=== PATIENT | female | born 1990 | race American Indian/Alaskan Native ===

== ENCOUNTER → 2018-04-15 15:14 | Outpatient (CLI) | payer MEDICAID, SELFPAY ==
[2018-04-15 20:19] LABS: Chlamydia Trachomatis by PCR Negative (Negative); Neisserai gonorrhoeae by PCR Negative (Negative); Probe Check PASS; Sample Adequacy Control PASS; Specimen Processing Control PASS
== END ==
PROVIDERS: Referring Provider Nurse Practitioner Women's Health; Visit Provider Nurse Practitioner Women's Health
DX: N76.0 Acute vaginitis (principal)
CPT/HCPCS: 87070; 87205; 87491; 87591

== ENCOUNTER 2018-04-27 05:23 | Emergency (ER) | payer MEDICAID, SELFPAY ==
[2018-04-27 05:24] VITALS: BP 120/77; BP 142/69; PULSE 89; PULSE 96; RESP 18; TEMP 36.8; O2SAT 100; O2SAT 99; BMI 23.8
--- NOTE | 2018-04-27 05:30 | ED.VISSUMM ---
- ER Visit Summary Date of Service: 04/27/18 Chief Complaint: Acute anxiety History of Present Illness: The patient is a 27 F presents to the emergency department with severe anxiety is not on any medication for it. She states that she has been taking care of her 7-month-old child and the child has been teething and not sleeping as well. She states that the child's father works all day and has a difficult time helping at home with the child. She is also been told that she needs to find appropriate work within the next 2 weeks and she is very concerned about his and watch the child. She states that she does feel like she is having a difficult time coping with it. She is not suicidal. Is not homicidal. She denies any drug or alcohol use. She denies any thoughts of harming herself or the baby. Physical Examination: Vital signs reviewed General: Well-nourished, well-developed Head: Normocephalic, atraumatic Eyes: Pupils equal and reactive, extraocular muscles intact Neck, supple, no lymphadenopathy Heart: Regular rate and rhythm Respiratory: No distress, clear bilaterally Abdomen: Soft, nontender, nondistended, no peritoneal signs Back: Nontender Extremities: Nontender, no edema, no cords Skin: Normal color no rash Neuro: Alert and oriented, no focal or lateralizing deficits Test Results: [] Emergency Department Course and Treatment: The patient symptoms are consistent with an acute anxiety reaction. Her vitals are unremarkable. EKG was obtained which showed sinus rhythm without acute ischemia. Patient was given IM Ativan. On reevaluation, she is resting comfortably. She had improvement of her heart rate. She had no tachypnea. My suspicion for dangerous cause is very low. The patient was also requesting a refill of her betamethasone cream she does get contact dermatitis on her abdomen. This is done. She will be given a very short course of Ativan for symptom control and was counseled to follow-up with her primary care she may need a more long-acting medication. Patient be discharged home. Treatment Plan: [] Disposition: Discharge Impression: 1. Acute anxiety reaction This note was generated with [employer] software. It may contain incorrect words, spelling, and punctuation that were not noted in review of the chart prior to signing ED Disposition - Plan for ED Patient: Chief Complaint: Chest Pain Instructions: ED Stress React Prescriptions: Betamethasone/Propylene Glyc [Betamethasone Dp Aug 0.05% Crm] 1 applicatio TP Q8 #50 cream..g. Lorazepam [Ativan] 0.5 mg PO TID #10 tab Referrals: [facility] Doctor,Out of [Primary Care Provider] -
--- NOTE | 2018-04-27 05:33 | ED.DCSUM_ITS ---
- ER Visit Summary Date of Service: 04/27/18 Chief Complaint: Acute anxiety History of Present Illness: The patient is a 27 F presents to the emergency department with severe anxiety is not on any medication for it. She states that she has been taking care of her 7-month-old child and the child has been te ething and not sleeping as well. She states that the child's father works all day and has a difficult time helping at home with the child. She is also been told that she needs to find appropriate work within the next 2 weeks and she is very concerned about his and watch the child. She states that she does feel like she is having a difficult time coping with it. She is not suicidal. Is not homicidal. She denies any drug or alcohol use. She denies any thoughts of harming herself or the baby. Physical Examination: Vital signs reviewed General: Well-nourished, well-developed Head: Normocephalic, atraumatic Eyes: Pupils equal and reactive, extraocular muscles intact Neck, supple, no lymphadenopathy Heart: Regular rate and rhythm Respiratory: No distress, clear bilaterally Abdomen: Soft, nontender, nondistended, no peritoneal signs Back: Nontender Extremities: Nontender, no edema, no cords Skin: Normal color no rash Neuro: Alert and oriented, no focal or lateralizing deficits Test Results: [] Emergency Department Course and Treatment: The patient symptoms are consistent with an acute anxiety reaction. Her vitals are unremarkable. EKG was obtained which showed sinus rhythm without acute ischemia. Patient was given IM Ativan. On reevaluation, she is resting comfortably. She had improvement of her heart rate. She had no tachypnea. My suspicion for dangerous cause is very low. The patient was also requesting a refill of her betamethasone cream she does get contact dermatitis on her abdomen. This is done. She will be given a very short course of Ativan for symptom control and was counseled to follow-up with her primary care she may need a more long-acting medication. Patient be discharged home. Treatment Plan: [] Disposition: Discharge Impression: 1. Acute anxiety reaction This note was generated with [employer] software. It may contain incorrect words, spelling, and punctuation that were not noted in review of the chart prior to signing ED Disposition - Plan for ED Patient: Chief Complaint: Chest Pain Instructions: ED Stress React Prescriptions: Betamethasone/Propylene Glyc [Betamethasone Dp Aug 0.05% Crm] 1 applicatio TP Q8 #50 cream..g. Lorazepam [Ativan] 0.5 mg PO TID #10 tab Referrals: [facility] Doctor,Out of [Primary Care Provider] -
[2018-04-27] MEDS: LORazepam 2 MG/ML Syringe 1 MG IM (05:40)
--- NOTE | 2018-04-27 06:14 | EKG12_ITS ---
Test Reason : CP Blood Pressure : / mmHG Vent. Rate : 085 BPM Atrial Rate : 085 BPM P-R Int : 162 ms QRS Dur : 084 ms QT Int : 362 ms P-R-T Axes : 066 055 020 degrees QTc Int : 430 ms Normal sinus rhythm Normal ECG Confirmed by ANYA FELDER ([id number]), editorial specialist DELVIS ARRIOLA ([id number]) on 04/30/2018 8:37:12 AM Referred By: NIYA Confirmed By:ANYA FELDER
[2018-04-27 06:30] VITALS: BP 118/77; PULSE 66; RESP 16; O2SAT 100
== END 2018-04-27 06:33 | disposition home or self-care (01) ==
LOC: ED 05:57
PROVIDERS: Emergency Provider Emergency Medicine
DX: F41.1 Generalized anxiety disorder (principal); F43.0 Acute stress reaction
CPT/HCPCS: 93005; 99282

== ENCOUNTER 2018-05-05 21:03 | Emergency (ER) | payer MEDICAID, SELFPAY ==
[2018-05-05 21:03] VITALS: BP 142/90; PULSE 71; RESP 20; TEMP 36.7; O2SAT 99; BMI 23.9
[2018-05-05 21:09] VITALS: RESP 20
--- NOTE | 2018-05-05 21:25 | ED.VISSUMM ---
- ER Visit Summary Date of Service: 05/05/18 Chief Complaint: Anxiety History of Present Illness: The patient is a 27 F presenting with anxiety this is been ongoing for some time and it got worse tonight she was seen about a week ago for similar symptoms. She is trying to get into [facility] or anywhere else where she can get help. She has not tried behavioral health services yet. She has no suicidal ideation. She has no systemic complaints. Physical Examination: And is tearful. She appears somewhat anxious Moist mucous membranes, no obvious facial deformity No C-spine tenderness supple neck. Regular rate and rhythm without any obvious murmurs Clear lungs bilaterally speaking in full sentences without any obvious respiratory distress Abdomen soft and nontender no guarding or rebound Moves all extremities without any difficulty or pain. Skin does not show any obvious rashes or lesions, no trauma. Alert oriented ?3 with no gross focal deficit Emergency Department Course and Treatment: Treat the patient with Ativan here. She will be discharged to follow-up with behavioral health services. I gave her a booklet on this. Discharge stable condition Impression: Anxiety This note was generated with [employer] dictation software. It may contain incorrect words, spelling, and punctuation that were not noted in review of the chart prior to signing ED Disposition - Plan for ED Patient: Disposition: Home or Assisted Living Chief Complaint: Anxiety Instructions: ED Panic Attack Additional Instructions: Follow-up with behavioral health services.
--- NOTE | 2018-05-05 21:29 | ED.DCSUM_ITS ---
- ER Visit Summary Date of Service: 05/05/18 Chief Complaint: Anxiety History of Present Illness: The patient is a 27 F presenting with anxiety this is been ongoing for some time and it got worse tonight she was seen about a week ago for similar symptoms. She is trying to get into [facility] or anywh ere else where she can get help. She has not tried behavioral health services yet. She has no suicidal ideation. She has no systemic complaints. Physical Examination: And is tearful. She appears somewhat anxious Moist mucous membranes, no obvious facial deformity No C-spine tenderness supple neck. Regular rate and rhythm without any obvious murmurs Clear lungs bilaterally speaking in full sentences without any obvious respiratory distress Abdomen soft and nontender no guarding or rebound Moves all extremities without any difficulty or pain. Skin does not show any obvious rashes or lesions, no trauma. Alert oriented ?3 with no gross focal deficit Emergency Department Course and Treatment: Treat the patient with Ativan here. She will be discharged to follow-up with behavioral health services. I gave her a booklet on this. Discharge stable condition Impression: Anxiety This note was generated with [employer] dictation software. It may contain incorrect words, spelling, and punctuation that were not noted in review of the chart prior to signing ED Disposition - Plan for ED Patient: Disposition: Home or Assisted Living Chief Complaint: Anxiety Instructions: ED Panic Attack Additional Instructions: Follow-up with behavioral health services.
[2018-05-05] MEDS: LORazepam 1 MG Tablet PO (21:40)
[2018-05-05 21:41] VITALS: BP 121/73; PULSE 60; RESP 16; O2SAT 100
== END 2018-05-05 21:47 | disposition home or self-care (01) ==
PROVIDERS: Emergency Provider Emergency Medicine
DX: F41.9 Anxiety disorder, unspecified (principal)
CPT/HCPCS: 99282

== ENCOUNTER 2018-06-19 20:54 | Emergency (ER) | payer MEDICAID, SELFPAY ==
[2018-06-19 20:56] VITALS: BP 138/70; PULSE 81; RESP 18; TEMP 36.6; O2SAT 98; BMI 23.1
--- NOTE | 2018-06-19 23:50 | ED.VISSUMM ---
- ER Visit Summary Date of Service: 06/19/18 Chief Complaint: Dental pain History of Present Illness: The patient is a 27 F presenting with left-sided toothache. She states this has been ongoing for the past 3 days. She is on amoxicillin and Naprosyn. She states the swelling has increased in her left jaw. She denies fever or other complaints. She goes to [facility] for her dentist. Physical Examination: Vitals are stable. Patient is afebrile. Alert no acute distress. HEENT exam left lower molar tenderness, diffuse gum swelling. No sublingual edema. Mild left mandibular swelling. Neck is supple. Lungs are clear and equal bilaterally. Heart is regular rate and rhythm. Extremities are unremarkable. Skin is warm and dry. Remainder of exam is unremarkable. Emergency Department Course and Treatment: Attempted I&D with no pus return. She is given prescription for clindamycin and short course of Percocet. She is advised to follow-up with her dentist. Advised return to ED for worsening complaints. Disposition: Discharge home Impression: Odontalgia, facial swelling This note was generated with [employer] dictation software. It may contain incorrect words, spelling, and punctuation that were not noted in review of the chart prior to signing ED Disposition - Plan for ED Patient: Chief Complaint: Dental Referrals: Jj Valera MD [Primary Care Provider] -
--- NOTE | 2018-06-19 23:57 | ED.DCSUM_ITS ---
- ER Visit Summary Date of Service: 06/19/18 Chief Complaint: Dental pain History of Present Illness: The patient is a 27 F presenting with left-sided toothache. She states this has been ongoing for the past 3 days. She is on amoxicillin and Naprosyn. She states the swelling has increased in her left jaw . She denies fever or other complaints. She goes to [facility] for her dentist. Physical Examination: Vitals are stable. Patient is afebrile. Alert no acute distress. HEENT exam left lower molar tenderness, diffuse gum swelling. No sublingual edema. Mild left mandibular swelling. Neck is supple. Lungs are clear and equal bilaterally. Heart is regular rate and rhythm. Extremities are unremarkable. Skin is warm and dry. Remainder of exam is unremarkable. Emergency Department Course and Treatment: Attempted I&D with no pus return. She is given prescription for clindamycin and short course of Percocet. She is advised to follow-up with her dentist. Advised return to ED for worsening complaints. Disposition: Discharge home Impression: Odontalgia, facial swelling This note was generated with [employer] dictation software. It may contain incorrect words, spelling, and punctuation that were not noted in review of the chart prior to signing ED Disposition - Plan for ED Patient: Chief Complaint: Dental Referrals: Jj Valera MD [Primary Care Provider] -
--- NOTE | 2018-06-19 23:57 | ED.DEP ---
ED Disposition - Plan for ED Patient: Chief Complaint: Dental Instructions: ED Abscess Dental Prescriptions: Oxycodone HCl/Acetaminophen [Percocet 5/325] 1 tablet PO Q6H PRN PRN 3 Days #12 tablet PRN Reason: Pain Clindamycin [Cleocin] 300 mg PO 4X/DAY #80 capsule Referrals: Jj Valera MD [Primary Care Provider] - Janet Barroso [NON-STAFF] -
[2018-06-20 00:11] VITALS: BP 139/74; PULSE 82; RESP 16; O2SAT 98
[2018-06-20] MEDS: oxyCODONE 5 MG Tablet PO (00:13)
[2018-06-20] MEDS: Clindamycin HCl 150 MG Capsule 300 MG PO (00:13)
== END 2018-06-20 00:13 | disposition home or self-care (01) ==
PROVIDERS: Emergency Provider Emergency Medicine; Family Provider Family Medicine; PCP Family Medicine
DX: K08.89 Other specified disorders of teeth and supporting structures (principal); R22.0 Localized swelling, mass and lump, head
CPT/HCPCS: 41800; 99283

== ENCOUNTER 2018-06-29 11:27 | Emergency (ER) | payer MEDICAID, SELFPAY ==
[2018-06-29 11:28] VITALS: BP 137/75; PULSE 104; RESP 18; TEMP 37; O2SAT 97; BMI 23.5
--- NOTE | 2018-06-29 11:38 | ED.VISSUMM ---
- ER Visit Summary Date of Service: 06/29/18 Chief Complaint: Sore throat, myalgias History of Present Illness: The patient is a 27 F who is otherwise healthy presents with sore throat and myalgias. Symptoms began over the past 2 days. The patient states that her baby was sick at home. She states she developed symptoms 2 days later. She has had increasing sore throat. She has difficulty swallowing. She does think that she is had fevers. She is never had strep throat that she knows of. She did take Tylenol and Naprosyn with little improvement. She denies cough. She states that she did vomit twice. Physical Examination: Vital signs reviewed General: Well-nourished, well-developed Head: Normocephalic, atraumatic Eyes: Pupils equal and reactive, extraocular muscles intact ENT: Posterior oropharynx is widely patent. She has exudates on bilateral tonsils. Uvula midline. No evidence of retropharyngeal or peritonsillar abscess. No trismus. No stridor. Neck, supple, anterior lymphadenopathy Heart: Regular rate and rhythm Respiratory: No distress, clear bilaterally Abdomen: Soft, nontender, nondistended, no peritoneal signs Back: Nontender Extremities: Nontender, no edema, no cords Skin: Normal color no rash Neuro: Alert and oriented, no focal or lateralizing deficits Test Results: [] Emergency Department Course and Treatment: The patient states that she has had increasing sore throat with fevers and chills. She has exudative tonsillitis. There is no evidence of abscess. She is also had one bout of emesis. The patient is treated with Decadron, Augmentin, and analgesics. She was able to tolerate oral here. At this time, I do feel that she is safe for discharge. She will be continued on oral antibiotics. She was counseled on concerning symptoms and reasons to return. Treatment Plan: [] Disposition: Discharge Impression: Strep pharyngitis This note was generated with [employer] dictation software. It may contain incorrect words, spelling, and punctuation that were not noted in review of the chart prior to signing ED Disposition - Plan for ED Patient: Disposition: Home or Assisted Living Chief Complaint: General Illness Instructions: ED Strep Pharyngitis Conf Prescriptions: Hydrocodone Bitart/Apap 5-325 [[place] 5MG-325MG] 1 tab PO Q6H PRN PRN 2 Days #6 tab PRN Reason: Pain Ondansetron [Zofran Odt] 4 mg PO Q8H PRN PRN #10 tab PRN Reason: Nausea Amox/Clavulanate Tablet [Augmentin Tablet] 875 mg PO Q12H #20 tab Referrals: Jj Valera MD [Primary Care Provider] -
[2018-06-29] MEDS: HYDROCODONE/APAP 7.5-325/15ML 15 ML UDC PO (11:46)
[2018-06-29] MEDS: Ondansetron ODT 4 MG Tablet 8 MG PO (11:46)
[2018-06-29] MEDS: Amox/Clavulanate 875 MG Tablet PO (11:47)
[2018-06-29 12:18] VITALS: PULSE 100; RESP 16; O2SAT 99
== END 2018-06-29 12:19 | disposition home or self-care (01) ==
LOC: ED 12:07
PROVIDERS: Emergency Provider Emergency Medicine; Family Provider Family Medicine; PCP Family Medicine
DX: J02.0 Streptococcal pharyngitis (principal); F41.9 Anxiety disorder, unspecified; Z72.0 Tobacco use
CPT/HCPCS: 99283

== ENCOUNTER 2018-08-06 11:02 | Emergency (ER) | payer MEDICAID, SELFPAY ==
[2018-08-06 11:03] VITALS: BP 137/92; PULSE 109; RESP 26; TEMP 36.6; O2SAT 99; BMI 23.3
[2018-08-06] MEDS: LORazepam 2 MG/ML Syringe 1 MG IM (11:48)
--- NOTE | 2018-08-06 12:26 | ED.VISSUMM ---
- ER Visit Summary Date of Service: 08/06/18 Chief Complaint: [Anxiety] History of Present Illness: The patient is a 27 F [presents the emergency department complaint of anxiety that started around 10 AM this morning. Patient states that she woke up feeling very anxious and began feeling like her heart was racing. Patient began to feel like something bad was going to happen and she began feeling very shaky and then she became nauseated. Patient states that she is had increased anxiety for the last few months. Patient has had problems like this in the past and they attempted to use Atarax to help treat this unsuccessfully and that she had been on Paxil but after a week she could not tolerate it so she discontinued it. Patient has a appointment with her primary care physician in 3 days.] Physical Examination: [HEENT-PERRLA, EOMI. Cranial nerves II through XII grossly intact. TMs clear. Mucous membranes moist. No adenopathy. Cardiovascular-regular rate and rhythm without murmur or ectopy Lungs-clear to auscultation, chest wall stable without crepitus or subcu emphysema Abdomen-normoactive bowel sounds, soft, nontender, no rebound or rigidity, no peritoneal signs. Extremities-intact ?4, normal range of motion, normal pulses, atraumatic] Test Results: [None indicated] Emergency Department Course and Treatment: [Patient was given a milligram of Ativan IM. Patient felt dramatically improved. She no longer feels like her heart racing.] Treatment Plan: [Patient will be given a prescription for as needed Ativan and she is advised to keep her appointment with her primary care physician.] Disposition: [Discharged home in stable condition.] Impression: [Anxiety reaction/panic attack] This note was generated with [employer] dictation software. It may contain incorrect words, spelling, and punctuation that were not noted in review of the chart prior to signing ED Disposition - Plan for ED Patient: Referrals: Jj Valera MD [Primary Care Provider] -
--- NOTE | 2018-08-06 12:31 | ED.DCSUM_ITS ---
- ER Visit Summary Date of Service: 08/06/18 Chief Complaint: [Anxiety] History of Present Illness: The patient is a 27 F [presents the emergency department complaint of anxiety that started around 10 AM this morning. Patient states that she woke up feeling very anxious and began feeling like her heart was racing. Patient began to feel like something bad was going to happen and she began feeling very shaky and then she became nauseated. Patient states that she is had increased anxiety for the last few months. Patient has had problems like this in the past and they attempted to use Atarax to help treat this unsuccessfully and that she had been on Paxil but after a week she could not tolerate it so she discontinued it. Patient has a appointment with her primary care physician in 3 days.] Physical Examination: [HEENT-PERRLA, EOMI. Cranial nerves II through XII grossly intact. TMs clear. Mucous membranes moist. No adenopathy. Cardiovascular-regular rate and rhythm without murmur or ectopy Lungs-clear to auscultation, chest wall stable without crepitus or subcu em physema Abdomen-normoactive bowel sounds, soft, nontender, no rebound or rigidity, no peritoneal signs. Extremities-intact ?4, normal range of motion, normal pulses, atraumatic] Test Results: [None indicated] Emergency Department Course and Treatment: [Patient was given a milligram of Ativan IM. Patient felt dramatically improved. She no longer feels like her heart racing.] Treatment Plan: [Patient will be given a prescription for as needed Ativan and she is advised to keep her appointment with her primary care physician.] Disposition: [Discharged home in stable condition.] Impression: [Anxiety reaction/panic attack] This note was generated with [employer] dictation software. It may contain incorrect words, spelling, and punctuation that were not noted in review of the chart prior to signing ED Disposition - Plan for ED Patient: Referrals: Jj Valera MD [Primary Care Provider] -
--- NOTE | 2018-08-06 12:31 | ED.DEP ---
ED Disposition - Plan for ED Patient: Instructions: ED Panic Attack, ED Stress React Prescriptions: Lorazepam [Ativan] 1 mg PO TID PRN #10 tab PRN Reason: Anxiety Referrals: Jj Valera MD [Primary Care Provider] - 3-5 Days
--- NOTE | 2018-08-06 13:00 | CM.ED ---
SOCIAL WORK NOTE REFERRAL DATE: 08/06/18 INFORMANT: SELF REFERRAL REASON FOR CONSULT: ANXIETY MET WITH PT AT BEDSIDE. INTRODUCED ROLE AND REASON FOR REFERRAL. PATIENT SITTING UP IN BED WAITING TO BE DISCHARGED. PATIENT STATES HX OF ANXIETY AND STATES HAS BEEN PRESCRIBED MEDICATIONS IN THE PAST. PATIENT REPORTS GOOD COPING SKILLS WHEN FEELING ANXIOUS SUCH WORKING OUT OR TAKING A BATH. PATIENT STATES TODAY THE ANXIETY WAS TOO MUCH AND NEEDED TO BE SEEN. PATIENT STATES HAS INTAKE APPOINTMENT SCHEDULED WITH [facility] FOR NEXT WEEK. PATIENT STATES HAS HAD ISSUES WITH TRANSPORTATION AND FINDING SITTER FOR HER CHILD SO HAS HAD TO RESCHEDULE APPOINTMENT SEVERAL TIMES. PATIENT STATES SHE AND BOYFRIEND DO NOT CURRENTLY HAVE A CAR. PATIENT STATES RELIES ON FRIENDS AND FAMILY FOR TRANSPORT NEEDS. PATIENT STATES GOOD SUPPORT FROM BOYFRIEND, KIRSTEN PRETTYWEASEL. PATIENT DENIES ANY FURTHER NEEDS. UPDATED PT'S NURSE ON THE ABOVE. INTERVENTIONS: VERIFIED MENTAL HEALTH SERVICES IN PLACE FOR PT. PLAN: D/C HOME BEFORE SANYA LYLES, REFUSE COLLECTOR, DIRECTOR SAFETY COUNCIL.
[2018-08-06 13:16] VITALS: BP 127/69; PULSE 76; RESP 17; O2SAT 99
--- NOTE | 2018-08-06 13:16 | ED.RN ---
DISCHARGE INSTRUCTIONS GIVEN TO AND REVIEWED WITH PATIENT, PATIENT DENIES QUESTIONS OR CONCERNS AND VOICES UNDERSTANDING OF DISCHARGE INSTRUCTIONS. PT AMBULATES OUT OF ROOM WITHOUT DIFFICULTY.
== END 2018-08-06 13:20 | disposition home or self-care (01) ==
LOC: ED 12:13
PROVIDERS: Emergency Provider Emergency Medicine; Family Provider Family Medicine; PCP Family Medicine
DX: F41.1 Generalized anxiety disorder (principal)
CPT/HCPCS: 96372; 99282

== ENCOUNTER 2019-02-20 14:55 | Emergency (ER) | payer SELFPAY ==
[2019-02-20 14:56] VITALS: BP 121/68; PULSE 66; RESP 14; TEMP 35.8; O2SAT 99; BMI 21.2
== END 2019-02-20 16:19 | disposition left against medical advice (07) ==
PROVIDERS: Emergency Provider Emergency Medicine; Family Provider Family Medicine; PCP Family Medicine
DX: R69 Illness, unspecified (principal); Z53.21 Procedure and treatment not carried out due to patient leaving prior to being seen by health care provider

== ENCOUNTER 2019-07-23 17:45 | Outpatient (CLI) | payer MEDICAID, SELFPAY ==
[2019-07-23 18:18] VITALS: BMI 23.4
[2019-07-23 19:04] LABS: Hematocrit 34.4 % (37-47); Hemoglobin 11.5 g/dL (12.0-15.0); Mean Corp Hgb Conc 33.4 g/dL (32-36); Mean Corpuscular Hgb 31.3 pg (27.0-32.0); Mean Corpuscular Volume 93.5 fL (81-99); Mean Platelet Vol. 9.7 fl (6.2-12.0); Platelet Count 202 K/mm3 (150-450); RBC Distribution Width CV 12.3 % (11.6-14.6); RBC Distribution Width SD 42.3 fl (35.1-43.9); Red Blood Count 3.68 M/mm3 (4.2-5.4); White Blood Count 10.5 K/mm3 (4.4-11.0)
[2019-07-23 19:17] LABS: Fibrinogen 418 mg/dl (203-444)
--- NOTE | 2019-07-23 20:59 | OB.TRI.NOTE ---
- Problem List (1) 32 weeks gestation of Status: Acute (2) Fall Status: Acute (3) Abdominal pain affecting Status: Acute History of Present Illness Date of Service: 07/23/19 Was patient seen by the physician?: Yes Reason For Visit: FALL Final JAY Source: LMP Gestational age: 32 w 4 d History of Present Illness: Is a 28-year-old at 32 weeks and 4 days who presents after fall. She said she fell onto her right side, and her hand hit the ground first followed by the right side of her abdomen. She did not hit her head. No bleeding or leaking of fluid. She is having right-sided abdominal pain. No contractions. Good movement. Allergies ibuprofen Adverse Reaction (Verified 07/23/19 18:21) Upset Stomach - Pertinent Past Medical History Medical History: Past Medical History (Last Updated 07/23/19 @ 21:01 by Caitlin Villalobos DO) Cerebral palsy Surgical History: Past Surgical History (Last Updated 07/23/19 @ 21:01 by Caitlin Villalobos DO) History of section Cholecystectomy planned Laboratory Studies: Laboratory Tests 07/23/19 07/23/19 07/23/19 Range/Units 18:52 18:52 18:52 WBC 10.5 (4.4-11.0) K/mm3 RBC 3.68 L (4.2-5.4) M/mm3 Hgb 11.5 L (12.0-15.0) g/dL Hct 34.4 L (37-47) % MCV 93.5 (81-99) fL MCH 31.3 (27.0-32.0) pg MCHC 33.4 (32-36) g/dL RDW Std Deviation 42.3 (35.1-43.9) fl RDW Coeff of Bj 12.3 (11.6-14.6) % Plt Count 202 (150-450) K/mm3 MPV 9.7 (6.2-12.0) fl Fibrinogen 418 (203-444) mg/dl Blood Type O POSITIVE Antibody Screen NEGATIVE Review of Systems Gynecological: Denies: Vaginal bleeding Physical Exam General: Alert, No apparent distress HEENT: Atraumatic Abdomen: Soft, Non Tender, Gravid Extremities:: No edema Neurological: Neuro grossly intact NST - FHR Rate Baby A Baseline: 130 Variability:: Moderate Accelerations:: 15 x 15 Decelerations:: None NST Reactive:: Yes Uterine Activity:: Occasional ctx's Impression/Plan - Abruption labs WNL - Positive blood type - Abd exam unremarkable - Monitor for 4 hours after fall, FHT reactive and reassuring - Pt has had no care - Will get her established in our office and discussed importance of routine care - Reviewed return precautions
== END 2019-07-23 21:55 | disposition home health service (06) ==
LOC: WPOUT 18:00 → WP 18:01
PROVIDERS: PCP Family Medicine; Visit Provider Obstetrics & Gynecology
DX: O26.893 Other specified pregnancy related conditions, third trimester (principal); R10.9 Unspecified abdominal pain; Z3A.32 32 weeks gestation of pregnancy
CPT/HCPCS: 59025; 59050; 85027; 85384; 86850; 86900; 86901; 99218; G0378

== ENCOUNTER 2019-08-03 12:20 | Emergency (ER) | payer MEDICAID, SELFPAY ==
[2019-08-03 12:22] VITALS: BP 108/70; PULSE 96; RESP 17; TEMP 36.4; O2SAT 97; BMI 24.4
--- NOTE | 2019-08-03 12:38 | ED.DCSUM_ITS ---
- ER Visit Summary Date of Service: 08/03/19 Chief Complaint: Left lower jaw dental pain History of Present Illness: The patient is a 28 F with a 34 weeks due had a the first week of August. Basically she had dental pain left lower jaw for 2 to 3 days. No fever. Has been using Tylenol for pain. Physical Examination: Young female no acute distress. Vital signs stable afebrile. H EENT exam unremarkable except left lower molar tender to palpation. No significant swelling or abscess. No facial swelling. No trismus. Neck nontender no lymphadenopathy. Lungs clear to auscultation. Heart regular rhythm no murmur. Abdomen soft nontender. Gravid uterus. Nontender. Moving all 4 extremities. No edema. Neurologically awake alert. Test Results: None Emergency Department Course and Treatment: Patient with left lower molar dental pain. Will place on Pen-Vee K. She and I discussed medications. She reportedly cannot take ibuprofen. He is also currently . I told her to continue using Tylenol. I did explain to her that I did not think narcotics were appropriate especially when she is . Treatment Plan: Pen-Vee K. Follow-up with a dentist. Disposition: Discharge Impression: Left lower molar dental pain R/o dental Abscess Third trimester . This note was generated with Greenbox dictation software. It may contain incorrect words, spelling, and punctuation that were not noted in review of the chart prior to signing ED Disposition - Plan for ED Patient: Referrals: Jj Valera MD [Primary Care Provider] -
--- NOTE | 2019-08-03 12:41 | ED.DEP ---
ED Disposition - Plan for ED Patient: Disposition: Home or Assisted Living Instructions: Dental Abscess Prescriptions: Penicillin Vk [Pen-Vee K , V-Cillin K] 250 mg PO 4X/DAY #30 tab Prescription Printed Referrals: Jj Valera MD [Primary Care Provider] - As Needed Additional Instructions: Tylenol for pain. Penicillin 4 times a day. Follow-up with a dentist.
--- NOTE | 2019-08-03 13:06 | ED.RN ---
REVIEWED D/C INSTRUCTIONS, FOLLOW UP CARE, PRESCRIPTION, AND S/S THAT WOULD WARRANT A RETURN TO THE ED WITH PT. PT VERBALIZED AN UNDERSTANDING AND DENIES FURTHER QUESTIONS FOR THIS RN. PT SKIN WARM AND DRY, RESP EVEN AND UNLABORED, PT A&O X 3, NO DISTRESS NOTED. PT AMBULATED OUT OF ED, GAIT STEADY.
== END 2019-08-03 13:07 | disposition home or self-care (01) ==
LOC: ED 12:57
PROVIDERS: Emergency Provider Emergency Medicine; PCP Family Medicine
DX: K08.89 Other specified disorders of teeth and supporting structures (principal); O99.613 Diseases of the digestive system complicating pregnancy, third trimester; Z3A.34 34 weeks gestation of pregnancy
CPT/HCPCS: 99282

== ENCOUNTER → 2019-08-13 16:17 | Outpatient (CLI) | payer MEDICAID, SELFPAY ==
[2019-08-03 12:22] VITALS: BMI 24.4
--- NOTE | 2019-08-13 16:36 | VDLE_ITS ---
Reason For Study: Swelling/Pain RIGHT LEFT CFV is compressible, spontaneous, phasic, GSV is normal. competent and demonstrates normal CFV is compressible, spontaneous, phasic, augmentation. competent, and demonstrates normal Procedure augmentation. Exam performed in department. FV is compressible, spontaneous, phasic, A preliminary report was called and/or faxed competent and demonstrates normal to Dr. Cardona. augmentation. POP V is compressible, spontaneous, phasic, competent and demonstrates normal augmentation. T/P Trunk is compressible. PTV is compressible. LT PerV is compressible. Interpretation Summary There is no evidence of left lower extremity deep vein thrombosis. Left great saphenous vein appears patent and compressible segmentally. Patent and compressible right common femoral vein Ordering Physician: Maira Cardona Referring Physician: Jj Valera Performed By: Deana Davis RDCS, RVT
== END ==
PROVIDERS: PCP Family Medicine; Referring Provider Obstetrics & Gynecology; Visit Provider Obstetrics & Gynecology
DX: O12.03 Gestational edema, third trimester (principal); M79.605 Pain in left leg; Z3A.00 Weeks of gestation of pregnancy not specified
CPT/HCPCS: 93971

== ENCOUNTER 2019-09-05 05:25 | Inpatient (IN) | payer MEDICAID, SELFPAY ==
--- NOTE | 2019-09-04 13:25 | PCM.HP.BLA ---
History and Physical Date of Admission: 09/05/19 Caesar Thompson is a 28 year old female who presents for pre op for scheduled repeat cs- pt denies CP, SOB, dizziness. Pt offers no other concerns today. - scheduled 39 weeks repeat cs ? PAST MEDICAL HISTORY PAST MEDICAL HISTORY Diagnosis Date ? Anxiety ? ? Infantile cerebral palsy, unspecified 10/16/2006 ? Other specified infantile cerebral palsy ? ? depression ? ? PAST SURGICAL HISTORY PAST SURGICAL HISTORY Procedure Laterality Date ? SECTION HX ? ? ? LAP CHOLECYSTECT/CHOLANGIOGRAPHY ? 09-09-12 ? FAMILY HISTORY FAMILY HISTORY Problem Relation Age of Onset ? Coronary Artery Disease Mother 50 ? Arthritis Mother ? ? Psychiatry Mother ? ? PTSD ? other (degenerative disc disease) Mother ? ? other (anxiety) Mother ? ? Psychiatry Father ? ? anxiety/OCD ? Diabetes Maternal Aunt ? ? No Known Problems Brother ? ? No Known Problems Son ? ? SOCIAL HISTORY Social History ? Tobacco Use ? Smoking status: Never Smoker ? Smokeless tobacco: Never Used Substance Use Topics ? Alcohol use: Not Currently ? ? Comment: occasionally ? Drug use: No ? CURRENT MEDICATIONS Current Outpatient Medications Medication Sig ? betamethasone dipropionate, augmented (DIPROLENE) 0.05 % cream Apply 1 application to affected area twice daily as needed. ? acetaminophen (TYLENOL EXTRA STRENGTH) 500 mg tablet Take 1 tablet by mouth every 6 hours as needed for Pain. ? PNV no.95/ferrous fum/folic ac ( ORAL) Take by mouth. ? No current facility-administered medications for this visit. ? Allergies As of Date: 09/02/2019 Allergen Noted Reaction IBUPROFEN 09/21/2006 Intolerance and GI Upset ? Fully Assessed 09/02/2019 ? ? REVIEW OF SYSTEMS Abdomen: No abdominal pain, nausea, vomiting, diarrhea, or constipation. Bladder: no dysuria.. Expanded ROS: GENERAL: Negative for fever Allergies and current medication updated:Yes ? EXAM: BP 108/64 Wt 175 lb (79.4kg) LMP 12/06/2018 ? GENERAL: pleasant, female in no apparent distress HEENT: Normocephalic and atraumatic NECK: full range of motion DERMATOLOGY: Normal, without lesions, non-icteric and non-hirsute ABDOMEN: soft, non-tender and gravid NEURO: alert and oriented x3,exam grossly non-focal EXTREMITIES: normal ? ASSESSMENT AND PLAN: Encounter Diagnosis ? ? ICD-10-CM ? 1. Visit for screening Z36.9 URINE OB DIP B/O 2. 38 weeks gestation of Z3A.38 URINE OB DIP B/O ? 3. Pt has been counseled on risks/benefits and alternatives of surgery including but not limited to anesthesia, bleeding, infection, injury to pelvic structures including bowel, bladder, ureters and vessels. Pt wishes to proceed with surgery at this time. 4. Consent signed 5. Pre op instructions reviewed ? ? Maira Cardona MD ?
[2019-09-05] VITALS (21 sets, daily range): BP systolic 102–126; BP diastolic 53–77; PULSE 49–71; RESP 12–18; TEMP 35.9–36.6; O2SAT 98–100; BMI 25.9
[2019-09-05] MEDS: Lactated Ringers 1,000 ML 999 ML IV (06:00)
[2019-09-05 06:08] LABS: Absolute Lymphocyte Count 1.94 X10^3/uL (0.83-4.51); Absolute Neutrophil Count 6.4 X10^3/uL (2.0-7.7); Basophil# 0.04 X10^3/uL; Basophil% 0.4 % (0-1); Eosinophil# 0.14 X10^3/uL; Eosinophils% 1.5 % (0-5); Hematocrit 34.4 % (37-47); Hemoglobin 11.5 g/dL (12.0-15.0); Lymphocyte # 1.94 X10^3/ul (4.0); Lymphocyte % 20.6 % (19-41); Mean Corp Hgb Conc 33.4 g/dL (32-36); Mean Corpuscular Volume 89.8 fL (81-99); Mean Platelet Vol. 10.2 fl (6.2-12.0); Monocyte# 0.79 X10^3/uL; Monocyte% 8.4 % (0-10); NRBC Flagged by Analyzer 0 % (0-5); Neutrophil # 6.42 X10^3/uL (2.7-7.7); Neutrophil % 68.4 % (47-70); Platelet Count 235 K/mm3 (150-450); RBC Distribution Width CV 12.7 % (11.6-14.6); RBC Distribution Width SD 41.3 fl (35.1-43.9); Red Blood Count 3.83 M/mm3 (4.2-5.4); White Blood Count 9.4 K/mm3 (4.4-11.0)
[2019-09-05] MEDS: Sodium Citrate/Citric Acid 30 ML UDC PO (06:58)
[2019-09-05] MEDS: Lactated Ringers 1,000 ML 150 ML IV (07:05)
[2019-09-05] MEDS: Cefazolin 2 GM in 0.9% Normal Saline 100 ML IV (07:15)
--- NOTE | 2019-09-05 08:04 | PCM.OPRPT ---
Delivery Classification: Scheduled Final JAY: 09/12/19 Final JAY Source: US <20 weeks Gestational age: 39 Weeks and 0 Days associate pastor: Pipo Castro Type of Anesthesia:: Spinal Implants Used: none Date of Procedure: 09/05/19 Pre-Operative Diagnosis: Term gestation, elective repeat c/s Post-Operative Diagnosis: same, live male Indications for : Repeat Elective Description of Procedure: After informed consent was obtained the patient was taken the operating room she was given spinal anesthesia. She was then placed in the supine position. She was prepped and draped in the normal sterile fashion. Anesthesia was found to be adequate. At this time a Pfannenstiel skin incision was made with a knife was carried down to the underlying layer of the fascia. The fascial incision was then extended laterally using curved Valero scissor. Attention was then turned to the superior aspect of the fascial edge was grasped with 2 straight Tmaie clamps tented up and the rectus muscle dissected off sharply using curved Valero scissor. Attention was then turned to the inferior aspect where again Tamie clamps were placed in the rectus muscles were tented up and the fascia was dissected off sharply using the curved Valero scissor. Rectus muscles were then in the midline bluntly and peritoneum was entered bluntly. Gentle opposing traction was placed. At this time the vesicouterine peritoneum was identified. Scalpel was used to make a uterine incision in a low transverse fashion. The uterus was then entered bluntly gentle opposing traction was placed to extend this incision. Membranes were ruptured clear. Infant's head was brought to the uterine incision was delivered atraumatically. delayed cord clapming performed. Cord was clamped and cut was handed to the waiting nursery team for immediate skin to skin. The Placenta was removed from the uterus. The uterus was then removed from the abdominal cavity. The uterus was cleared of all clots and debris using a lap. At this time the uterine incision was reapproximated using #1 Vicryl in a running locked fashion. followed by a second imbricating layer with #1vicryl. Hemostasis was appreciated. Posterior cul-de-sac was then cleared of all clots and debris. Uterus was placed back in the abdominal cavity. Gutters were cleared of all clots and debris. Uterine incision was reevaluated and noted to be of excellent hemostasis. Anastacia placed. At this time the peritoneum and muscle were reapproximated using #2 Vicryl suture in a running fashion. Anastacia placed over rectus. Fascia was then reapproximated using #1 Vicryl in a running fashion. Subcu layer was reapproximated with #2 0 plain gut suture in an interrupted fashion. Subcu layer was closed using 4-0 Monocryl in a subcu fashion. Dry sterile dressing was applied. Instrument lap needle count correct ?2. Anticipated normal postoperative course. Amniotic Membrane Rupture Type: Artificial Amniotic Fluid Description: Clear Placenta Disposition: [facility] Drain: Doran to straight drain Cord Entanglement: None Cord Vessel Description: 3 Vessels Esitmated Blood Loss (ml): 600 Infant Gender: Male (1 minute): 9 (5 minute): 9 Delayed cord clamping: Yes Antibiotic Given: Ancef 2 grams IV x1 Pt instructed on risks of surgery: Bleeding, Anesthesia Risks, Infection, Injury to surrounding structure(s) including bowel and bladder Complications: None - Admit VTE Documentation VTE Present on Admission: Yes VTE Mechan Device Prophylaxis: SCD's VTE Pharm Prophylaxis ordered?: No
[2019-09-05] MEDS: Oxytocin 30 units/NS 500 ml 30 UNITS/500 ML IV.SOLN 167 UNITS IV (08:15)
[2019-09-05] MEDS: Acetaminophen 500 MG Tablet 1000 MG PO (10:12)
[2019-09-05] MEDS: Lactated Ringers 1,000 ML 100 ML IV (11:20)
--- NOTE | 2019-09-05 12:10 | EKG12_ITS ---
Test Reason : STEPHEN Blood Pressure : / mmHG Vent. Rate : 057 BPM Atrial Rate : 057 BPM P-R Int : 172 ms QRS Dur : 082 ms QT Int : 408 ms P-R-T Axes : 056 057 031 degrees QTc Int : 397 ms Sinus bradycardia Incomplete right bundle branch block Confirmed by CHARITY MALAGON, FILEMON ([id number]), managing editor FREDA DUBOIS ([id number]) on 09/10/2019 10:07:21 AM Referred By: Maira Cardona Confirmed By:FILEMON NASH MD
[2019-09-05] MEDS: Ketorolac 30 MG/ML Syringe IV ×2 (13:48→20:05)
[2019-09-06] VITALS (7 sets, daily range): BP systolic 97–125; BP diastolic 51–81; PULSE 48–69; RESP 14–18; TEMP 36.3–36.6; O2SAT 99–100
[2019-09-06] MEDS: Ketorolac 30 MG/ML Syringe IV ×4 (02:08→19:52)
[2019-09-06] MEDS: 0.9% Saline Lock 10 ML Syringe IV ×4 (02:09→19:53)
[2019-09-06 05:53] LABS: Hemoglobin 9.7 g/dL (12.0-15.0); Mean Corp Hgb Conc 33.4 g/dL (32-36); Mean Corpuscular Hgb 30.4 pg (27.0-32.0); Mean Corpuscular Volume 90.9 fL (81-99); Mean Platelet Vol. 9.9 fl (6.2-12.0); Platelet Count 176 K/mm3 (150-450); RBC Distribution Width CV 12.8 % (11.6-14.6); RBC Distribution Width SD 41.5 fl (35.1-43.9); Red Blood Count 3.19 M/mm3 (4.2-5.4); White Blood Count 8.9 K/mm3 (4.4-11.0)
[2019-09-06] MEDS: Senna/Docusate Sodium 1 Tablet PO (06:43)
--- NOTE | 2019-09-06 10:00 | PCM.PN.OB ---
Subjective: Doing well per patient and nursing staff. Ambulating and taking PO without difficulty. Doran out, voiding and passing flatus. Pain controlled. Bottle feeding. Planning D/C home tomorrow. Denies any chest pain, shortness of breath, leg pain, increased vaginal bleeding, or other concerns. - Physical Exam Vitals/I&O's: Vital Signs Temp Pulse Resp BP Pulse Ox 97.3 F L 62 18 97/51 L 100 09/06/19 04:09 09/06/19 05:47 09/06/19 05:47 09/06/19 04:09 09/06/19 05:47 Oxygen Delivery Method Room Air Weight: 170 lb 6.4 oz Body Mass Index (BMI) 25.9 Intake and Output for Last 24 Hours 09/04/19 09/05/19 09/06/19 23:59 23:59 23:59 Intake Total 2503.33 / 2503.33 Output Total 1200 / 1200 700 / 700 Balance 1303.33 / 1303.33 -700 / -700 General: Alert, Oriented x3, Cooperative HEENT: Atraumatic, Normocephalic Neck: Trachea Midline Lungs: Clear to auscultation, Normal air movement, No rhonchi, No wheeze Cardiovascular: Regular rate, Regular Rhythm, No murmurs, No Ectopic Activity Abdomen: Bowel Sounds Present, Soft - appropriately tender. Fundus firm 3 below U. Dressing dry and intact. No drainage Extremities: No edema - Lubna's negative bilaterally Psych/Mental Status: Normal Affect, Appropriate Laboratory Results 09/06/19 05:44: WBC 8.9, RBC 3.19 L, Hgb 9.7 L, Hct 29.0 L, MCV 90.9, MCH 30.4, MCHC 33.4, RDW Std Deviation 41.5, RDW Coeff of Bj 12.8, Plt Count 176, MPV 9.9 Current Medications Acetaminophen (Tylenol) 1,000 mg PO Q8H PRN PRN Reason: Pain Score 1-3/10 Last Admin: 09/05/19 10:12 Dose: 1,000 mg Documented by: Bisacodyl (Dulcolax) 10 mg RECTAL UD PRN PRN Reason: If no BM Hydrocortisone (Hytone) 1 applic TOPICAL TID PRN PRN; Protocol PRN Reason: Discomfort Naloxone HCl 4 mg/ Dextrose 504 mls @ 0 mls/hr IV .Q0M PRN; Protocol PRN Reason: Respiratory depression Ketorolac Tromethamine (Toradol (Bkc)) 30 mg IV Q6H ANUP Stop: 09/07/19 07:31 Last Admin: 09/06/19 08:11 Dose: 30 mg Documented by: Methylergonovine Maleate (Methergine) 0.2 mg IM X1 PRN PRN Reason: Uterine Atony Naloxone HCl (Narcan) 0.02 mg IV Q1M PRN PRN Reason: RR <10 and pt unresponsive Naproxen (Naprosyn) 250 - 500 mg PO Q8H PRN PRN PRN Reason: Pain Score 1-3/10 Ondansetron HCl (Zofran) 4 mg IV Q4H PRN PRN PRN Reason: Nausea Oxycodone HCl (Oxyir) 5 - 10 mg PO Q4H PRN PRN PRN Reason: Pain Score 4-10/10 Prochlorperazine Edisylate (Compazine Iv) 10 mg IV Q6H PRN PRN PRN Reason: NAUSEA Senna/Docusate Sodium (Senokot-S, Gilda-Colace) 0 tablet PO DAILY PRN PRN Reason: Constipation Last Admin: 09/06/19 06:43 Dose: 2 tablet Documented by: Simethicone (Mylicon) 80 mg PO PCHS PRN PRN Reason: Indigestion/stomach pain Sodium Chloride () 5 - 15 ml IV UD PRN PRN Reason: SALINE FLUSH Last Admin: 09/06/19 08:11 Dose: 10 ml Documented by: Medical Necessity - Tobacco Use Smoking Status: Never smoker Assessment/Plan All Active Problems (Last Updated 07/23/19 @ 21:[address] Caitlin Villalobos, DO) 32 weeks gestation of (Acute) Fall (Acute) Abdominal pain affecting (Acute) A:POD #1 Repeat Low Transverse Section Bradycardia Acute Blood loss anemia P: 1) Routine care. Bottle feeding 2) Hgb 9.7, decreased from 11.5. Will start Ferrous Sulfate 325mg PO BID, to take stool softener 3) Bradycardia, EKG shows NSR with bradycardia. Patient is asymptomatic, no cardiac history. Consulted , no further recommendations at this time. 4) Planning D/C home tomorrow.
[2019-09-06] MEDS: oxyCODONE 5 MG Tablet PO ×2 (10:32→17:24)
--- NOTE | 2019-09-06 15:40 | CASEMGMT ---
Social Work Assessment Labor and Delivery Unit Date of Referral: 09/06/2019 Time of Referral: 03:04 Date of Intervention: 09/06/2019 Time of Intervention: 15:40 Reason for Referral: HISTORY DEPRESSION AND ANXIETY History obtained from: MOTHER OF BABY (MOB) AND MEDICAL CHART Household composition: KIRSTEN PRETTYWEASEL, FATHER OF BABY (FOB) AND THEIR SON, ELISSA (AGE 2) Financial Status: FOB WORKS AT [employer]. MOB REPORTS LIMITED INCOME. Supplies: MOB REPORTS HAS ALL NEEDS MET FOR BABY BOY, TRAVIS INCLUDING DIAPERS, WIPES, CLOTHS, BOTTLES, FORMULA, BASSINET, CAR SEAT Childcare/Caregiver(s): MOB REPORTS WILL BE MAIN CAREGIVER. FAMILY AND FRIENDS WILL ASSIST NEEDED. Transportation: MOB REPORTS JUST PURCHASED NEW VEHICLE. Programs/Agencies Involved: [facility], [facility], [facility] H[facility] Children Services/Legal Issues: MOB DENIES ANY CHILDREN SERVICES ISSUES OR LEGAL ISSUES. Behavioral Health Issues: Mental Health History: MOB REPORTS HISTORY OF ?BABY BLUES.? MOB REPORTS WAS PRESCIRBED MEDICATION AFTER 1ST CHILD AND DID NOT LIKE THE WAY THE MEDICATION MADE HER FEEL. MOB STATES BEGAN TO FEEL WORSE SO WAS INFORMED TO STOP TAKING THE MEDICATION. MOB REPORTS ANXIETY INCREASED AND WAS PRECRIBED MEDICAITON THAT WAS TAKEN NEEDED. MOB STATES HISTORY OF COUNSELING WHEN SHE WAS YOUNGER. MOB DENIES ANY FEELINGS OF DEPRESSION OR ANXIETY AT THIS TIME. Substance Use History: MOB DENIES ANY HISTORY OF SUBSTANCE ABUSE. Support Systems: MOB REPORTS GOOD SUPPORT FROM FOB, FAMILY AND FRIENDS. Depression/Shaken Baby/Safe Sleeping RESOURCES PROVIDED AND REVIEWED. ASSESSMENT: MET WITH MOB IN ROOM. INTRODUCED ROLE AND REASON FOR REFERRAL. DISCUSSED MENTAL HEALTH HISTORY MENTIONED ABOVE. MOB DENIES ANY NEED FOR REFERRAL. EDUCATION REVIEWED ON SIGNS AND SYMPTOMS OF PPD AND PROVIDED WITH RESOURCES. MOB REPORTS HAS ALL NEEDS MET FOR BABY NEAL AND WILL BE CALLING [facility] ON SUNDAY TO UPDATE ON HIS . NURSING UPDATED ON THIS WORKER?S ASSESSMENT. NURSING VOICES NO CONCERNS. PLAN: HOME WITH RESOURCES PROVIDED. No other services requested or indicated. -Abeba Guzman, INCISING MACHINE OPERATOR, SPINNING SUPERVISOR
[2019-09-07] MEDS: oxyCODONE 5 MG Tablet PO ×2 (00:45→08:24)
[2019-09-07] MEDS: 0.9% Saline Lock 10 ML Syringe IV ×2 (01:48→08:16)
[2019-09-07] MEDS: Ketorolac 30 MG/ML Syringe IV ×2 (01:48→08:15)
[2019-09-07 01:51] VITALS: BP 129/69; PULSE 60; RESP 16; TEMP 36.2; O2SAT 100
[2019-09-07] MEDS: Senna/Docusate Sodium 1 Tablet PO (08:16)
[2019-09-07 08:25] VITALS: BP 119/73; PULSE 62; RESP 16; TEMP 36.3
--- NOTE | 2019-09-07 10:59 | PCM.PN.OB ---
Subjective: Doing well per patient and nursing staff. Ambulating and taking PO without difficulty. Voiding without difficulty, no BM yet. Pain controlled. Denies chest pain shortness of breath, increased vaginal bleeding, or leg pain. Bottle feeding. Planning D/C home today. - Physical Exam Vitals/I&O's: Vital Signs Temp Pulse Resp BP Pulse Ox 97.4 F L 62 16 119/73 100 09/07/19 08:25 09/07/19 08:25 09/07/19 08:25 09/07/19 08:25 09/07/19 01:51 Oxygen Delivery Method Room Air Weight: 170 lb 6.4 oz Body Mass Index (BMI) 25.9 Intake and Output for Last 24 Hours 09/05/19 09/06/19 09/08/19 23:59 23:59 00:59 Intake Total 2503.33 / 2503.33 Output Total 1200 / 1200 1300 / 1300 Balance 1303.33 / 1303.33 -1300 / -1300 General: Alert, Oriented x3, Cooperative HEENT: Atraumatic, Normocephalic Neck: Trachea Midline Lungs: Clear to auscultation, Normal air movement, No rhonchi, No wheeze Cardiovascular: Regular rate, Regular Rhythm, No murmurs Abdomen: Bowel Sounds Present, Soft - Fundus firm 2 below U. Dressing dry and intact Extremities: No edema - Lubna's negative bilaterally Psych/Mental Status: Normal Affect, Appropriate Current Medications Acetaminophen (Tylenol) 1,000 mg PO Q8H PRN PRN Reason: Pain Score 1-3/10 Last Admin: 09/05/19 10:12 Dose: 1,000 mg Documented by: Bisacodyl (Dulcolax) 10 mg RECTAL UD PRN PRN Reason: If no BM Hydrocortisone (Hytone) 1 applic TOPICAL TID PRN PRN; Protocol PRN Reason: Discomfort Naloxone HCl 4 mg/ Dextrose 504 mls @ 0 mls/hr IV .Q0M PRN; Protocol PRN Reason: Respiratory depression Methylergonovine Maleate (Methergine) 0.2 mg IM X1 PRN PRN Reason: Uterine Atony Naloxone HCl (Narcan) 0.02 mg IV Q1M PRN PRN Reason: RR <10 and pt unresponsive Naproxen (Naprosyn) 250 - 500 mg PO Q8H PRN PRN PRN Reason: Pain Score 1-3/10 Ondansetron HCl (Zofran) 4 mg IV Q4H PRN PRN PRN Reason: Nausea Oxycodone HCl (Oxyir) 5 - 10 mg PO Q4H PRN PRN PRN Reason: Pain Score 4-10/10 Last Admin: 09/07/19 08:24 Dose: 10 mg Documented by: Prochlorperazine Edisylate (Compazine Iv) 10 mg IV Q6H PRN PRN PRN Reason: NAUSEA Senna/Docusate Sodium (Senokot-S, Gilda-Colace) 0 tablet PO DAILY PRN PRN Reason: Constipation Last Admin: 09/07/19 08:16 Dose: 1 tablet Documented by: Simethicone (Mylicon) 80 mg PO PCHS PRN PRN Reason: Indigestion/stomach pain Sodium Chloride () 5 - 15 ml IV UD PRN PRN Reason: SALINE FLUSH Last Admin: 09/07/19 08:16 Dose: 10 ml Documented by: Medical Necessity - Tobacco Use Smoking Status: Never smoker Assessment/Plan All Active Problems (Last Updated 07/23/19 @ 21:[address] Caitlin Villalobos, DO) 32 weeks gestation of (Acute) Fall (Acute) Abdominal pain affecting (Acute) A:POD #2 Repeat Section Acute blood loss anemia P: 1) Routine and post op care 2) D/C home today, follow up in one week, appointment made 3) Pain medication to pharmacy 4) Ferrous sulfate 325mg PO BID for discharge.
--- NOTE | 2019-09-07 11:24 | DCINST_ITS ---
Discharge Diet: No Restrictions Discharge Activity: Return to Normal Activity, May not drive while taking narcotic pain medications., May Shower, May Take a Tub Bath May resume sexual activity in: 4-6 weeks Weight Bearing Status: Full weight bearing Additional Activity Instructions:: Nothing in the vagina for 4-6 weeks. You may return to work/school in 6 weeks. Call your doctor if your incision/area has: Continuous Slow Oozing, Sudden Increased Bleeding, Increased Pain/ Swelling, Increased Redness, Foul Smelling Discharge Call your doctor if you observe: Fever of 101 or Higher, Change in Color, Inability to urinate, Inability to have a bowel movement, Using more than one pad per hour, Shortness of breath, Chest pain, Increased palpitations (irregular heartbeat), Calf discomfort, Uncontrolled pain Additional Instructions: If you experience any of the following, contact your healthcare provider. * Bleeding that soaks a pad every hour for 2 hours * Fever 100.4 or higher * Unrelieved incision or abdominal pain * Swelling, redness, discharge or bleeding from your incision or episiotomy site * Your incision begins to separate * Problems urinating (including inability to urinate or burning while urinating). * Visual changes * Severe headache * Flu-like symptoms * Pain or redness in one of both of your breasts * Pain, warmth, tenderness or swelling in your legs, especially the calf area * Frequent nausea and vomiting * Symptoms of depression or anxiety If you experience any of the following, call 911 or go to the nearest Emergency Room. * Chest pain * Problems breathing * Seizure activity * Partial or complete paralysis of a body part, slurred speech, weakness or drooping of the face, or a sudden inability to walk or hold your balance Allergies/Adverse Reactions: Allergies ibuprofen Adverse Reaction (Verified 09/05/19 08:10) Upset Stomach Medications to take at Discharge Pnv No.95/Ferrous Fum/Folic AC [ Vitamin Tablet] 1 tab PO DAILY 07/23/19 Ferrous Sulfate 325 mg PO BID #60 tab 09/07/19 Oxycodone HCl/Acetaminophen [Percocet 5/325] 1 - 2 tablet PO Q4H PRN PRN 7 Days #20 tablet 09/07/19 The following prescriptions were given: Ferrous Sulfate 325 mg PO BID #60 tab Transmission Status: Pending to [id number] Oxycodone HCl/Acetaminophen [Percocet 5/325] 1 - 2 tablet PO Q4H PRN PRN 7 Days #20 tablet PRN Reason: Pain Transmission Status: Received by [facility] Please Follow Up With: Maira Cardona MD When: Call to make an appointment with your doctor in 1 week for incision and 6 weeks. Primary Care Physician: Jj Valera MD [Primary Care Provider] - Test Results: Test results from this visit will be discussed in further detail at your follow-up appointment, if applicable.
--- NOTE | 2019-09-07 11:50 | DCINST_ITS ---
Discharge Diet: No Restrictions Discharge Activity: Return to Normal Activity, May not drive while taking narcotic pain medications., May Shower, May Take a Tub Bath May resume sexual activity in: 4-6 weeks Weight Bearing Status: Full weight bearing Additional Activity Instructions:: Nothing in the vagina for 4-6 weeks. You may return to work/school in 6 weeks. Call your doctor if your incision/area has: Continuous Slow Oozing, Sudden Increased Bleeding, Increased Pain/ Swelling, Increased Redness, Foul Smelling Discharge Call your doctor if you observe: Fever of 101 or Higher, Change in Color, Inability to urinate, Inability to have a bowel movement, Using more than one pad per hour, Shortness of breath, Chest pain, Increased palpitations (irregular heartbeat), Calf discomfort, Uncontrolled pain Suture Line Care: Avoid Pulling/Pushing, Avoid Pinching/Bending Cleanse incision/area with: Keep Dressing Clean & Dry Additional Instructions: If you experience any of the following, contact your healthcare provider. * Bleeding that soaks a pad every hour for 2 hours * Fever 100.4 or higher * Unrelieved incision or abdominal pain * Swelling, redness, discharge or bleeding from your incision or episiotomy site * Your incision begins to separate * Problems urinating (including inability to urinate or burning while urinating). * Visual changes * Severe headache * Flu-like symptoms * Pain or redness in one of both of your breasts * Pain, warmth, tenderness or swelling in your legs, especially the calf area * Frequent nausea and vomiting * Symptoms of depression or anxiety If you experience any of the following, call 911 or go to the nearest Emergency Room. * Chest pain * Problems breathing * Seizure activity * Partial or complete paralysis of a body part, slurred speech, weakness or drooping of the face, or a sudden inability to walk or hold your balance Allergies/Adverse Reactions: Allergies ibuprofen Adverse Reaction (Verified 09/05/19 08:10) Upset Stomach Medications to take at Discharge Pnv No.95/Ferrous Fum/Folic AC [ Vitamin Tablet] 1 tab PO DAILY 07/23/19 Ferrous Sulfate 325 mg PO BID #60 tab 09/07/19 Oxycodone HCl/Acetaminophen [Percocet 5/325] 1 - 2 tab PO Q4H PRN PRN 7 Days #20 tab 09/07/19 The following prescriptions were given: Ferrous Sulfate 325 mg PO BID #60 tab Transmission Status: Received by CATARINA MAGANA RD Oxycodone HCl/Acetaminophen [Percocet 5/325] 1 - 2 tab PO Q4H PRN PRN 7 Days #20 tab PRN Reason: Pain Transmission Status: Received by CATARINA MAGANA RD Follow-Up: Call to make an appointment with your doctor for an incision check in 1-2 weeks. You will also need a 6 week post- follow up appointment. Test results from this visit will be discussed in further detail at your follow- up appointment, if applicable. Please Follow Up With: Maira Cardona MD Primary Care Physician: Jj Valera MD [Primary Care Provider] -
--- NOTE | 2019-09-07 11:52 | PCM.DC.SUM ---
Discharge Date and Diagnosis Date of Admission: 09/05/19 Date of Discharge: 09/07/19 Hospital Course and Treatment Summary of Care Provided: The patient is a 28 year old F [[id number]. Admitted on 09/05/19 for Repeat Section by . Uncomplicated course. Acute blood loss anemia and asymptomatic. Discharge home Day 2 postoperative. ] - Physical Exam Vitals/I&O's: Vital Signs Temp Pulse Resp BP Pulse Ox 97.4 F L 62 16 119/73 100 09/07/19 08:25 09/07/19 08:25 09/07/19 08:25 09/07/19 08:25 09/07/19 01:51 Oxygen Delivery Method Room Air Weight: 170 lb 6.4 oz Body Mass Index (BMI) 25.9 Intake and Output for Last 24 Hours 09/05/19 09/06/19 09/08/19 23:59 23:59 00:59 Intake Total 2503.33 / 2503.33 Output Total 1200 / 1200 1300 / 1300 Balance 1303.33 / 1303.33 -1300 / -1300 Current Medications Acetaminophen (Tylenol) 1,000 mg PO Q8H PRN PRN Reason: Pain Score 1-3/10 Last Admin: 09/05/19 10:12 Dose: 1,000 mg Documented by: Bisacodyl (Dulcolax) 10 mg RECTAL UD PRN PRN Reason: If no BM Hydrocortisone (Hytone) 1 applic TOPICAL TID PRN PRN; Protocol PRN Reason: Discomfort Naloxone HCl 4 mg/ Dextrose 504 mls @ 0 mls/hr IV .Q0M PRN; Protocol PRN Reason: Respiratory depression Methylergonovine Maleate (Methergine) 0.2 mg IM X1 PRN PRN Reason: Uterine Atony Naloxone HCl (Narcan) 0.02 mg IV Q1M PRN PRN Reason: RR <10 and pt unresponsive Naproxen (Naprosyn) 250 - 500 mg PO Q8H PRN PRN PRN Reason: Pain Score 1-3/10 Ondansetron HCl (Zofran) 4 mg IV Q4H PRN PRN PRN Reason: Nausea Oxycodone HCl (Oxyir) 5 - 10 mg PO Q4H PRN PRN PRN Reason: Pain Score 4-10/10 Last Admin: 09/07/19 08:24 Dose: 10 mg Documented by: Prochlorperazine Edisylate (Compazine Iv) 10 mg IV Q6H PRN PRN PRN Reason: NAUSEA Senna/Docusate Sodium (Senokot-S, Gilda-Colace) 0 tablet PO DAILY PRN PRN Reason: Constipation Last Admin: 09/07/19 08:16 Dose: 1 tablet Documented by: Simethicone (Mylicon) 80 mg PO PCHS PRN PRN Reason: Indigestion/stomach pain Sodium Chloride () 5 - 15 ml IV UD PRN PRN Reason: SALINE FLUSH Last Admin: 09/07/19 08:16 Dose: 10 ml Documented by: Discharge Diet: No Restrictions Discharge Activity: Return to Normal Activity, May not drive while taking narcotic pain medications., May Shower, May Take a Tub Bath May resume sexual activity in: 4-6 weeks Weight Bearing Status: Full weight bearing Additional Activity Instructions:: Nothing in the vagina for 4-6 weeks. You may return to work/school in 6 weeks. Call your doctor if your incision/area has: Continuous Slow Oozing, Sudden Increased Bleeding, Increased Pain/ Swelling, Increased Redness, Foul Smelling Discharge Call your doctor if you observe: Fever of 101 or Higher, Change in Color, Inability to urinate, Inability to have a bowel movement, Using more than one pad per hour, Shortness of breath, Chest pain, Increased palpitations (irregular heartbeat), Calf discomfort, Uncontrolled pain Suture Line Care: Avoid Pulling/Pushing, Avoid Pinching/Bending Cleanse incision/area with: Keep Dressing Clean & Dry Home Medications: Medications to take at Discharge Pnv No.95/Ferrous Fum/Folic AC [ Vitamin Tablet] 1 tab PO DAILY 07/23/19 Ferrous Sulfate 325 mg PO BID #60 tab 09/07/19 Oxycodone HCl/Acetaminophen [Percocet 5/325] 1 - 2 tab PO Q4H PRN PRN 7 Days #20 tab 09/07/19 Following Prescrptions Were Given to Patient: Ferrous Sulfate 325 mg PO BID #60 tab Transmission Status: Received by CATARINA [facility] Oxycodone HCl/Acetaminophen [Percocet 5/325] 1 - 2 tab PO Q4H PRN PRN 7 Days #20 tab PRN Reason: Pain Transmission Status: Received by CATARINA [facility] [facility] Primary Care Physician: Jj Valera MD [Primary Care Provider] - Please Follow Up With: Maira Cardona MD Medical Necessity - Tobacco Use Smoking Status: Never smoker Meaningful Use Info Meaningful Use Diagnoses (Choose all that apply): None applicable
[2019-09-07 13:30] VITALS: BP 118/77; PULSE 73; RESP 16; TEMP 36.4
== END 2019-09-07 14:05 | disposition home or self-care (01) | DRG 540 ==
PROVIDERS: Admitting Provider Obstetrics & Gynecology; PCP Family Medicine; Referring Provider Obstetrics & Gynecology; Visit Provider Obstetrics & Gynecology
PROC: 10D00Z1 Extraction of Products of Conception, Low, Open Approach (ICD-10-PCS; CPT 59514; principal; 2019-09-05 07:15)
DX: O34.211 Maternal care for low transverse scar from previous cesarean delivery (principal); Z37.0 Single live birth; G80.9 Cerebral palsy, unspecified; O99.354 Diseases of the nervous system complicating childbirth; Z3A.39 39 weeks gestation of pregnancy
CPT/HCPCS: 85025; 85027; 86850; 86900; 86901; 93005; 99218; 99251; J7120; A4216; G0378; G0463; J2405

== ENCOUNTER 2019-10-10 11:35 | Emergency (ER) | payer MEDICAID, SELFPAY ==
[2019-09-05 06:53] VITALS: BMI 25.9
[2019-10-10 11:36] VITALS: BP 138/87; PULSE 111; RESP 18; TEMP 36.1; O2SAT 99; BMI 24.0
--- NOTE | 2019-10-10 11:55 | ED.VIS.INJ ---
History of Present Illness Chief Complaint: Laceration Informant: Patient Onset: Today Mechanism/Context: Slip Quality of Pain: Sharp Narrative: Patient is a 29-year-old female presenting for evaluation for right hand wound. Patient slipped in her hand went through the glass of a door. It broke the glass. Patient very small shards of glass that went into her hand. She was worried some glass went deep so she came to the emergency room. She not having any significant bleeding. She had a Tdap within the last 6 months. Patient denies any associated numbness, weakness or tingling. She denies any other complaints at this time. She did not hit her head or sustain any other injuries. Right hand dominant Tetanus Immunization: <5 years Past Medical History - Allergies and Home Meds Allergies/Adverse Reactions: Allergies ibuprofen Adverse Reaction (Verified 10/10/19 11:36) Upset Stomach Primary Care Physician: Jj Valera MD [Primary Care Provider] - Past Medical History: - - Anxiety Surgical History: noncontributory Lives: With Family Smoking Status: Current every day smoker Review of Systems General: Denies: Chills, Fever, Sweats Eyes: Denies: Visual changes - bilaterally, Diplopia ENT: Denies: Rhinorrhea, Sore throat Cardiovascular: Denies: Chest pain, Palpitations Respiratory: Denies: Dyspnea, Cough, Dyspnea on exertion Gastrointestinal: Denies: Abdominal pain, Nausea, Vomiting Musculoskeletal: Reports: Extremity Pain - Right hand. Denies: Back pain Skin: Reports: Abrasions - Right hand. Denies: Rash, Wounds Neurological: Denies: Headache, Weakness, Parasthesia, Numbness Physical Exam Vital Signs/Narrative: Vital Signs Temp Pulse Resp BP Pulse Ox 10/10/19 11:36 97 F L 111 H 18 138/87 H 99 Inital Vital Signs reviewed: Yes General: Well nourished, Well developed Head: Normocephalic, Atraumatic Eyes: Perrl, EOMI ENT: No trauma. Negative for: Nasal trauma, Nasal septal hematoma Neck: Nontender, Full ROM Cardiovascular: Regular rate, Regular rhythm, No murmurs Respiratory: No distress, CTA bilaterally, Chest nontender Abdomen: Soft, Nontender Back: Nontender Extremeties: No bony deformities. No bony tenderness. Full range of motion and strength of extremities Skin: Normal color, No rash, - - 4 scattered 1 mm superficial abrasions over the right ventral wrist and right palm. Minuscule pieces of glass noted on the skin that are wiped away. No associated laceration. Neurological: Alert, Oriented x3, Cranial nerves II-XII grossly intact, Normal Strength, Normal Sensation Psychological: Normal affect, - - anxious Diagnostic/Tx/Re-eval - Medical Decision Making Patient is superficial abrasions to her right hand from excellently hitting a glass pain and breaking it. She is very small pieces of glass that are removed from her hand. They are not actually even causing lacerations. She has no active bleeding. She does have some small abrasions that do not require any repair. Patient is counseled generalized wound care. She is counseled that if she does have a piece of glass embedded in her skin her body will work its way out and should not cause any infection. She does not require prophylactic antibiotics. Her tetanus is up-to-date. Patient is counseled on signs and symptoms requiring return to the emergency room. Patient verbalizes agreement and understand this plan. Patient discharged home in stable and improved condition. ED Disposition - Plan for ED Patient: Disposition: Home or Assisted Living Diagnosis: Abrasion of right hand Instructions: ED Abrasion Referrals: Jj Valera MD [Primary Care Provider] -
--- NOTE | 2019-10-10 12:16 | ED.RN ---
staff did not see pt leave, pt left prior to d/c instructions.
== END 2019-10-10 12:18 | disposition home or self-care (01) ==
PROVIDERS: Emergency Provider Emergency Medicine; PCP Family Medicine
DX: S60.511A Abrasion of right hand, initial encounter (principal); F41.9 Anxiety disorder, unspecified; F17.200 Nicotine dependence, unspecified, uncomplicated; Y28.0XXA Contact with sharp glass, undetermined intent, initial encounter
CPT/HCPCS: 99281

== ENCOUNTER 2019-12-04 08:23 | Emergency (ER) | payer MEDICAID, SELFPAY ==
[2019-12-04 08:24] VITALS: BP 141/86; PULSE 74; RESP 18; TEMP 36.6; O2SAT 98; BMI 24.3
[2019-12-04 08:39] VITALS: BP 141/86; PULSE 74; RESP 18; TEMP 36.6; O2SAT 98
--- NOTE | 2019-12-04 08:52 | ED.VIS.DENTA ---
History of Present Illness Chief Complaint: Dental Informant: Patient Onset: Days Context: Gradual Onset Timing: Continuous Relieved by: NSAIDs Associated Symptoms: Facial Swellling Narrative: Patient is a 29-year-old female presenting with left-sided jaw pain. She describes as throbbing in nature. She is worried she has a dental abscess. She has a history of this but it was never addressed because she was . Patient is now 3 months . She is not currently breast-feeding. She started having symptoms 2 days ago. Patient had a leftover amoxicillin prescription so she started taking that, 1000 mg twice a day. She continues to have throbbing pain and states she cannot sleep at night. She has not followed up with a dentist and states she currently does not have a dentist. She denies any difficulty swallowing. She denies any other complaints at this time. Patient has been taking Naprosyn at home with some relief. She states normally Naprosyn is sufficient for pain control but its not as helpful as it normally is. Past Medical History - Allergies and Home Meds Allergies/Adverse Reactions: Allergies ibuprofen Adverse Reaction (Verified 12/04/19 08:27) Upset Stomach Primary Care Physician: Jj Valera MD [Primary Care Provider] - Past Medical History: None Surgical History: noncontributory Lives: Spouse/ Significant Other, With Family Smoking Status: Current every day smoker Review of Systems General: Denies: Chills, Fever, Sweats Eyes: Denies: Visual changes - bilaterally, Diplopia ENT: Reports: - - Left-sided jaw swelling and dental pain. Denies: Rhinorrhea, Sore throat Cardiovascular: Denies: Chest pain, Palpitations Respiratory: Denies: Dyspnea, Cough, Dyspnea on exertion Gastrointestinal: Denies: Abdominal pain, Nausea, Vomiting, Diarrhea, Hematochezia Musculoskeletal: Denies: Back pain, Extremity Pain Skin: Denies: Rash, Wounds Neurological: Reports: Headache. Denies: Weakness, Numbness Physical Exam Vital Signs/Narrative: Vital Signs Temp Pulse Resp BP Pulse Ox 12/04/19 08:39 98 F 74 18 141/86 H 98 12/04/19 08:24 98 F 74 18 141/86 H 98 Inital Vital Signs reviewed: Yes General: Well nourished, Well developed Head: Normocephalic, Atraumatic ENT: Moist mucous membranes, No rhinorrhea, TM's clear. Negative for: Sinus tenderness Mouth/Throat: Normal inspection lips/gums, Normal oral mucosa, No focal abscess, Gingivitis, Widespread dental decay, - - Mild diffuse dental tenderness of the left lower molars with no pinpoint area of pain. Mild left-sided facial swelling. Negative for: Dental trauma, Trismus Neck: Supple, No lymphadenopathy, Nontender, No JVD Cardiovascular: Regular rate, Regular rhythm, No murmurs Respiratory: No distress, CTA bilaterally, Chest nontender Abdomen: Soft, Nontender, Nondistended, Normal bowel sounds Back: Nontender, Normal Inspection Extremities: Nontender, No edema Skin: Normal color, No rash Neurological: Alert, Oriented x3, Cranial nerves II-XII grossly intact, Normal Strength, Normal Sensation Psychological: Normal affect Diagnostic/Tx/Re-eval - Medical Decision Making Patient has mild facial swelling and dental pain of her left lower jaw. There is no discrete abscess that is amenable to I&D. The pain is more throbbing in nature and cannot be localized anyone to do so I do not think a dental block would be helpful at this time. Patient will be switched from amoxicillin to Augmentin for better coverage. She will continue take Naprosyn. She is given a short course of tramadol for pain control. She is given a dental clinic sheet. She does not have any trismus, voice changes or other severe symptoms. She is a good candidate for outpatient follow-up. She is counseled that she needs to make sure she has someone helping watch her children when she takes tramadol as it can be sedating. Patient is counseled on signs and symptoms requiring return to the emergency room. Patient verbalizes agreement and understand this plan. Patient discharged home in stable and improved condition. ED Disposition - Plan for ED Patient: Disposition: Home or Assisted Living Diagnosis: Dentalgia, Left facial swelling Instructions: Dental Abscess Prescriptions: Amox/Clavulanate Tablet [Augmentin Tablet] 875 mg PO Q12H #20 tab Transmission Status: Pending to [facility] #30 traMADol [Ultram] 50 mg PO Q6H PRN PRN 3 Days #12 tablet PRN Reason: Pain Transmission Status: Sent to [facility] #30 Referrals: Jj Valera MD [Primary Care Provider] -
[2019-12-04] MEDS: Amox/Clavulanate 875 MG Tablet PO (09:02)
== END 2019-12-04 09:09 | disposition home or self-care (01) ==
PROVIDERS: Emergency Provider Emergency Medicine; PCP Family Medicine
DX: K08.89 Other specified disorders of teeth and supporting structures (principal); R22.0 Localized swelling, mass and lump, head; F17.200 Nicotine dependence, unspecified, uncomplicated
CPT/HCPCS: 99283

== ENCOUNTER 2019-12-18 19:50 | Emergency (ER) | payer MEDICAID, SELFPAY ==
[2019-12-18 19:51] VITALS: BP 137/81; PULSE 88; RESP 16; TEMP 36.5; O2SAT 96; BMI 23.8
--- NOTE | 2019-12-18 20:01 | EKG12_ITS ---
Test Reason : MK/ES Blood Pressure : / mmHG Vent. Rate : 069 BPM Atrial Rate : 069 BPM P-R Int : 140 ms QRS Dur : 090 ms QT Int : 414 ms P-R-T Axes : 036 065 021 degrees QTc Int : 443 ms Normal sinus rhythm Normal ECG Confirmed by LANDY MALAGON, CORNELIO ([id number]), purchasing expeditor FREDA DUBOIS ([id number]) on 12/23/2019 10:55:46 AM Referred By: CHEST OTHER Confirmed By:CORNELIO BILL MD
--- NOTE | 2019-12-18 20:04 | ED.VIS.GEN ---
History of Present Illness Chief Complaint: Chest Other Informant: Patient Onset: Days Context: Gradual Onset Timing: Continuous Current Severity: Moderate Maximum Severity: Moderate Narrative: The patient is a 29-year-old female with medical history significant only for anxiety that presents to the emergency department with left-sided chest pain. The patient states for the past week, she has been having increasing pain across her left chest. She states it hurts when she takes deep breath. She denies any fevers. She denies any chills or sweats. She has no history of pulmonary embolus. She is also concerned because she does have abscessed tooth. She was prescribed Augmentin, began to have a rash and was stopped taking it. She is otherwise been in her normal state of health. She states she has started a new job and feels like it is making her anxiety worse. Prior similar symptoms: No Recent Illness/Hospitalization: No Past Medical History - Allergies and Home Meds Allergies/Adverse Reactions: Allergies amoxicillin [From Augmentin] Allergy (Verified 12/18/19 19:54) Hives clavulanic acid [From Augmentin] Allergy (Verified 12/18/19 19:54) Hives ibuprofen Adverse Reaction (Verified 12/18/19 19:54) Upset Stomach Primary Care Physician: Jj Valera MD [Primary Care Provider] - Prior records reviewed: Yes Past Medical History: None Surgical History: noncontributory Smoking Status: Never smoker Review of Systems General: Denies: Chills, Fever, Sweats Eyes: Denies: Visual changes - bilaterally, Diplopia ENT: Denies: Rhinorrhea, Sore throat Cardiovascular: Reports: Chest pain. Denies: Palpitations Respiratory: Reports: Dyspnea. Denies: Cough, Dyspnea on exertion Gastrointestinal: Denies: Abdominal pain, Nausea, Vomiting, Diarrhea, Melena, Hematochezia Genitourinary: Denies: Dysuria, Hematuria, Frequency Musculoskeletal: Denies: Back pain, Extremity Pain Skin: Denies: Rash, Wounds Neurological: Denies: Headache, Weakness, Numbness Physical Exam Vital Signs/Narrative: Vital Signs Temp Pulse Resp BP Pulse Ox 12/18/19 19:51 97.7 F L 88 16 137/81 H 96 Inital Vital Signs reviewed: Yes General: Well nourished, Well developed, No Acute Distress Head: Normocephalic, Atraumatic Eyes: Perrl, EOMI ENT: Moist mucous membranes, No rhinorrhea Neck: Supple, Nontender Cardiovascular: Regular rate, Regular rhythm, No murmurs Respiratory: No distress, CTA bilaterally, Chest nontender Abdomen: Soft, Nontender, Nondistended, Normal bowel sounds Back: Nontender, Normal Inspection Extremities: Nontender, No edema Skin: Normal color, No rash Neurological: Alert, Oriented x3, Cranial nerves II-XII grossly intact, Normal Strength, Normal Sensation Psychological: Normal affect, Normal Mood Diagnostic/Tx/Re-eval Abnormal Lab Results 12/18/19 12/18/19 12/18/19 20:13 20:13 20:13 WBC 7.6 RBC 4.30 Hgb 12.7 Hct 38.5 MCV 89.5 MCH 29.5 MCHC 33.0 RDW Std Deviation 43.7 RDW Coeff of Bj 13.4 Plt Count 303 MPV 9.2 Immature Gran % (Auto) 0.300 Neut % (Auto) 57.8 Lymph % (Auto) 29.8 [place] % (Auto) 8.1 Eos % (Auto) 3.3 Baso % (Auto) 0.7 Absolute Neuts (auto) 4.4 Absolute Lymphs (auto) 2.27 Nucleated RBC % 0 D-Dimer Quant (PE/DVT) 1.81 H* Sodium 141 Potassium 3.5 Chloride 109 H Carbon Dioxide 27.0 Anion Gap 5 BUN 14 Creatinine 0.59 Estim Creat Clear Calc 143.20 Est GFR (MDRD) Af Amer 155 Est GFR (MDRD) Non-Af 128 BUN/Creatinine Ratio 23.6 H Glucose 111 H Calcium 9.3 Total Bilirubin 0.80 AST 14 L ALT 21 Alkaline Phosphatase 78 Total Protein 8.0 Albumin 4.5 Globulin 3.5 Albumin/Globulin Ratio 1.3 Clinical Impression(s) from Imaging Studies Chest X-Ray 12/18/19 20:45 IMPRESSION: Normal x-ray examination of the chest. Electronically Signed: Tushar Wagner, at 21:26 EDT Tel , Service support , Chest CTA 12/18/19 20:47 IMPRESSION: Normal CTA chest examination, without a demonstrated pulmonary embolism or arterial dissection. Mild distention of the stomach Electronically Signed: Tushar Wagner at 21:33 EDT Tel , Service support , - Rhythm Strip Rhythm Strip: Sinus Rhythm Rate: 90 Ectopy: None - Medical Decision Making The patient presents with pleuritic left-sided chest pain. She was not tachycardic or tachypneic, but I cannot re-create her pain. Metabolic screening exam was performed. EKG does not show acute ischemia. The patient's d-dimer was elevated. She will undergo CTA which will be evaluated by oncoming physician. The patient does have a dental abscess. With some slight pressure, the abscess did rupture. I am going to change her antibiotics to clindamycin. I will prescribe this if the patient is able to be discharged after CTA. CTA was obtained. There is no evidence of acute pulmonary embolus, pneumothorax, or dissection. Again, at this time I do feel that her pain is likely secondary to pleurisy. The patient will be started on clindamycin and prednisone. She will be discharged home. Impression 1. Left pleuritic chest pain 2. Dental abscess ED Disposition - Plan for ED Patient: Instructions: ED Chest Pain Pleurisy Prescriptions: Clindamycin [Cleocin] 300 mg PO 4X/DAY #80 cap Prescription Printed Prednisone 10 mg PO UD #33 tab Prescription Printed Referrals: Jj Valera MD [Primary Care Provider] -
[2019-12-18] MEDS: Ketorolac 15 MG/ML Vial IV (20:27)
[2019-12-18] MEDS: 0.9% Normal Saline 1,000 ML 1000 ML IV (20:28)
[2019-12-18] MEDS: LORazepam 2 MG/ML Syringe 1 MG IV (20:28)
[2019-12-18 20:29] LABS: Absolute Lymphocyte Count 2.27 X10^3/uL (0.83-4.51); Absolute Neutrophil Count 4.4 X10^3/uL (2.0-7.7); Basophil# 0.05 X10^3/uL; Basophil% 0.7 % (0-1); Eosinophil# 0.25 X10^3/uL; Eosinophils% 3.3 % (0-5); Hematocrit 38.5 % (37-47); Hemoglobin 12.7 g/dL (12.0-15.0); Lymphocyte # 2.27 X10^3/ul (4.0); Lymphocyte % 29.8 % (19-41); Mean Corpuscular Hgb 29.5 pg (27.0-32.0); Mean Corpuscular Volume 89.5 fL (81-99); Mean Platelet Vol. 9.2 fl (6.2-12.0); Monocyte# 0.62 X10^3/uL; Monocyte% 8.1 % (0-10); NRBC Flagged by Analyzer 0 % (0-5); Neutrophil % 57.8 % (47-70); Platelet Count 303 K/mm3 (150-450); RBC Distribution Width CV 13.4 % (11.6-14.6); RBC Distribution Width SD 43.7 fl (35.1-43.9); White Blood Count 7.6 K/mm3 (4.4-11.0)
--- NOTE | 2019-12-18 20:45 | RAD_ITS ---
STUDY: X-RAY CHEST REASON FOR EXAM: Female, 29 years old. LEFT SIDED CHEST PAIN TECHNIQUE: PA and lateral COMPARISON: None. FINDINGS: The lungs are clear and expanded. There is no demonstrated pleural abnormality. Normal size heart. Normal mediastinum and mable. Normal visualized pulmonary arteries. Normal visualized aortic arch and descending thoracic aorta. Normal visualized thoracic spine. Normal visualized ribs, clavicles, and shoulders. There is no demonstrated abnormality of the visualized soft tissue structures of the upper abdomen. RAD/Chest PA and Lateral IMPRESSION: Normal x-ray examination of the chest. Electronically Signed: Tushar Wagner, at 21:26 EDT Tel , Service support ,
[2019-12-18 20:46] LABS: D-Dimer Quantitative (DVT/PE) 1.81 FEU/ug/m (0.27-0.49)
--- NOTE | 2019-12-18 20:47 | CT_ITS ---
STUDY: CTA CHEST REASON FOR EXAM: Female, 29 years old. LT LOWER RIB PAIN-WORSE WITH BREATHING X ONE WEEK, ELEVATED DDIMER. RADIATION DOSAGE (If Supplied By Facility): CTDIvol = ( 8.53 ) mGy, DLP = ( 346.82 ) mGycm TECHNIQUE: The examination was performed with the intravenous administration of Isovue 370 75ml. Post-processing of the angiographic images was performed, with multiplanar reformation and 3D reconstruction. Individualized dose optimization techniques were used for this CT. COMPARISON: None. FINDINGS: Normal enhancement of the main pulmonary artery and right and left pulmonary arteries. Normal enhancement of the bilateral peripheral pulmonary arteries. There is no demonstrated pulmonary embolism. Normal thoracic aorta and visualized great vessels. There is no demonstrated aortic dissection. Normal heart and pericardium. Normal mediastinum. Normal hilar regions. Normal visualized trachea and bronchi. The lungs are well expanded. Normal pulmonary parenchyma. Normal pleura. Normal chest wall structures. Normal osseous structures. There is mild distention of the stomach. CT/CTA Chest W/WO Contrast IMPRESSION: Normal CTA chest examination, without a demonstrated pulmonary embolism or arterial dissection. Mild distention of the stomach Electronically Signed: Tushar Wagner, at 21:33 EDT Tel , Service support ,
[2019-12-18 20:49] LABS: ALB/GLOB Ratio 1.3 RATIO (0.9-2.4); AST(SGOT) 14 U/L (15-37); Alanine Aminotransfer ALT/SGPT 21 U/L (13-56); Albumin, Serum 4.5 g/dL (3.2-5.0); Alkaline Phosphatase 78 U/L (45-117); Anion Gap 5 (5-15); BUN 14 mg/dL (7-18); BUN/Creat Ratio 23.6 RATIO (10-20); Calcium,Total 9.3 mg/dL (8.5-10.1); Chloride 109 mmol/L (98-107); Creatinine, Serum 0.59 mg/dL (0.55-1.02); EST Glomerular Filtration Rate 128 mL/min (>60); Est Glom Filt Rate - Afr Amer 155 mL/min (>60); Globulin 3.5 g/dL (2.2-4.2); Glucose 111 mg/dL (74-106); Potassium 3.5 mmol/L (3.5-5.1); Sodium Level 141 mmol/L (136-145)
[2019-12-18 21:11] LABS: Internal QC Validated? YES +Cl - CLEAR BKGD; Pregnancy, Serum, hCG Quali. NEGATIVE Negative
[2019-12-18 21:30] VITALS: BP 116/79; PULSE 62; RESP 13; TEMP 36.8; O2SAT 98
== END 2019-12-18 21:47 | disposition home or self-care (01) ==
LOC: ED 20:13
PROVIDERS: Emergency Provider Emergency Medicine; PCP Family Medicine
DX: R07.89 Other chest pain (principal); K04.7 Periapical abscess without sinus; F41.9 Anxiety disorder, unspecified
CPT/HCPCS: 71046; 71275; 80053; 84703; 85025; 85379; 93005; 96361; 96374; 96375; 99284; Q9967; A4216

== ENCOUNTER 2020-04-10 15:28 | Emergency (ER) | payer MEDICAID, SELFPAY ==
[2020-04-10 15:28] VITALS: BP 118/69; PULSE 75; RESP 14; O2SAT 99
[2020-04-10 15:30] VITALS: BP 118/69; PULSE 58; RESP 14; TEMP 36.7; O2SAT 100; BMI 23.3
--- NOTE | 2020-04-10 15:40 | US_ITS ---
We are attempting to reach an attending provider to discuss findings. An addendum with communication details will be sent when the communication is complete. STUDY: FIRST TRIMESTER OBSTETRICAL ULTRASOUND REASON FOR EXAM: Female, 29 years old Patient states she should be almost 10 weeks, has not had a confirmation ultrasound yet. Patient started having cramping and light bleeding today. Hx of 2 prior c-sections. LMP: 02/01/2020. TECHNIQUE: Transabdominal. TECHNICAL QUALITY: Adequate. PRIOR ULTRASOUND: None. FINDINGS: Uterus measures 12 x 6 x 6.9 cm. Endometrium is thickened and heterogeneous, measuring 1.6 cm. There is a complex, predominantly cystic lesion in the lower uterine segment containing multiple septations. Embryo and yolk sac are not identified. Hypervascularity is seen on color flow imaging around the periphery of the lesion, which measures approximately 4.8 x 4.5 cm. Right ovary is normal in size and echogenicity measuring 2.7 x 1.1 x 2.8 cm. No mass or dominant cyst. Color flow is documented. Left ovary is normal in size and echogenicity measuring 1.9 x 1.3 x 2.2 cm. No mass or dominant cyst. Color flow is documented. No free fluid in the cul-de-sac. US/Init OB < 14Wks US IMPRESSION: 1. Complex, loculated cystic lesion in the lower uterine segment at site of prior . Differential considerations include ectopic versus gestational trophoblastic disease. Correlation with quantitative hCG and INTERN RETAIL consultation are recommended. NSC created by Dr. Glass at 6:00 PM on 04/10/2020. Electronically Signed: Anna Glass MD at 18:06 EDT Tel , Service support ,
--- NOTE | 2020-04-10 15:43 | ED.VIS.GEN ---
History of Present Illness Chief Complaint: Vag Bld, Preg Informant: Patient Narrative: 29-year-old A1 currently estimated about 9 weeks gestation by her STATISTICAL CONSULTANT. She states her last menstrual period was in December and ended January 31. Patient states that she has not had a confirmed intrauterine but she was unable to make an appointment and get into the office again. She states that she started feeling a little unwell last night and this morning started having vaginal spotting which she stated was mild. After that she had more blood and she describes a brownish discharge. Patient has pelvic cramping as well. No fever, chills, vomiting but she has some mild nausea. Past Medical History - Allergies and Home Meds Allergies/Adverse Reactions: Allergies amoxicillin [From Augmentin] Allergy (Verified 04/10/20 15:29) Hives clavulanic acid [From Augmentin] Allergy (Verified 04/10/20 15:29) Hives ibuprofen Adverse Reaction (Verified 04/10/20 15:29) Upset Stomach Primary Care Physician: Jj Valera MD [Primary Care Provider] - Past Medical History: - - No significant medical history Surgical History: noncontributory Lives: With Family Smoking Status: Current some day smoker Alcohol: None Drugs: None Review of Systems General: Denies: Chills, Fever, Sweats Eyes: Denies: Visual changes - bilaterally, Diplopia ENT: Denies: Rhinorrhea, Sore throat Cardiovascular: Denies: Chest pain, Palpitations Respiratory: Denies: Dyspnea, Cough, Dyspnea on exertion Gastrointestinal: Reports: Nausea Genitourinary: Reports: - - Pelvic cramping and vaginal bleeding. Denies: Dysuria, Hematuria, Frequency Musculoskeletal: Denies: Back pain, Extremity Pain Skin: Denies: Rash, Wounds Neurological: Denies: Headache, Weakness, Numbness Physical Exam Vital Signs/Narrative: Vital Signs Temp Pulse Resp BP Pulse Ox 04/10/20 15:30 98.1 F 58 L 14 118/69 100 04/10/20 15:28 75 14 118/69 99 General: Well nourished, No Acute Distress Head: Normocephalic, Atraumatic Eyes: Perrl, EOMI. Negative for: Pale conjunctiva ENT: Moist mucous membranes, No rhinorrhea Cardiovascular: Regular rate, Regular rhythm Respiratory: No distress, CTA bilaterally Abdomen: - - Tenderness to palpation in the pelvic region diffusely. : - - Blood in the posterior fornix. Cervical os is closed. Back: Nontender. Negative for: CVA tenderness Extremities: Nontender, No edema Skin: Normal color, No rash Neurological: Alert, Oriented x3 Psychological: Normal affect, Tearful Diagnostic/Tx/Re-eval Clinical Impression(s) from Imaging Studies Obstetrics Ultrasound 04/10/20 15:40 IMPRESSION: 1. Complex, loculated cystic lesion in the lower uterine segment at site of prior . Differential considerations include ectopic versus gestational trophoblastic disease. Correlation with quantitative hCG and CARVER AND CHECKERER SPECIALS consultation are recommended. NSC created by Dr. Glass at 6:00 PM on 04/10/2020. Electronically Signed: Anna Glass MD at 18:06 EDT Tel , Service support , ADDENDUM: 04/10/20 182 IMPRESSION: 1. Complex, loculated cystic lesion in the lower uterine segment at site of prior . Differential considerations include ectopic versus gestational trophoblastic disease. Correlation with quantitative hCG and CARVER AND CHECKERER SPECIALS consultation are recommended. NSC created by Dr. Glass at 6:00 PM on 04/10/2020. N.B. : The above information has been verbally conveyed by Anna Glass MD to Dr. Adrien Sol DO, , on 04/10/2020 18:22:02 (ET). Electronically Signed: Anna Glass MD at 18:06 EDT Tel , Service support , ADDENDUM: 04/10/20 182 Laboratory Data 04/10/20 04/10/20 04/10/20 15:48 15:48 15:48 WBC 7.9 RBC 4.10 L Hgb 12.1 Hct 37.2 MCV 90.7 MCH 29.5 MCHC 32.5 RDW Std Deviation 41.5 RDW Coeff of Bj 12.7 Plt Count 209 MPV 9.4 Immature Gran % (Auto) 0.300 Neut % (Auto) 66.3 Lymph % (Auto) 20.8 [place] % (Auto) 8.7 Eos % (Auto) 3.5 Baso % (Auto) 0.4 Absolute Neuts (auto) 5.3 Absolute Lymphs (auto) 1.65 Nucleated RBC % 0 Sodium 137 Potassium 3.9 Chloride 108 H Carbon Dioxide 23.0 Anion Gap 6 BUN 7 Creatinine 0.51 L Estim Creat Clear Calc 165.67 Est GFR (MDRD) Af Amer 184 Est GFR (MDRD) Non-Af 152 BUN/Creatinine Ratio 13.7 Glucose 88 Calcium 8.9 HCG, Quant 97571 H Urine Color Urine Clarity Urine pH Ur Specific [place] Urine Protein Urine Glucose (UA) Urine Ketones Urine Occult Blood Urine Nitrite Urine Bilirubin Urine Urobilinogen Ur Leukocyte Esterase Urine RBC Urine WBC Ur Squamous Epith Cells Urine Bacteria Urine Mucus Blood Type 04/10/20 04/10/20 04/10/20 15:48 15:48 17:09 WBC RBC Hgb Hct MCV MCH MCHC RDW Std Deviation RDW Coeff of Bj Plt Count MPV Immature Gran % (Auto) Neut % (Auto) Lymph % (Auto) [place] % (Auto) Eos % (Auto) Baso % (Auto) Absolute Neuts (auto) Absolute Lymphs (auto) Nucleated RBC % Sodium Potassium Chloride Carbon Dioxide Anion Gap BUN Creatinine Estim Creat Clear Calc Est GFR (MDRD) Af Amer Est GFR (MDRD) Non-Af BUN/Creatinine Ratio Glucose Calcium HCG, Quant Urine Color Straw Urine Clarity Clear Urine pH 7.0 Ur Specific [place] 1.005 Urine Protein Negative Urine Glucose (UA) Normal Urine Ketones Negative Urine Occult Blood 150 H Urine Nitrite Negative Urine Bilirubin Negative Urine Urobilinogen Normal Ur Leukocyte Esterase Negative Urine RBC 0-5 SEEN Urine WBC 0 SEEN Ur Squamous Epith Cells 0 SEEN Urine Bacteria 0 SEEN Urine Mucus 0 SEEN Blood Type TNP O POSITIVE - Medical Decision Making 29-year-old female presenting with pelvic pain and vaginal bleeding in . Blood work is not abnormal. hCG is over 25,000. Ultrasound identifies no intrauterine but does show concern for either ectopic or adnexal mass where previous was performed. This was discussed with the patient's STATISTICAL CONSULTANT. She did recommend transfer to a tertiary facility given the complexity of the case and felt that it had to be treated as ectopic until proven otherwise. Patient was consented for transfer. She was given pain medication in the ED. She is stable at this time. Impression: 1. Ectopic ED Disposition - Plan for ED Patient: Referrals: Jj Valera MD [Primary Care Provider] -
[2020-04-10 15:57] LABS: Absolute Lymphocyte Count 1.65 X10^3/uL (0.83-4.51); Absolute Neutrophil Count 5.3 X10^3/uL (2.0-7.7); Basophil# 0.03 X10^3/uL; Basophil% 0.4 % (0-1); Eosinophil# 0.28 X10^3/uL; Eosinophils% 3.5 % (0-5); Hematocrit 37.2 % (37-47); Hemoglobin 12.1 g/dL (12.0-15.0); Lymphocyte # 1.65 X10^3/ul (4.0); Lymphocyte % 20.8 % (19-41); Mean Corp Hgb Conc 32.5 g/dL (32-36); Mean Corpuscular Hgb 29.5 pg (27.0-32.0); Mean Corpuscular Volume 90.7 fL (81-99); Mean Platelet Vol. 9.4 fl (6.2-12.0); Monocyte# 0.69 X10^3/uL; Monocyte% 8.7 % (0-10); NRBC Flagged by Analyzer 0 % (0-5); Neutrophil # 5.25 X10^3/uL (2.7-7.7); Neutrophil % 66.3 % (47-70); Platelet Count 209 K/mm3 (150-450); RBC Distribution Width CV 12.7 % (11.6-14.6); RBC Distribution Width SD 41.5 fl (35.1-43.9); White Blood Count 7.9 K/mm3 (4.4-11.0)
[2020-04-10 16:10] LABS: Anion Gap 6 (5-15); BUN 7 mg/dL (7-18); BUN/Creat Ratio 13.7 RATIO (10-20); Calcium,Total 8.9 mg/dL (8.5-10.1); Chloride 108 mmol/L (98-107); Creatinine, Serum 0.51 mg/dL (0.55-1.02); EST Glomerular Filtration Rate 152 mL/min (>60); Est Glom Filt Rate - Afr Amer 184 mL/min (>60); Estimated Creatinine Clearance 165.67 ml/min; Glucose 88 mg/dL (74-106); Potassium 3.9 mmol/L (3.5-5.1); Sodium Level 137 mmol/L (136-145)
[2020-04-10 17:16] LABS: Bacteria 0 SEEN /hpf (None Seen); Mucous, Urine 0 SEEN /hpf (<or=2+); Squamous Epithelial Cells - UA 0 SEEN /hpf (5-10); White Blood Cells 0 SEEN /hpf (0-5)
[2020-04-10 17:23] LABS: Color, Urine Straw (Yellow); Glucose, Dipstick Normal (Normal); Ketone-Dipstick Negative (Negative); Leukocyte Esterase-Dipstick Negative /ul (Negative); Nitrite-Dipstick Negative (Negative); Occult Blood-Urine 150 /ul (Negative); Protein-Dipstick Negative (Negative); Specific Gravity, Urine 1.005 (1.002-1.030); Urine Bilirubin Dipstick Negative (Negative); Urine Clarity Clear (Clear); Urine Urobilinogen Normal (Normal)
[2020-04-10 17:34] LABS: Red Blood Cells-Urine 0-5 SEEN /hpf (0-5)
[2020-04-10 18:45] VITALS: BP 115/50; PULSE 65; RESP 16; O2SAT 100
[2020-04-10] MEDS: Morphine 4 MG/ML Syringe IV (19:07)
[2020-04-10] MEDS: Ondansetron 4 MG/2 ML Vial IV (19:07)
[2020-04-10 19:57] VITALS: PULSE 71; RESP 18; O2SAT 98
== END 2020-04-10 20:31 | disposition short-term general hospital (02) ==
PROVIDERS: Emergency Provider Student in an Organized Health Care Education/Training Program; PCP Family Medicine
DX: O00.90 Unspecified ectopic pregnancy without intrauterine pregnancy (principal); O26.891 Other specified pregnancy related conditions, first trimester; F17.200 Nicotine dependence, unspecified, uncomplicated; Z3A.09 9 weeks gestation of pregnancy
CPT/HCPCS: 76801; 80048; 81001; 84702; 85025; 86900; 86901; 96374; 96375; 99281; 99283; A4216; J2405

== ENCOUNTER 2020-04-12 23:46 | Emergency (ER) | payer MEDICAID, SELFPAY ==
[2020-04-12 23:46] VITALS: BP 126/78; PULSE 80; RESP 18; TEMP 36.6; O2SAT 98; BMI 24.3
[2020-04-13 00:29] LABS: Absolute Lymphocyte Count 1.77 X10^3/uL (0.83-4.51); Absolute Neutrophil Count 4.5 X10^3/uL (2.0-7.7); Basophil# 0.03 X10^3/uL; Basophil% 0.4 % (0-1); Eosinophil# 0.37 X10^3/uL; Eosinophils% 4.9 % (0-5); Hematocrit 38.1 % (37-47); Hemoglobin 12.5 g/dL (12.0-15.0); Lymphocyte # 1.77 X10^3/ul (4.0); Lymphocyte % 23.6 % (19-41); Mean Corp Hgb Conc 32.8 g/dL (32-36); Mean Corpuscular Hgb 29.8 pg (27.0-32.0); Mean Corpuscular Volume 90.9 fL (81-99); Mean Platelet Vol. 9.5 fl (6.2-12.0); Monocyte# 0.79 X10^3/uL; Monocyte% 10.5 % (0-10); NRBC Flagged by Analyzer 0 % (0-5); Neutrophil % 60.1 % (47-70); Platelet Count 198 K/mm3 (150-450); RBC Distribution Width CV 12.5 % (11.6-14.6); RBC Distribution Width SD 41.4 fl (35.1-43.9); Red Blood Count 4.19 M/mm3 (4.2-5.4); White Blood Count 7.5 K/mm3 (4.4-11.0)
[2020-04-13] MEDS: Acetaminophen 325 MG Tablet 650 MG PO (01:01)
--- NOTE | 2020-04-13 01:02 | ED.VIS.FEGU ---
History of Present Illness Chief Complaint: Vag Bld, Preg Informant: Patient Narrative: Patient presenting for evaluation secondary to pelvic pain and vaginal bleeding. Patient has a recent history of coming to the emergency department secondary to the same. She is noted to be approximately 10 weeks , had a pelvic ultrasound that was concerning for the possibility of a ectopic near her scar versus trophoblastic disease with a quantitative hCG of 25,000. She was transferred to [facility]. She was evaluated there with a limited OB ultrasound, as well as repeat quantitative hCG, as well as CLINICAL STAFF ANESTHESIOLOGIST evaluation. She was recommended at that time to come back for repeat quantitative hCG at [facility] on Sunday. Patient states that she has been having persistent pelvic pain that has been worsening over the last couple of days. Patient reports that she has been continuing to have vaginal bleeding, no large losses of fluid and has not been passing large clots but does state that she changes her pad around every 2 hours. She denies any fevers. Past Medical History - Allergies and Home Meds Allergies/Adverse Reactions: Allergies amoxicillin [From Augmentin] Allergy (Verified 04/10/20 15:29) Hives clavulanic acid [From Augmentin] Allergy (Verified 04/10/20 15:29) Hives ibuprofen Adverse Reaction (Verified 04/10/20 15:29) Upset Stomach Primary Care Physician: Jj Valera MD [Primary Care Provider] - Prior records reviewed: Yes Past Medical History: - - Possible ectopic Surgical History: noncontributory Smoking Status: Former smoker Alcohol: None Drugs: None Review of Systems All systems negative except as indicated General: Denies: Chills, Fever, Sweats Eyes: Denies: Visual changes - bilaterally, Diplopia ENT: Denies: Rhinorrhea, Sore throat Cardiovascular: Denies: Chest pain, Palpitations Respiratory: Denies: Dyspnea, Cough, Dyspnea on exertion Gastrointestinal: Denies: Abdominal pain, Nausea, Vomiting, Diarrhea, Melena, Hematochezia Genitourinary: Reports: - - Pelvic pain and vaginal bleeding Musculoskeletal: Denies: Back pain, Extremity Pain Skin: Denies: Rash, Wounds Neurological: Denies: Headache, Weakness, Numbness Physical Exam Vital Signs/Narrative: Vital Signs Temp Pulse Resp BP Pulse Ox 04/12/20 23:46 97.8 F 80 18 126/78 H 98 Inital Vital Signs reviewed: Yes General: Well nourished, Well developed Head: Normocephalic, Atraumatic Eyes: Perrl, EOMI ENT: Moist mucous membranes, No rhinorrhea Neck: Supple, Nontender Cardiovascular: Regular rate, Regular rhythm, No murmurs Respiratory: No distress, CTA bilaterally, Chest nontender Abdomen: Soft, Nondistended, Normal bowel sounds, - - Tender in the suprapubic region no guarding or rebound tenderness is noted : Speculum exam: Normal external genitalia, No vaginal lesions, No vaginal discharge, No blood in vault, No active bleeding Bimanual exam: No cervical motion tenderness, Os closed, Normal size uterus, Nontender uterus Back: Nontender, Normal Inspection Extremities: Nontender, No edema Skin: Normal color, No rash Neurological: Alert, Oriented x3, Cranial nerves II-XII grossly intact, Normal Strength, Normal Sensation Psychological: Normal affect Diagnostic/Tx/Re-eval Laboratory Data 04/13/20 04/13/20 00:15 00:15 WBC 7.5 RBC 4.19 L Hgb 12.5 Hct 38.1 MCV 90.9 MCH 29.8 MCHC 32.8 RDW Std Deviation 41.4 RDW Coeff of Bj 12.5 Plt Count 198 MPV 9.5 Immature Gran % (Auto) 0.500 Neut % (Auto) 60.1 Lymph % (Auto) 23.6 [place] % (Auto) 10.5 H Eos % (Auto) 4.9 Baso % (Auto) 0.4 Absolute Neuts (auto) 4.5 Absolute Lymphs (auto) 1.77 Nucleated RBC % 0 HCG, Quant 23758 H - Medical Decision/Diagnostic Studies Patient presented secondary to pelvic pain vaginal bleeding and concern for an ectopic . I reviewed the patient's records from [facility] as well as her prior visit. There seems to be concern for the patient to have an ectopic that is implanted in her section surgical scar rather than your typical tubal . IV was established laboratory studies were obtained. Patient's white count is normal, hemoglobin is stable from prior. Patient's quantitative hCG is downward trending it was 25,000 on the , and today it is 20,000. I discussed patient's case on the telephone with the covering steam fitter helper for the patient's CLINICAL STAFF ANESTHESIOLOGIST group. She discussed the case with the covering CLINICAL STAFF ANESTHESIOLOGIST, Dr. Burks, who recommended that the patient have repeat imaging. Repeat pelvic ultrasound was performed and the patient. The lab support technician informs me that she feels that the patient's is located within the myometrium, and is indeed ectopic. Radiology did not concur with this and felt this to be more of a nonviable associated with a miscarriage. I again discussed this with Dr. Burks, and we are more so in agreement with the lab support technician and feel that this is more likely to be a ectopic implanted in the patient's section scar within the myometrium. Regardless the patient has downward trending hCGs and this is a nonviable and the patient likely would benefit from methotrexate treatment. I discussed all of these findings with the patient, and we are in agreement that she would benefit from methotrexate. She will be given that in the emergency department. As the patient is either miscarrying or suffering from an ectopic she will be started on pain medication regimen with oxycodone and Percocet as an outpatient. Patient was informed by CLINICAL STAFF ANESTHESIOLOGIST that she needs a repeat quantitative hCG tomorrow, Sunday and then to follow-up in the office on . Patient was informed of this. Patient maintained stability in the emergency department throughout her emergency department stay was not hypotensive. At this point I feel the patient is stable and appropriate for discharge. ED Disposition - Plan for ED Patient: Disposition: Home or Assisted Living Diagnosis: Ectopic of intramural myometrium Instructions: ED Methotrexate for Ectopic Prescriptions: Oxycodone HCl/Acetaminophen [Percocet 5/325] 1 tab PO Q6H PRN PRN 5 Days #20 tab PRN Reason: Pain/Inflammation Prescription Printed Referrals: Lyn Burks MD [STAFF PHYSICIAN] - 04/15/20 Additional Instructions: Follow-up tomorrow for a repeat quantitative hCG test to be drawn. Follow-up in the CLINICAL STAFF ANESTHESIOLOGIST office on .
--- NOTE | 2020-04-13 01:42 | US_ITS ---
STUDY: FIRST TRIMESTER OBSTETRICAL ULTRASOUND REASON FOR EXAM: Female, 29 years old POSSIBLE ECTOPIC- HCG APPROX 20,500. DECLINING FROM 25,000 ON 04/10/20 LMP: TECHNIQUE: TECHNICAL QUALITY: Adequate. PRIOR ULTRASOUND: None. FINDINGS: There is an irregular gestational sac containing yolk sac in the lower uterine segment. NO pole is identified. Nonviable undergoing spontaneous is suggested. Follow-up is recommended. The ovaries were not identified. There is NO free pelvic fluid. US/Transvaginal w/Preg US IMPRESSION: Suspected nonviable and in progress. NO ectopic is identified. The ovaries were not seen. Follow-up is recommended. Electronically Signed: Orville Marie MD at 3:56 EDT , Service support ,
--- NOTE | 2020-04-13 04:40 | ED.RN ---
see down time charting from 0200 until discharge
[2020-04-13] MEDS: oxyCODONE 5 MG Tablet PO (04:51)
[2020-04-13] MEDS: METHOTREXATE IM (04:51)
[2020-04-13 04:58] VITALS: BP 111/56; PULSE 59; RESP 16; O2SAT 100
--- NOTE | 2020-04-13 04:58 | ED.RN ---
SEE DOWNTIME FOR ANY CHARTING.
== END 2020-04-13 04:58 | disposition home or self-care (01) ==
PROVIDERS: Emergency Provider Emergency Medicine; PCP Family Medicine
DX: O00.90 Unspecified ectopic pregnancy without intrauterine pregnancy (principal); O26.891 Other specified pregnancy related conditions, first trimester; Z3A.10 10 weeks gestation of pregnancy
CPT/HCPCS: 76817; 84702; 85025; 96372; 99281; 99285; A4216; J9250

== ENCOUNTER 2020-05-06 19:45 | Observation (INO) | payer MEDICAID, SELFPAY ==
[2020-05-06 19:46] VITALS: BMI 23.8
[2020-05-06 19:59] VITALS: BP 98/49; PULSE 61; RESP 18; TEMP 36.8; O2SAT 100
--- NOTE | 2020-05-06 20:16 | NURSING ---
Pt is being taken down to CT scan by INSURANCE MARKETING SPECIALIST.
[2020-05-06 20:22] LABS: Absolute Neutrophil Count 3.9 X10^3/uL (2.0-7.7); Basophil# 0.03 X10^3/uL; Basophil% 0.4 % (0-1); Eosinophil# 0.35 X10^3/uL; Eosinophils% 5.1 % (0-5); Hemoglobin 9.1 g/dL (12.0-15.0); Lymphocyte % 27.9 % (19-41); Mean Corp Hgb Conc 31.4 g/dL (32-36); Mean Corpuscular Hgb 28.2 pg (27.0-32.0); Mean Corpuscular Volume 89.8 fL (81-99); Mean Platelet Vol. 9.2 fl (6.2-12.0); Monocyte# 0.58 X10^3/uL; Monocyte% 8.5 % (0-10); NRBC Flagged by Analyzer 0 % (0-5); Neutrophil # 3.93 X10^3/uL (2.7-7.7); Neutrophil % 57.8 % (47-70); Platelet Count 268 K/mm3 (150-450); RBC Distribution Width CV 12.4 % (11.6-14.6); RBC Distribution Width SD 40.4 fl (35.1-43.9); Red Blood Count 3.23 M/mm3 (4.2-5.4); White Blood Count 6.8 K/mm3 (4.4-11.0)
--- NOTE | 2020-05-06 20:25 | CT_ITS ---
We are attempting to reach an attending provider to discuss findings. An addendum with communication details will be sent when the communication is complete. STUDY: CT ABDOMEN AND PELVIS WITH AND WITHOUT CONTRAST REASON FOR EXAM: Female, 29 years old. PT HAD ECTOPIC ON 04.15 FOLLOWED BY A [facility]. PATIENT IS STILL VERY PAINFUL. RADIATION DOSAGE (If Supplied By Facility): CTDIvol = ( 9.95 ) mGy, DLP = ( 1028.01 ) mGycm TECHNIQUE: Transaxial images were obtained from the dome of the diaphragm to the symphysis pubis without oral contrast. IV 100mL Isovue-370 was administered. Sagittal and coronal images were reconstructed. Individualized dose optimization techniques were used for this CT. COMPARISON: Ultrasound 04/13/2020, 04/10/2020. FINDINGS: Lung bases are clear. Heart size is normal. The liver is unremarkable. The gallbladder is unremarkable. The spleen and pancreas are unremarkable. The adrenal glands are normal. The kidneys are unremarkable. No stones or hydronephrosis. The aorta is normal in caliber. There is no free fluid or free air. No bowel obstruction or inflammatory change. 0.8 cm appendicolith in the base of the appendix. No acute appendicitis. Urinary bladder is unremarkable. There is a 6.8 x 5.7 x 5.2 cm heterogeneous hypodense lesion in the lower uterine segment. This appears contiguous with the endometrial cavity. This may represent retained products of conception or hematoma. Prominent pelvic vein is identified in the periphery of the lesion. Normal abdominal wall. Normal osseous structures. CT/CT Abd/Pelvis W/WO Contrast IMPRESSION: 1. Prominent lesion in the lower uterine segment, possibly communicating with the endometrial cavity with prominent peripheral vascularity. This may represent hemorrhage and/or hematoma, less likely retained products of conception. ADULT BASIC EDUCATION MANAGER consultation is advised. 2. Appendicolith, no demonstrated appendicitis. Electronically Signed: Anna Glass MD at 21:59 EST Tel , Service support ,
[2020-05-06] MEDS: 0.9% Normal Saline 1,000 ML 125 ML IV (20:36)
[2020-05-06 20:39] LABS: ALB/GLOB Ratio 1.3 RATIO (0.9-2.4); AST(SGOT) 5 U/L (15-37); Alanine Aminotransfer ALT/SGPT 13 U/L (13-56); Albumin, Serum 3.8 g/dL (3.2-5.0); Alkaline Phosphatase 64 U/L (45-117); Anion Gap 4 (5-15); BUN 10 mg/dL (7-18); BUN/Creat Ratio 15.1 RATIO (10-20); Calcium,Total 8.7 mg/dL (8.5-10.1); Chloride 113 mmol/L (98-107); Creatinine, Serum 0.66 mg/dL (0.55-1.02); EST Glomerular Filtration Rate 112 mL/min (>60); Est Glom Filt Rate - Afr Amer 136 mL/min (>60); Estimated Creatinine Clearance 128.02 ml/min; Glucose 93 mg/dL (74-106); Potassium 3.7 mmol/L (3.5-5.1); Protein, Total 6.8 g/dL (6.4-8.2); Sodium Level 143 mmol/L (136-145)
[2020-05-06] MEDS: oxyCODONE 5 MG Tablet PO (21:50)
[2020-05-06 22:18] LABS: International Normalized Ratio 1.1; Prothrombin Time (Protime)PT. 13.6 SECONDS (11.7-14.9)
[2020-05-06 22:30] VITALS: BP 109/74; PULSE 78; RESP 16; TEMP 36.6; O2SAT 98
[2020-05-07 04:08] VITALS: BP 99/48; PULSE 61; RESP 16; TEMP 36.4; O2SAT 98
[2020-05-07] MEDS: 0.9% Normal Saline 1,000 ML 125 ML IV (04:36)
[2020-05-07 06:11] LABS: Absolute Lymphocyte Count 1.74 X10^3/uL (0.83-4.51); Absolute Neutrophil Count 2.3 X10^3/uL (2.0-7.7); Basophil# 0.02 X10^3/uL; Basophil% 0.4 % (0-1); Eosinophils% 8.2 % (0-5); Hemoglobin 7.8 g/dL (12.0-15.0); Lymphocyte # 1.74 X10^3/ul (4.0); Lymphocyte % 35.5 % (19-41); Mean Corp Hgb Conc 31.2 g/dL (32-36); Mean Corpuscular Hgb 28.3 pg (27.0-32.0); Mean Corpuscular Volume 90.6 fL (81-99); Mean Platelet Vol. 9.5 fl (6.2-12.0); Monocyte# 0.42 X10^3/uL; Monocyte% 8.6 % (0-10); NRBC Flagged by Analyzer 0 % (0-5); Neutrophil # 2.31 X10^3/uL (2.7-7.7); Neutrophil % 47.1 % (47-70); Platelet Count 221 K/mm3 (150-450); RBC Distribution Width CV 12.6 % (11.6-14.6); RBC Distribution Width SD 41.4 fl (35.1-43.9); Red Blood Count 2.76 M/mm3 (4.2-5.4); White Blood Count 4.9 K/mm3 (4.4-11.0)
[2020-05-07 07:02] VITALS: O2SAT 100
[2020-05-07 08:02] LABS: hCG Titer Quant., Serum 108 mIU/mL (1-3)
[2020-05-07 08:43] VITALS: BP 106/71; PULSE 88; RESP 18; TEMP 37.1; O2SAT 98
--- NOTE | 2020-05-07 09:20 | HP.PCM_ITS ---
History of Present Illness Date of Admission: 05/06/20 Chief Complaint: Pelvic pain The patient is a 29 year old F presented to the office with increasing pelvic pain & vaginal bleeding. Her symptoms started just over a week ago & were getting worse. She had a D&C on 04/16 for a non viable . Past Medical History Medical History: Medical History (Last Updated 07/23/19 @ 21:[address] Caitlin Villalobos, ) Cerebral palsy G80.9 Allergies amoxicillin [From Augmentin] Allergy (Verified 04/10/20 15:29) Hives clavulanic acid [From Augmentin] Allergy (Verified 04/10/20 15:29) Hives ibuprofen Adverse Reaction (Verified 04/10/20 15:29) Upset Stomach Home Medications: Ambulatory Orders Medication Instructions Recorded Lorazepam 1 mg PO BID PRN PRN 05/06/20 Sumatriptan Succinate [Imitrex] mg PO 05/06/20 Surgical History: Surgical History (Last Updated 07/23/19 @ 21:[address] Caitlin Villalobos, ) Cholecystectomy planned History of section Z98.891 Surgical History: noncontributory Smoking Status: Former smoker Review of Systems Constitutional: Denies: Chills, Fever, Weight Change Cardiovascular: Denies: Chest Pain, Palpitations Respiratory: Denies: Cough, Shortness of breath at rest, Sputum production Gastrointestinal: Denies: Abdominal Pain, Nausea, Vomiting VTE Information - Inpt Only VTE Present on Admission: No - Physical Exam Vitals/I&O's: Vital Signs Temp Pulse Resp BP Pulse Ox 98.7 F 88 18 106/71 98 05/07/20 08:43 05/07/20 08:43 05/07/20 08:43 05/07/20 08:43 05/07/20 08:43 Oxygen Delivery Method Room Air Weight: 156 lb 4.924 oz Body Mass Index (BMI) 23.8 Intake and Output for Last 24 Hours 05/05/20 05/06/20 05/07/20 23:59 23:59 23:59 Intake Total 1500 / 1500 Balance 1500 / 1500 General: Alert, Oriented x3 Abdomen: Soft, Non-Distended - positive diffuse lower abdominal tenderness, no rebound or guarding Neurological: Cranial nerves II-XII grossly intact Psych/Mental Status: Normal Affect Laboratory Results 05/06/20 20:06: WBC 6.8, RBC 3.23 L, Hgb 9.1 L, Hct 29.0 L, MCV 89.8, MCH 28.2, MCHC 31.4 L, RDW Std Deviation 40.4, RDW Coeff of Bj 12.4, Plt Count 268, MPV 9.2, Immature Gran % (Auto) 0.300, Neut % (Auto) 57.8, Lymph % (Auto) 27.9, [place] % (Auto) 8.5, Eos % (Auto) 5.1 H, Baso % (Auto) 0.4, Absolute Neuts (auto) 3.9, Absolute Lymphs (auto) 1.90, Nucleated RBC % 0 05/06/20 20:06: Sodium 143, Potassium 3.7, Chloride 113 H, Carbon Dioxide 26.0, Anion Gap 4 L, BUN 10, Creatinine 0.66, Estim Creat Clear Calc 128.02, Est GFR (MDRD) Af Amer 136, Est GFR (MDRD) Non-Af 112, BUN/Creatinine Ratio 15.1, Glucose 93, Calcium 8.7, Total Bilirubin 0.60, AST 5 L, ALT 13, Alkaline Phosphatase 64, Total Protein 6.8, Albumin 3.8, Globulin 3.0, Albumin/Globulin Ratio 1.3 05/06/20 21:40: PT 13.6, INR 1.1 05/07/20 05:50: WBC 4.9, RBC 2.76 L, Hgb 7.8 L, Hct 25.0 L, MCV 90.6, MCH 28.3, MCHC 31.2 L, RDW Std Deviation 41.4, RDW Coeff of Bj 12.6, Plt Count 221, MPV 9.5, Immature Gran % (Auto) 0.200, Neut % (Auto) 47.1, Lymph % (Auto) 35.5, [place] % (Auto) 8.6, Eos % (Auto) 8.2 H, Baso % (Auto) 0.4, Absolute Neuts (auto) 2.3, Absolute Lymphs (auto) 1.74, Nucleated RBC % 0 05/07/20 05:50: HCG, Quant 108 H Current Medications Acetaminophen (Acetaminophen 325 Mg Tablet) 650 mg PO Q6H PRN PRN PRN Reason: Pain Score 1-10/Temp > 100.7 F Sodium Chloride () 1,000 mls @ 125 mls/hr IV .Q8H ANUP Last Admin: 05/07/20 04:36 Dose: 125 mls/hr Documented by: Piperacillin Sod/Tazobactam (Sod 3.375 gm/ Sodium Chloride) 50 mls @ 12.5 mls/hr IV Q8 ANUP Last Admin: 05/07/20 05:57 Dose: 12.5 mls/hr Documented by: Ibuprofen (Ibuprofen 400 Mg Tablet) 400 mg PO Q4H PRN PRN PRN Reason: Pain Score 1-10/Temp > 100.7 F Morphine Sulfate (Morphine 4 Mg/Ml Syringe) 4 mg IV Q4H PRN PRN PRN Reason: Pain Score 6-10 Ondansetron HCl (Ondansetron 4 Mg/2 Ml Vial) 4 mg IV Q8H PRN PRN PRN Reason: NAUSEA/VOMITING Oxycodone HCl (Oxycodone 5 Mg Tablet) 5 mg PO Q4H PRN PRN PRN Reason: Pain Score 4-10 Last Admin: 05/06/20 21:50 Dose: 5 mg Documented by: Sodium Chloride (0.9% Saline Lock 10 Ml Syringe) 10 - 40 ml IV UD PRN PRN Reason: SALINE FLUSH Zolpidem Tartrate (Zolpidem Tartrate 5 Mg Tablet) 5 mg PO QHS PRN PRN PRN Reason: INSOMNIA Assessment/Plan All Active Problems (Last Updated 07/23/19 @ 21:[address] Caitlin Villalobos, DO) 32 weeks gestation of (Acute) Fall (Acute) Abdominal pain affecting (Acute) 29yo female with pelvic pain & vaginal bleeding, suspected scar ectopic Patient had pelvic US late yesterday at the office that showed a mass which was thought to be a possible abscess in lower uterine segment. Formal US read today as well as CT here shows vascular mass that is concerning for retained POC's. At this time there is concern that patient has an incompletely treated abnormal that could be a scar ectopic . Discussed findings with of [facility] and she agrees. Plan for transfer to [facility] with / accepting to appeals court associate justice service. Discussed this plan of care with the patient. She is aware that she will need additional surgical treatment at this time. ID - patient receiving IV zosyn Heme - HDS, patient has acute blood loss anemia
[2020-05-07] MEDS: Acetaminophen 325 MG Tablet 650 MG PO (09:22)
[2020-05-07] MEDS: Dextrose 5%/0.9% NaCl 1,000 ML 125 ML IV ×2 (09:53→17:48)
--- NOTE | 2020-05-07 12:00 | NURSING ---
aware per Evan chest pain coordinator for [facility] no bed available at this time at [facility] for patient.
[2020-05-07 14:00] VITALS: BP 107/61; PULSE 89; RESP 18; TEMP 37.2; O2SAT 96
[2020-05-07] MEDS: Ondansetron 4 MG/2 ML Vial IV (14:55)
[2020-05-07] MEDS: Morphine 4 MG/ML Syringe IV ×2 (14:56→19:31)
--- NOTE | 2020-05-07 14:59 | NURSING ---
primary RN informed have [facility], phone number for report given. aware per credit professional soonest transport is 5pm
[2020-05-07] MEDS: Ibuprofen 400 MG Tablet PO (19:34)
[2020-05-07 19:38] VITALS: BP 116/75; PULSE 60; RESP 18; TEMP 36.6; O2SAT 100
== END 2020-05-07 19:53 | disposition short-term general hospital (02) ==
PROVIDERS: Advanced Practice Midwife; Obstetrics & Gynecology; Admitting Provider Obstetrics & Gynecology; PCP Family Medicine; Visit Provider Obstetrics & Gynecology
DX: R10.2 Pelvic and perineal pain (principal); G80.9 Cerebral palsy, unspecified; Z87.891 Personal history of nicotine dependence; D62 Acute posthemorrhagic anemia
CPT/HCPCS: 36415; 74178; 80053; 84702; 85025; 85610; 96361; 96365; 96366; 96375; 96376; 99218; J7030; Q9967; A4216; G0378; G0379; J2405

== ENCOUNTER 2020-07-17 21:30 | Emergency (ER) | payer MEDICAID, SELFPAY ==
[2020-05-06 19:46] VITALS: BMI 23.8
[2020-07-17 21:30] VITALS: BP 136/61; PULSE 88; RESP 16; TEMP 36.6; O2SAT 100; BMI 23.1
--- NOTE | 2020-07-17 21:51 | ED.DCSUM_ITS ---
History of Present Illness Chief Complaint: Dental Informant: Patient Onset: - - Acute on chronic Current Severity: Moderate Maximum Severity: Moderate Narrative: Patient presents with increased left lower dental pain. She reports having problems with this area for the past couple of years. It is recently become worse. Patient denies fever or chills. No difficulty swallowing. Patient is very tearful and talks of feeling traumatized by coming back to the hospital. The last time she was here she had to be transferred and a hysterectomy had to be performed. She is still traumatized by the fact that she is no longer able to have children. Past Medical History - Allergies and Home Meds Allergies/Adverse Reactions: Allergies amoxicillin [From Augmentin] Allergy (Verified 07/17/20 21:32) Hives clavulanic acid [From Augmentin] Allergy (Verified 07/17/20 21:32) Hives ibuprofen Adverse Reaction (Verified 07/17/20 21:32) Upset Stomach Primary Care Physician: Jj Valera MD [Primary Care Provider] - Prior records reviewed: Yes Surgical History: noncontributory, hysterectomy Smoking Status: Former smoker Review of Systems General: Denies: Chills, Fever Eyes: Denies: Visual changes - bilaterally ENT: Reports: - - Left lower dental pain. Denies: Bilateral ear pain Cardiovascular: Denies: Chest pain Respiratory: Denies: Dyspnea, Cough Musculoskeletal: Denies: Swelling, Extremity Pain Psych: Reports: Anxiety Hematologic: Denies: Easy bruising, Easy bleeding Allergy: Denies: Uticaria Physical Exam Vital Signs/Narrative: Vital Signs Temp Pulse Resp BP Pulse Ox 07/17/20 21:30 97.8 F 88 16 136/61 H 100 Inital Vital Signs reviewed: Yes General: Well nourished, Well developed Head: Normocephalic ENT: Moist mucous membranes, - - Left mandibular first and second molars are mildly tender with mild surrounding gum edema. No trismus. Posterior pharynx exam is normal. Neck: Supple, - - Mild left cervical lymphadenopathy. No evidence of Freddy's angina. Cardiovascular: Regular rate, Regular rhythm Respiratory: No distress, CTA bilaterally Extremities: Nontender Skin: Normal color Neurological: Alert, Oriented x3 Psychological: Depressed, Tearful Diagnostic/Tx/Re-eval - Medical Decision Making Patient has an allergy to ibuprofen. She has been taking naproxen and Tylenol for pain. She will be given a short course of tramadol along with a course of clindamycin. Patient reports not getting effective therapy from the counseling center. She will be given information for behavioral health services and contact them about possible treatment. ED Disposition - Plan for ED Patient: Disposition: Home or Assisted Living Diagnosis: Odontalgia Instructions: ED Dental Pain Prescriptions: Clindamycin [Cleocin] 300 mg PO 4X/DAY #80 cap Transmission Status: Pending to [facility] traMADol [Ultram] 50 mg PO Q6H PRN PRN 3 Days #14 tablet PRN Reason: Pain Transmission Status: Sent to [facility] Referrals: Behavioral,[facility] [GROUP OF PHYSICIANS] -
[2020-07-17] MEDS: traMADol 50 MG Tablet PO (22:00)
[2020-07-17] MEDS: Clindamycin HCl 150 MG Capsule 300 MG PO (22:00)
[2020-07-17 22:06] VITALS: BP 136/61; PULSE 88; RESP 16; O2SAT 100
== END 2020-07-17 22:07 | disposition home or self-care (01) ==
LOC: ED 22:02
PROVIDERS: Emergency Provider Emergency Medicine; PCP Family Medicine
DX: K08.89 Other specified disorders of teeth and supporting structures (principal); Z87.891 Personal history of nicotine dependence
CPT/HCPCS: 99283

== ENCOUNTER 2020-08-21 21:39 | Emergency (ER) | payer MEDICAID, SELFPAY ==
[2020-08-21 21:40] VITALS: BP 159/89; PULSE 88; RESP 15; TEMP 36.2; O2SAT 97; BMI 23.6
--- NOTE | 2020-08-21 22:14 | ED.VIS.GEN ---
History of Present Illness Chief Complaint: Headache Informant: Patient Onset: Days Context: Gradual Onset Timing: Waxes and wanes Current Severity: Moderate Maximum Severity: Moderate Narrative: Patient present secondary to migraine headache. Patient is a history of migraines it typically affects the posterior portion of her head. This migraine started 4 days ago and is been waxing and waning. It is located on the left latter-day. She does have light sensitivity along with nausea and vomiting. She has tried her Imitrex along with Tylenol, naproxen, and [id number] tension headache medicine. She does report a mild head injury 1 week ago, but did not have any pain for a couple days following this. She has had some mild congestion but states she does not have facial pain consistent with prior sinus infections. - Past Medical History (1) Anxiety Status: Chronic (2) Migraines Status: Chronic Past Medical History - Allergies and Home Meds Allergies/Adverse Reactions: Allergies amoxicillin [From Augmentin] Allergy (Verified 08/21/20 21:41) Hives clavulanic acid [From Augmentin] Allergy (Verified 08/21/20 21:41) Hives ibuprofen Adverse Reaction (Verified 08/21/20 21:41) Upset Stomach Primary Care Physician: Jj Valera MD [Primary Care Provider] - Surgical History: noncontributory, hysterectomy Lives: With Family Smoking Status: Never smoker Review of Systems General: Denies: Chills, Fever Eyes: Denies: Visual changes - bilaterally ENT: Denies: Bilateral ear pain Cardiovascular: Denies: Chest pain Respiratory: Denies: Dyspnea, Cough Gastrointestinal: Reports: Nausea, Vomiting. Denies: Abdominal pain Musculoskeletal: Denies: Swelling, Extremity Pain Skin: Denies: Rash, Wounds Neurological: Reports: Headache Hematologic: Denies: Easy bruising, Easy bleeding Allergy: Denies: Uticaria Physical Exam Vital Signs/Narrative: Vital Signs Temp Pulse Resp BP Pulse Ox 08/21/20 21:40 97.2 F L 88 15 159/89 H 97 Inital Vital Signs reviewed: Yes General: Well nourished, Well developed Head: Normocephalic ENT: Moist mucous membranes Neck: Supple, - - No meningismus Cardiovascular: Regular rate, Regular rhythm Respiratory: No distress, CTA bilaterally Abdomen: Soft, Nontender Extremities: Nontender Skin: Normal color, No rash Neurological: Alert, Oriented x3, Normal Strength, Normal Sensation Psychological: Normal affect Diagnostic/Tx/Re-eval - Medical Decision Making Patient was given Toradol, Reglan, Benadryl, and IV fluids. On repeat evaluation she is sleeping comfortably. She easily awakens. She states her headache has reduced by about half. At this time she will be discharged home to sleep in a quiet dark room. There were no concerning neuro exam findings that would require imaging at this time. ED Disposition - Plan for ED Patient: Disposition: Home or Assisted Living Diagnosis: Migraine Instructions: ED, Migraine (Classical) Referrals: Jj Valera MD [Primary Care Provider] - 3-5 Days if not improving
[2020-08-21] MEDS: Ketorolac 30 MG/ML Syringe IV (22:35)
[2020-08-21] MEDS: DiphenhydrAMINE 50 MG/ML Syringe 25 MG IV (22:35)
[2020-08-21] MEDS: 0.9% Normal Saline 1,000 ML 999 ML IV (22:35)
[2020-08-21] MEDS: Metoclopramide 10 MG/2 ML Vial IV (22:36)
[2020-08-21 23:20] VITALS: BP 97/52; PULSE 69; RESP 16; O2SAT 98
[2020-08-21 23:34] VITALS: BP 107/56; PULSE 68; RESP 17; TEMP 36.7; O2SAT 99
== END 2020-08-21 23:50 | disposition home or self-care (01) ==
PROVIDERS: Emergency Provider Emergency Medicine; PCP Family Medicine
DX: G43.909 Migraine, unspecified, not intractable, without status migrainosus (principal); F41.9 Anxiety disorder, unspecified; Z90.710 Acquired absence of both cervix and uterus
CPT/HCPCS: 96374; 96375; 99282; J7030; A4216

== ENCOUNTER 2020-12-03 04:25 | Emergency (ER) | payer MEDICAID, SELFPAY ==
[2020-12-03 04:25] VITALS: BP 136/85; PULSE 90; RESP 14; TEMP 35.8; O2SAT 100; BMI 23.8
--- NOTE | 2020-12-03 04:28 | EX.ED.UPPERE ---
HPI History of Present Illness Chief Complaint: Upper Extremity Injury Narrative Narrative: 30-year-old female presents with bilateral elbow pain. States it began this evening. 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 States the pain is aching. Worse with movement. Equal in the bilateral elbows. Denies any fever, chills, trauma. PFSH PFSH Medical History Cerebral palsy Home Medications lorazepam 1 mg PO BID PRN PRN 05/06/20 [History Last Taken 05/06/20 16:30] sumatriptan succinate 50 mg PO PRN PRN 05/06/20 [History Last Taken Unknown] acetaminophen [Tylenol Extra Strength] 1,000 mg PO Q6H PRN #20 tab 12/03/20 [Rx Last Taken Unknown] Allergy/AdvReac Type Severity Reaction Status Date / Time amoxicillin [From Augmentin] Allergy Hives Verified 12/03/20 04:27 clavulanic acid Allergy Hives Verified 12/03/20 04:27 [From Augmentin] ibuprofen AdvReac Upset Verified 12/03/20 04:27 Stomach Surgical History Cholecystectomy planned History of section Social History current occupational status: unemployed 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 Smoking Status: Never smoker alcohol intake: never substance use type: does not use seatbelt use: always do you feel safe at home: Yes ROS ROS ED Constitutional Constitutional ED: Denies chills, fever(s) or sweats Eyes Eyes: Denies blurry vision, change in vision or diplopia ENT ENT ED: Denies rhinorrhea or sore throat Cardiovascular Cardiovascular: Denies chest pain, orthopnea, palpitations or racing heartbeat Respiratory/Chest Respiratory/Chest: Denies cough, dyspnea, dyspnea on exertion, orthopnea or sputum Gastrointestinal Gastrointestinal: Denies abdominal pain, constipation, diarrhea, melena, nausea or vomiting Genitourinary Genitourinary ED: Denies dysuria, hematuria or urinary frequency Musculoskeletal Musculoskeletal: Denies arthralgias, myalgias or neck pain Integumentary Denies rash Neurologic Neurologic: Denies headache(s), paresthesias or weakness Psychiatric Psychiatric: Denies anxiety or depression Hematologic/Lymphatic Hematologic/Lymphatic: Denies easy bleeding or easy bruising Allergic/Immunologic Allergic/Immunologic ED: Denies mouth swelling or tongue swelling EXAM Physical Exam Const Vital Signs: 12/03/20 04:25 Temperature 96.4 F L Temperature Source Temporal Pulse Rate 90 Respiratory Rate 14 Blood Pressure 136/85 H Blood Pressure Mean 102 Pulse Ox 100 Oxygen Delivery Method Room Air Positive well nourished and well developed General Appearance ED: well developed HEENT Reports TM's clear normocephalic and atraumatic Tympanic Membrane ED: Yes TM's clear Neck no lymphadenopathy, supple and no JVD Chest Wall inspection of chest normal Resp normal respiratory effort and clear to auscultation bilaterally Cardio regular rate, S1 normal heart sound, S2 normal heart sound and no murmurs Peripheral Pulses: pulses 2+ throughout GI soft to palpation, non-tender and non-distended Back/Spine no thoracic nor lumbar tenderness Extremity normal to inspection Extremity Narrative: Tenderness to palpation in the bilateral elbows. Full range of motion. No overlying skin changes. No increase in warmth. Strong palpable pulses. Sensation intact. General Extremety ED: Negative for edema or tenderness General Extremity: Negative for edema Neuro Sensorium / Orientation: alert Psych mental status grossly normal Skin no rashes or lesions noted MDM MDM MDM Narrative Medical decision making narrative: Patient appears well nontoxic. Vital signs within normal limits. Pain likely from starting a new job. Will be placed in bilateral Freddy wraps. Given intramuscular Kenalog injection. Will be placed on Tylenol for the next 5 days. Asked to return for new or worsening symptoms. Patient agreeable and discharged home in stable condition Discharge Plan Triage Chief Complaint: Upper Extremity Injury ED Provider: Cristofer Romero Dx/Rx/DC Orders Clinical Impression: Bilateral elbow joint pain Instructions: ED Arthralgia Prescriptions: New acetaminophen [Tylenol Extra Strength] 500 mg tablet 1,000 mg PO Q6H PRN (Reason: pain) Qty: 20 RF: 0 No Action lorazepam 1 MG tablet 1 mg PO BID PRN PRN (Reason: Anxiety) RF: 0 sumatriptan succinate 25 MG tablet 50 mg PO PRN PRN (Reason: Migraine Headache) RF: 0 Primary Care Provider: Jj Valera Referrals: Jj Valera MD [Primary Care Provider] - 2 Days Disposition Disposition: Home, self care
[2020-12-03] MEDS: Triamcinolone Acetonide 40 MG/ML Vial IM (04:39)
[2020-12-03 05:00] VITALS: RESP 14
== END 2020-12-03 05:01 | disposition home or self-care (01) ==
LOC: ED 04:37
PROVIDERS: Emergency Provider Emergency Medicine; PCP Family Medicine
DX: M25.521 Pain in right elbow (principal); M25.522 Pain in left elbow; Z79.899 Other long term (current) drug therapy
CPT/HCPCS: 96372; 99282

== ENCOUNTER 2021-04-29 13:07 | Emergency (ER) | payer MEDICAID, SELFPAY ==
[2021-04-29 13:07] VITALS: BP 117/72; PULSE 85; RESP 16; TEMP 35.7; O2SAT 99; BMI 23.2
--- NOTE | 2021-04-29 13:47 | CT_ITS ---
STUDY: CT BRAIN WITHOUT CONTRAST REASON FOR EXAM: Female, 30 years old. Migraine headaches. Photophobia. RADIATION DOSAGE (If Supplied By Facility): CTDIvol = ( 47.06 ) mGy, DLP = ( 855.03 ) mGycm TECHNIQUE: Transaxial CT imaging of the brain was performed without administration of intravenous contrast material. Individualized dose optimization techniques were used for this CT. COMPARISON: No relevant priors. FINDINGS: Normal soft tissue structures. Normal calvarium. Normal size ventricles and extra-axial spaces for the patient''s age. Normal white matter tracts of the cerebral hemispheres. Normal basal ganglia and thalami. Normal brainstem. Normal cerebellum. There is no intracranial hemorrhage. There are no findings of an acute ischemic infarction. Normal visualized paranasal sinuses. CT/Brain/Head without Contrast IMPRESSION: Normal unenhanced CT scan of the brain. Electronically Signed: Christos Stewart MD at 14:31 EDT , Service support ,
--- NOTE | 2021-04-29 13:47 | EX.ED.VIS.HA ---
HPI History of Present Illness Chief Complaint: Headache Informant: patient Onset/Context/Timing Onset: Yesterday Context: Gradual Timing: Continuous Quality -Headache: Positive for Throbbing and Tightness Location: Left periorbital area Worsened by: Nothing Relieved by: Nothing Associated Symptoms/Injury Associated Symptoms: Positive for Nausea, Tingling and Visual Changes (Scotoma); Negative for Fever, Vomiting, Sore Throat, Sinus Pressure, Numbness, Preceding Aura, Blurred Vision, Photophobia and Visual Loss Injury - NATION: Negative for Direct Trauma Narrative Narrative: Patient presents with headache that began yesterday. Patient states his over her left eye area. Patient states this is different than her typical migraine headaches. Patient describes her pain as pressure and throbbing. Patient states nothing makes it worse nothing makes it better. Patient does admit to some nausea but denies any vomiting. Patient also admits to some scotoma that comes and goes. Patient denies any photophobia. Patient denies any blurry vision or double vision. Patient does admit to some tingling in her right hand. Patient denies any weakness. [facility] Medical History Cerebral palsy Migraines Home Medications lorazepam 1 mg PO BID PRN PRN 05/06/20 [History Last Taken 05/06/20 16:30] sumatriptan succinate 50 mg PO PRN PRN 05/06/20 [History Last Taken Unknown] acetaminophen [Tylenol Extra Strength] 1,000 mg PO Q6H PRN #20 tab 12/03/20 [Rx Last Taken Unknown] Allergy/AdvReac Type Severity Reaction Status Date / Time amoxicillin [From Augmentin] Allergy Hives Verified 04/29/21 13:10 clavulanic acid Allergy Hives Verified 04/29/21 13:10 [From Augmentin] ibuprofen AdvReac Upset Verified 04/29/21 13:10 Stomach Surgical History Cholecystectomy planned History of section History of cholecystectomy History of hysterectomy Social History current occupational status: unemployed 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 Smoking Status: Never smoker alcohol intake: never substance use type: does not use seatbelt use: always do you feel safe at home: Yes ROS ROS ED Constitutional Constitutional ED: Denies chills or fever(s) Eyes Eyes: Denies blurry vision or change in vision ENT ENT ED: Denies rhinorrhea or sore throat Cardiovascular Cardiovascular: Reports chest pain; Denies palpitations Respiratory/Chest Respiratory/Chest: Denies cough or dyspnea Gastrointestinal Gastrointestinal: Reports nausea; Denies vomiting Genitourinary Genitourinary ED: Denies dysuria or hematuria Musculoskeletal Musculoskeletal: Reports back pain and neck pain Integumentary Denies abscess or rash Neurologic Neurologic: Reports headache(s); Denies weakness Allergic/Immunologic Allergic/Immunologic ED: Denies mouth swelling or urticaria EXAM Physical Exam Const Vital Signs: 04/29/21 13:07 04/29/21 15:12 Temperature 96.2 F L Temperature Source Temporal Pulse Rate 85 Respiratory Rate 16 16 Blood Pressure 117/72 Blood Pressure Mean 87 Pulse Ox 99 Oxygen Delivery Method Room Air Positive well nourished and well developed General Appearance ED: well developed HEENT Reports moist mucous membranes temporal artery tenderness left Neck supple and no JVD Resp normal respiratory effort and clear to auscultation bilaterally Cardio regular rate, regular rhythm and no murmurs GI normal to inspection, nondistended, normoactive bowel sounds and non-tender Palpation: soft Extremity normal to inspection General Extremety ED: Negative for edema or tenderness General Extremity: Negative for edema Neuro oriented x3, CN's II-XII intact bilaterally and no sensory deficits noted Sensorium / Orientation: alert Motor Exam: strength 5/5 throughout Psych mental status grossly normal Skin no rashes or lesions noted MDM MDM MDM Narrative Medical decision making narrative: Patient was given IV fluids, Reglan, and Benadryl. CT scan of the brain was obtained. There is no acute intracranial abnormality. Sed rate was obtained. It is normal at 3. Patient was feeling better on reevaluation. Patient was instructed to rest in a dark quiet room. Patient was instructed to follow-up with her primary care physician in 5 to 7 days. Patient understood and was agreeable with the plan. All questions were answered. Lab Data Labs: Laboratory Results - last 24 hr 04/29/21 13:55 ESR 3 Radiography Diagnostic Testing: Clinical Impression(s) from Imaging Studies Brain CT 04/29/21 13:47 IMPRESSION: Normal unenhanced CT scan of the brain. Electronically Signed: Christos Stewart MD at 14:31 EDT , Service support , Discharge Plan Triage Chief Complaint: Headache ED Provider: Buster Bustamante Dx/Rx/DC Orders Clinical Impression: Headache Instructions: ED Headache Unspecified Prescriptions: No Action lorazepam 1 MG tablet 1 mg PO BID PRN PRN (Reason: Anxiety) RF: 0 sumatriptan succinate 25 MG tablet 50 mg PO PRN PRN (Reason: Migraine Headache) RF: 0 acetaminophen [Tylenol Extra Strength] 500 mg tablet 1,000 mg PO Q6H PRN (Reason: pain) Qty: 20 RF: 0 Primary Care Provider: Jj Valera Referrals: Jj Valera MD [Primary Care Provider] - 3-5 Days Disposition Disposition: Home, Self Care
[2021-04-29] MEDS: Metoclopramide 10 MG/2 ML Vial IV (14:08)
[2021-04-29] MEDS: 0.9% Normal Saline 1,000 ML 999 ML IV (14:08)
[2021-04-29] MEDS: DiphenhydrAMINE 50 MG/ML Syringe 25 MG IV (14:08)
[2021-04-29 14:16] LABS: Erythrocyte Sedimentation Rate 3 mm/hr (0-30)
[2021-04-29 15:12] VITALS: RESP 16
[2021-04-29 15:57] VITALS: PULSE 75; RESP 16; O2SAT 98
== END 2021-04-29 15:57 | disposition home or self-care (01) ==
PROVIDERS: Emergency Provider Emergency Medicine; PCP Family Medicine
DX: R51.9 Headache, unspecified (principal); G80.9 Cerebral palsy, unspecified
CPT/HCPCS: 70450; 85652; 96374; 96375; 99283; A4216

== ENCOUNTER 2021-06-01 09:29 | Outpatient (RCR) | payer MEDICAID, SELFPAY ==
--- NOTE | 2021-06-01 09:00 | BH.SGPN.GN ---
Behaviors/Verbalizations/Mental Status: [] Eye contact is good. Motor activity is appropriate. Appearance is casual. Speech is Appropriate. Mood is anxious. Affect is congruent. Thoughts are linear and logical. No evidence of psychosis. Reviewed daily check in sheet and no reports of suicidal ideations or intent. Client Response/Progress/Benefit: [] Pt participated at times during the group discussion. Attentive. Provided appropriate feedback. Shared with the group that today is her first day in IOP. Entered [facility] to work on her anxiety and depression. Shared stressors in her life as well as some general interests and background. I'm always worried about others and not myself. No progress noted as this is her first IOP. Beneifted from support and feedback from peers regarding his first day and week in the IOP program. Will continue in IOP to maintain safety, increase healthy coping, and stabilize mood. Narrative Note: []
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
[2021-06-01 12:19] VITALS: BP 135/65; PULSE 64
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
--- NOTE | 2021-06-01 13:23 | BH.DR.ITP ---
Initial Treatment Plan Patient Information Visit Information: ADMISSION DATE: EXPECTED LOS: 4-6 weeks Problems/Symptoms Problem #1:: Anxiety Symptom:: Intrusive thoughts, rituals, ruminations, worry, panic attacks, avoidance, flashbacks, nightmares, reexperiencing. Problem #2:: Erratic moods Symptom:: Feeling overwhelmed, down, disruption of sleep
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
--- NOTE | 2021-06-01 15:16 | BH.MTP ---
Master Treatment Plan - Patient Information Program Physician:: Dr. Burrell Primary Therapist:: Marium Altman, [facility] - Psychiatric Diagnoses Psychiatric Diagnoses:: 1. Obsessive-compulsive disorder F42. 2. Generalized anxiety disorder F42.1. 3. Bipolar, NOS F31.9. 4. PTSD. 5. Alcohol use disorder, sober for 1 month. 6. Cerebral palsy and left leg with chronic pain. 7. Grieving loss of fertility after emergency hysterectomy in 2020. 8. Primary support and financial issues Diagnosis Code(s):: F42; F31.9 - Estimated LOS Estimated LOS (in weeks):: 6 Problem/Goal #1 - Problem/Goal #1 Stated Goal:: Client will reduce overall frequency, intensity, and duration of anxiety so that daily functioning is not impaired. Description of Barriers: Pt's distorted thought patterns, difficulty engaging in self-care, putting others before own needs, mental health stigma, and anxious thought patterns could be potential barriers to treatment. Functional Impact: The patient is a 30-year-old single female with a history of anxiety, depression, OCD and PTSD who was referred to the [facility] behavioral health program by her primary care physician. Patient was working at her most recent job for about 4 months and had some issues at work where she was repeatedly late to work and ended up losing her job 2 weeks ago. This has caused her financial stress especially around the holidays. The patient says that she has history of OCD with intrusive thoughts and obsessions around cleaning, organizing and numbers. Pt?s OCD symptoms have contributed to her quitting jobs in the past and make her late to important events. . She is having panic attacks weekly and the most recent one was 2 days ago. At times she is unable to shut her mind off at night and feels she has too much to do to sleep. - Objectives Objective #1 Stated Objective: Client will learn and implement 2-3 calming skills to reduce overall anxiety and manage anxiety. Interventions: Therapist will teach the client calming/relaxation skills and help clients connect ways to apply skills to daily life. Discharge Criteria: Client will have achieved this goal when can verbalize at least 2 calming skills and implement those skills. Objective #2 Stated Objective: Pt will decrease anxious symptoms AEB pt?s score on the DSM 5 cross-cutting measure improve pt?s daily functioning. Interventions: Through groups and individual therapy, pt will be provided education about anxiety?s impact on body and common physiological reaction to anxiety. Therapist will teach pt appropriate breathing techniques and build healthy coping skills to manage daily anxieties. Discharge Criteria: Pt will have met this goal when pt?s score on the DSM 5 cross cutting measure for anxiety has been decreased and per pt?s report daily functioning has improved. Problem/Goal #2 - Problem/Goal #2 Stated Goal:: Normalize energy level and return to usual activities, good judgement, stable mood, more realistic expectations, and goal-directed behavior. Description of Barriers: Pt's distorted thought patterns, difficulty engaging in self-care, putting others before own needs, mental health stigma, and anxious thought patterns could be potential barriers to treatment. Functional Impact: The patient is a 30-year-old single female with a history of anxiety, depression, OCD and PTSD who was referred to the [facility] behavioral health program by her primary care physician. Patient was working at her most recent job for about 4 months and had some issues at work where she was repeatedly late to work and ended up losing her job 2 weeks ago. This has caused her financial stress especially around the holidays. The patient says that she has history of OCD with intrusive thoughts and obsessions around cleaning, organizing and numbers. Pt?s OCD symptoms have contributed to her quitting jobs in the past and make her late to important events. . She is having panic attacks weekly and the most recent one was 2 days ago. At times she is unable to shut her mind off at night and feels she has too much to do to sleep. - Objectives Objective #1 Stated Objective: Pt will learn 3-5 healthy coping skills to help manage different mood states. Interventions: Teach the group illness management skills (e.g., early warning signs, common triggers, coping strategies), problem solving focused on life goals, and a personal care plan that emphasizes a regular sleep routine, comply with medications, and ways to minimize relapse through stress regulations. Discharge Criteria: Pt will have met this objective when can identify at least 3 healthy coping skills to help manage different mood states. Objective #2 Stated Objective: Pt will improve mood stability by decreasing depressive and manic symptoms AEB pt?s score on the DSM 5 cross-cutting measure and improve pt?s daily functioning. Interventions: Through groups and individual therapy, pt will be provided with education on cognitive distortions, mistaken beliefs, and identifying and combating negative self-talk. Therapist will assist pt with getting back into the activities she once enjoyed as well as increasing healthy coping strategies. Discharge Criteria: Pt will have met this goal when pt?s score on the DSM 5 cross cutting measure for depression and shanae has been decreased and per pt?s report daily functioning has improved.
--- NOTE | 2021-06-01 17:59 | BH.PSA ---
Suicide Assessment Treatment Plan Recommendations
--- NOTE | 2021-06-03 09:00 | BH.SGPN.GN ---
Behaviors/Verbalizations/Mental Status: [] Eye contact is good. Motor activity is appropriate. Appearance is neat. Speech is Appropriate. Mood is anxious. Affect is congruent. Thoughts are linear and logical. No evidence of psychosis. Reviewed daily check in sheet and no reports of suicidal ideations or intent. Client Response/Progress/Benefit: [] Pt was an active participant in group discussion. Attentive. Provided appropriate feedback. Mental health wins include getting here today. Shared that she struggles often struggles with follow through however I really want to accomplish this (IOP) however getting up and out in the AM is very difficult. She also discussed several stressors in her life which impact her emotionally and often lead to significant issues with conrolling her emotions which can lead to relationship issues and difficulty maintaining consistent employment. Progress noted per pt report. Benefited from group support, encouragement, and feedback. Will continue in IOP to prevent decompensation, increase healthy coping, and stabilize mood. Narrative Note: []
--- NOTE | 2021-06-03 10:08 | BH.SGPN.GN ---
Behaviors/Verbalizations/Mental Status: [] Eye contact is good. Motor activity is appropriate. Appearance is casual. Speech is Appropriate. Mood is anxious. Affect is congruent. Thoughts are linear and logical. No evidence of psychosis. Client Response/Progress/Benefit: [] Pt was an active participant in group discussion and activity. Attentive during psychoeducation on coping skills, taking notes, and providing input. Pt shared that coping is ?how you deal with something?. She along with peers worked together to identify unhealthy coping skills such as; avoidance, overbooking yourself, substances, isolation, distracting with other activities. Group was able to identify why people use unhealthy coping skills such as; easy, comfortable, work in the short-term, habit, or it?s what they were taught/learned from others. Pt expressed connecting with learned behaviors and habit as major reasons she has turned to unhealthy skills in the past. Pt was able to make connection between the activity (tower building) and the importance of having a strong base/foundation of both internal and external coping skills. Benefited from increased understanding of unhealthy coping skills and developing healthy internal and external coping skills to manage mental health sx. Pt will continue in IOP to prevent decompensation, increase health coping skill repertoire, as well as continue to promote healthy anxiety management skills. Narrative Note: []
--- NOTE | 2021-06-03 11:05 | BH.SGPN.GN ---
Behaviors/Verbalizations/Mental Status: []Client alert and oriented, neatly dressed and groomed. Eye contact good. Motor activity appropriate. Speech within normal limits. Affect constricted, mood anxious and depressed. Thoughts linear, logical, no signs of hallucinations or delusions. Client Response/Progress/Benefit: []Client responded well to session, taking note and contributing at times. Group discussed the different categories of coping skills which included distraction, emotional release, grounding, self-love, and thought challenging. Client's coping skill menu included: making lists, exercising or journaling, 5-senses, scheduling time for self-care, and looking at the evidence against her negative thought. Client reports she struggles most with the self-love and self-care categories. Appeared to benefit from increasing repertoire of healthy coping skills. Will continue tx to prevent decompensation, gain healthy coping skills, and improve functioning. Narrative Note: []
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
--- NOTE | 2021-06-08 09:03 | BH.SGPN.GN ---
Behaviors/Verbalizations/Mental Status: []Client alert and oriented, casually dressed and groomed. Eye contact good. Motor activity appropriate. Speech within normal limits. Affect congruent, mood anxious and euthymic. Thoughts linear, logical, no signs of hallucinations or delusions. Reviewed client?s symptom tracker, no risk for suicidal ideation, plan, or intent as of 06/08/21 Client Response/Progress/Benefit: C[]Client responded well to session, attentive and contributing. Client reports feeling stressed and excited this morning as client has a lot of stressors, but feels energized. Client shared her mental health wins are that she got here today despite a stressful morning, setting boundaries with herself, and leaning on a friend for support. Client stated her mother is sick which is client's biggest stressor right now. Client also shared she has the urge to get two jobs because she is feeling more capable, but client has gained awareness that this is not healthy for her mental health. Appeared to benefit from reflecting on internal boundary setting. Will continue IOP tx to increase mood stability, gain more insight to bipolar symptoms and warning signs, and improve daily functioning. Narrative Note: []
--- NOTE | 2021-06-08 09:15 | BH.COMM ---
Communication Note - Communication with Client Communication Note: Talked with client this AM about how she has been feeling since starting Abilify last week. Client states she does not feel bad like she did when she has taken SSRI's in the past, and states she does think the Abilify has helped improve her mood some and states she has been taking it daily. Client denies complaints or questions at this time.
--- NOTE | 2021-06-08 10:10 | BH.SGPN.GN ---
Behaviors/Verbalizations/Mental Status: []Client alert and oriented, casually dressed and groomed. Eye contact good. Motor activity appropriate. Speech within normal limits. Affect congruent, mood anxious. Thoughts linear, logical, no signs of hallucinations or delusions. Client Response/Progress/Benefit: []Pt engaged participant in group and actively participated in discussion on the benefits of effective communication on mental health which included; helps us set healthy boundaries, get needs met, improve overall mental health and quality of life, reduce stress, and make time for self-care. Pt along with peers able to identify ways that communication can be misinterpreted and the potential costs this can have mental health and relationships. Pt shared communication is something she often struggles with in her relationships. Remained engaged and appeared to benefit from discussion on the various communication styles, as well as reviewing the importance of communicating effectively to improve mental wellness. Shared connecting most with assertive communication, but often struggles with effectively practicing this type of communication, noting she often becomes passive-aggressive or passive. Progress remains variable as pt continues to struggle with consistent attendance. Will continue IOP tx to continue to improve mood stability and healthy communication with supports, promote improved use of self-care skills, as well as prevent decompensation. Narrative Note: []
--- NOTE | 2021-06-10 09:07 | BH.SGPN.GN ---
Behaviors/Verbalizations/Mental Status: []Eye contact is good. Motor activity is appropriate. Appearance is casual. Speech is Appropriate. Mood is dysthymic. Affect is constricted. Thoughts are linear and logical. No evidence of psychosis. Reviewed daily check in sheet and no reports of suicidal ideations or intent. Client Response/Progress/Benefit: []Pt responded well to session AEB sharing thoughts and feelings and appearing to listen attentively to peer. Pt reported mental health positive as trying to eat healthy meals the last three days. Pt stated she had been reverting back to old behaviors of binge eating and recognizes she needs to stop this behavior. Pt stated additional mental health positive as having several productive days. Pt identified stressor is only getting 2 hours of sleep last night. Pt reported feeling detached from her family today. Pt to continue IOP to increase healthy coping, challenge distorted thoughts and prevent decompensation.
--- NOTE | 2021-06-10 14:40 | BH.MDN_ITS ---
Multi-Disciplinary Note - Note 45-min Individual Time Started:: 10:10 Date: 06/10/21 Purpose of session/treatment goals addressed:: Purpose of session was to address goals 1 and 2 from MTP. Eye Contact:: Good Motor Activity:: Appropriate Appearance:: Casual Speech:: Rambling Mood:: Anxious Affect:: Constricted Thoughts:: Racing, No evidence of hallucinations/delusions noted Staff Interventions:: psychoeducation on: - bipolar disorder symtpoms, CBT te chniques, rapport building, strengths perspective, taught coping skills - self- care and strategies to prevent impulsive spending., other - Provided homework from client to review handouts about bipolar disorder and identify her symptoms for shanae and depression. Client Response:: Client reported she has been taking her medication consistently. Client stated she is trying to put forth more effort to take care of herself better. Client opened up about living on the [facility] until she was 8 years old when her parents got . Client stated she moved with her dad to [place] because he got custody of her. Client reported when she was young her parents were alcoholics and she felt ignored and couldn't focus on her needs. Client reported these experiences continue to impact her today because she doesn't go after her own dreams in life. Client stated when she was younger, she had to constantly focus on what everyone else needed. Client reported she can already see progress since starting IOP. Client stated she is having increased emotional awareness and working on using skills to manage emotional expression. Responded well to psychoeducation about bipolar disorder. Agreed to complete provided homework. Receptive to strategies discussed to help decrease impulsive spending when having urges. Risks/Concerns:: Pt denies active suicidal ideation, plan or intention to date. future focused. Progress Toward Goals/Plan:: Progress noted with pt reporting increased self- awareness of emotions and starting to use healthy skills to manage emotions. Pt reporting awareness of her desire to spend impulsively and eliciting support to help her manage her spending. Pt continues to struggle with anxious symptoms and hypomanic symptoms. Pt to continue IOP to stabilize moods, increase use of healthy coping and prevent decompensation. Time Stopped:: 11:00
--- NOTE | 2021-06-14 09:05 | BH.SGPN.GN ---
Behaviors/Verbalizations/Mental Status: []Client alert and oriented, casually dressed and groomed. Eye contact good. Motor activity appropriate. Speech within normal limits. Affect congruent to topics discussed-tearful, mood anxious. Thoughts linear, logical, no signs of hallucinations or delusions. Reviewed client?s symptom tracker, no risk for suicidal ideation, plan, or intent as of 06/14/22 Client Response/Progress/Benefit: []Client responded well to session, providing support to peers. Client reports feeling neutral this morning, but client shared she also feels like she just came down from a manic episode. Client stated she is gaining insight to her bipolar diagnosis which has helped client educate herself and her family. Client also recently got a new job with benefits which client is both excited and anxious about. Client reported she worries that her OCD symptoms will impact her ability to get to work on time. Client encouraged to talk with her individual therapist about strategies to help manage OCD compulsions and obsessions. Appeared to benefit from connecting with peers and reflecting on positives. Will continue IOP tx to promote mood stability, reduce impulsivity, and improve daily functioning. Narrative Note: []
--- NOTE | 2021-06-14 10:25 | BH.SGPN.GN ---
Behaviors/Verbalizations/Mental Status: [] Client Response/Progress/Benefit: [] Pt was an active participant in interactive group discussion and experiential activity. Attentive and provided insight and feedback during psychoeducation on the role and types of supports. Group members were able to identify types of healthy support which included; family, friends, medications, pets, professionals, and healthy hobbies. Also able to identify the difference between healthy and unhealthy support. Listed that healthy support is; non-judgemental, understanding, challenges us, can keep us in check, motivates us, and gives us space when needed. Obstacles that were identified to keep one from seeking or utilizing support included; cognitive distortions, pride, lack of awareness, fear of other's reactions. During experiential activity pt was able to relate and make connections between psychoeducation and the activity. Benefited from increased insight into the benefits of having a balanced support system. Will continue in IOP to prevent decompensation, increase healthy coping skills, and improve functioning. Narrative Note: []
--- NOTE | 2021-06-14 11:16 | BH.SGPN.GN ---
Behaviors/Verbalizations/Mental Status: []Client alert and oriented, casually dressed and groomed. Eye contact good. Motor activity appropriate. Speech within normal limits. Affect congruent, mood anxious. Thoughts linear, logical, no signs of hallucinations or delusions. Client Response/Progress/Benefit: []Client was an active participant throughout AEB contributing to discussion and taking notes. Participated in the group activity highlighting the various barriers to effectively utilizing supports and strategies for improving support. Client provided input during discussion on the types of support our supports can provide (emotional, tangible, affirmational, network/belonging, and instructional) and the group listed examples for all types. Client reports wanting to work on increasing emotional and appraisal supports, noting this will help improve her perspective, feel more grounded emotionally, and improve her ability to identify and give herself credit for small accomplishments. Client plans to improve these support areas by identifying which supports can help with her emotional needs, as well as make time to track small daily wins. Client seemed to benefit from identifying the type of support and how this support will aid in promoting overall mental wellness. Will continue IOP tx to further improve mood stability, continue to promote healthy coping and change behaviors, as well as prevent decompensation. Narrative Note: []
--- NOTE | 2021-06-15 15:32 | BH.COMM ---
Communication Note - Communication with Client Communication Note: cancelled IOP today. Was scheduled to meet with psychiatry.
--- NOTE | 2021-06-16 09:06 | BH.SGPN.GN ---
Behaviors/Verbalizations/Mental Status: []Eye contact is good. Motor activity is appropriate. Appearance is casual. Speech is Appropriate. Mood is anxious and dysthymic. Affect is congruent. Thoughts are linear and logical. No evidence of psychosis. Denies any SI, plan, or intent as of this date. Client Response/Progress/Benefit: []Pt responded well to session AEB pt listening attentively to peers and providing input throughout. Pt reports feeling ?exhausted? this morning. Attributes this to coming out of a recent manic cycle and still struggling with sleep as a result. Additionally discussed ongoing difficulties in managing urges to impulsively spend, but shared she has set up several safety precautions to best manage these urges and prevent spending significantly outside her means. Expressed continuing to struggle with this as she recently overspent on food while visiting a friend at work. Went on to describe feeling stressed about how much she has left to get done before the holidays. Noted trying to take things ?one at a time? and challenge her mindset. Appeared to benefit from group discussion on setting small goals and setting aside time for self-care during times of increased stress. Pt shared she has plans to complete a self-care ?spa routine? at home tonight to relax. Recommended continued IOP tx to promote consistent thought challenging skills and small goal setting, continue to reduce anxiety, and further improve boundaries. Narrative Note: []
--- NOTE | 2021-06-16 10:15 | BH.SGPN.GN ---
Behaviors/Verbalizations/Mental Status: []Client alert and oriented, neatly dressed and groomed. Eye contact good. Motor activity appropriate. Speech within normal limits. Affect congruent, mood euthymic. Thoughts linear, logical, no signs of hallucinations or delusions. Client Response/Progress/Benefit: []Pt provided input in group discussion and was actively taking notes and listening throughout. Attentive during psychoeducation and provided insight on definition and benefits of self-care. Group identified self-care benefits to include; improves relationships, increases motivation, helps one be more engaged with others, improves physical health, and can improve productivity. Pt connected with the barriers to practicing self-care and reports not having time and difficulty taking time away from her kids keeps pt from practicing self-care. Pt participated in activity aimed at identifying and challenging common self-care myths. Worked within small group to identify evidence challenging myths. Benefited from group by increasing awareness of benefits to self-care and consequences of neglecting self-care. Will continue in IOP to promote mood stability, increase application of healthy coping skills, and improve work-related functioning. Narrative Note: []
--- NOTE | 2021-06-16 15:40 | BH.MDN ---
Multi-Disciplinary Note - Note 45-min Individual Time Started:: 11:15 Date: 06/16/21 Purpose of session/treatment goals addressed:: Purpose of session was to address goals 1 and 2 from MTP. Eye Contact:: Good Motor Activity:: Appropriate Appearance:: Casual Speech:: Appropriate Mood:: Anxious Affect:: Congruent Thoughts:: Linear, Logical, No evidence of hallucinations/delusions noted Staff Interventions:: CBT techniques, rapport building, strengths perspective, goal setting, other - reviewed healthy coping skills Client Response:: Pt stated she did some impulse spending yesterday while out to eat. Pt reported besides overspending for food she mostly bought things that she needed. Pt reported she is feeling concerned about overspending during the holidays for her kids. Pt stated to be more proactive she has set a budget for Mehdi spending and is trying to buy most things online because has a harder time stopping self from buying more when in a store. Pt reported she has noticed herself struggling with sleep last couple of days but not having the high energy. Pt stated has been feeling more unmotivated and having a desire to lay in bed. Pt reported using opposite action to keep herself from laying around all day. Pt stated she reviewed some of the bipolar workbook with her kids dad. Pt reported he took time to listen to her explain her symptoms so he can better understand her. pt stated it was helpful that he was being more supportive. Pt reviewed with therapist strategies to help manage mood if notices more depressive symptoms. Pt stated goal is to do nightly skin care routine. Risks/Concerns:: denies suicidal/homicidal ideation, plan or intention to date. Progress Toward Goals/Plan:: Progress noted with pt showing increased awareness and understanding of bipolar disorder. Pt being more aware of her mood changes. Pt using opposite action to help her stay active and productive throughout day. Pt has created game plan to help keep her from impulsively spending for Mehdi. Pt struggling with recent decrease in motivation and increased exhaustion. Plan is for pt to continue IOP to stabilize moods, increase healthy coping and prevent decompenation. Time Stopped:: 12:00
--- NOTE | 2021-06-21 09:00 | BH.SGPN.GN ---
Behaviors/Verbalizations/Mental Status: [] Eye contact is good. Motor activity is appropriate. Appearance is casual. Speech is Appropriate. Mood is anxious. Affect is congruent. Thoughts are linear and logical. No evidence of psychosis. Reviewed daily check-in tracker and no reports of suicidal ideations or intent. Client Response/Progress/Benefit: [] Pt was an active participant in group discussion. Attentive. Provided appropriate feedback to peers. Daily symptom tracker notes 09/03 for depression and anxiety. Mental health wins included getting here today and setting some boundaries with support. Pt shared that overall she has had several stressors this past week which has impacted her mental health Stressors include starting a new job, car issues, finances, a bad dream (which triggered flashbacks), and conflict with her mother. Also reports poor sleep. She verablizes that she is attempting to utilize skills and self-care with minimal effect. Group provided support and encouragement. Peers also provided feedback on internal coping skills, affirmations, and focusing on the present (mindfulness) to make it through stressors. Regression noted. Will continue in IOP to prevnet decompensation, increase healthy coping, and stabilize mood. Narrative Note: []
--- NOTE | 2021-06-23 09:05 | BH.SGPN.GN ---
Behaviors/Verbalizations/Mental Status: []Eye contact is good. Motor activity is appropriate. Appearance is neat and casual. Speech is Appropriate. Mood is dysthymic, anxious. Affect is congruent. Thoughts are linear and logical. No evidence of psychosis. Reviewed daily check in sheet and no reports of suicidal ideations or intent. Client Response/Progress/Benefit: []Pt responded well to session AEB pt listening attentively to peers and providing input and supportive feedback throughout. Pt reported she is worried she is ?begging to get depressed? and discussed reduced energy and feeling more down and negative the past few days. Discussed trying to take steps to manage these symptoms and prevent further decompensation by scheduling time for self-care, setting small goals, and getting back into a healthy living routine. Went on to express some frustrations related to her new job being ?slow? due to the holiday season and client struggling with eating unhealthy foods while at work which is a potential trigger for her. Noted increased negative thinking as a result but has been making efforts to be more self-compassionate. Seemed to benefit from support and feedback from peers. Pt to continue IOP to continue promote healthy coping behaviors, improve mood stability, and continue to improve anxiety management skills. Narrative Note: []
--- NOTE | 2021-06-23 10:10 | BH.SGPN.GN ---
Behaviors/Verbalizations/Mental Status: [] Eye contact is good. Motor activity is appropriate. Appearance is neat. Speech is Appropriate. Mood is anxious. Affect is congruent. Thoughts are linear and logical. No evidence of psychosis. Client Response/Progress/Benefit: [] Pt was an active participant in group discussion and experiential activity. Attentive during psychoeducation. Group had an interactive discussion on the benefits of emotional regulation in which pt provided insight. Group identified several benefits to emotional regulation which included; less consequences, more stable relationships, improved communication, increased stability, decreased depression/anxiety, less impulsivity, decreased stress, and improved physical health. Group also was able to identify how emotions can impact our communication leading to; difficulty articulating our thoughts, saying things that one doesn't really mean, shutting down, confusion, and rambling. Pt participated in experiential activity in which she was not permitted to verbally communicate and she shared how this impacted her emotionally. Benefited from increased awareness into how emotions can impact one's ability to effectively communicate. Will continue in IOP to prevent decompensation, increase healthy coping, and stabilize mood. Narrative Note: []
--- NOTE | 2021-06-27 09:05 | BH.SGPN.GN ---
Behaviors/Verbalizations/Mental Status: []Client alert and oriented, neatly dressed and groomed. Eye contact good. Motor activity appropriate. Speech within normal limits. Affect congruent-tearful, mood anxious and overwhelmed. Thoughts linear, logical, no signs of hallucinations or delusions. Reviewed client?s symptom tracker, no risk for suicidal ideation, plan, or intent as of 06/27/21 Client Response/Progress/Benefit: []Client responded well to session, providing supportive statements and receptive to feedback. Client reports feeling overwhelmed this morning and shared feeling kind of all over the place due to multiple triggers. Client stated the holidays triggered her OCD as client wanted the house to be very clean and she was not getting the support needed from the father of her children. Client also shared abandonment was triggered this weekend because the man she was talking to stopped talking to her on Mayra. Client became tearful and shared she is experiencing some PTSD triggers today as well. Therapist and group offered client emotional support and helped client explore what coping skills she can use today to cope. Client's mental health win today is that she came to group despite waking up late and struggling with motivation. Will continue IOP tx to prevent decompensation, increase use of healthy coping skills, and improve daily functioning. Narrative Note: []
--- NOTE | 2021-06-27 11:20 | BH.SGPN.GN ---
Behaviors/Verbalizations/Mental Status: [] Eye contact is good. Motor activity is appropriate. Appearance is casual. Speech is Appropriate. Mood is anxious. Affect is congruent. Thoughts are linear and logical. No evidence of psychosis. Client Response/Progress/Benefit: [] Pt was an engaged participant AEB pt providing input throughout group discussion and activity. Attentive during psychoeducation on cognitive distortions not discussed in previous group. Pt was an actively engaged participant in Cognitive Distortions Jeopardy, providing input and suggestions to small group. Utilized notes from psychoeducation on cognitive distortions to assist peers in correctly answering questions. Experiential activity was beneficial as it provided a way for patient to review notes and handouts during psychoeducation to answer questions for the game. Will continue in IOP prevent decompensation, increase healthy coping, and manage stressors. Narrative Note: []
--- NOTE | 2021-06-28 10:26 | BH.MDN_ITS ---
Multi-Disciplinary Note - Note 60-min Individual Time Started:: 10:20 Date: 06/28/21 Purpose of session/treatment goals addressed:: Purpose of session was to address goals 1 and 2 from master treatment plan. Eye Contact:: Good Motor Activity:: Restless Appearance:: Casual Speech:: Appropriate, Rambling - at times Mood:: Anxious Affect:: Congruent Thoughts:: Logical, No evidence of hallucinations/delusions noted Staff Interventions:: thought challenging, psychoeducation on: - mood states, CBT techniques, strengths perspective, goal setting Client Response:: Pt stated feeling overwhelmed because having hard time understanding her moods. Pt reported she has been feeling sad but isn't crying as frequently as she has in the best. Pt stated she is unsure if this is because she's able to manage her moods better or if she isn't able to feel as much. Pt reported she has a desire to be more productive but has been wanting to sleep or lay around. pt stated she has stopped herself from taking naps or sleeping too much. Pt stated stressed that she hasn't been having good eating habits lately. Pt reported she's been eating lot of carb meals at work and only eating once a day. Pt connected with therapist encouragement of planning meals ahead of time and using protein shakes/smoothies as a meal for those times not really hungry. Pt stated she has noticed not eating appropriately throughout the day she hasn't had as much energy. pt reported she has had urge to impulsively spend money but has used self-talk to challenge impulsive urges. pt worked with therapist to identify things that make her depression worse which includes: dwelling on things, not moving on from stressors, overthinking, thinking about her past trauma, and pushing people away. Pt connected with therapist education about the different mood states associated with bipolar disorder. Pt agreed she is having a difficult time identifying when she is feeling stable. Pt reported after discussion about different mood states she does think she is moving to more stability since she is sleeping 8 hours, stopping self from being impulsive and able to use skills better. Pt reported her goal for the week is to plan her meals out with a focus on eating at least 3 times a day. Pt stated this will benefit mental health by giving her more energy throughout the day. Risks/Concerns:: denies suicidal ideation, plan or intention to date. future focused. Progress Toward Goals/Plan:: Progress noted with pt reporting improved sleep, decreased impulsive actions, improved boundaries, and use of healthy coping sk ills. Pt continuing to learn more about bipolar disorder and is trying to understand what her baseline mood looks like. Pt agreed she could benefit from completing daily mood log to help improve self awareness. Pt to continue IOP to stablize moods, increase self-awareness and prevent decompensation. Time Stopped:: 11:15
--- NOTE | 2021-06-29 13:51 | BH.TPR ---
Treatment Plan Review Date of Admission:: 06/01/21 Date of Treatment Plan Review:: 06/28/21 Admitting Diagnoses:: 1. Obsessive-compulsive disorder F42. 2. Generalized anxiety disorder F42.1. 3. Bipolar, NOS F31.9. 4. PTSD. 5. Alcohol use disorder, sober for 1 month. 6. Cerebral palsy and left leg with chronic pain. 7. Grieving loss of fertility after emergency hysterectomy in 2020. 8. Primary support and financial issues Current Diagnoses:: 1. Obsessive-compulsive disorder. 2. Generalized anxiety disorder. 3. Bipolar, NOS. 4. PTSD. 5. Alcohol use disorder, sober for 1 month. 6. Cerebral palsy and left leg with chronic pain. 7. Grieving loss of fertility after emergency hysterectomy in 2020. 8. Primary support and financial issues Patient's Response to Treatment:: When pt attends IOP days she is engaged by providing input and connecting with material. Pt struggles with consistent attendance due to having to care for her mother's health issues and recently having car issues. Status of Current Problems and Symptoms: ongoing problems. Pt still working on being able to identify her mood states and increasing understanding of bipolar disorder. Pt's generalized anxiety has decreased in intensity and duration. Able to use skills to manage more effectively. Pt continuing to struggle with OCD symptoms but stated OCD symptoms are not impacting ability to get to work, which she initially thought would be significant issue. Pt has an overall 7% decrease in symptoms since starting IOP. Pt appeared to be hypomanic when first started IOP which could have attributed to pt scoring lower on the depression scale. Problem #1 Problem Name:: anxiety Status of Goals:: obj 1 - Partially met. Pt is able to identify healthy anxiety reduction skills like grounding, belly breathing, and engaging her senses. Pt is able to manage anxious symptoms more effectively. However, pt's OCD symptoms are still difficult for pt to manage. obj 2 - partially met with ongoing progress encouraged. Per pt's DSM 5 scores at review her generalized anxiety scores decreased 50% and her OCD symptoms have increased by 25%. Team Recommendations:: Team recommends pt continue current goal and objectives. Will continue to reinforce healthy anxiety coping skills. Problem #2 Problem Name:: mood instability Status of Goals:: obj 1 - partially met. Pt has increased awareness of symptoms of shanae, hypomania, dysthymia and depression. Pt able to identify healthy skills to manage impulsive spending urges like only taking jones when goes places or taking a family member that knows the spending plan. Pt able to identify healthy coping skills like opposite action and goal setting to help manage depressive symptoms. obj 2 - partially met. Per pt's DSM 5 scores her depression has increased 50% and her shanae symptoms have decreased by 33%. As mentioned above pt appeared to be in a hypomanic state at admission and now has come down from that mood state which could be attributed to her depression increasing at mid-point. Team Recommendations:: Team recommends pt continue current goal and objectives. Team encourages providing pt with mood chart to help increase awareness of her different mood states and establish her baseline mood.
== END 2021-07-01 23:59 ==
LOC: BHIOP 09:29
PROVIDERS: PCP Family Medicine; Referring Provider Psychiatry & Neurology Psychiatry; Visit Provider Psychiatry & Neurology Psychiatry
DX: F42.9 Obsessive-compulsive disorder, unspecified (principal); F41.1 Generalized anxiety disorder; F31.9 Bipolar disorder, unspecified; F43.10 Post-traumatic stress disorder, unspecified; Z72.89 Other problems related to lifestyle; G80.9 Cerebral palsy, unspecified; G89.29 Other chronic pain; M79.606 Pain in leg, unspecified; F43.29 Adjustment disorder with other symptoms
CPT/HCPCS: 90792; 99214; H2012; H2020; S9480; T1002; 90832; 90834; 90837

== ENCOUNTER 2021-07-04 09:00 | Outpatient (RCR) | payer BC, MEDICAID, SELFPAY ==
[2021-07-02 00:36] VITALS: BP 135/65; PULSE 64
--- NOTE | 2021-07-05 09:05 | BH.SGPN.GN ---
Behaviors/Verbalizations/Mental Status: [] Eye contact is good. Motor activity is appropriate. Appearance is disheveled. Speech is Appropriate. Mood is depressed . Affect is flat. Thoughts are linear and logical. No evidence of psychosis. Reviewed daily check in sheet and no reports of suicidal ideations or intent. Client Response/Progress/Benefit: [] Pt was an active participant in group discussion. Attentive. This was pt's first virtual group and we discussed reasons for switching to virtual this week with plan to resume in person next week. Pt was tearful for a majority of her check-in. She reports being overwhelmed and sad. Talked at length regarding her stressors which include her job I hate my job, finances, and her support. States several times I'm going through a depressive episode. Reports unhealthy coping skills such as sleep, increased eating, and increased caffeine. She states that she just wants to sleep and avoid all her responsibilities. Other stressor is that her grandma who raised her is ill. She vented for several minutes and group was empathetic. Group did provide feedback and helped her reframe and challenge automatic negative thoughts. Pointed out progress and resilience. She reports increased awareness and skills to utilize however with low energy and depression it has been challenging to make the best choices such as isolating. Limited progress since last sessions with some decompensation. Multiple stressors and ruminations. Benefited from group support and encouragement. Will contine in IOP to prevent decompensation, increase healthy coping, and stabilize mood. Narrative Note: [] This psychotherapy group was provided via telehealth using two-way, real-time interactive telecommunication technology between the patients and the provider. The interactive telecommunication technology included audio and video. The patient was offered telemedicine as an option for care delivery during the COVID-19 pandemic and consented to this option. Patient location: [place] Provider located at [facility]
--- NOTE | 2021-07-06 12:10 | PCM.BH.PN ---
Progress Note Progress Note: History of Present Illness/Interim History: [] The patient is a 30-year-old single female who is seen in follow-up at the [facility] behavioral health IOP program. I last saw the patient about 1 month ago due to the fact that the patient has had inconsistent attendance to her medication management appointments. The patient is seen virtually due to the Covid pandemic. The patient states that she feels that starting the Abilify 2 mg a month ago has helped her improve somewhat. She feels that her crying spells and her mood was worse before she started the Abilify. She had a little better energy when she first started it but lately her energy has resumed being quite low during the day. She remains depressed and tired. She still has occasional crying spells but not as bad as before. She has started a new job and she hates her new job and finds it stressful. She has financial stress also lately. Things are going okay with her children and her ex-boyfriend who is a [id number] dad now. The patient denies any passive thoughts of , passive or active suicidal ideation, plan for suicide, homicidal ideation, hallucinations, delusions or symptoms of shanae. She feels she is benefiting from the IOP program when she attends and is more hopeful for the future. She has been compliant with her Abilify and is tolerating the medication well. Her obsessions and rituals she does remain essentially unchanged and she is coping with them. Current Psychiatric Medications: [] Ativan 1 mg as needed for severe panic attacks. Abilify 2 mg p.o. every morning (x4 weeks now). Mental Status Examination: [] The patient is a 30-year-old female who is seen by virtual appointment and is appears casually dressed and groomed with good hygiene. She has no psychomotor agitation or retardation. She is cooperative during the interview. Eye contact is fair to good. Speech is normal rate and rhythm and fluent with no pressure. Mood is depressed but less depressed than before. Affect is constricted. Thought process is goal-directed and organized. Thought content: There is no evidence of passive thoughts of , suicidal ideation, plan for suicide, homicidal ideation, hallucinations or delusions. Reality testing is intact. Judgment is intact. Insight is fair. Impulsivity is moderate. Diagnoses: [] 1. Obsessive-compulsive disorder 2. Bipolar, NOS 3. Generalized anxiety disorder 4. PTSD 5. Alcohol use disorder, sober for 2 months 6. Cerebral palsy and left leg with chronic pain 7. Bereavement over loss of fertility in 2019 8. Primary support, work and financial issues Plan: [] The patient will continue the IOP program at [facility] as the structure, support, education and group therapy will hopefully prevent worsening of the patient's symptoms. She felt safe during the interview and if it anytime she does not feel safe she will let us know or go to the emergency room. The risks, options, possible complications and side effects of the medications were again discussed with the patient and she understands and accepts these. The patient agrees to increase her Abilify to 5 mg p.o. day daily. She understands this will help stabilize her moods and over time and possibly at a higher dose help improve her OCD. Prescription was sent in for this. The patient will continue to follow-up with her outpatient and medical and psychiatric providers. She will continue to avoid alcohol and drugs. I will see the patient in follow-up in 2 weeks or as needed sooner.
--- NOTE | 2021-07-07 09:00 | BH.SGPN.GN ---
Behaviors/Verbalizations/Mental Status: [] Eye contact is good. Motor activity is appropriate. Appearance is casual. Speech is Appropriate. Mood is depressed. Affect is flat. Thoughts are linear and logical. No evidence of psychosis. Reviewed daily check in sheet and no reports of suicidal ideations or intent. Client Response/Progress/Benefit: [] Pt was an active participant. Attentive. Group discussion on gaslighting in mental health., Mental health win was taking time for myself yesterday. Utilized skills to ground herself and is working on internal skills for negative automatic thoughts. She talked at length regarding her struggles with managing negative thoughts which can get overwhelming. She attempts to combat those thought with positive thoughts. Group provided some guidance on reframing rather than trying to make everything just positive and negative which she responded well with. She believes that IOP has been helpful in so far as increasing her insight and awareness however admits she is struggling with taking action after awareness. IOP has been a helpful Stepping stone however I have much work to do. She shared that her past trauma impacts her thoughts (triggers) and mood significantly and can often lead to isolation and difficulty functioning. Group provided feedback and suggestions for resources in the area which can help with trauma. Progress reported by pt. Will continue in IOP to maintain safety, increase healthy coping, and to stabilize mood. Narrative Note: This psychotherapy group was provided via telehealth using two-way, real-time interactive telecommunication technology between the patients and the provider. The interactive telecommunication technology included audio and video. The patient was offered telemedicine as an option for care delivery during the COVID-19 pandemic and consented to this option. Patient location: [place] Provider located at [facility]
--- NOTE | 2021-07-12 09:23 | BH.COMM ---
Communication Note - Communication with Client Communication Note: This grant writer spoke with pt via telephone. Pt reports she is unable to attend any IOP sessions this week due to work requiring her to work 9am to 5pm this week. Pt states she returns to her normal work schedule next week. Pt reports she will attend IOP next week Sunday, Sunday and Sunday. Pt states she believes the medication change from last week has been helping stabilize her moods. Pt reports she has been trying to phil her skills to manage her anxiety on her own. Pt states looking forward to getting back into groups next week.
--- NOTE | 2021-07-20 14:12 | BH.COMM ---
Communication Note - Communication with Client Communication Note: showed up for group today however left early reporting need to get to work. She was scheduled to see psychiatrist today, however left prior to her scheduled time for appointment.
--- NOTE | 2021-07-22 14:38 | BH.DS ---
Discharge Summary - Demographics Date of Admission:: 06/01/21 Discharge Date: 07/22/21 Presenting Problems at Admission:: The patient is a 30-year-old single female with a history of anxiety, depression, OCD and PTSD who was referred to the [facility] behavioral health program by her primary care physician. Patient was working at her most recent job for about 4 months and had some issues at work where she was repeatedly late to work and ended up losing her job 2 weeks ago. This has caused her financial stress especially around the holidays. The patient says that she has history of OCD with intrusive thoughts and obsessions around cleaning, organizing and numbers. Pt?s OCD symptoms have contributed to her quitting jobs in the past and make her late to important events. She is having panic attacks weekly and the most recent one was 2 days ago. At times she is unable to shut her mind off at night and feels she has too much to do to sleep. Discharge Diagnoses:: 1. Obsessive-compulsive disorder F42. 2. Bipolar, NOS F31.9. 3. Generalized anxiety disorder. 4. PTSD. 5. Alcohol use disorder, sober for 2 months Reason for Discharge:: Pt has only attended [facility] two times in the month of July. Pt's inconsistent attendance has led to her being discharged from [facility]. - Treatment Progress During Treatment & Response: Limited progress noted due to pt's inconsistent attendance. When pt did attend [facility] sessions she responded well AEB contributing thoughts to group discussion and listening attentively to others. Pt struggled with consistency of using skills outside of session. When pt started her new job is when her attendance was impacted the most. She struggled with balancing a new job and following through with treatment. Issues Still to be Addressed:: Could benefit from continued work on increasing understanding of bipolar disorder and using a mood chart to help increase awareness. Reinforcement of healthy coping skills, setting boundaries, self-care, and strategies to prevent impulsive spending are all areas she could benefit from continued work. Pt also could benefit from trauma treatment and OCD treatment. Discharge Recommendations/Instructions:: Pt did not return phone call to establish with outpatient counseling and psychiatry. Discharge Handout: Complete Discharge Handout with client on aftercare options and continuity of care.
== END 2021-07-22 13:32 | disposition home or self-care (01) ==
LOC: BHIOP 09:00
PROVIDERS: PCP Family Medicine; Referring Provider Psychiatry & Neurology Psychiatry; Visit Provider Psychiatry & Neurology Psychiatry
DX: F42.9 Obsessive-compulsive disorder, unspecified (principal); G80.9 Cerebral palsy, unspecified; F31.9 Bipolar disorder, unspecified; F41.8 Other specified anxiety disorders; F43.10 Post-traumatic stress disorder, unspecified; Z72.89 Other problems related to lifestyle; G89.4 Chronic pain syndrome; Z63.4 Disappearance and death of family member; Z79.899 Other long term (current) drug therapy
CPT/HCPCS: 99214; H2012

== ENCOUNTER 2021-07-16 20:04 | Emergency (ER) | payer BC, MEDICAID, SELFPAY ==
[2021-07-16 20:05] VITALS: BP 125/83; PULSE 94; RESP 16; TEMP 36.5; O2SAT 96; BMI 23.5
--- NOTE | 2021-07-16 20:23 | EX.ED.DYSGE1 ---
HPI History of Present Illness Chief Complaint: General Illness Informant: patient Narrative Narrative: 30-year-old female presents to the emergency department with fever and generalized body aches and fatigue. Patient states she fell ill most of her symptoms really began yesterday. Today in addition to the body aches and fatigue she was having sweats. She notes a slight sore throat but no significant cough. She notes some mild diarrhea but no vomiting. No rashes. She did not get a COVID-vaccine this year. She has been taking naproxen and Tylenol today. [facility] Medical History Bipolar disorder, unspecified Cerebral palsy Generalized anxiety disorder Migraines Obsessive compulsive disorder PTSD (post-traumatic stress disorder) Home Medications sumatriptan succinate 50 mg PO PRN PRN 05/06/20 [History Last Taken Unknown] acetaminophen [Tylenol Extra Strength] 1,000 mg PO Q6H PRN #20 tab 12/03/20 [Rx Last Taken Unknown] lorazepam [Ativan] 1 mg PO DAILY PRN #14 tab 06/01/21 [Rx Last Taken Unknown] aripiprazole [Abilify] 5 mg PO DAILY 30 Days #30 tab 07/06/21 [Rx Last Taken Unknown] Allergy/AdvReac Type Severity Reaction Status Date / Time amoxicillin [From Augmentin] Allergy Hives Verified 07/16/21 20:07 clavulanic acid Allergy Hives Verified 07/16/21 20:07 [From Augmentin] ibuprofen AdvReac Upset Verified 07/16/21 20:07 Stomach Surgical History Cholecystectomy planned History of section History of cholecystectomy History of hysterectomy Social History current occupational status: unemployed 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 Smoking Status: Never smoker alcohol intake: never substance use type: does not use seatbelt use: always do you feel safe at home: Yes ROS ROS ED ROS Narrative Generalized fatigue Constitutional Constitutional ED: Reports chills, fever(s) and sweats; Denies weight loss Eyes Eyes: Denies change in vision or diplopia ENT ENT ED: Reports sore throat; Denies ear pain or rhinorrhea Cardiovascular Cardiovascular: Denies chest pain, orthopnea, palpitations or racing heartbeat Respiratory/Chest Respiratory/Chest: Denies cough, dyspnea or orthopnea Gastrointestinal Gastrointestinal: Denies abdominal pain, diarrhea, nausea or vomiting Genitourinary Genitourinary ED: Denies dysuria, hematuria or urinary frequency Musculoskeletal Musculoskeletal: Reports myalgias; Denies arthralgias Integumentary Denies abscess or rash Neurologic Neurologic: Reports headache(s); Denies weakness Psychiatric Psychiatric: Denies anxiety, depression, suicidal ideation or suicidal thoughts Endocrine Endocrinology: Denies polydipsia, polyphagia or polyuria Allergic/Immunologic Allergic/Immunologic ED: Denies mouth swelling, tongue swelling or urticaria EXAM Physical Exam Const Vital Signs: 07/16/21 20:05 Temperature 97.7 F L Temperature Source Temporal Pulse Rate 94 Respiratory Rate 16 Blood Pressure 125/83 H Blood Pressure Mean 97 Pulse Ox 96 Oxygen Delivery Method Room Air Positive well nourished and well developed General Appearance ED: well developed HEENT Reports normocephalic, head/scalp atraumatic, TM's clear and moist mucous membranes Negative for trauma Tympanic Membrane ED: Yes TM's clear Eyes PERRL and EOMs intact bilaterally Neck no lymphadenopathy, supple and no JVD Resp normal respiratory effort and clear to auscultation bilaterally Cardio regular rate, regular rhythm and no murmurs GI normal to inspection, nondistended, normoactive bowel sounds and non-tender Palpation: soft Back/Spine no CVA tenderness and normal ROM Extremity normal to inspection General Extremety ED: Negative for edema General Extremity: Negative for edema Neuro oriented x3 and CN's II-XII intact bilaterally Sensorium / Orientation: alert Motor Exam: strength 5/5 throughout Psych mental status grossly normal Mood & Affect: Negative for depressed or tearful Skin no rashes or lesions noted and no wounds MDM MDM MDM Narrative Medical decision making narrative: Patient received Tylenol. Influenza and COVID swabs were obtained. These were both negative. Patient was warned about false negatives especially in light of the new omicron variant. Supportive care indicated at this time return if worsening or concerns Discharge Plan Triage Chief Complaint: General Illness ED Provider: Javi Sanchez Dx/Rx/DC Orders Clinical Impression: Acute viral syndrome Instructions: ED Viral Syndrome (Adult) Prescriptions: No Action sumatriptan succinate 25 MG tablet 50 mg PO PRN PRN (Reason: Migraine Headache) RF: 0 acetaminophen [Tylenol Extra Strength] 500 mg tablet 1,000 mg PO Q6H PRN (Reason: pain) Qty: 20 RF: 0 lorazepam [Ativan] 1 mg tablet 1 mg PO DAILY PRN (Reason: anxiety) Qty: 14 RF: 1 aripiprazole [Abilify] 5 mg tablet 5 mg PO DAILY 30 Days Qty: 30 RF: 1 Primary Care Provider: Jj Valera Referrals: Jj Valera MD [Primary Care Provider] - As Needed Disposition Disposition: Home, Self Care
[2021-07-16] MEDS: Acetaminophen 500 MG Tablet 1000 MG PO (20:27)
== END 2021-07-16 21:42 | disposition home or self-care (01) ==
PROVIDERS: Emergency Provider Emergency Medicine; PCP Family Medicine; Visit Provider Emergency Medicine
DX: B34.9 Viral infection, unspecified (principal); F31.9 Bipolar disorder, unspecified; F41.1 Generalized anxiety disorder; F42.9 Obsessive-compulsive disorder, unspecified; Z79.899 Other long term (current) drug therapy
CPT/HCPCS: 87426; 87804; 99283

== ENCOUNTER 2021-07-27 10:19 | Emergency (ER) | payer BC, MEDICAID, SELFPAY ==
[2021-07-27 10:21] VITALS: BP 131/71; PULSE 82; RESP 17; TEMP 35.9; O2SAT 100; BMI 27.1
--- NOTE | 2021-07-27 10:42 | EDS_ITS ---
HPI History of Present Illness Chief Complaint: Lower Extremity Injury Informant: patient Narrative Narrative: Patient had a mechanical slip and fall on a step yesterday. This was because it was slippery carpet. She inverted her toe foot area. She has abrasions on the top of her left foot but is primarily her great toe that hurts. She then landed on her buttock. That area is not hurting. She never hit her head or loss consciousness. She is on no blood thinner. The only thing that really hurts is the foot. Is worse with motion or weightbearing. It is better with Tylenol or Aleve. [facility] Medical History Bipolar disorder, unspecified Cerebral palsy Generalized anxiety disorder Migraines Obsessive compulsive disorder PTSD (post-traumatic stress disorder) Home Medications sumatriptan succinate 50 mg PO PRN PRN 05/06/20 [History Last Taken Unknown] acetaminophen [Tylenol Extra Strength] 1,000 mg PO Q6H PRN #20 tab 12/03/20 [Rx Last Taken Unknown] lorazepam [Ativan] 1 mg PO DAILY PRN #14 tab 06/01/21 [Rx Last Taken Unknown] aripiprazole [Abilify] 5 mg PO DAILY 30 Days #30 tab 07/06/21 [Rx Last Taken Unknown] naproxen 500 mg PO BID #14 tab 07/27/21 [Rx Last Taken Unknown] Allergy/AdvReac Type Severity Reaction Status Date / Time amoxicillin [From Augmentin] Allergy Hives Verified 07/27/21 10:20 clavulanic acid Allergy Hives Verified 07/27/21 10:20 [From Augmentin] ibuprofen AdvReac Upset Verified 07/27/21 10:20 Stomach Surgical History Cholecystectomy planned History of section History of cholecystectomy History of hysterectomy Social History current occupational status: unemployed 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 Gastrointestinal Gastrointestinal: Denies nausea or vomiting Musculoskeletal Musculoskeletal: Reports other Details: Left foot pain as in history of present illness. ; Denies back pain or neck pain Integumentary Reports Abrasions Neurologic Neurologic: Denies paresthesias or weakness Hematologic/Lymphatic Hematologic/Lymphatic: Denies easy bleeding or easy bruising EXAM Physical Exam Const Vital Signs: 07/27/21 10:21 Temperature 96.7 F L Temperature Source Temporal Pulse Rate 82 Respiratory Rate 17 Blood Pressure 131/71 H Blood Pressure Mean 91 Pulse Ox 100 Oxygen Delivery Method Room Air Positive well nourished and well developed General Appearance ED: well developed and NAD HEENT normocephalic and atraumatic Resp normal respiratory effort Back/Spine Back/Spine Narrative: No pain with motion of spine or back or neck. Extremity Extremity Narrative: There is a couple small abrasions on the top of the left foot. There is no tenderness at the knee david ankle or calcaneus. Mild midfoot tenderness but no swelling. Achilles is intact. Ankle is stable. There is also ecchymosis and a slight amount of swelling diffusely around the left great toe. This is the area of most of her pain. There is no visible deformity. Neuro oriented x3 Sensorium / Orientation: alert MDM MDM MDM Narrative Medical decision making narrative: X-rays looked at by me and read by radiology showed no sign of acute fracture. I see no indication of a Lisfranc type injury. She will be put in a postop shoe. We will get her Naprosyn for pain she should use ice and elevation. We will write her off work a couple days. Radiography Diagnostic Testing: Clinical Impression(s) from Imaging Studies Foot X-Ray 07/27/21 10:45 IMPRESSION: Normal x-ray examination of the foot. Electronically Signed: Christos Stewart MD at 10:59 EST , Discharge Plan Triage Chief Complaint: Lower Extremity Injury ED Provider: [place] Dx/Rx/DC Orders Clinical Impression: Strain of foot, left, Fall on steps Instructions: ED Foot Sprain Prescriptions: New naproxen 500 MG tablet 500 mg PO BID Qty: 14 RF: 0 No Action sumatriptan succinate 25 MG tablet 50 mg PO PRN PRN (Reason: Migraine Headache) RF: 0 acetaminophen [Tylenol Extra Strength] 500 mg tablet 1,000 mg PO Q6H PRN (Reason: pain) Qty: 20 RF: 0 lorazepam [Ativan] 1 mg tablet 1 mg PO DAILY PRN (Reason: anxiety) Qty: 14 RF: 1 aripiprazole [Abilify] 5 mg tablet 5 mg PO DAILY 30 Days Qty: 30 RF: 1 Stand Alone Forms: Work Status Form Primary Care Provider: Jj Valera Referrals: Jj Valera MD [Primary Care Provider] - 1 Week if not improving Disposition Disposition: Home, Self Care
--- NOTE | 2021-07-27 10:45 | RAD_ITS ---
STUDY: X-RAY - LEFT FOOT CLINICAL: Female, 30 years old. History of trauma to the great toe. TECHNIQUE: 3 view(s) of the foot. COMPARISON: None. FINDINGS: Normal talus, calcaneus, and tarsal bones. Normal visualized subtalar, talonavicular, calcaneocuboid, tarsal and tarsometatarsal articulations. Normal metatarsi. Normal metatarsophalangeal joint of the great toe. Normal tibial and fibular sesamoid bones. Normal interphalangeal joint of the great toe. Normal phalanges of the great toe. Normal second through fifth metatarsophalangeal joints. Normal interphalangeal joints and phalanges of the lesser toes. The soft tissue structures are unremarkable. RAD/Foot min 3 Views IMPRESSION: Normal x-ray examination of the foot. Electronically Signed: Christos Stewart MD at 10:59 EST ,
[2021-07-27] MEDS: Naproxen 250 MG Tablet 500 MG PO (11:43)
== END 2021-07-27 11:48 | disposition home or self-care (01) ==
PROVIDERS: Emergency Provider Emergency Medicine; PCP Family Medicine; Visit Provider Emergency Medicine
DX: S93.502A Unspecified sprain of left great toe, initial encounter (principal); F31.9 Bipolar disorder, unspecified; S90.112A Contusion of left great toe without damage to nail, initial encounter; W10.9XXA Fall (on) (from) unspecified stairs and steps, initial encounter; F41.9 Anxiety disorder, unspecified; Z79.899 Other long term (current) drug therapy; Z87.891 Personal history of nicotine dependence
CPT/HCPCS: 73630; 99283

== ENCOUNTER 2021-10-24 09:55 | Outpatient (RCR) | payer MEDICAID, SELFPAY ==
--- NOTE | 2021-10-24 10:00 | BH.SGPN.GN ---
Behaviors/Verbalizations/Mental Status: []Client alert and oriented, casually dressed and groomed. Eye contact good. Motor activity appropriate. Speech within normal limits. Affect congruent, mood anxious. Thoughts linear, logical, no signs of hallucinations or delusions. Client Response/Progress/Benefit: []Client responded well to session AEB sharing and listening attentively to others. Client participated in group discussion regarding the benefits of social support and how it feels to not have social support. Client discussed how relying on only one social support can lead to support burnout and strained relationships. Clinician provided psychoeducation on types of support including internal and external support. Client participated in experiential activity illustrating the importance of having multiple social supports. Client was an active participant in group processing, discussing how taking the time to build a social support system keeps us more balanced, as shown in the activity. Client appeared to benefit from increased knowledge of the benefits of social support and greater self-awareness. Will continue IOP treatment to increase application of healthy coping skills and prevent decompensation. Narrative Note: []
--- NOTE | 2021-10-24 11:05 | BH.SGPN.GN ---
Behaviors/Verbalizations/Mental Status: []Client alert and oriented, casually dressed and groomed. Eye contact good. Motor activity appropriate. Speech within normal limits. Affect constricted, mood dysthymic. Thoughts linear, logical, no signs of hallucinations or delusions. Client Response/Progress/Benefit: []pt was an semi-engaged participant AEB showing less participation compared to other group sessions, however did provide input when elicited by therapist and took notes. Pt processed emotions pt felt in the activity and how pt coped in the moment. Pt provided input during discussion on the types of support our supports can provide. Pt able to identify current support system and barriers that get in the way of using supports. Pt stated she does not get enough of tangible and emotional support. Pt reported she doesn't want to be a burden to others which is why she doesn't ask for help. Pt reported she also has difficulty trusting others which keeps her from asking others for help. Pt reported she doesn't get emotional support because doesn't let others in to be able to provide that support.Pt seemed to benefit from identifying the type of support she needs to work on improving. Pt to continue IOP to improve daily functioning, improve mood stability and prevent decompensation.
--- NOTE | 2021-10-25 09:05 | BH.SGPN.GN ---
Behaviors/Verbalizations/Mental Status: [] Eye contact is good. Motor activity is appropriate. Appearance is casual. Speech is Appropriate. Mood is depressed. Affect is flat. Thoughts are linear and logical. No evidence of psychosis. Reviewed daily check in sheet and no reports of suicidal ideations or intent. Client Response/Progress/Benefit: [] Pt participated at times during the group discussion. Attentive. Group watched short video on CBT and discussed.Mental health win was making it here today. Shared struggles with motivation and energy in the AM. States I'm feeling detached and spaced out lately. Shared that she has had depression for months and is struggling to engage with others. Social situations are overstimulating often leading to avoidance and irritability. Panic attacks. I'm stressed out and overwhelmed a lot. She did report that coming to IOP is helpful as it allows her to vent and discussion her struggles with others who are familiar with mental health. She talked about the impact that Bipolar has had on her life. Also discussed how being off the medications for the past several months has made her realize their importance. Looking forward to meeting with psychiatrist tomorrow. No progress noted per pt report. Benefited from group support, encouragement, and feedback. Will continue in IOP to maintain safety, increase coping skills, and improve functioning. Narrative Note: []
--- NOTE | 2021-10-25 10:15 | BH.SGPN.GN ---
Behaviors/Verbalizations/Mental Status: []Pt alert and oriented, casually dressed and groomed. Eye contact good. Motor activity appropriate. Speech within normal limits. Affect constricted, mood dysthymic. Thoughts linear, logical, no signs of hallucinations or delusions. Client Response/Progress/Benefit: []Pt responded well to session AEB pt attentive throughout group discussion. Group discussed the origin of coping skills, examples of unhealthy coping, and why we use unhealthy coping skills. Pt reports when she is in a negative mindset, pt?s distortions ?convince me the healthy coping skills aren?t worth it.? Pt participated in experiential activity, and was attentive throughout group processing, taking notes and nodding throughout discussion of the importance of external supports and internal coping skills. Appeared to benefit from increased knowledge of internal coping skills and external supports, as well as using coping skills to manage anxiety in the moment. Pt will continue IOP tx to prevent decompensation, gain medication management, and improve daily functioning. Narrative Note: []
--- NOTE | 2021-10-25 11:17 | BH.SGPN.GN ---
Behaviors/Verbalizations/Mental Status: []Client alert and oriented, casually dressed and groomed. Eye contact good. Motor activity appropriate. Speech within normal limits. Affect congruent, mood anxious and depressed. Thoughts linear, logical, no signs of hallucinations or delusions. Client Response/Progress/Benefit: []Client responded well to session AEB taking notes and providing input and examples throughout. Group discussed the different categories of coping skills which included distraction, emotional release, grounding, self-love, and thought challenging. Client reported struggling to remember her healthy skills in moments she feels overwhelmed or more stressed out. Created a coping skill menu identifying various skills to try in each category. Client?s coping skill menu included: calling supports, belly breathing, body scan, writing a letter to vent and ripping it up, maintaining a consistent routine, as well as consistently taking her medications. Appeared to benefit from increasing repertoire of healthy coping skills. Will continue tx to further promote mood stability, improve consistent skill application, and prevent decompensation. Narrative Note: []
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
[2021-10-26 10:29] VITALS: BP 148/82; PULSE 54
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
--- NOTE | 2021-10-26 12:37 | BH.DR.ITP ---
Initial Treatment Plan Patient Information Visit Information: ADMISSION DATE: EXPECTED LOS: 4-6 weeks Problems/Symptoms Problem #1:: Depression Symptom:: Sadness, apathy, hopelessness, guilt, low energy, decreased concentration, biological disruption of sleep, anhedonia Problem #2:: Anxiety Symptom:: Worry, rumination, panic attacks, obsessions and rituals, nightmares, flashbacks, avoidance
== END 2021-10-29 23:59 ==
LOC: BHIOP 09:55
PROVIDERS: PCP Family Medicine; Referring Provider Psychiatry & Neurology Psychiatry; Visit Provider Psychiatry & Neurology Psychiatry
DX: F42.9 Obsessive-compulsive disorder, unspecified (principal); F31.9 Bipolar disorder, unspecified; F41.1 Generalized anxiety disorder; F43.10 Post-traumatic stress disorder, unspecified; Z72.89 Other problems related to lifestyle; G80.9 Cerebral palsy, unspecified; G89.29 Other chronic pain; M79.605 Pain in left leg; Z63.4 Disappearance and death of family member; Z79.899 Other long term (current) drug therapy
CPT/HCPCS: 90792; H2012; H2020; S9480; T1002; 90832

== ENCOUNTER 2023-05-22 15:28 | Observation (INO) | payer MEDICAID, SELFPAY ==
[2023-05-22] VITALS (11 sets, daily range): BP systolic 106–137; BP diastolic 66–90; PULSE 64–90; RESP 12–18; TEMP 36.4–37; O2SAT 96–100; BMI 30.9
--- NOTE | 2023-05-22 16:14 | EDS_ITS ---
HPI HPI - GI History of Present Illness Chief Complaint: Abd Pain Informant: patient Abdominal Pain/Flank Pain Onset: Days (4) Context: Gradual Onset Timing: Continuous Quality: - (Pressure) Location: RLQ and LLQ Worsened by: - (Coughing, ambulation) Relieved by: Nothing Nausea/Vomiting/Emesis GI Symptom: Positive for Nausea; Negative for Vomiting Diarrhea/Melena/Hematochezia GI Symptom: Negative for Diarrhea, Melena or Hematochezia Associated Symptoms Associated Symptoms: Negative for Dysuria, Frequency or Hematuria LMP: 3 years ago Narrative Narrative: Patient presents with abdominal pain that has been getting progressively worse over the last 4 days. Patient states her abdominal pain started out as generalized abdominal pain but has now progressed to the lower abdomen. Patient describes it as a pressure. Patient states it is worse with coughing and with ambulation. Patient states nothing makes it better. Patient admits to a decreased appetite. Patient admits to nausea but denies any vomiting. Patient denies any diarrhea, melena, or hematochezia. Patient denies any dysuria, frequency, or hematuria. Patient has had a hysterectomy. PFSH PFS Medical History Bipolar disorder, unspecified Cerebral palsy Generalized anxiety disorder History of alcohol use disorder Migraines Obsessive compulsive disorder PTSD (post-traumatic stress disorder) Home Medications NK 05/22/23 [History Last Taken Unknown] Allergy/AdvReac Type Severity Reaction Status Date / Time clavulanic acid Allergy Hives Verified 05/22/23 19:00 [From Augmentin] ibuprofen AdvReac Upset Verified 05/22/23 19:00 Stomach Surgical History Cholecystectomy planned History of section History of cholecystectomy History of hysterectomy Social History current occupational status: unemployed 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 Smoking Status: Former smoker alcohol intake: never substance use type: does not use seatbelt use: always do you feel safe at home: Yes ROS ROS ED Constitutional Constitutional ED: Denies chills or fever(s) Eyes Eyes: Denies blurry vision or change in vision ENT ENT ED: Denies rhinorrhea or sore throat Cardiovascular Cardiovascular: Reports chest pain; Denies palpitations Respiratory/Chest Respiratory/Chest: Reports cough; Denies dyspnea Gastrointestinal Gastrointestinal: Reports abdominal pain and nausea; Denies vomiting Genitourinary Genitourinary ED: Denies dysuria or hematuria Musculoskeletal Musculoskeletal: Denies back pain or neck pain Integumentary Denies abscess or rash Neurologic Neurologic: Denies headache(s) or weakness Allergic/Immunologic Allergic/Immunologic ED: Denies mouth swelling or urticaria EXAM Physical Exam Const Vital Signs: 05/22/23 15:31 05/22/23 16:38 05/22/23 18:00 Temperature 98.4 F Temperature Source Temporal Pulse Rate 90 73 69 Respiratory Rate 18 16 16 Blood Pressure 131/89 H 133/90 H 128/85 H Blood Pressure Mean 103 104 99 Pulse Ox 99 99 99 Oxygen Delivery Method Room Air Room Air Positive well nourished, well developed and obese General Appearance ED: well developed and NAD Nutritional Appearance: obese HEENT Reports moist mucous membranes Neck supple and no JVD Resp normal respiratory effort and clear to auscultation bilaterally Cardio regular rate and regular rhythm GI non-distended Palpation: soft and tender LLQ, RLQ and suprapubic; Negative for guarding or rebound tenderness present Extremity full ROM General Extremety ED: Negative for edema or tenderness General Extremity: Negative for edema Neuro CN's II-XII intact bilaterally, moves all extremities and no sensory deficits noted Sensorium / Orientation: alert Motor Exam: strength 5/5 throughout Psych mental status grossly normal MDM MDM MDM Narrative Medical decision making narrative: Differential diagnosis includes appendicitis, bowel obstruction, perforation, ovarian cyst, ureteral calculus, urinary tract infection, pyelonephritis, gastroenteritis, and dehydration. CBC will be obtained to assess for leukocytosis and anemia. Comprehensive metabolic profile will be obtained to assess for hepatic function, renal function, and electrolyte abnormality. Lipase will be obtained to assess for pancreatitis. Urinalysis will be obtained to assess for urinary tract infection. CT scan of the abdomen pelvis will be obtained to assess for appendicitis, bowel obstruction, perforation, and ureteral calculus. Lab Data Attestation: I reviewed the patient's lab results. Lab results narrative: CBC was reviewed and was within normal limits. Comprehensive metabolic profile was reviewed and was within normal limits. Urinalysis was reviewed. There is no evidence of urinary tract infection or hematuria. Serum hCG was reviewed and was negative. Labs: Laboratory Results - last 24 hr 05/22/23 05/22/23 16:05 17:32 WBC 10.9 RBC 4.59 Hgb 13.6 Hct 40.7 MCV 88.7 MCH 29.6 MCHC 33.4 RDW Std Deviation 42.2 RDW Coeff of Bj 12.9 Plt Count 252 MPV 9.3 Immature Gran % (Auto) 0.900 Neut % (Auto) 70.1 H Lymph % (Auto) 16.7 L Angelina % (Auto) 8.9 Eos % (Auto) 2.9 Baso % (Auto) 0.5 Absolute Neuts (auto) 7.7 Absolute Lymphs (auto) 1.82 Nucleated RBC % 0 Sodium 136 Potassium 3.6 Chloride 105 Carbon Dioxide 27.0 Anion Gap 4 L BUN 9 Creatinine 0.68 Estim Creat Clear Calc 116.57 Est GFR (MDRD) Af Amer 128 Est GFR (MDRD) Non-Af 106 BUN/Creatinine Ratio 13.1 Glucose 104 Calcium 9.4 Total Bilirubin 1.00 AST 20 ALT 40 Alkaline Phosphatase 114 Total Protein 8.0 Albumin 4.0 Globulin 4.0 Albumin/Globulin Ratio 1.0 Serum , Qual NEGATIVE Urine Color Yellow Urine Clarity Clear Urine pH 6.5 Ur Specific Dickinson 1.010 Urine Protein Negative Urine Glucose (UA) Normal Urine Ketones 15 H Urine Occult Blood 250 H Urine Nitrite Negative Urine Bilirubin Negative Urine Urobilinogen Normal Ur Leukocyte Esterase Negative Urine RBC 0-5 SEEN Urine WBC 0 SEEN Ur Squamous Epith Cells 0 SEEN Urine Bacteria 0 SEEN Urine Mucus 0 SEEN Radiography Diagnostic Testing: Clinical Impression(s) from Imaging Studies Abdomen/Pelvis CT 05/22/23 16:27 IMPRESSION: 1. Proximal appendicolith with diffuse appendiceal thickening and sequelae of appendicitis without bowel obstruction abscess or free air. 2. Remaining bowel segments have normal appearance. 3. No evidence renal calcifications or obstructive uropathy. 4. Gallbladder is not visualized at, no evidence of ductal dilatation. Electronically Signed: Keith Mendoza MD at 18:56 EST , CT scan of the abdomen and pelvis was obtained. There is a proximal appendicolith with diffuse appendiceal thickening and evidence of appendicitis. There is no abscess, obstruction, or free air. There is no other acute abnormality noted. This was interpreted by the radiologist was also independently reviewed by myself. Treatment and Re-Evaluation :: Patient was given IV fluids, morphine, and Zofran. Patient was given a repeat dose of morphine. Patient was started on Zosyn. Case was discussed with Dr. Lane, general surgeon on-call. He will be in to take the patient to the operating room. Patient understood and was agreeable with the plan. All questions were answered. Discharge Plan Dx/Rx/DC Orders Clinical Impression: Acute appendicitis Disposition Disposition: Acute Care Hospital [facility]
[2023-05-22 16:17] LABS: Absolute Lymphocyte Count 1.82 X10^3/uL (0.83-4.51); Absolute Neutrophil Count 7.7 X10^3/uL (2.0-7.7); Basophil# 0.05 X10^3/uL; Basophil% 0.5 % (0-1); Eosinophil# 0.32 X10^3/uL; Eosinophils% 2.9 % (0-5); Hematocrit 40.7 % (37-47); Hemoglobin 13.6 g/dL (12.0-15.0); Lymphocyte # 1.82 X10^3/ul (0.83-4.51); Lymphocyte % 16.7 % (19-41); Mean Corp Hgb Conc 33.4 g/dL (32-36); Mean Corpuscular Hgb 29.6 pg (27.0-32.0); Mean Corpuscular Volume 88.7 fL (81-99); Mean Platelet Vol. 9.3 fl (6.2-12.0); Monocyte# 0.97 X10^3/uL; Monocyte% 8.9 % (0-10); NRBC Flagged by Analyzer 0 % (0-5); Neutrophil # 7.67 X10^3/uL (2.7-7.7); Neutrophil % 70.1 % (47-70); Platelet Count 252 K/mm3 (150-450); RBC Distribution Width CV 12.9 % (11.6-14.6); RBC Distribution Width SD 42.2 fl (35.1-43.9); Red Blood Count 4.59 M/mm3 (4.2-5.4); White Blood Count 10.9 K/mm3 (4.4-11.0)
--- NOTE | 2023-05-22 16:27 | CT_ITS ---
We are attempting to reach an attending provider to discuss findings. An addendum with communication details will be sent when the communication is complete. INDICATION: Abdominal pain EXAMINATION: CT ABDOMEN AND PELVIS with CONTRAST - CT Abdomen And Pelvis W/ Contrast Injection TECHNIQUE: Multiple axial images were obtained of the abdomen and pelvis following administration of IV contrast. Planar reconstructions obtained. A radiation dose optimization technique was used for this scan. RADIATION DOSAGE (If Supplied By Facility): CTDIvol = ( 16.48 ) mGy, DLP = ( 1057.18 ) mGycm IV Contrast dosage and agent: 100 mL Isovue 300 Oral contrast: Oral contrast is present. COMPARISON: No pertinent previous studies for comparison.. FINDINGS: LOWER THORAX: Lungs are clear. Cardiac contour is normal, no pericardial effusion. No coronary vascular calcifications noted. HEPATOBILIARY: Liver: The liver is homogeneous and shows no evidence of focal lesion. Gallbladder: Gallbladder is not visualized and potentially surgically absent. No ductal dilatation. Pancreas: Pancreas is normal size configuration and density. No mass is noted. Spleen: The spleen is homogeneous and normal in size. . BOWEL: Stomach: The stomach is normal in size configuration, no evidence of focal masses, abnormal calcifications. No hiatal hernia noted. Bowel: Small and large have normal configuration, no masses or bowel obstruction noted. Appendix: There is an abnormal appearance of the appendix with a proximal appendicolith measuring 8 mm, and diffuse appendiceal thickening maximal thickness estimated at 14 mm. Mild adjacent soft tissue stranding, no fluid or abscess however findings consistent with obstructing appendicolith and appendicitis. No bowel obstruction.: GENITOURINARY: Adrenals: Both adrenal glands are normal in size. Kidneys: Kidneys appear symmetric in size. No calcifications are seen in the collecting system. There is no hydronephrosis or surrounding fluid. Bladder: Normal Pelvic organs: The visualized pelvic organs are normal in size and configuration. No masses or adenopathy noted. RETROPERITONEUM: There is normal appearance of the abdominal aorta and inferior vena cava. LYMPH NODES: No evidence of retroperitoneal or para-aortic masses fluid collections or adenopathy. PERITONEAL CAVITY: No ascites noted ANTERIOR ABDOMINAL WALL: Normal, no hernia identified. BONES AND SOFT TISSUES: The skeleton shows no evidence for fractures or destructive lesions. OTHER: None CT/Abdomen/Pelvis WITH Contrast IMPRESSION: 1. Proximal appendicolith with diffuse appendiceal thickening and sequelae of appendicitis without bowel obstruction abscess or free air. 2. Remaining bowel segments have normal appearance. 3. No evidence renal calcifications or obstructive uropathy. 4. Gallbladder is not visualized at, no evidence of ductal dilatation. Electronically Signed: Keith Mendoza MD at 18:56 EST ,
[2023-05-22] MEDS: Morphine 4 MG/ML Syringe IV ×2 (16:32→18:27)
[2023-05-22] MEDS: Ondansetron 4 MG/2 ML Vial IV (16:32)
[2023-05-22] MEDS: 0.9% Normal Saline (1000mL) 1,000 ML 1000 ML IV (16:32)
[2023-05-22 16:54] LABS: Internal QC Validated? YES +Cl - CLEAR BKGD; Pregnancy, Serum, hCG Quali. NEGATIVE Negative
[2023-05-22 17:16] LABS: AST(SGOT) 20 U/L (15-37); Alanine Aminotransfer ALT/SGPT 40 U/L (13-56); Alkaline Phosphatase 114 U/L (45-117); Anion Gap 4 (5-15); BUN 9 mg/dL (7-18); BUN/Creat Ratio 13.1 RATIO (10-20); Calcium,Total 9.4 mg/dL (8.5-10.1); Chloride 105 mmol/L (98-107); Creatinine, Serum 0.68 mg/dL (0.55-1.02); EST Glomerular Filtration Rate 106 mL/min (>60); Est Glom Filt Rate - Afr Amer 128 mL/min (>60); Estimated Creatinine Clearance 116.57 ml/min; Glucose 104 mg/dL (74-106); Potassium 3.6 mmol/L (3.5-5.1); Sodium Level 136 mmol/L (136-145)
[2023-05-22 17:46] LABS: Bacteria 0 SEEN /hpf (None Seen); Mucous, Urine 0 SEEN /hpf (<or=2+); Squamous Epithelial Cells - UA 0 SEEN /hpf (5-10); White Blood Cells 0 SEEN /hpf (0-5)
[2023-05-22 18:05] LABS: Color, Urine Yellow (Yellow); Glucose, Dipstick Normal (Normal); Ketone-Dipstick 15 mg/dl (Negative); Leukocyte Esterase-Dipstick Negative /ul (Negative); Nitrite-Dipstick Negative (Negative); Occult Blood-Urine 250 /ul (Negative); Protein-Dipstick Negative (Negative); Urine Bilirubin Dipstick Negative (Negative); Urine Clarity Clear (Clear); Urine Urobilinogen Normal (Normal); Urine pH 6.5 (5.0 - 8.0)
[2023-05-22 18:20] LABS: Red Blood Cells-Urine 0-5 SEEN /hpf (0-5)
[2023-05-22] MEDS: Piperacil/Tazobactam 4.5 GM in 0.9% Normal Saline (100mL MB+) 100 ML IV (19:32)
--- NOTE | 2023-05-22 19:59 | ED.RN ---
REPORT CALLED TO OR
--- NOTE | 2023-05-22 20:00 | HP.PCM.SX_ITS ---
HPI - General HPI Narrative RUDI CHIN, is a 32 F who presents with lower abdominal pain. The patient reports this started 3 days ago. She said the pain started generalized and then moved to the right lower quadrant. She denies nausea or vomiting. She denied fevers or chills. PFSH Medical History Bipolar disorder, unspecified Cerebral palsy Generalized anxiety disorder History of alcohol use disorder Migraines Obsessive compulsive disorder PTSD (post-traumatic stress disorder) Home Medications NK 05/22/23 [History Last Taken Unknown] Allergy/AdvReac Type Severity Reaction Status Date / Time clavulanic acid Allergy Hives Verified 05/22/23 19:00 [From Augmentin] ibuprofen AdvReac Upset Verified 05/22/23 19:00 Stomach Surgical History Cholecystectomy planned History of section History of cholecystectomy History of hysterectomy Social History current occupational status: unemployed 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 Smoking Status: Former smoker alcohol intake: never substance use type: does not use seatbelt use: always do you feel safe at home: Yes ROS Constitutional Constitutional: Denies anorexia, chills or fatigue Eyes Eyes: Denies blurry vision ENT HEENT: Denies abnormal hearing Cardiovascular Cardiovascular: Denies chest pain Respiratory/Chest Respiratory/Chest: Denies cough or dyspnea Gastrointestinal Gastrointestinal: Reports abdominal pain; Denies coffee ground emesis, constipation, nausea or vomiting Genitourinary Genitourinary: Denies change in urinary stream Musculoskeletal Musculoskeletal: Denies abnormal gait Integumentary Integumentary: Denies new lesions Neurologic Neurologic: Denies abnormal gait Psychiatric Psychiatric: Denies depression Vital Signs Vital Signs Vital Signs: 05/22/23 15:31 05/22/23 16:38 05/22/23 18:00 Temperature 98.4 F Temperature Source Temporal Pulse Rate 90 73 69 Respiratory Rate 18 16 16 Blood Pressure 131/89 H 133/90 H 128/85 H Blood Pressure Mean 103 104 99 Blood Pressure Source Blood Pressure Position Blood Pressure Location Pulse Ox 99 99 99 Oxygen Delivery Method Room Air Room Air 05/22/23 19:01 05/22/23 19:36 05/22/23 19:39 Temperature 98.6 F Temperature Source Oral Pulse Rate 75 74 64 Respiratory Rate 14 12 12 Blood Pressure 137/84 H 122/66 H 121/85 H Blood Pressure Mean 101 84 97 Blood Pressure Source Monitor Blood Pressure Position Semi-Fowlers Blood Pressure Location Right Arm Pulse Ox 98 99 96 Oxygen Delivery Method Room Air Room Air Weight Weight: 197 lb 14.4 oz Body Mass Index (BMI) 30.9 Physical Exam Const oriented x3 and no apparent distress Resp normal respiratory effort GI soft to palpation Palpation: tender RLQ Extremity normal to inspection Results Lab / Micro Data 05/22/23 16:05 05/22/23 16:05 Labs: Laboratory Results - last 24 hr 05/22/23 16:05: WBC 10.9, RBC 4.59, Hgb 13.6, Hct 40.7, MCV 88.7, MCH 29.6, MCHC 33.4, RDW Std Deviation 42.2, RDW Coeff of Bj 12.9, Plt Count 252, MPV 9.3, Immature Gran % (Auto) 0.900, Neut % (Auto) 70.1 H, Lymph % (Auto) 16.7 L, [place] % (Auto) 8.9, Eos % (Auto) 2.9, Baso % (Auto) 0.5, Absolute Neuts (auto) 7.7, Absolute Lymphs (auto) 1.82, Nucleated RBC % 0, Sodium 136, Potassium 3.6, Chloride 105, Carbon Dioxide 27.0, Anion Gap 4 L, BUN 9, Creatinine 0.68, Estim Creat Clear Calc 116.57, Est GFR (MDRD) Af Amer 128, Est GFR (MDRD) Non-Af 106, BUN/Creatinine Ratio 13.1, Glucose 104, Calcium 9.4, Total Bilirubin 1.00, AST 20, ALT 40, Alkaline Phosphatase 114, Total Protein 8.0, Albumin 4.0, Globulin 4.0, Albumin/Globulin Ratio 1.0, Serum , Qual NEGATIVE 05/22/23 17:32: Urine Color Yellow, Urine Clarity Clear, Urine pH 6.5, Ur Specific [place] 1.010, Urine Protein Negative, Urine Glucose (UA) Normal, Urine Ketones 15 H, Urine Occult Blood 250 H, Urine Nitrite Negative, Urine Bilirubin Negative, Urine Urobilinogen Normal, Ur Leukocyte Esterase Negative, Urine RBC 0-5 SEEN, Urine WBC 0 SEEN, Ur Squamous Epith Cells 0 SEEN, Urine Bacteria 0 SEEN, Urine Mucus 0 SEEN Imagaing Radiology Impression Abdomen/Pelvis CT 05/22/23 16:27 IMPRESSION: 1. Proximal appendicolith with diffuse appendiceal thickening and sequelae of appendicitis without bowel obstruction abscess or free air. 2. Remaining bowel segments have normal appearance. 3. No evidence renal calcifications or obstructive uropathy. 4. Gallbladder is not visualized at, no evidence of ductal dilatation. Electronically Signed: Keith Mendoza MD at 18:56 EST , ADDENDUM: 05/22/23 1910 IMPRESSION: 1. Proximal appendicolith with diffuse appendiceal thickening and sequelae of appendicitis without bowel obstruction abscess or free air. 2. Remaining bowel segments have normal appearance. 3. No evidence renal calcifications or obstructive uropathy. 4. Gallbladder is not visualized at, no evidence of ductal dilatation. N.B. : The above Results were Read Back by Keith Mendoza MD to Buster Bustamante DO, DO, and understanding confirmed on 05/22/2023 19:03:18 (ET). Electronically Signed: Keith Mendoza MD at 18:56 EST , Assessment & Plan Assessment/Plan (1) Acute appendicitis: QUALIFIERS: Acute appendicitis type: unspecified acute appendicitis type Qualified Code(s): K35.80 - Unspecified acute appendicitis PLAN: Patient presented with lower abdominal pain and CT scan revealed acute appendicitis with a proximal fecalith. I discussed laparoscopic appendectomy with the patient in detail. I discussed the risks including but not limited to bleeding, infection, injury to other organs such as the bowel, bladder or ureter. Patient understands the risks and is when to proceed. I also explained the possibility of ileocecectomy if the inflammation was too great. Patient will be admitted following surgery and she was given antibiotics in the emergency room. Zack Lane MD Pager: [facility] [address] [place] [address], [address] [place] [address] Office:
--- NOTE | 2023-05-22 20:20 | APP_PTH ---
PATIENT: RUDI CHIN LOC: [facility] U#:[id number] AGE/SX: 32/F ROOM: [facility] RE05/22/[address]: Dr. Zack Lane MD : 1990 BED: 1 DIS: 05/23/2023 SPEC #: [id number] RECD: 05/23/23 12:03 STATUS: [facility] #: [id number] BHAVANI: 05/22/23 20:[address]: Zack Lane DEPT: SURGICAL PATHOLOGY RECD BY: Kay Smith ENTERED: 05/23/23 12:04 SP TYPE: APPENDIX OTHR DR: No Primary Care Phys Tissues: Appendix, NOS Procedures: Surgery Specimen Level III HEADER OPERATION: Laparoscopic appendectomy PRE-OP DIAGNOSIS: Acute appendicitis TISSUE SUBMITTED: Appendix MICROSCOPIC DIAGNOSIS Appendix, appendectomy: Acute appendicitis. Acute serositis. AM:pancho 05/25/2023 MICROSCOPIC DESCRIPTION Slides are reviewed. GROSS DESCRIPTION Received in fixative is one container labeled with the patient's name and designated appendix. The specimen consists of an appendix measuring 6.0 cm in length and 1.0 cm in average diameter. No gross perforations are evident. Serial sections reveal a patent lumen with fecalith. No mass lesion is identified. Career Orientation Teacher sections are submitted in one cassette. / AM:pancho 05/23/2023 TC:2 CPT: 92711
[2023-05-22] MEDS: Bupivacaine 0.25% 30 ML Vial (20:59)
--- NOTE | 2023-05-22 21:10 | OP.PCM_ITS ---
Report of Operation Date of Procedure: 05/22/23 Pre-Operative Diagnosis: Acute appendicitis Post-Operative Diagnosis: Acute appendicitis Surgery/Procedure Performed:: Laparoscopic appendectomy Description of Surgical Findings:: Inflamed appendix Type of Anesthesia: General/Regional Specimen's removed: Appendix Estimated Blood Loss (mL): 5 Description of Procedure: The patient was brought into the operating room and general anesthesia was induced. The left arm was tucked and the abdomen was prepped and draped in usu al sterile fashion. A small midline incision was made superior to the umbilicus and deepened to the level of the fascia. The fascia was elevated and incised. The peritoneum was also elevated and incised. A finger sweep was performed and a balloon trocar was placed into the abdomen and inflated. The abdomen was insufflated to 15 mmHg and the camera was inserted and the abdomen was inspected for any injuries upon entering the abdomen. There were none. The patient was placed in Trendelenburg position and a 5 mm ports placed in the left lower quadrant and suprapubic areas under direct visualization. Next using atraumatic bowel graspers the appendix was identified. The appendix was grasped and elevated and Enseal was used to take down the mesoappendix. A stapler was used to come across the base of the appendix. The appendix was then placed in Endo Catch bag and removed through the umbilical incision. The staple line was inspected and found to be hemostatic and intact. The 2 5 mm ports are removed under direct visualization. The balloon trocar was deflated and removed and all the air was removed from the abdomen. The umbilical incision fascia was closed with an 0 Vicryl [id number] suture. The incisions were then irrigated with saline and dried. Local anesthetic was injected into the incision sites. The skin incisions were then closed with interrupted 4-0 Monocryl suture and Steri- Strips. Bandages were applied and the patient was awoken and taken to PACU in stable condition. Patient tolerated the procedure well. Admit VTE Documentation VTE Mechan Device Prophylaxis: SCD's
[2023-05-22] MEDS: Lactated Ringers 1,000 ML 15 ML IV (21:30)
[2023-05-22] MEDS: 0.9% Normal Saline (1000mL) 1,000 ML 60 ML IV (22:14)
[2023-05-22] MEDS: Morphine 2 MG/ML Syringe IV (22:14)
[2023-05-23] MEDS: Ketorolac 15 MG/ML Vial IV (03:18)
[2023-05-23 04:00] VITALS: BP 134/65; PULSE 76; RESP 16; TEMP 36.6; O2SAT 98
[2023-05-23] MEDS: Morphine 2 MG/ML Syringe IV (07:38)
[2023-05-23] MEDS: 0.9% Saline Lock 10 ML Syringe IV (07:39)
[2023-05-23 08:00] VITALS: BP 122/63; PULSE 67; RESP 12; TEMP 36.9; O2SAT 98
--- NOTE | 2023-05-23 08:12 | PCM.PN.SRG ---
Subjective Subjective Patient still having some right lower quadrant pain. She says it feels different but it is still painful in the right lower quadrant. Objective Data Objective Data Vital Signs: Vital Signs Temp Pulse Resp BP Pulse Ox O2 Del Method O2 Flow Rate 98 F 76 16 134/65 H 98 Room Air 2 05/23/23 04:00 05/23/23 04:00 05/23/23 04:00 05/23/23 04:00 05/23/23 04:00 05/23/23 04:00 05/22/23 21:30 Oxygen Flow Rate (L/min) 2 Oxygen Delivery Method Room Air Weight: 197 lb 12.074 oz Body Mass Index (BMI) 30.9 Intake & Output: Intake and Output for Last 24 Hours 05/21/23 05/22/23 05/23/23 23:59 23:59 23:59 Intake Total 1111 / 1111 1229 / 1229 Balance 1111 / 1111 1229 / 1229 Lab / Micro Data 05/22/23 16:05 05/22/23 16:05 Labs: Laboratory Results - last 24 hr 05/22/23 16:05: WBC 10.9, RBC 4.59, Hgb 13.6, Hct 40.7, MCV 88.7, MCH 29.6, MCHC 33.4, RDW Std Deviation 42.2, RDW Coeff of Bj 12.9, Plt Count 252, MPV 9.3, Immature Gran % (Auto) 0.900, Neut % (Auto) 70.1 H, Lymph % (Auto) 16.7 L, [place] % (Auto) 8.9, Eos % (Auto) 2.9, Baso % (Auto) 0.5, Absolute Neuts (auto) 7.7, Absolute Lymphs (auto) 1.82, Nucleated RBC % 0, Sodium 136, Potassium 3.6, Chloride 105, Carbon Dioxide 27.0, Anion Gap 4 L, BUN 9, Creatinine 0.68, Estim Creat Clear Calc 116.57, Est GFR (MDRD) Af Amer 128, Est GFR (MDRD) Non-Af 106, BUN/Creatinine Ratio 13.1, Glucose 104, Calcium 9.4, Total Bilirubin 1.00, AST 20, ALT 40, Alkaline Phosphatase 114, Total Protein 8.0, Albumin 4.0, Globulin 4.0, Albumin/Globulin Ratio 1.0, Serum , Qual NEGATIVE 05/22/23 17:32: Urine Color Yellow, Urine Clarity Clear, Urine pH 6.5, Ur Specific [place] 1.010, Urine Protein Negative, Urine Glucose (UA) Normal, Urine Ketones 15 H, Urine Occult Blood 250 H, Urine Nitrite Negative, Urine Bilirubin Negative, Urine Urobilinogen Normal, Ur Leukocyte Esterase Negative, Urine RBC 0-5 SEEN, Urine WBC 0 SEEN, Ur Squamous Epith Cells 0 SEEN, Urine Bacteria 0 SEEN, Urine Mucus 0 SEEN Radiography Diagnostic Testing: Radiology Impression Abdomen/Pelvis CT 05/22/23 16:27 IMPRESSION: 1. Proximal appendicolith with diffuse appendiceal thickening and sequelae of appendicitis without bowel obstruction abscess or free air. 2. Remaining bowel segments have normal appearance. 3. No evidence renal calcifications or obstructive uropathy. 4. Gallbladder is not visualized at, no evidence of ductal dilatation. Electronically Signed: Keith Mendoza MD at 18:56 EST , ADDENDUM: 05/22/23 1910 IMPRESSION: 1. Proximal appendicolith with diffuse appendiceal thickening and sequelae of appendicitis without bowel obstruction abscess or free air. 2. Remaining bowel segments have normal appearance. 3. No evidence renal calcifications or obstructive uropathy. 4. Gallbladder is not visualized at, no evidence of ductal dilatation. N.B. : The above Results were Read Back by Keith Mendoza MD to Buster Bustamante DO, DO, and understanding confirmed on 05/22/2023 19:03:18 (ET). Electronically Signed: Keith Mendoza MD at 18:56 EST , Physical Exam Const oriented x3 and no apparent distress Resp normal respiratory effort GI soft to palpation Palpation: tender RLQ Assessment & Plan Assessment/Plan (1) Acute appendicitis: QUALIFIERS: Acute appendicitis type: unspecified acute appendicitis type Qualified Code(s): K35.80 - Unspecified acute appendicitis PLAN: Patient had laparoscopic appendectomy yesterday for acute appendicitis. She seems to be doing well as long as her pain is controlled. I will advance her diet and see if she tolerates this. Hopeful for discharge this afternoon if she is doing well. Zack Lane MD Pager: [facility] [address] [place] [address] [address] [place] [address] Office:
[2023-05-23 09:03] VITALS: BP 122/63; PULSE 68; RESP 12; TEMP 36.9; O2SAT 98
--- NOTE | 2023-05-23 12:04 | DCINST_ITS ---
Discharge Instructions Diet Discharge Diet: Light diet - advance as tolerated Activity Discharge Activity: May Not Drive (for 2-3 days or while taking narcotic pain medications) May shower in (days): 1 Lifting Restrictions: 15 pounds for 2 weeks Dressing / Incision Call your doctor if your incision/area has: Continuous Slow Oozing, Sudden Increased Bleeding, Increased Pain/ Swelling, Increased Redness and Foul Smelling Discharge Call your doctor if you observe: Fever of 101 or Higher Suture Line Care: Avoid Pulling/Pushing and Avoid Pinching/Bending Remove Dressing in: 2 days Cleanse incision/area with: Soap & Water Follow Up Care Please Follow Up With: Zack Lane MD When: Please call to schedule 2 week follow up appointment at [phone] Test Results: Test results from this visit will be discussed in further detail at your follow- up appointment, if applicable. Discharge Plan Admission Admit Date/Time: 05/22/23 21:10 Attending Provider: Zack Lane Primary Care Provider: Care Physician,No Primary Discharge Orders/Prescriptions Prescriptions: New acetaminophen 325 mg Tablet 650 mg PO Q4H PRN PRN (Reason: Pain 1-10 Or Fever) Qty: 0 0RF oxycodone 5 mg Tablet 5 - 10 mg PO Q4H PRN PRN (Reason: Pain Score 4-10) 5 Days Qty: 20 0RF Referrals / Follow Up: Jj Valera MD [Non-Staff] - Disposition Disposition (needs filled in before D/C Order can be placed): Home, Self Care
[2023-05-23 12:05] VITALS: BP 122/67; PULSE 67; RESP 14; TEMP 36.9; O2SAT 99
[2023-05-23] MEDS: oxyCODONE 5 MG Tablet PO (12:16)
--- NOTE | 2023-05-23 13:00 | CASEMGMT ---
Patient has order for discharge. RN CM in to discuss needs at discharge. Patient denies needs at discharge. Patient had no further questions or concerns.
== END 2023-05-23 12:05 | disposition home or self-care (01) ==
LOC: ED 18:59 → SDC 19:10 → AC 19:10 → SDC 21:58 → PCU 21:58
PROVIDERS: Admitting Provider Surgery; Emergency Provider Emergency Medicine; Referring Provider Surgery; Visit Provider Surgery
PROC: 0DTJ4ZZ Resection of Appendix, Percutaneous Endoscopic Approach (ICD-10-PCS; CPT 44970; principal; 2023-05-22 20:00)
DX: K35.80 Unspecified acute appendicitis (principal); Z87.891 Personal history of nicotine dependence
CPT/HCPCS: 44970; 00840; C1760; 74177; 80053; 81001; 84703; 85025; 88304; 96374; 96375; 96376; 99221; 99284; J7030; J7120; Q9967; A4216; G0378; J2405

== ENCOUNTER 2023-06-13 19:16 | Emergency (ER) | payer MEDICAID, SELFPAY ==
[2023-06-13 19:18] VITALS: BP 132/71; PULSE 69; RESP 18; TEMP 36.8; O2SAT 100; BMI 31.0
[2023-06-13 19:46] LABS: Bacteria 0 SEEN /hpf (None Seen); Squamous Epithelial Cells - UA 0 SEEN /hpf (5-10)
[2023-06-13 19:49] LABS: Absolute Lymphocyte Count 2.14 X10^3/uL (0.83-4.51); Absolute Neutrophil Count 4.6 X10^3/uL (2.0-7.7); Basophil# 0.02 X10^3/uL; Basophil% 0.2 % (0-1); Hematocrit 39.4 % (37-47); Hemoglobin 13.1 g/dL (12.0-15.0); Lymphocyte # 2.14 X10^3/ul (0.83-4.51); Lymphocyte % 26.5 % (19-41); Mean Corp Hgb Conc 33.2 g/dL (32-36); Mean Corpuscular Hgb 29.5 pg (27.0-32.0); Mean Corpuscular Volume 88.7 fL (81-99); Mean Platelet Vol. 9.3 fl (6.2-12.0); Monocyte# 0.86 X10^3/uL; Monocyte% 10.7 % (0-10); NRBC Flagged by Analyzer 0 % (0-5); Neutrophil # 4.61 X10^3/uL (2.7-7.7); Neutrophil % 57.1 % (47-70); Platelet Count 305 K/mm3 (150-450); RBC Distribution Width CV 12.9 % (11.6-14.6); RBC Distribution Width SD 41.9 fl (35.1-43.9); Red Blood Count 4.44 M/mm3 (4.2-5.4); White Blood Count 8.1 K/mm3 (4.4-11.0)
[2023-06-13 19:50] LABS: Color, Urine Yellow (Yellow); Glucose, Dipstick Normal (Normal); Ketone-Dipstick Negative (Negative); Leukocyte Esterase-Dipstick 25 /ul (Negative); Nitrite-Dipstick Negative (Negative); Occult Blood-Urine 250 /ul (Negative); Protein-Dipstick 15 mg/dl (Negative); Specific Gravity, Urine 1.025 (1.002-1.030); Urine Bilirubin Dipstick Negative (Negative); Urine Clarity Clear (Clear); Urine Urobilinogen 1 mg/dl (Normal)
[2023-06-13 19:56] LABS: Internal QC Validated? YES +Cl - CLEAR BKGD; Pregnancy, Serum, hCG Quali. NEGATIVE Negative
[2023-06-13 20:10] LABS: AST(SGOT) 22 U/L (15-37); Alanine Aminotransfer ALT/SGPT 33 U/L (13-56); Albumin, Serum 3.9 g/dL (3.2-5.0); Alkaline Phosphatase 113 U/L (45-117); Anion Gap 4 (5-15); BUN 13 mg/dL (7-18); BUN/Creat Ratio 17.6 RATIO (10-20); Calcium,Total 9.2 mg/dL (8.5-10.1); Chloride 108 mmol/L (98-107); Creatinine, Serum 0.74 mg/dL (0.55-1.02); EST Glomerular Filtration Rate 97 mL/min (>60); Est Glom Filt Rate - Afr Amer 117 mL/min (>60); Estimated Creatinine Clearance 111.12 ml/min; Globulin 3.9 g/dL (2.2-4.2); Glucose 102 mg/dL (74-106); Potassium 3.6 mmol/L (3.5-5.1); Protein, Total 7.8 g/dL (6.4-8.2); Sodium Level 136 mmol/L (136-145)
[2023-06-13 20:14] LABS: Mucous, Urine 1+ /hpf (<or=2+); White Blood Cells 0-5 SEEN /hpf (0-5)
[2023-06-13 20:15] LABS: Red Blood Cells-Urine 5-10 SEEN /hpf (0-5)
--- NOTE | 2023-06-13 20:54 | CT_ITS ---
INDICATION: Right lower Pain, diarrhea. Appendectomy May 2022. COMPARISON: 05/22/2023 and 05/06/[address] IV Contrast dosage and agent: 97 cc Isovue-300 IV. RADIATION DOSAGE (If Supplied By Facility): CTDIvol = ( 16.49 ) mGy, DLP = ( 1051.52 ) mGycm A radiation dose optimization technique was used for this scan. FINDINGS: Contrast enhanced serial CT axial images through the abdomen and pelvis with coronal and sagittal reformatted series. PANCREAS: No peripancreatic fat stranding. APPENDIX: Absent appendix with periappendiceal surgical clips. UTERUS/ADNEXA: Rim-enhancing 2 cm right ovarian crenated-appearing lesion consistent with involuting follicle. Mild prominence of adjacent periovarian vasculature on the right, unchanged from 2019. BOWEL/MESENTERY: No dilated bowel loops. No significant free fluid. No free air. GALLBLADDER: Gallbladder appears to be absent. Extrahepatic biliary ductal dilatation likely reflecting postcholecystectomy state. LIVER/STOMACH: No obvious abnormality. URINARY COLLECTING SYSTEM/ KIDNEYS: No obstructing ureteral calculus. No significant renal parenchymal abnormality. LUNG BASES: Unremarkable. BONES: Unremarkable for age. CT/Abdomen/Pelvis W IV Cont ONLY IMPRESSION: 2 cm right ovarian involuting follicle. Otherwise no acute abdominal abnormality is identified, to include unremarkable CT appearance of the bowel. Electronically Signed: Zack Moreno MD at 21:55 EST ,
--- NOTE | 2023-06-13 20:55 | EDS_ITS ---
HPI HPI - GI History of Present Illness Chief Complaint: Abd Pain Narrative Narrative: 32-year-old female past medical history of partial hysterectomy, had appendectomy performed by Dr. Lane approximately 3 weeks ago presents with lower abdominal pain, and diarrhea that she has had since Sunday, 2 days ago. She states she [facility], because she was having multiple episodes of diarrhea and mild abdominal pain. She thought it was just postoperative pain, but is worsened over time. She might be occasionally nauseated but has not vomited. No fevers or chills. Her pain is worse with standing and movement. It is relieved by nothing. In the last 24 hours she has had 5 episodes of nonbloody diarrhea. [facility] Medical History Bipolar disorder, unspecified Cerebral palsy Gastroenteritis due to food toxin Generalized anxiety disorder History of alcohol use disorder Migraines Obsessive compulsive disorder PTSD (post-traumatic stress disorder) Home Medications NK 06/12/23 [History Last Taken Unknown] Allergy/AdvReac Type Severity Reaction Status Date / Time clavulanic acid Allergy Hives Verified 06/13/23 19:21 [From Augmentin] ibuprofen AdvReac Upset Verified 06/13/23 19:21 Stomach Surgical History Cholecystectomy planned History of appendectomy History of section History of cholecystectomy History of hysterectomy Social History current occupational status: unemployed 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 HEENT: No sore throat. No neck pain. No loss of vision. No rhinorrhea. Cardiovascular: No chest pain. No palpitations. No pedal edema. Respiratory: No cough, no shortness of breath. Abdominal: Positive lower, right greater than left abdominal pain. Intermittent nausea. No vomiting. 5 episodes of nonbloody diarrhea in the last 24 hours. Genitourinary: No dysuria. No hematuria. Musculoskeletal: No myalgias. No arthralgias. Neurologic: No headaches. No dizziness. No lightheadedness. Skin: No rash. No change in color. Psychiatric: No depression. No anxiety. EXAM Physical Exam Narrative Exam Narrative: Afebrile. Vital signs noted. Regular rate and rhythm. Lungs are clear to auscultation bilaterally. Abdomen is soft with mild tenderness to palpation in right lower quadrant and left lower quadrant. Nontoxic-appearing. Neurological examination is nonfocal and nonlateralizing. Const Vital Signs: 06/13/23 19:18 Temperature 98.3 F Temperature Source Temporal Pulse Rate 69 Respiratory Rate 18 Blood Pressure 132/71 H Blood Pressure Mean 91 Pulse Ox 100 Oxygen Delivery Method Room Air MDM MDM MDM Narrative Medical decision making narrative: I reviewed the patient's prior records. She did have an appendectomy as she had an appendicolith noted on her previous CT scan. As she is approximately 3 weeks postoperative, I do feel that in the differential would be abscess of the operative site versus colitis versus diverticulitis versus gastroenteritis. I have low concern for obstruction because she is not vomiting. She may be dehydrated from her diarrhea. Nursing protocol labs were ordered. I reviewed her laboratory work from today and she has a normal white count of 8.1, hemoglobin normal at 13.1, hematocrit 39.4, platelet count normal at 305. Chloride is slightly elevated at 108 which I think is nonspecific, normal BUN of 13 and normal creatinine 0.74. Glucose is appropriately elevated above 100 with a normal anion gap/low at 4. Urinalysis was obtained and reviewed and is negative for infection with 0-5 WBCs. I do not feel antibiotics are indicated. I ordered the patient morphine and ondansetron and a CT of the abdomen and pelvis with IV contrast to help rule out obstruction versus abscess versus colitis. I reviewed the CT report and there is no evidence of obstruction or acute process. She does have an involuting right ovarian cyst but no evidence of free fluid in the pelvis. There is no remarkable CT appearance of the bowel, no acute pathology in review of the radiology report. At this point in time, she states she had more of a burning sensation in the epigastrium. She has already received morphine and Zofran. She will be given a GI cocktail. I feel she can be discharged safely home as she has a negative workup here in the emergency department. She will follow-up with Dr. Lane, her surgeon on Sunday. She was also referred to gastroenterology to see as needed. I feel she can be discharged safely home with follow-up. Return instructions were reviewed. Disposition is discharged home in stable condition. History & Record Review Discussion w/independent historian: Patient Additional record(s) reviewed:: Prior ED visit and Prior labs Lab Data Attestation: I reviewed the patient's lab results. Labs: Laboratory Results - last 24 hr 06/13/23 19:30 WBC 8.1 RBC 4.44 Hgb 13.1 Hct 39.4 MCV 88.7 MCH 29.5 MCHC 33.2 RDW Std Deviation 41.9 RDW Coeff of Bj 12.9 Plt Count 305 MPV 9.3 Immature Gran % (Auto) 0.500 Neut % (Auto) 57.1 Lymph % (Auto) 26.5 [place] % (Auto) 10.7 H Eos % (Auto) 5.0 Baso % (Auto) 0.2 Absolute Neuts (auto) 4.6 Absolute Lymphs (auto) 2.14 Nucleated RBC % 0 Sodium 136 Potassium 3.6 Chloride 108 H Carbon Dioxide 24.0 Anion Gap 4 L BUN 13 Creatinine 0.74 Estim Creat Clear Calc 111.12 Est GFR (MDRD) Af Amer 117 Est GFR (MDRD) Non-Af 97 BUN/Creatinine Ratio 17.6 Glucose 102 Calcium 9.2 Total Bilirubin 0.80 AST 22 ALT 33 Alkaline Phosphatase 113 Total Protein 7.8 Albumin 3.9 Globulin 3.9 Albumin/Globulin Ratio 1.0 Serum , Qual NEGATIVE Urine Color Yellow Urine Clarity Clear Urine pH 5.0 Ur Specific [place] 1.025 Urine Protein 15 H Urine Glucose (UA) Normal Urine Ketones Negative Urine Occult Blood 250 H Urine Nitrite Negative Urine Bilirubin Negative Urine Urobilinogen 1 H Ur Leukocyte Esterase 25 H Urine RBC 5-10 SEEN Urine WBC 0-5 SEEN Ur Squamous Epith Cells 0 SEEN Urine Bacteria 0 SEEN Urine Mucus 1+ Radiography Diagnostic Testing: Clinical Impression(s) from Imaging Studies Abdomen/Pelvis CT 06/13/23 20:54 IMPRESSION: 2 cm right ovarian involuting follicle. Otherwise no acute abdominal abnormality is identified, to include unremarkable CT appearance of the bowel. Electronically Signed: Zack Moreno MD at 21:55 EST , Discharge Plan Triage Chief Complaint: Abd Pain ED Provider: Slick Ruiz Dx/Rx/DC Orders Clinical Impression: Diarrhea, Abdominal pain Instructions: ED Abdominal Pain Unkn Cause Fem, ED Diarrhea, Unknown Cause Prescriptions: No Action NK Primary Care Provider: Care Physician,No Primary Referrals: Zack Lane MD [Med Staff - Active Staff] - Keep Elidia appointment Friend,DO Rajat [Med Staff - Active Staff] - As Needed Care Physician,No Primary [Primary Care Provider] - Activity Restrictions/Additional Instructions: Follow-up with your primary care provider in the next 1 to 5 days. Return with increasing pain, new or worsening symptoms. You had negative laboratory work and a negative CT scan for anything acute in the abdomen today. Disposition Disposition: Home, Self Care
[2023-06-13] MEDS: Ondansetron 4 MG/2 ML Vial IV (21:00)
[2023-06-13] MEDS: Morphine 4 MG/ML Syringe IV (21:00)
[2023-06-13] MEDS: 0.9% Normal Saline (1000mL) 1,000 ML 1000 ML IV (21:05)
[2023-06-13] MEDS: Mag Hydrox/Al Hydrox/Simeth 30 ML UDC PO (22:28)
[2023-06-13 22:32] VITALS: BP 148/76; PULSE 77; RESP 16; O2SAT 98
== END 2023-06-13 22:32 | disposition home or self-care (01) ==
PROVIDERS: Emergency Provider Emergency Medicine; Visit Provider Emergency Medicine
DX: R19.7 Diarrhea, unspecified (principal); R10.30 Lower abdominal pain, unspecified; Z87.891 Personal history of nicotine dependence
CPT/HCPCS: 74177; 80053; 81001; 84703; 85025; 96361; 96374; 96375; 99283; J7030; Q9967; A4216; J2405

== ENCOUNTER 2024-04-22 16:46 | Emergency (ER) | payer MEDICAID, SELFPAY ==
[2024-04-22 16:46] VITALS: BP 141/82; PULSE 81; RESP 18; TEMP 37.1; O2SAT 99; BMI 33.4
--- NOTE | 2024-04-22 17:13 | EKG12_ITS ---
Test Reason : CP Blood Pressure : / mmHG Vent. Rate : 062 BPM Atrial Rate : 062 BPM P-R Int : 170 ms QRS Dur : 090 ms QT Int : 396 ms P-R-T Axes : 043 054 017 degrees QTc Int : 401 ms Normal sinus rhythm with sinus arrhythmia Normal ECG Confirmed by LANDY MALAGON, CORNELIO ([id number]), sound editor FREDA DUBOIS ([id number]) on 04/24/2024 9:05:35 AM Referred By: Confirmed By:CORNELIO BILL MD
--- NOTE | 2024-04-22 17:14 | EDS_ITS ---
HPI History of Present Illness Chief Complaint: Chest Pain Narrative Narrative: 33-year-old female past medical history of general anxiety disorder, PTSD, presents with right shoulder pain/scapular pain that she has had over the last 3 weeks. Over the last few days she has developed right sided anterior chest pain as well. She complains of her pain going into her shoulder, sometimes she has right arm burning. She denies any fevers or chills, no current cough but she states she had bronchitis back in October of this year. Her pain in her right rhomboid area is worse with movement of her right arm. She called her primary care provider's office to get an appointment or go to the urgent care, but she states she was told to come to the emergency department for evaluation of her right chest pain that began over the last few days. She might feel short of breath with this but she denies any leg swelling. She has had partial hysterectomy so she does not take control pills. She denies any nausea or vomiting associated with this, no diaphoresis. PFSH PFS Medical History Gastroenteritis due to food toxin History of alcohol use disorder PTSD (post-traumatic stress disorder) Bipolar disorder, unspecified Generalized anxiety disorder Obsessive compulsive disorder Migraines Cerebral palsy Home Medications ?Medication ?Instructions ?Recorded ?Last Taken ?Type bupropion HCl 150 mg 24 hr tablet, 150 mg PO QAM #30 tabs 03/10/24 Unknown Rx extended release albuterol sulfate 90 mcg/actuation 2 puff inhalation Q4H PRN PRN 04/22/24 Unknown History aerosol inhaler wheezing Allergy/AdvReac Type Severity Reaction Status Date / Time clavulanic acid (From Allergy Hives Verified 04/22/24 16:47 Augmentin) ibuprofen AdvReac Upset Verified 04/22/24 16:47 Stomach Surgical History History of appendectomy History of cholecystectomy History of hysterectomy History of section Cholecystectomy planned Social History current occupational status: unemployed 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 HEENT: No sore throat. No neck pain. No loss of vision. No rhinorrhea. Cardiovascular: Right-sided chest pain. No palpitations. No pedal edema. Respiratory: No cough, positive shortness of breath. Abdominal: No abdominal pain. No nausea. No vomiting. Genitourinary: No dysuria. No hematuria. Musculoskeletal: Right rhomboid pain near thoracic spine and right scapula. Positive right arm pain with occasional burning. No arthralgias. Neurologic: No headaches. No dizziness. No lightheadedness. Skin: No rash. No change in color. Psychiatric: No depression. No anxiety. EXAM Physical Exam Narrative Exam Narrative: Afebrile. Vital signs noted. Nontoxic-appearing. Cardiovascular examination reveals a regular rate and rhythm. Lungs are clear to auscultation bilaterally. Abdomen is soft and nontender with normal active bowel sounds. Neurological examination is nonfocal and nonlateralizing. Musculoskeletal examination rev eals right sided tenderness palpation in the rhomboid area. Full range of motion right arm. Neurovascular intact distally with palpable radial pulse, right. No clinical dislocation of right shoulder. No crepitance right anterior chest wall. Mild tenderness to palpation. Const Vital Signs: 04/22/24 16:46 04/22/24 17:26 04/22/24 17:27 Temperature 98.7 F Temperature Source Oral Pulse Rate 81 Respiratory Rate 18 Respiratory Pattern Normal Blood Pressure 141/82 H Blood Pressure Mean 101 Pulse Ox 99 Oxygen Delivery Method Room Air Room Air 04/22/24 17:45 04/22/24 18:00 04/22/24 19:00 Temperature Temperature Source Pulse Rate 70 66 64 Respiratory Rate 19 H 18 17 Respiratory Pattern Blood Pressure 115/64 121/64 H Blood Pressure Mean 78 83 Pulse Ox 97 Oxygen Delivery Method Room Air 04/22/24 20:00 04/22/24 20:23 Temperature 97.8 F Temperature Source Pulse Rate 69 73 Respiratory Rate 16 16 Respiratory Pattern Blood Pressure 117/77 117/77 Blood Pressure Mean 90 90 Pulse Ox 97 97 Oxygen Delivery Method Room Air MDM MDM MDM Narrative Medical decision making narrative: Differential diagnosis includes but not limited to ACS versus pulmonary embolism versus pneumonia versus pneumothorax versus musculoskeletal pain of the chest wall. Regarding her right rhomboid pain, I have low suspicion for dissection as she does not have a tearing pain, and has been ongoing for 3 weeks. She has appropriate blood pressure in the emergency department as well. I do feel this is more musculoskeletal and can be treated with [id number] medications as needed. In order to rule out ACS versus pneumonia versus pneumothorax, chest x- ray will be obtained as well as cardiac enzymes and basic laboratory work along with EKG. EKG was obtained and interpreted by myself independently as normal sinus rhythm at 62 bpm with sinus arrhythmia or acute ST changes. No STEMI. I reviewed her laboratory work and she has normal white count of 8.9, hemoglobin 12.3, hematocrit slightly low at 36.8, platelet count normal at 268. D-dimer is elevated at 1.23 but in review of her previous laboratories it was higher at 1.83. Initial high-sensitivity troponin is less than 3. Chest x-ray interpreted by myself independently shows no pneumothorax, no pneumonia. I reviewed the radiology report which confirms my independent interpretation. Magnesium is normal at 2.1. Electrolyte panel is grossly unremarkable. Given her elevated D-dimer, CTA was obtained and there is no evidence of a pulmonary embolism or dissection. However, there was noted pulmonary nodule that is new from her previous CT. She was told of this and that she should follow-up with her primary care provider regarding this for probable CT imaging in 6 months. At this point in time, I feel that her rhomboid strain is probably more of her muscular pain. She states she lifts heavy boxes at work. She was given a note to be off work today. I feel she can be discharged safely home with follow-up and that [id number] analgesics should be satisfactory in treating her pain. Return instructions to the emergency department were reviewed. Disposition is discharged home in stable condition. History & Record Review Discussion w/independent historian: Patient Additional record(s) reviewed:: Prior ED visit and Prior labs Lab Data Attestation: I reviewed the patient's lab results. Labs: Laboratory Results - last 24 hr 04/22/24 04/22/24 17:25 19:34 WBC 8.9 RBC 4.03 L Hgb 12.3 Hct 36.8 L MCV 91.3 MCH 30.5 MCHC 33.4 RDW Std Deviation 41.7 RDW Coeff of Bj 12.6 Plt Count 268 MPV 9.0 Immature Gran % (Auto) 0.600 Neut % (Auto) 57.1 Lymph % (Auto) 26.0 [place] % (Auto) 10.2 H Eos % (Auto) 5.5 H Baso % (Auto) 0.6 Absolute Neuts (auto) 5.1 Absolute Lymphs (auto) 2.32 Nucleated RBC % 0 D-Dimer Quant (PE/DVT) 1.23 H* Sodium 137 Potassium 3.6 Chloride 106 Carbon Dioxide 25.0 Anion Gap 5 BUN 11 Creatinine 0.79 Estim Creat Clear Calc 126.27 Est GFR (MDRD) Af Amer 108 Est GFR (MDRD) Non-Af 89 BUN/Creatinine Ratio 13.9 Glucose 104 Calcium 8.9 Magnesium 2.1 Troponin I High Sens < 3 L < 3 L Radiography Diagnostic Testing: Clinical Impression(s) from Imaging Studies Chest X-Ray 04/22/24 17:45 IMPRESSION: No radiographic evidence of acute cardiopulmonary disease. Electronically Signed: Carmen Arguello MD at 18:37 EDT , Chest CTA 04/22/24 18:15 IMPRESSION: 1. No evidence of PE or aortic aneurysm or dissection. 2. No significant infiltrates or effusions. 3. 8 mm partially solid nodule in the right middle lobe, new from 2019 CTA. RECOMMENDATIONS: Fleischner Society Guidelines (MacMahon, et al. Radiology 2017; 284(1):228-43) recommend follow-up chest CT at 3-6 months to confirm persistence. If stable, chest CT every year until 5 years. Electronically Signed: Carmen Arguello MD at 19:09 EDT , Discharge Plan Triage Chief Complaint: Chest Pain ED Provider: Slick Ruiz Dx/Rx/DC Orders Clinical Impression: Strain of right rhomboid muscle, Chest pain, Pain in right arm, Pulmonary nodule Instructions: ED Chest Pain, Noncardiac, ED Back Sprain/Strain, ED Pulmonary Nodule, Solitary, ED Chest Wall Strain Prescriptions: No Action bupropion HCl 150 mg tablet extended release 24 hr 150 mg PO QAM Qty: 30 2RF albuterol sulfate 90 mcg/actuation HFA aerosol inhaler 2 puff inhalation Q4H PRN PRN (Reason: wheezing) Stand Alone Forms: Work / School Excuse Primary Care Provider: Jj Valera Referrals: Care Physician,No Primary [Non-Staff] - Activity Restrictions/Additional Instructions: Follow-up with your primary care provider regarding her pulmonary nodule on the right side. Take [id number] medications as needed for pain. Return with new or worsening symptoms. Print Language: Portuguese Disposition Disposition: Home, Self Care Discharge Date/Time: 04/22/24 20:29
[2024-04-22 17:33] LABS: Absolute Lymphocyte Count 2.32 X10^3/uL (0.83-4.51); Absolute Neutrophil Count 5.1 X10^3/uL (2.0-7.7); Basophil# 0.05 X10^3/uL; Basophil% 0.6 % (0-1); Eosinophil# 0.49 X10^3/uL; Eosinophils% 5.5 % (0-5); Hematocrit 36.8 % (37-47); Hemoglobin 12.3 g/dL (12.0-15.0); Lymphocyte # 2.32 X10^3/ul (0.83-4.51); Mean Corp Hgb Conc 33.4 g/dL (32-36); Mean Corpuscular Hgb 30.5 pg (27.0-32.0); Mean Corpuscular Volume 91.3 fL (81-99); Monocyte# 0.91 X10^3/uL; Monocyte% 10.2 % (0-10); NRBC Flagged by Analyzer 0 % (0-5); Neutrophil # 5.12 X10^3/uL (2.7-7.7); Neutrophil % 57.1 % (47-70); Platelet Count 268 K/mm3 (150-450); RBC Distribution Width CV 12.6 % (11.6-14.6); RBC Distribution Width SD 41.7 fl (35.1-43.9); Red Blood Count 4.03 M/mm3 (4.2-5.4); White Blood Count 8.9 K/mm3 (4.4-11.0)
[2024-04-22 17:45] VITALS: PULSE 70; RESP 19
--- NOTE | 2024-04-22 17:45 | RAD_ITS ---
EXAM: XR CHEST, 1 VIEW CLINICAL INDICATION: chest pain TECHNIQUE: Frontal view of the chest. COMPARISON: December 18, 2019 FINDINGS: LUNGS AND PLEURAL SPACES: Unremarkable. No consolidation or edema. No pneumothorax. No effusion. HEART: Unremarkable. Cardiac silhouette not enlarged. MEDIASTINUM: Central airways and mediastinal contour are unremarkable. BONES/JOINTS: Unremarkable. No acute fracture. SOFT TISSUES: Unremarkable. RAD/Chest 1 View (Portable) IMPRESSION: No radiographic evidence of acute cardiopulmonary disease. Electronically Signed: Carmen Arguello MD at 18:37 EDT ,
[2024-04-22 17:59] LABS: Anion Gap 5 (5-15); BUN 11 mg/dL (7-18); BUN/Creat Ratio 13.9 RATIO (10-20); Calcium,Total 8.9 mg/dL (8.5-10.1); Chloride 106 mmol/L (98-107); Creatinine, Serum 0.79 mg/dL (0.55-1.02); EST Glomerular Filtration Rate 89 mL/min (>60); Est Glom Filt Rate - Afr Amer 108 mL/min (>60); Estimated Creatinine Clearance 126.27 ml/min; Glucose 104 mg/dL (74-106); Magnesium 2.1 mg/dL (1.6-2.6); Potassium 3.6 mmol/L (3.5-5.1); Sodium Level 137 mmol/L (136-145); Troponin-I HS (w/2H Reflex) < 3 pg/mL (3.0-54.0)
[2024-04-22 18:00] VITALS: BP 115/64; PULSE 66; RESP 18
[2024-04-22 18:09] LABS: D-Dimer Quantitative (DVT/PE) 1.23 FEU/ug/m (0.27-0.49)
--- NOTE | 2024-04-22 18:15 | CT_ITS ---
EXAM: CT ANGIOGRAPHY CHEST WITHOUT AND WITH INTRAVENOUS CONTRAST CLINICAL INDICATION: Elevated D dimer TECHNIQUE: Helically acquired angiography images were obtained of the chest without and with intravenous contrast. This CT exam was performed using one or more of the following dose reduction techniques: automated exposure control, adjustment of the mA and/or kV according to patient size, and/or use of iterative reconstruction technique. MIP reconstructed images were created and reviewed. CONTRAST: IV 100mL Isovue-370 RADIATION DOSE: CTDIvol = 12.54 mGy, DLP = 548.87 mGy-cm. COMPARISON: December 18, 2019. FINDINGS: PULMONARY ARTERIES: Unremarkable. Normal in caliber. No evidence of pulmonary embolism. AORTA: Unremarkable. Normal in caliber. No evidence of dissection. GREAT VESSELS OF AORTIC ARCH: Unremarkable. Normal in caliber. No evidence of dissection. LUNGS AND PLEURAL SPACES: There is irregularly marginated small nodular pulmonary focus of roughly 7 mm x 8.5 mm x 8 mm in the right middle lobe, in the posterior region, not present on prior exam. It appears to have some peripheral groundglass and central small density. No typical infiltrates or effusions. No mass. No pneumothorax. HEART: Unremarkable. Heart size is normal. No pericardial effusion. No significant coronary artery calcifications. MEDIASTINUM: Unremarkable. No mediastinal or hilar adenopathy. Esophagus is unremarkable. No hiatal hernia. THYROID: Unremarkable. No thyroid lesions. BONES/JOINTS: Unremarkable. No suspicious lytic or blastic abnormality. LIVER: Mild low-attenuation fatty-appearing liver, not fully included. Partially included pancreas, adrenals, upper poles of kidneys, spleen leading are without obvious acute abnormality. CT/CTA Chest W/WO Contrast IMPRESSION: 1. No evidence of PE or aortic aneurysm or dissection. 2. No significant infiltrates or effusions. 3. 8 mm partially solid nodule in the right middle lobe, new from 2019 CTA. RECOMMENDATIONS: Fleischner Society Guidelines (MacMahon, et al. Radiology 2017; 284(1):228-43) recommend follow-up chest CT at 3-6 months to confirm persistence. If stable, chest CT every year until 5 years. Electronically Signed: Carmen Arguello MD at 19:09 EDT Reading Location ID and State: [facility] / [place] Tel , Service support ,
[2024-04-22 19:00] VITALS: BP 121/64; PULSE 64; RESP 17; O2SAT 97
[2024-04-22 19:28] LABS: Reflex Troponin-HS? (from REC) Y
[2024-04-22 19:56] LABS: Troponin-I HS < 3 pg/mL (3.0-54.0)
[2024-04-22 20:00] VITALS: BP 117/77; PULSE 69; RESP 16; O2SAT 97
[2024-04-22 20:23] VITALS: BP 117/77; PULSE 73; RESP 16; TEMP 36.6; O2SAT 97
== END 2024-04-22 20:29 | disposition home or self-care (01) ==
PROVIDERS: Emergency Provider Emergency Medicine; PCP Family Medicine; Visit Provider Emergency Medicine
DX: S46.811A Strain of other muscles, fascia and tendons at shoulder and upper arm level, right arm, initial encounter (principal); R07.9 Chest pain, unspecified; M79.601 Pain in right arm; R91.1 Solitary pulmonary nodule; F17.290 Nicotine dependence, other tobacco product, uncomplicated; F17.210 Nicotine dependence, cigarettes, uncomplicated; X58.XXXA Exposure to other specified factors, initial encounter; Z79.51 Long term (current) use of inhaled steroids
CPT/HCPCS: 71045; 71275; 80048; 83735; 84484; 85025; 85379; 93005; 99283; Q9967; A4216

== ENCOUNTER 2024-05-18 14:31 | Emergency (ER) | payer SELFPAY ==
[2024-05-18 14:32] VITALS: BP 113/53; PULSE 86; RESP 16; TEMP 36.3; O2SAT 98; BMI 31.7
--- NOTE | 2024-05-18 14:48 | EDS_ITS ---
HPI History of Present Illness Chief Complaint: Lower Extremity Injury Narrative Narrative: 33-year-old female states she has past medical history of cerebral palsy in her left lower extremity so she has chronic pain, presents with injury to her left knee that she sustained yesterday evening. Slipped on a wet spot in her kitchen. She may have twisted or fallen directly onto her left knee. She denies hitting her head or loss of consciousness. She states she has been having pain all through the night. She did take a muscle relaxer that she received for her shoulder injury. She also took Tylenol. She no longer has any analgesics at home in the form of Tylenol and presents because of the injury to her left knee. She states she is unable to bear weight on it, and also has pain with movement. Her pain is diffuse throughout her left knee and radiates both up and down her leg. PFSH PFSH Medical History Gastroenteritis due to food toxin History of alcohol use disorder PTSD (post-traumatic stress disorder) Bipolar disorder, unspecified Generalized anxiety disorder Obsessive compulsive disorder Migraines Cerebral palsy Home Medications ?Medication ?Instructions ?Recorded ?Last Taken ?Type bupropion HCl 150 mg 24 hr tablet, 150 mg PO QAM #30 tabs 03/10/24 Unknown Rx extended release albuterol sulfate 90 mcg/actuation 2 puff inhalation Q4H PRN PRN 04/22/24 Unknown History aerosol inhaler wheezing hydrocodone-acetaminophen 5-325mg 1 tab PO Q6H PRN PRN Pain 3 days 05/18/24 Unknown Rx 5mg-325mg #12 TABLETS tizanidine 4 mg tablet 4 mg PO Q8H PRN PRN muscle spasm 05/18/24 Unknown History Allergy/AdvReac Type Severity Reaction Status Date / Time clavulanic acid (From Allergy Hives Verified 05/18/24 14:32 Augmentin) ibuprofen AdvReac Upset Verified 05/18/24 14:32 Stomach Surgical History History of appendectomy History of cholecystectomy History of hysterectomy History of section Cholecystectomy planned Social History household members: children current occupational status: employed 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 No neck pain. Cardiovascular: No chest pain. No palpitations. No pedal edema. Abdominal: No abdominal pain. No nausea. No vomiting. Genitourinary: No dysuria. No hematuria. Musculoskeletal: No myalgias. Left knee pain, diffuse, worse with weightbearing and movement. Mild swelling. Neurologic: No headaches. No prodromal symptoms prior to fall. EXAM Physical Exam Narrative Exam Narrative: GCS 15. ABCs intact. Cardiovascular examination regular rate and rhythm. Lungs clear to auscultation bilaterally. Abdomen soft nontender with normoactive bowel sounds. Mild tenderness to palpation diffusely left knee with slight ecchymosis in the prepatellar area. Mild tenderness along medial and lateral meniscal lines. Neurovascular intact distally with palpable dorsalis pedis pulse, left. EHL intact, left. Able to raise leg off bed, but has mild difficulty sustaining it secondary to pain. Const Vital Signs: 05/18/24 14:32 Temperature 97.3 F L Temperature Source Temporal Pulse Rate 86 Respiratory Rate 16 Blood Pressure 113/53 L Blood Pressure Mean 73 Pulse Ox 98 Oxygen Delivery Method Room Air MDM MDM MDM Narrative Medical decision making narrative: Differential diagnosis includes but not limited to knee contusion versus tibial plateau fracture versus patellar fracture versus quadricep tendon rupture. There is no palpable tendon deficit on the patellar tendon and she is able to left upper leg so I doubt this. X-rays were obtained of the left knee and 4 views to rule out fracture. She was given an ice pack for comfort and 1 Carmichael tablet here. On my independent interpretation of the x-rays of the left knee and 4 views, I see no evidence of acute fracture. I reviewed the radiology report which confirms my independent interpretation. She will be placed in a knee immobilizer and given crutches. I wrote her prescription for 12 Carmichael tablets to take as she has an allergy to ibuprofen. She will follow-up with orthopedics or her primary care provider in 1 week for possible orthopedic referral. I feel she can be discharged and that she does not require observation or admission. Return instructions reviewed. Disposition is discharged home in stable condition. History & Record Review Discussion w/independent historian: Patient Additional record(s) reviewed:: Prior ED visit (Noncontributory to current chief complaint) Radiography Diagnostic Testing: Clinical Impression(s) from Imaging Studies Knee X-Ray 05/18/24 15:00 IMPRESSION: Unremarkable study. Electronically Signed: J Carlos Marshall MD at 15:39 EST Reading Location ID and State: [facility] / [place] Tel , Service support , Discharge Plan Triage Chief Complaint: Lower Extremity Injury ED Provider: Slick Ruiz Dx/Rx/DC Orders Clinical Impression: Injury of knee, left, Left knee sprain Instructions: ED Knee Pain of Uncertain Cause, ED Knee Sprain Prescriptions: New hydrocodone-acetaminophen 5-325 mg tablet 1 tab PO Q6H PRN PRN (Reason: Pain) 3 Days Qty: 12 0RF No Action bupropion HCl 150 mg tablet extended release 24 hr 150 mg PO QAM Qty: 30 2RF tizanidine 4 mg tablet 4 mg PO Q8H PRN PRN (Reason: muscle spasm) albuterol sulfate 90 mcg/actuation HFA aerosol inhaler 2 puff inhalation Q4H PRN PRN (Reason: wheezing) Primary Care Provider: Jj Valera Referrals: Jj Valera MD [Primary Care Provider] - 1 Week if not improving Shree Alexander MD [Med Staff - Active Staff] - 1 Week if not improving Activity Restrictions/Additional Instructions: Follow-up with your primary care provider for orthopedics referral, or with orthopedics in 1 week if not improving. Continue ice and elevation of your left lower extremity/knee. Use your crutches to help you ambulate. Print Language: Tajik Disposition Disposition: Home, Self Care
[2024-05-18] MEDS: HYDROcodone Bitartrate/Apap 5/325 Tablet PO (14:51)
--- NOTE | 2024-05-18 15:00 | RAD_ITS ---
INDICATION: Trauma, twisting injury with anterior bruising and pain EXAMINATION/TECHNIQUE: X-RAY - LEFT XR Knee Complete 4 Views or More 4 VIEWS COMPARISON: None. FINDINGS: SOFT TISSUES: No soft tissue swelling or gas. No radiopaque foreign body. BONES/JOINTS: No acute fracture. Joint spaces anatomically aligned. No sclerotic or destructive changes observed. RAD/Knee 4 or More Views IMPRESSION: Unremarkable study. Electronically Signed: J Carlos Marshall MD at 15:39 EST ,
[2024-05-18 16:04] VITALS: BP 116/78; PULSE 80; RESP 16; TEMP 36.3; O2SAT 98
== END 2024-05-18 16:05 | disposition home or self-care (01) ==
PROVIDERS: Emergency Provider Emergency Medicine; PCP Family Medicine; Visit Provider Emergency Medicine
DX: S83.92XA Sprain of unspecified site of left knee, initial encounter (principal); F31.9 Bipolar disorder, unspecified; G80.9 Cerebral palsy, unspecified; Z79.51 Long term (current) use of inhaled steroids; Z79.899 Other long term (current) drug therapy; X58.XXXA Exposure to other specified factors, initial encounter
CPT/HCPCS: 73564; 99284

== ENCOUNTER 2025-05-12 09:59 | Emergency (ER) | payer MEDICAID, SELFPAY ==
[2025-05-12 10:01] VITALS: BP 138/89; PULSE 77; RESP 18; TEMP 36.4; O2SAT 100; BMI 29.0
--- NOTE | 2025-05-12 10:51 | EDS_ITS ---
HPI History of Present Illness Chief Complaint: Headache Narrative Narrative: Patient is a 54-year-old female with past medical history of alcohol use disorder, PTSD, bipolar disorder, anxiety, OCD, migraine headaches, cerebral palsy who presented to the emergency department with a chief complaint of headache. Patient states that she developed a headache 3 days ago that gradually came on and has been constant although she feels like it has worsened overnight prompting her to come here for further evaluation management. States that she tried to take naproxen and Tylenol without any relief. Patient denies any head trauma or injuries to her head. [facility] Medical History Gastroenteritis due to food toxin History of alcohol use disorder PTSD (post-traumatic stress disorder) Bipolar disorder, unspecified Generalized anxiety disorder Obsessive compulsive disorder Migraines Cerebral palsy Home Medications Medication Instructions Recorded Last Taken Type bupropion HCl 150 mg 24 hr tablet, 150 mg PO QAM #30 t abs 03/10/24 Unknown Rx extended release albuterol sulfate 90 mcg/actuation 2 puff inhalation Q 4H PRN PRN 04/22/24 Unknown History aerosol inhaler wheezing hydrocodone-acetaminophen 5-325mg 1 tab PO Q6H PRN PRN Pain 3 days 05/18/24 Unknown Rx 5mg-325mg #12 TABLETS tizanidine 4 mg tablet 4 mg PO Q8H PRN PRN muscle s pasm 05/18/24 Unknown History Allergy/AdvReac Type Severity Reaction Status Date / Time clavulanic acid (From Allergy Hives Verified 05/12/25 10:00 Augmentin) ibuprofen AdvReac Upset Verified 05/12/25 10:00 Stomach Surgical History History of appendectomy History of cholecystectomy History of hysterectomy History of section Cholecystectomy planned Social History household members: children current occupational status: employed 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 Smoking Status: Former smoker alcohol intake: never substance use type: does not use seatbelt use: always do you feel safe at home: Yes ROS ROS ED ROS Narrative Constitutional: Denies any fevers, chills, lightheadedness Eyes: Denies double vision Cardiovascular: Denies chest pain Respiratory: Denies shortness of breath Abdomen: Denies nausea vomit diarrhea : Denies urinary symptoms Neurological: Denies any numbness, weeks, tingling Musculoskeletal: Denies back pain Skin: Denies any rashes or lesions EXAM Physical Exam Narrative Exam Narrative: General: Patient is lying in bed rest comfortably did not appear to be in acute distress Head: Atraumatic, normocephalic Eyes: PERRL bilaterally, EOMI bilaterally, no conjunctival injection noted Neck: Soft, supple, trachea midline Cardiovascular: Regular rate and rhythm Respiratory: Clear to auscultation bilaterally Abdomen: Soft, nondistended, no tenderness to palpation Extremities: +5/5 strength noted in the bilateral upper and lower extremities Neurological: Patient following commands knew that she was at [facility] year is 2024 NIH of 0 GCS 15 patient completed finger-nose testing bilaterally finding difficulty Skin: Warm, dry, intact no rashes or lesions noted Const Vital Signs: 05/12/25 10:01 05/12/25 11:05 05/12/25 12:27 Temperature 97.5 F L Temperature Source Oral Pulse Rate 77 86 85 Respiratory Rate 18 18 15 Blood Pressure 138/89 H 120/79 109/65 Blood Pressure Mean 105 92 79 Pulse Ox 100 100 98 Oxygen Delivery Method Room Air Room Air 05/12/25 13:29 05/12/25 13:36 Temperature 97.5 F L Temperature Source Pulse Rate 64 64 Respiratory Rate 15 15 Blood Pressure 109/64 109/64 Blood Pressure Mean 79 79 Pulse Ox 100 100 Oxygen Delivery Method Room Air MDM MDM MDM Narrative Medical decision making narrative: Patient is a 54-year-old female who presents to the emergency department with a chief complaint of headache. On the differential diagnose includes but not limited to migraine headache, tension headache, cluster headache, although low suspicion for this as she has a hysterectomy. Once workup is obtained and reviewed she will be reevaluated. Patient was given IV fluids, Reglan, Benadryl, Toradol Patient CBC reviewed and showed a white blood count of 8.6, hemoglobin 12.3, plate count normal at 250. Patient sodium 130, potassium 3.9, creatinine 0.56. Patient AST and ALT are 17 and 19 respectively test was negative. After medications were administered per nursing patient became extremely anxious was having a panic attack therefore she was given Ativan. On reevaluation of the patient at 1235 I walk in and she is resting very comfortably however she states that she is still having a headache therefore she will be ordered sumatriptan. On reevaluation the patient again at 1:35 PM she states that she is feeling significantly improved and would like to go home at this point time. She is advised to follow-up with her doctor in the outpatient setting and return with worsening symptoms or any concerns. She is advised to hydrate orally and use Tylenol and Motrin [id number] for headache control. All question concerns answered she was discharged home in stable condition Lab Data Labs: Laboratory Results - last 24 hr 05/12/25 10:58 WBC 8.6 RBC 4.08 L Hgb 12.3 Hct 35.4 L MCV 86.8 MCH 30.1 MCHC 34.7 RDW Std Deviation 39.8 RDW Coeff of Bj 12.6 Plt Count 250 MPV 9.2 Immature Gran % (Auto) 0.500 Neut % (Auto) 68.1 Lymph % (Auto) 20.6 [place] % (Auto) 7.6 Eos % (Auto) 2.9 Baso % (Auto) 0.3 Absolute Neuts (auto) 5.9 Absolute Lymphs (auto) 1.78 Nucleated RBC % 0 Sodium 138 Potassium 3.9 Chloride 107 Carbon Dioxide 19.4 L Anion Gap 11 BUN 11 Creatinine 0.56 L Estim Creat Clear Calc 164.60 Est GFR (MDRD) Non-Af 124 BUN/Creatinine Ratio 19.6 Glucose 88 Calcium 9.0 Total Bilirubin 0.91 AST 17 ALT 19 Alkaline Phosphatase 71 Total Protein 6.5 Albumin 4.1 Globulin 2.3 Albumin/Globulin Ratio 1.8 Serum , Qual NEGATIVE Discharge Plan Triage Chief Complaint: Headache ED Provider: Junior Hanson Dx/Rx/DC Orders Clinical Impression: Migraines, Anxiety Prescriptions: No Action bupropion HCl 150 mg tablet extended release 24 hr 150 mg PO QAM Qty: 30 2RF tizanidine 4 mg tablet 4 mg PO Q8H PRN PRN (Reason: muscle spasm) hydrocodone-acetaminophen 5-325 mg tablet 1 tab PO Q6H PRN PRN (Reason: Pain) 3 Days Qty: 12 0RF albuterol sulfate 90 mcg/actuation HFA aerosol inhaler 2 puff inhalation Q4H PRN PRN (Reason: wheezing) Primary Care Provider: Jj Valera Referrals: Jj Valera MD [Primary Care Provider, Family Practice] Activity Restrictions/Additional Instructions: Follow-up with your doctor in the outpatient setting. Return with worsening sy mptoms or other concerns. Your blood work did not show any acute findings. Print Language: Iranian Disposition Disposition: Home, Self Care
[2025-05-12] MEDS: Ketorolac 30 MG/ML Syringe IV (10:56)
[2025-05-12] MEDS: 0.9% Normal Saline (1000mL) 1,000 ML 999 ML IV (10:56)
[2025-05-12] MEDS: DiphenhydrAMINE 50 MG/ML Syringe 25 MG IV (10:56)
[2025-05-12 11:05] VITALS: BP 120/79; PULSE 86; RESP 18; O2SAT 100
[2025-05-12 11:13] LABS: Hematocrit 35.4 % (37-47); Hemoglobin 12.3 g/dL (12.0-15.0); Immature Granulocytes Count 0.040 X10^3/uL (0.0-0.0); Internal QC Validated? YES +Cl - CLEAR BKGD; Mean Corp Hgb Conc 34.7 g/dL (32-36); Mean Corpuscular Volume 86.8 fL (81-99); Mean Platelet Vol. 9.2 fl (6.2-12.0); NRBC Flagged by Analyzer 0 % (0-5); Platelet Count 250 K/mm3 (150-450); Pregnancy, Serum, hCG Quali. NEGATIVE Negative; RBC Distribution Width CV 12.6 % (11.6-14.6); RBC Distribution Width SD 39.8 fl (35.1-43.9); Record Kit Lot#, Serum Preg. 980607; Red Blood Count 4.08 M/mm3 (4.2-5.4); White Blood Count 8.6 K/mm3 (4.4-11.0)
[2025-05-12 11:55] LABS: AST(SGOT) 17 U/L (<=31); Alanine Aminotransfer ALT/SGPT 19 U/L (<=34); Albumin, Serum 4.1 g/dL (3.5-5.0); Alkaline Phosphatase 71 U/L (35-104); Anion Gap 11 (5-15); BUN 11 mg/dL (4-19); BUN/Creat Ratio 19.6 RATIO (10-20); Calcium,Total 9.0 mg/dL (7.6-11.0); Carbon Dioxide 19.4 mmol/L (21.0-32.0); Chloride 107 mmol/L (98-108); Estimated Creatinine Clearance 164.60 ml/min (50-250); Globulin 2.3 g/dL (2.2-4.2); Glucose 88 mg/dL (70-99); Potassium 3.9 mmol/L (3.3-5.1)
[2025-05-12 12:27] VITALS: BP 109/65; PULSE 85; RESP 15; O2SAT 98
--- OUTSIDE RECORDS SUMMARY | 2025-05-12 12:49 | XMS RPT_ITS | CCD ---
Author Organization [facility] ion Partnership [facility] Care Team Providers Care Rules Examiner Name Role Phone TOBI ANNE-RAHUL MOREL Primary Care Physi romario JENNA JIMENEZ MD Attending Unavailable TOBI ANNE-RAHUL MOREL Primary Care Un available Rylie Valera MD Primary Care Provider Hai ALVAREZ MD, Roopa Unavailable [phone] NAVARRO GARCIA Attending Unavailable PROVIDER, UNKNOWN Admitting Unavailable ROOPA VALLES Referring Unavailable PROVIDER, UNKNOWN Admitting Unavailable ROOPA VALLES Attending Unavailable Unavailable Primary Care Provider Unavailsatish Bains RUG HOOKER HAND.Cheyenne MOREL Unavailable Garret RUG HOOKER HAND.Yeyo MOREL Unavailable Care Physician, No Primary Primary Care Unava ilable Kaveh Hammer Attending Unavailable Rylie Valera Primary Care Unavailable Rerashawn, Slick Attending Unavailable Rylie Valera Primary Care Unavailable Reodica, Slick Attending Unavailable Bhargavhocolumba RUG HOOKER HAND.Cheyenne MOREL Unavailable RYLIE VALERA Primary Care Unavailable RYLIE VALERA Primary Care Unavailable BETTY SINGH Attending Unavailable CHEYENNE BAINS Referring UnavailRYLIE Elias Primary Care Unavailable YEYO MELTON Attending Unavailable RYLIE VALERA Primary Care Unavailable CHEYENNE BAINS Referring UnavailRYLIE Elias Primary Care Unavailable CHEYENNE BAINS Attending UnavailRYLIE Elias Referring Unavailable RYLIE VALERA Primary Care Unavailable Allergies Allergy Classification Reported Allergen(s) Allergy Type Date of Onset Reaction(s) Facility (1 source) Amoxicillin; Translations: [amoxicillin] Drug Allergy itching [facility] (18 sources) Ibuprofen; Translations: [ibuprofen] Drug Allergy 7 Gastritis (disorder), Intolerance, GI Upset [facility] (11 sources) Amoxicillin / Clavulanate; Translations: [AMOXICILLIN-POT CLAVULANATE] Drug Allergy 0 Other: See Comments [facility] (1 source) Clavulanate Drug Allergy 4 [facility] (1 source) Ibuprofen Drug Allergy 4 [facility] Medications Current Medications Medication Drug Class(es) Dates Sig (Normalized) Sig (Original) acetaminophen 500 mg oral tablet (20 sources) Start: 09-05-2023 take 1 tablet by mouth every six hours as needed for pain acetaminophen (TYLENOL) 500 MG tablet Take 1 Tablet by mouth every 6 hours as needed for Pain or Fever. 30 Tablet 09/05/2023 Active Start: 05-11-2020 take 2 tablets by mo uth every six hours acetaminophen (TYLENOL) 325 mg tablet Indications: Other ectopic without intrauterine (HCC) Take 2 tablets by mouth every 6 hours. 60 tablet 2 05/11/2020 Active acetaminophen 325 mg / HYDROcodone bitartrate 5 mg oral tablet (10 sources) Opioid Agonist Start: 05-18-2024 take 1 tablet by mouth every six hours as needed HYDROcodone-acetaminophen (NORCO) 5-325 mg per tablet Take 1 tablet by mouth every 6 hours as needed. 05/18/2024 Active [id number] 200 actuat albuterol 0.09 mg/actuat metered dose inhaler (15 sources) beta2-Adrenergic Agonist Start: 11-08-2023 take 2 puff(s) by inhalation every four hours as needed for wheezing albuterol HFA (PROVENTIL HFA, VENTOLIN HFA) 90 mcg/actuation inhaler Indications: Bronchitis Inhale 2 Puffs as instructed every 4 hours as needed for wheezing/shortness of breath. 1 Each 11/08/2023 Active amoxicillin 500 mg oral capsule (1 source) Penicillin-class Antibacterial Start: 11-29-2023 End: 12-06-2023 take 1 capsule by mouth three times daily amoxicillin (AMOXIL) 500 MG capsule Take 1 Capsule by mouth 3 times daily for 7 days. 21 Capsule 11/29/2023 12/06/2023 Active ARIPiprazole (1 source) Atypical Antipsychotic Start: 06-15-2021 Abilify Oral, qDay, 0 Refill(s) Start Date: 06/15/21 Status: Ordered augmented betamethasone 0.5 mg/ml topical cream (16 sources) Corticosteroid Start: 01-06-2021 betamethasone dipropionate, augmented (DIPROLENE) 0.05 % cream Indications: Contact dermatitis, unspecified contact dermatitis type, unspecified trigger Apply 1 application to affected area twice daily as needed. 50 g 2 01/06/2021 Active cyclobenzaprine hydrochloride 10 mg oral tablet (5 sources) Muscle Relaxant Start: 01-06-2021 End: 04-25-2024 take 1 tablet by mouth once daily at bedtime cyclobenzaprine (FLEXERIL) 10 mg tablet Take 1 tablet by mouth daily at bedtime. 30 tablet 5 01/06/2021 04/25/2024 Discontinued (Course of therapy completed) diazePAM 10 mg oral tablet (1 source) Benzodiazepine Start: 11-29-2023 End: 11-29-2023 take 1 tablet by mouth once, then take 1 tablet by mouth every hour diazePAM (Valium) 10 MG tablet Indications: Anxiety Take 1 Tablet by mouth 1 time for 1 dose. Take one tablet one hour prior to scheduled oral surgery procedure. 1 Tablet 11/29/2023 11/29/2023 Active erythromycin 0.005 mg/mg ophthalmic ointment (3 sources) Macrolide, Macrolide Antimicrobial Start: 08-19-2024 End: 08-26-2024 erythromycin (ROMYCIN) 5 mg/gram (0.5 %) ophthalmic ointment Use 1 application in the right eye four times daily for 7 days. 1 g 08/19/2024 08/26/2024 Active famotidine 20 mg oral tablet (1 source) Histamine-2 Receptor Antagonist Start: 06-15-2021 Pepcid 20 mg oral tablet Dose : 20 mg = 1 tab(s), Oral, qDay, # 30 tab(s), 1 Refill(s), Pharmacy: [id number], [facility] exam Abdominal pain, 169, cm, 06/15/21 14:32:00 EST, Height, kg, 06/15/21 14:32:00 EST, Dosing Weight Start Date: 06/15/21 Status: Ordered Inhalational Spacing Device (1 source) Start: 11-08-2023 End: 11-08-2023 Inhalational Spacing Device Indications: Bronchitis 1 Device one time only for 1 dose. 1 Each 0 11/08/2023 11/08/2023 Active loratadine 10 mg oral tablet (5 sources) Start: 10-01-2020 End: 04-25-2024 take 1 tablet by mouth once daily loratadine (CLARITIN) 10 mg tablet Take 1 tablet by mouth once daily. 30 tablet 11 10/01/2020 04/25/2024 Discontinued (Course of therapy completed) methylPREDNISolone (1 source) Corticosteroid Start: 04-25-2024 End: 05-01-2024 methylPREDNISolone (MEDROL, MOI,) 4 mg Dose-Pack Indications: Rhomboid muscle strain, sequela Follow dosing instructions, take with food. 21 tablet 04/25/2024 05/01/2024 Active Multivitamin preparation (1 source) Start: 06-15-2021 take 1 tablet by mouth once daily Multivitamin Dose = 1 tab(s), Oral, Daily, 0 Refill(s) Start Date: 06/15/21 Status: Ordered polyethylene glycol 3350 43182 mg powder for oral solution (5 sources) Osmotic Laxative Start: 05-11-2020 End: 04-25-2024 polyethylene glycol 3350 (MIRALAX) 17 gram/dose powder Take 17 g by mouth as directed. 235 g 05/11/2020 04/25/2024 Discontinued (Course of therapy completed) predniSONE 10 mg oral tablet (1 source) Start: 11-08-2023 End: 11-17-2023 predniSONE (DELTASONE) 10 mg tablet Indications: Bronchitis Take 4 tabs daily for 3 days, then 2 tabs daily for 3 days, then 1 tab daily for 3 days with food. 21 tablet 0 11/08/2023 11/17/2023 Active SUMAtriptan 50 mg oral tablet (5 sources) Serotonin-1b and Serotonin-1d Receptor Agonist Start: 10-01-2020 End: 04-25-2024 SUMAtriptan (IMITREX) 50 mg tablet Indications: Headache, unspecified headache type Take 1 tablet by mouth as needed for Migraine Headache (see administration instructions). 9 tablet 2 10/01/2020 04/25/2024 Discontinued (Course of therapy completed) tiZANidine 4 mg oral tablet (12 sources) Central alpha-2 Adrenergic Agonist Start: 04-25-2024 take 1 tablet by mouth every eight hours as needed for muscle spasms tiZANidine (ZANAFLEX) 4 mg tablet Indications: Rhomboid muscle strain, sequela Take 1 tablet by mouth every 8 hours as needed (muscle spasms). 30 tablet 04/25/2024 Active Completed/Discontinued Medications Medication Drug Class(es) Dates Sig (Normalized) Sig (Original) amoxicillin 875 mg / clavulanate 125 mg oral tablet (2 sources) Penicillin-class Antibacterial Start: 09-05-2023 End: 09-15-2023 take 1 tablet by mouth twice daily amoxicillin-clavul anate (AUGMENTIN) 875-125 MG per tablet Take 1 Tablet by mouth 2 times daily for 10 days. 20 Tablet 0 09/05/2023 09/15/2023 diclofenac sodium 75 mg delayed release oral tablet (2 sources) Nonsteroidal Anti-inflammatory Drug Start: 07-14-2024 End: 08-13-2024 take 1 tablet by mouth twice daily for pain diclofenac, EC, (VOLTAREN) 75 mg EC tablet Indications: Sprain of medial collateral ligament of left knee, initial encounter , Bone marrow edema Take 1 tablet by mouth two times a day. FOR PAIN 60 tablet 07/14/2024 08/13/2024 LORazepam 1 mg oral tablet (6 sources) Benzodiazepine Start: 09-05-2023 End: 09-03-2024 LORazepam (Ativan) 1 MG tablet Indications: Periapical abscess Take 1 Tablet by mouth every 6 hours as needed for Anxiety for up to 3 doses. Take 1 tablet the night before, and 1-2 tablets 60 minute prior to procedure. Patient must have escort to and from clinic. 3 Tablet 09/05/2023 11/29/2023 Discontinued Start: 06-15-2021 LORazepam PRN Panic attacks, 0 Refill(s), 83 Start Date: 06/15/21 Status: Ordered naproxen 250 mg oral tablet (1 source) Nonsteroidal Anti-inflammatory Drug End: 07-14-2024 take 1 tablet by mouth twice daily at mealtime naproxen (NAPROSYN) 250 mg tablet Take 250 mg by mouth two times a day with meals. 07/14/2024 Discontinued (Course of therapy completed) Problems Active Problems Problem Classification Problem Date Documented Date Episodic/Chronic Administrative/social admission (1 source) Patient encounter status; Translations: [Encounter for other administrative examinations] 12-03-2023 Episodic Anxiety disorders (19 sources) Moderate anxiety; Translations: [Anxiety disorder, unspecified] Onset: 05-08-2018 05-07-2020 Chronic Chronic obstructive pulmonary disease and bronchiectasis (1 source) Bronchitis; Translations: [Bronchitis, not specified as acute or chronic] 11-08-2023 Episodic Disorders of teeth and jaw (6 sources) Carious exposure of pulp ; Translations: [Dental caries, unspecified] Onset: 09-05-2023 12-17-2023 Episodic Inflammation; infection of eye (except that caused by tuberculosis or sexually transmitteddisease) (1 source) Hordeolum internum of upper eyelid of right eye; Translations: [Hordeolum internum right upper eyelid] 08-19-2024 Episodic Malaise and fatigue (1 source) Tired; Translations: [Other fatigue] 12-03-2023 Episodic Noninfectious gastroenteritis (1 source) Gastroenteritis; Translations: [Noninfective gastroenteritis and colitis, unspecified] 08-13-2024 Episodic Nonspecific chest pain (1 source) Chest pain, unspecified; Translations: [Chest pain, unspecified] Onset: 05-13-2024 Episodic Other aftercare (1 source) Post-discharge follow-up; Translations: [Encounter for follow-up examination after completed treatment for conditions other than malignant neoplasm] 05-27-2024 Episodic Other injuries and conditions due to external causes (2 sources) Injury of left knee; Translations: [Unspecified injury of left lower leg, subsequent encounter] 05-28-2024 Episodic Other lower respiratory disease (2 sources) Cough; Translations: [Acute cough] 11-08-2023 Episodic Other lower respiratory disease (1 source) Wheezing; Translations: [Wheezing] 11-08-2023 Episodic Other lower respiratory disease (1 source) Solitary nodule of lung; Translations: [Solitary pulmonary nodule] 04-25-2024 Episodic Other lower respiratory disease (1 source) Multiple nodules of lung; Translations: [Other nonspecific abnormal finding of lung field] 04-25-2024 Episodic Other nutritional; endocrine; and metabolic disorders (1 source) Body mass index (BMI) 30.0-30.9, adult; Translations: [Body mass index (BMI) 30.0-30.9, adult] Onset: 09-05-2023 Chronic Other screening for suspected conditions (not mental disorders or infectious disease) (1 source) Edema of bone marrow; Translations: [Abnormal findings on diagnostic imaging of other parts of musculoskeletal system] 07-14-2024 Episodic Other upper respiratory infections (1 source) Acute upper respiratory infection; Translations: [Acute upper respiratory infection, unspecified] 08-19-2024 Episodic Paralysis (16 sources) Cerebral palsy; Translations: [Cerebral palsy, unspecified] Onset: 10-16-2006 05-08-2018 Chronic Unclassified (1 source) Breast feeding (infant) (observable entity) 08-31-2017 Comment on above: System added from do cumentation. Breast feeding Status documented as Yes on Admission Past or Other Problems Problem Classification Problem Date Documented Date Episodic/Chronic Bacterial infection; unspecified site (16 sources) Bacteria present; Translations: [Streptococcus, group B, as the cause of diseases classified elsewhere] Onset: 09-02-2019 Resolved: 05-07-2020 05-07-2020 Episodic Ectopic (16 sources) Ectopic ; Translations: [Other ectopic without intrauterine ] Onset: 04-11-2020 Resolved: 05-11-2020 05-11-2020 Episodic Hemorrhage during ; abruptio placenta; placenta previa (16 sources) Vaginal bleeding complicating early ; Translations: [Hemorrhage in early , unspecified] Onset: 04-10-2020 Resolved: 05-07-2020 05-07-2020 Episodic Other aftercare (1 source) Encounter for follow-up examination after completed treatment for conditions other than malignant neoplasm; Translations: [Hospital discharge follow-up] Onset: 05-28-2024 Episodic Other complications of (16 sources) Abdominal pain in ; Translations: [Other specified related conditions, unspecified trimester] Onset: 05-08-2018 Resolved: 05-07-2020 05-07-2020 Episodic Other complications of (16 sources) Insufficient care; Translations: [Supervision of with insufficient care, third trimester] Onset: 07-31-2019 Resolved: 05-07-2020 05-07-2020 Episodic Other injuries and conditions due to external causes (1 source) Unspecified injury of left lower leg, subsequent encounter; Translations: [Injury of left knee, subsequent encounter] Onset: 06-23-2024 Episodic Other lower respiratory disease (1 source) Solitary pulmonary nodule; Translations: [Incidental lung nodule, greater than or equal to 8mm] Onset: 04-25-2024 Episodic Other lower respiratory disease (1 source) Other nonspecific abnormal finding of lung field; Translations: [Lung nodules] Onset: 04-25-2024 Episodic Previous (16 sources) ; Translations: [Maternal care for unspecified type scar from previous delivery] Onset: 07-31-2019 Resolved: 05-07-2020 05-07-2020 Episodic Residual codes; unclassified (16 sources) FH: premature coronary heart disease; Translations: [Family history of ischemic heart disease and other diseases of the circulatory system] Onset: 05-08-2018 05-08-2018 Episodic Residual codes; unclassified (16 sources) H/O: depression; Translations: [Personal history of other complications of , childbirth and the puerperium] Onset: 07-31-2019 Resolved: 05-07-2020 05-07-2020 Episodic Screening and history of mental health and substance abuse codes (16 sources) H/O: anxiety state; Translations: [Personal history of other mental and behavioral disorders] Onset: 07-31-2019 Resolved: 05-07-2020 05-07-2020 Episodic Sprains and strains (4 sources) Strain of thoracic region; Translations: [Strain of muscle and tendon of back wall of thorax, sequela] Onset: 04-25-2024 04-25-2024 Episodic Results Test Name Value Interpretation Reference Range Facility CNCOon 09-17-2024 CNCO Letter Text Normal [facility] Jonnathan 08-19-2024 CNOV Office Visit (UCWSTR ) RUDI CHIN V ([id number]) 1990 F MKT Date Time Provider Department 08/19/24 7:45 PM MAIKOL PIEDRA WSTR During your visit today, we recorded the following information about you: Temperature Pulse Respiration Blood pressure 98.4 degrees 84/minute 18/minute 132/84 Weight 95.5 kg Maikol Pierda PA 08/19/2024 8:00 PM Signed This note was created using [employer]riter. Subjective Rudi Chin is a 33 year old female. HPI 33-year-old female presents for congestion, cough x 2 days. Patient states on the evening started feeling sick. Yesterday when she got up symptoms are worse. She had cough, congestion, felt chilled and feverish. She reports body aches and headache. She denies any chest pain or shortness of breath. She has been around sick contacts. She has taken Tylenol cold and flu medication with minimal improvement in symptoms. Patient also reporting right eye tenderness over the upper eyelid. She thought it might be a stye. She has had some clear drainage from the eye as well. No vision changes. Does not wear contacts or glasses. No other complaint. PAST MEDICAL HISTORY Diagnosis Date Anxiety History of depression 07/31/2019 07/31/2019She also was diagnosed with depression after the of her last child Discussed increased risks of depression during and and importance of reporting the development or worsening of symptoms should they occur.Pt denies ever having any suicidal thoughts or tendencies or thoughts of hurting others.TKRN Infantile cerebral palsy, unspecified 10/16/2006 Other specified infantile cerebral palsy depression Vaginal bleeding affecting early 04/10/2020 -03/16 Quant hCG 26,033 -UVUS/TAUS performed no IUP noted, left ovarian cyst -patient to follow up in 48 hours on Sunday, patient in agreeable with plan -return precautions given PAST SURGICAL HISTORY Procedure Laterality Date APPENDECTOMY 05/2023 DELIVERY ONLY 09/05/2019 R/CS low transverse SECTION HX 08/29/2017 D+C 04/16/2020 HYSTERECTOMY 05/08/2020 LAPS SURG CHOLECYSTECTOMY W/CHOLANGIOGRAPHY 09/09/2012 ALLERGIES Ibuprofen MEDICATIONS tiZANidine (ZANAFLEX) 4 mg tablet Take 1 tablet by mouth every 8 hours as needed (muscle spasms). erythromycin (ROMYCIN) 5 mg/gram (0.5 %) ophthalmic ointment Use 1 application in the right eye four times daily for 7 days. HYDROcodone-acetaminoph en (NORCO) 5-325 mg per tablet Take 1 tablet by mouth every 6 hours as needed. (Patient not taking: Reported on 07/14/2024) albuterol HFA (PROVENTIL HFA, VENTOLIN HFA) 90 mcg/actuation inhaler Inhale 2 Puffs as instructed every 4 hours as needed for wheezing/shortness of breath. (Patient not taking: Reported on 08/13/2024) betamethasone dipropionate, augmented (DIPROLENE) 0.05 % cream Apply 1 application to affected area twice daily as needed. (Patient not taking: Reported on 08/13/2024) acetaminophen (TYLENOL) 325 mg tablet Take 2 tablets by mouth every 6 hours. (Patient not taking: Reported on 08/13/2024) FAMILY HISTORY Problem Relation Age of Onset Coronary Artery Disease Mother 50 Arthritis Mother Psychiatry Mother PTSD other (degenerative disc disease) Mother other (anxiety) Mother Psychiatry Father anxiety/OCD Diabetes Maternal Aunt No Known Problems Brother No Known Problems Son Social History Tobacco Use Smoking status: Never Smokeless tobacco: Never Vaping Use Vaping status: Never Used Substance Use Topics Alcohol use: Not Currently Comment: occasionally Drug use: Yes Types: Marijuana Comment: + Tox screen 01/06/21 Review of Systems Constitutional: Positive for chills, fatigue and fever. HENT: Positive for congestion. Negative for ear pain and sore throat. Eyes: Positive for pain and discharge. Negative for photophobia, redness, itching and visual disturbance. Respiratory: Positive for cough. Negative for shortness of breath. Cardiovascular: Negative for chest pain. Gastrointestinal: Negative for diarrhea and vomiting. Musculoskeletal: Positive for myalgias. Neurological: Positive for headaches. Objective BP 132/84 Pulse 84 Temp 36.9 ?C (98.4 ?F) Resp 18 Wt 95.5 kg (210 lb 8.6 oz) LMP 09/23/2023 SpO2 99% BMI 32.01 kg/m? Physical Exam Vitals and nursing note reviewed. Constitutional: General: She is not in acute distress. Appearance: Normal appearance. She is not toxic-appearing. HENT: Right Ear: Tympanic membrane and ear canal normal. Left Ear: Tympanic membrane and ear canal normal. Nose: Congestion present. Mouth/Throat: Mouth: Mucous membranes are moist. Eyes: General: Vision grossly intact. Right eye: Hordeolum present. Extraocular Movements: Extraocular movements intact. Conjunctiva/sclera: Conjunctivae normal. Comments: (more content not included)... Normal [facility] CNOVon 08-13-2024 CNOV Office Visit (UCTR ) RUDI CHIN V ([id number]) 1990 F MKT Date Time Provider Department 08/13/24 7:30 PM HUMZA ROGERS RUST During your visit today, we recorded the following information about you: Temperature Pulse Respiration Blood pressure 97.7 degrees 70/minute 19/minute 118/76 Weight 93.4 kg Humza Rogers MD 08/13/2024 8:09 PM Signed Patient presents with: Vomiting: Diarrhea, fatigue, NATION, abdominal cramping x 1 day HPI: Feeling sick since yesterday. Her son had gastroenteritis last week. Positive symptoms: Headache, Nausea, Vomiting, Diarrhea, chills Negative symptoms: Cough, Nasal Congestion, Rhinorrhea, OTC: Tylenol MEDICATIONS: Current Outpatient Medications Medication Sig tiZANidine (ZANAFLEX) 4 mg tablet Take 1 tablet by mouth every 8 hours as needed (muscle spasms). diclofenac, EC, (VOLTAREN) 75 mg EC tablet Take 1 tablet by mouth two times a day. FOR PAIN (Patient not taking: Reported on 08/13/2024) HYDROcodone-acetaminoph en (NORCO) 5-325 mg per tablet Take 1 tablet by mouth every 6 hours as needed. (Patient not taking: Reported on 07/14/2024) albuterol HFA (PROVENTIL HFA, VENTOLIN HFA) 90 mcg/actuation inhaler Inhale 2 Puffs as instructed every 4 hours as needed for wheezing/shortness of breath. (Patient not taking: Reported on 08/13/2024) betamethasone dipropionate, augmented (DIPROLENE) 0.05 % cream Apply 1 application to affected area twice daily as needed. (Patient not taking: Reported on 08/13/2024) acetaminophen (TYLENOL) 325 mg tablet Take 2 tablets by mouth every 6 hours. (Patient not taking: Reported on 08/13/2024) No current facility-administered medications for this visit. ALLERGIES: ALLERGIES Allergen Reactions Ibuprofen Intolerance, GI Upset VITALS: BP 118/76 Pulse 70 Temp 36.5 ?C (97.7 ?F) Resp 19 Wt 93.4 kg (205 lb 14.6 oz) LMP 09/23/2023 SpO2 98% BMI 31.31 kg/m? PHYSICAL EXAM: GEN: mildly ill appearing HEENT: PERRL, EOMI, conjunctiva clear Throat: moist mucous membranes, no erythema, no exudate Neck: supple, no thyromegaly, no lymphadenopathy HEART: regular rate, regular rhythm, no murmurs LUNGS: clear to auscultation, no wheezes or crackles, no increased WOB ABD: Soft, non-distended, uncomfortable with palpation ASSESSMENT/PLAN: 1. Gastroenteritis - ICD9: 558.9, ICD10: K52.9 Infectious gastroenteritis Hydration with fluids encouraged. Resume normal solid intake as tolerated. Hand hygiene to reduce transmission. Follow up in the ER with signs of dehydration, increasing abdominal pain, high fever, or blood in vomit or stool. Humza Rogers MD Allergies As of Date: 08/13/2024 Noted Allergy Reaction IBUPROFEN 09/21/2006 5 - Intolerance 8 - GI Upset Date Reviewed: 08/13/2024 Reviewed by: Catie Silva MA - Fully Assessed Reason for Visit: Vomiting [120] Cmt: Diarrhea, fatigue, NATION, abdominal cramping x 1 day Primary Visit Diagnosis:Gastroenterit is [K52.9] Prescriptions as of 08/13/2024 - diclofenac, EC, (VOLTAREN) 75 mg EC tablet Take 1 tablet by mouth two times a day. FOR PAIN - HYDROcodone-acetaminoph en (NORCO) 5-325 mg per tablet Take 1 tablet by mouth every 6 hours as needed. - tiZANidine (ZANAFLEX) 4 mg tablet Take 1 tablet by mouth every 8 hours as needed (muscle spasms). - albuterol HFA (PROVENTIL HFA, VENTOLIN HFA) 90 mcg/actuation inhaler Inhale 2 Puffs as instructed every 4 hours as needed for wheezing/shortness of breath. - betamethasone dipropionate, augmented (DIPROLENE) 0.05 % cream Apply 1 application to affected area twice daily as needed. - acetaminophen (TYLENOL) 325 mg tablet Take 2 tablets by mouth every 6 hours. Meds Comments as of 05/24/2024: May 24, 2024: Patient reports starting Ibuprofen in the last 30 days. Marium Lopez RN Problem List As Of Date 08/13/2024 Noted Resolved Infantile cerebral palsy (HCC) [G80.9] 10/16/2006 Abdominal pain affecting [O26.899, R1*05/08/2018 05/07/2020 Moderate anxiety [F41.9] 05/08/2018 Family history of early CAD [Z82.49] 05/08/2018 with history of section, ant*07/31/2019 05/07/2020 Insufficient care in third trimester [*07/31/2019 05/07/2020 History of anxiety [Z86.59] 07/31/2019 05/07/2020 History of depression [Z87.59, Z86.5*07/31/2019 05/07/2020 Group beta Strep positive [B95.1] 09/02/2019 05/07/2020 Vaginal bleeding affecting early [O20*04/10/2020 05/07/2020 scar ectopic [O00.80] 04/11/2020 05/11/2020 Level of Service: OFFICE/OUTPATIENT ESTABLISHED LOW MDM 20 MIN [45262] Letter Text Encounter Status:Closed by HUMZA ROGERS on 08/13/24 [facility] CNCOon 07-17-2024 CNCO Letter Text [facility] CNPIrina 07-17-2024 CNPN Telephone (ORTHWS) RUDI CHIN V ([id number]) 1990 F MKT Date Time Provider Department 07/17/24 BETTY SINGH During your visit today, we recorded the following information about you: Geno Quinones LPN 07/17/2024 10:39 AM Signed Patient called. Verified name and date of . Patient saw provider on 07/14/2024 and is in need of letter to release her to work but does need the letter to state that she can work with accommodations of use of stool to use for resting. 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 Patient will call back with fax number to send the letter to. MANN Ag Laurie, MA 07/17/2024 11:29 AM Signed Pt calling back with the fax number for work note with detailed restrictions. Best Five Reviewed. CHUNG Stovall Sondra, PA-C 07/17/2024 12:13 PM Signed Letter has been faxed. Allergies As of Date: 07/17/2024 Noted Allergy Reaction IBUPROFEN 09/21/2006 5 - Intolerance 8 - GI Upset Date Reviewed: 07/14/2024 Reviewed by: Madison Dick MA - Fully Assessed Reason for Visit: Patient Question [7017] Prescriptions as of 12/05/2024 - HYDROcodone-acetaminoph en (NORCO) 5-325 mg per tablet Take 1 tablet by mouth every 6 hours as needed. - tiZANidine (ZANAFLEX) 4 mg tablet Take 1 tablet by mouth every 8 hours as needed (muscle spasms). - albuterol HFA (PROVENTIL HFA, VENTOLIN HFA) 90 mcg/actuation inhaler Inhale 2 Puffs as instructed every 4 hours as needed for wheezing/shortness of breath. - betamethasone dipropionate, augmented (DIPROLENE) 0.05 % cream Apply 1 application to affected area twice daily as needed. - acetaminophen (TYLENOL) 325 mg tablet Take 2 tablets by mouth every 6 hours. Problem List As Of Date 07/17/2024 Noted Resolved Infantile cerebral palsy (HCC) [G80.9] 10/16/2006 Abdominal pain affecting [O26.899, R1*05/08/2018 05/07/2020 Moderate anxiety [F41.9] 05/08/2018 Family history of early CAD [Z82.49] 05/08/2018 with history of section, ant*07/31/2019 05/07/2020 Insufficient care in third trimester [*07/31/2019 05/07/2020 History of anxiety [Z86.59] 07/31/2019 05/07/2020 History of depression [Z87.59, Z86.5*07/31/2019 05/07/2020 Group beta Strep positive [B95.1] 09/02/2019 05/07/2020 Vaginal bleeding affecting early [O20*04/10/2020 05/07/2020 scar ectopic [O00.80] 04/11/2020 05/11/2020 Encounter Status:Closed by GENO QUINONES on 12/05/24 [facility] CNCOon 07-14-2024 CNCO Letter Text [facility] CNOVon 07-14-2024 CNOV Office Visit (LASHON ) RUDI CHIN V ([id number]) 1990 F MKT Date Time Provider Department 07/14/24 2:00 PM BETTY SINGH During your visit today, we recorded the following information about you: Madison Dick MA 07/14/2024 4:00 PM Signed Patient presents with: Left Knee - New, Injury Referred by Cheyenne Dias AMB ROOMING INTAKE FLOWSHEET DATA Pain Pain Level: 9 Pain Location: Knee-Left Description: Throbbing, Sharp Duration Amount of Time: 2 Duration Units: Months Frequency: Continuous Intervention/Comfort measure: Medication Patient states in May she slipped on a wet spot at home falling landing on her left knee. Seen at [facility]. Given knee immobilizer. Had MRI done on 06/23/24. Patient states her knee was feeling better and trying to maneuver her knee to get out of the car and twisted her knee again. Her knee has been more painful since. She has been having a sharp pain above her knee cap. Taking Naproxen and Tylenol. Patient has been keeping her leg elevated and iced. Patient does have a history of cerebral palsy on her left side. 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 Betty Singh PA-C 07/14/2024 4:00 PM Signed Betty Singh PA-C Department of Orthopaedics Orthopaedics [address] [facility] [address] Dept: [phone] Dept July 14, 2024 CHIEF COMPLAINT: New and Injury of the Left Knee and Referred by Cheyenne Dias MsBalwinder Chin is a 33 year old female who presents with pain in her left knee which has been bothering her since a fall which occurred this past May. Patient was in her own kitchen, she slipped on something and injured the knee. She cannot recall the exact mechanism of injury. The following day she was seen in the urgent care and placed in a knee immobilizer. The patient has been wearing the knee immobilizer since the injury. She reports discomfort mainly along the anterior aspect of the knee especially with bending the knee. She has been able to stand and walk in the knee immobilizer with minimal discomfort. She is able to take breaks at work which has been beneficial. She has been taking [id number] naproxen alternating with Tylenol. She does have a ibuprofen allergy but cannot tolerate naproxen. She also has a history of cerebral palsy and tells me that she has had chronic left leg weakness. ASSESSMENT: S83.412A Sprain of medial collateral ligament of left knee, initial encounter (primary encounter diagnosis) R93.7 Bone marrow edema PLAN: Her knee is extremely stiff from being immobilized for a prolonged period of time. We discussed getting her on a prescription anti-inflammatory, advised that she can get an upset stomach with the anti-inflammatory and if that does occur she should discontinue the medication. I would like to get her into physical therapy to start working on some gentle range of motion. Will get her out of the knee immobilizer and transition her to a hinged knee brace. She has crutches, we discussed using the crutches to try to offload some of her weight but to make sure that she is trying to use the knee through its full range of motion where she is ambulating. Follow-up at the conclusion of PT with updated xrays. Will continue to monitor patient for Sprain of medial collateral ligament of left knee, initial encounter (primary encounter diagnosis) Bone marrow edema, patient to schedule visit as per follow up discussed. Ms. Rudi Chin was advised as to contrast therapies and/or to take analgesics/anti-inflamm atories as needed and all contraindications were reviewed. OBJECTIVE: Ms. Rudi Chin is a pleasant 33 year old in no apparent distress. Gen:LMP 09/23/2023 nl development, non obese, no deformities ENT: Normocephalic, normal hearing, moist mucosa CV: Pulses:DP/PT= 2+ and symmetric, capillary refill < 2 secs, no peripheral edema/varicosities Skin: no rash, bruising or lesions. Good turgor. Psych: cooperative and appropriate, alert and oriented x 3, good mood and affect. Musculoskeletal: Difficult exam, patient is diffusely tender to palpation throughout the left knee. No effusion is noted. No edema, no erythema. Patient resists passive flexion and extension of the knee. Active flexion to about 70*, extension 30* lag. Imaging: IMPRESSION: FINDINGS SUGGESTIVE OF LOW-GRADE MCL SPRAIN. CURVILINEAR AREA OF HYPERINTENSITY AT THE LATERAL FEMORAL EPICONDYLE, LIKELY SEQUELA OF A SUBACUTE INJURY. Advertising Statistical Clerk: PSCBeatris Transcribe Date/Time: Jun 24 2024 11:52A Dictated by : GUANACO VALLE MD This examination was interpreted and the report reviewed and electronically signed by: AFUA MATAMOROS MD on Jun 24 2024 2:43PM EST Results-Findings * * *Final Report* * * DATE OF EXAM: Jun 23 2024 4:45PM [facility] 0212 - MRI KNEE WO IVCON LT / AC (more content not included)... Normal [facility] CNCOon 07-07-2024 CNCO Letter Text Normal [facility] CNPNon 06-27-2024 ANH Telephone (FAMPWS) RUDI CHIN V ([id number]) 1990 [place] Zarina Date Time Provider Department 06/27/24 [facility] During your visit today, we recorded the following information about you: Cheyenne Bains APRN.ADRIEL 06/27/2024 12:37 PM Signed Can you please call the patient and let her know that I reviewed her MRI. MRI of the knee shows a possible low-grade MCL sprain. Can you ask how she has been doing since injury? Any on going difficulty with walking? She may keep upcoming appointment with orthopedics for further evaluation. I would recommend that she continue with RICE therapy. Thank you. Cheyenne Bains APRN.Cindi Cavazos LPN 06/27/2024 12:43 PM Signed TC to Pt. Unable to LM due to the mailbox is full. Will try again later. MANN Figueroa Kathryn, MA 06/27/2024 3:02 PM Signed [employer] message sent to pt, asking them to call back for results. CHUNG Wolfe Krystle, EVAN 06/27/2024 3:57 PM Signed Patient returns call and provider message reviewed. Patient reports that injury is not getting any better but with the holidays she has been on it more than she thinks she should. Patient reports at night time she elevates it and about half way through the night she wakes up in terrible pain. Reports she is still having difficulty with bending the knee and limps with ambulation. Patient reports not using crutches often. Patient is utilizing naprosyn for pain as she is out of the [place]. Patient asking when she should try and go back to work. 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 Patient plans to keep appointment with ortho but asking if provider has any further recommendations. EVAN Boyd Ashley, APRN.ADRIEL 06/30/2024 1:47 PM Signed Can you please call the patient back and let her know that she can continue with anti-inflammatories as needed for pain. I would recommend elevating and applying ice. In regards to her job, if she is still having pain with ambulation and I would try to sit while she is at work. I would like her to keep upcoming appointment with orthopedics for further evaluation. Cheyenne Bains APRN.Cindi Cavazos LPN 06/30/2024 3:30 PM Signed Sent update from ADRIEL via My Chart. Pt dose not have an active phone Cindi Posada LPN Allergies As of Date: 06/27/2024 Noted Allergy Reaction AUGMENTIN (AMOXICILLIN-POT CLAVUL*04/10/2020 14 - Other: See Comments IBUPROFEN 09/21/2006 5 - Intolerance 8 - GI Upset Date Reviewed: 05/28/2024 Reviewed by: Cindi Posada LPN - Fully Assessed Reason for Visit: Results [95] Cmt: MRI Prescriptions as of 07/01/2024 - HYDROcodone-acetaminoph en (NORCO) 5-325 mg per tablet Take 1 tablet by mouth every 6 hours as needed. - tiZANidine (ZANAFLEX) 4 mg tablet Take 1 tablet by mouth every 8 hours as needed (muscle spasms). - albuterol HFA (PROVENTIL HFA, VENTOLIN HFA) 90 mcg/actuation inhaler Inhale 2 Puffs as instructed every 4 hours as needed for wheezing/shortness of breath. - betamethasone dipropionate, augmented (DIPROLENE) 0.05 % cream Apply 1 application to affected area twice daily as needed. - acetaminophen (TYLENOL) 325 mg tablet Take 2 tablets by mouth every 6 hours. Meds Comments as of 05/24/2024: May 24, 2024: Patient reports starting Ibuprofen in the last 30 days. Marium Lopez RN Problem List As Of Date 06/27/2024 Noted Resolved Infantile cerebral palsy (HCC) [G80.9] 10/16/2006 Abdominal pain affecting [O26.899, R1*05/08/2018 05/07/2020 Moderate anxiety [F41.9] 05/08/2018 Family history of early CAD [Z82.49] 05/08/2018 with history of section, ant*07/31/2019 05/07/2020 Insufficient care in third trimester [*07/31/2019 05/07/2020 History of anxiety [Z86.59] 07/31/2019 05/07/2020 History of depression [Z87.59, Z86.5*07/31/2019 05/07/2020 Group beta Strep positive [B95.1] 09/02/2019 05/07/2020 Vaginal bleeding affecting early [O20*04/10/2020 05/07/2020 scar ectopic [O00.80] 04/11/2020 05/11/2020 Encounter Status:Closed by CHEYENNE BAINS on 07/01/24 Normal [facility] MRI KNEE WO IVCON LTon 06-23 MRI KNEE WO IVCON LT * * *Final Report* * * DATE OF EXAM: Jun 23 2024 4:45PM [facility] 0212 - MRI KNEE WO IVCON LT / PROCEDURE REASON: Injury of left knee, subsequent encounter * * * * Physician Interpretation * * * * EXAMINATION: MRI LEFT KNEE WITHOUT CONTRAST CLINICAL HISTORY: Left knee pain after fall 6 weeks ago. Still unable to bear weight. TECHNIQUE: Routine non-contrast MRI of the knee MQ: [id number] COMPARISON: No other images available. RESULT: MENISCI: Medial Meniscus: Intact. Lateral Meniscus: Intact. LIGAMENTS: ACL: Intact PCL: Intact MCL: Low grade sprain (grade 1) with edema like signal superficial and deep to proximal MCL. LCL Complex: Intact CARTILAGE: Medial Femoral Condyle: Moderate sized area(s) of low grade (less than 50% thickness) partial thickness cartilage loss and or fissuring Medial Tibial Plateau: Moderate sized area(s) of low grade (less than 50% thickness) partial thickness cartilage loss and or fissuring Lateral Femoral Condyle: Normal Lateral Tibial Plateau: Normal Patella: Normal Trochlea: Normal TENDONS: The distal quadriceps and patellar tendons are intact. The popliteus tendon is intact. BONES AND MARROW: Curvilinear streak of hyperintensity on PD weighted sequence extending from the lateral femoral condyle medially to the metaphysis. No discrete fracture line. This area could represent a healing subacute fracture or bone bruise. No other marrow abnormality. MUSCLES: Muscle bulk and signal intensity are normal. JOINT FLUID AND SYNOVIUM: Trace joint effusion. No synovitis. No Mittal's cyst. OTHER: No other significant abnormality identified. Localizer images: No additional findings. IMPRESSION: FINDINGS SUGGESTIVE OF LOW-GRADE MCL SPRAIN. CURVILINEAR AREA OF HYPERINTENSITY AT THE LATERAL FEMORAL EPICONDYLE, LIKELY SEQUELA OF A SUBACUTE INJURY. Advertising Statistical Clerk: PSCB Transcribe Date/Time: Jun 24 2024 11:52A Dictated by : GUANACO VALLE MD This examination was interpreted and the report reviewed and electronically signed by: AFUA MATAMOROS MD on Jun 24 2024 2:43PM EST [id number] Normal [facility] 06-11-2024 [facility] Tele[facility] ([facility]) RUDI CHIN V ([id number]) 1990 F T Date Time Provider Department 06/11/24 RYLIE VALERA [facility] During your visit today, we recorded the following information about you: Judi Avilez RN 06/11/2024 10:31 AM Signed Pt called in and reports she just got her insurance and needed to supervisor chemical her 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 Pt was put through to [facility] to do both for Pt. Allergies As of Date: 06/11/2024 Noted Allergy Reaction AUGMENTIN (AMOXICILLIN-POT CLAVUL*04/10/2020 14 - Other: See Comments IBUPROFEN 09/21/2006 5 - Intolerance 8 - GI Upset Date Reviewed: 05/28/2024 Reviewed by: Cindi Posada LPN - Fully Assessed Reason for Visit: Appointment [186] Prescriptions as of 06/11/2024 - HYDROcodone-acetaminoph en (NORCO) 5-325 mg per tablet Take 1 tablet by mouth every 6 hours as needed. - tiZANidine (ZANAFLEX) 4 mg tablet Take 1 tablet by mouth every 8 hours as needed (muscle spasms). - albuterol HFA (PROVENTIL HFA, VENTOLIN HFA) 90 mcg/actuation inhaler Inhale 2 Puffs as instructed every 4 hours as needed for wheezing/shortness of breath. - betamethasone dipropionate, augmented (DIPROLENE) 0.05 % cream Apply 1 application to affected area twice daily as needed. - acetaminophen (TYLENOL) 325 mg tablet Take 2 tablets by mouth every 6 hours. Meds Comments as of 05/24/2024: May 24, 2024: Patient reports starting Ibuprofen in the last 30 days. Marium Lopez RN Problem List As Of Date 06/11/2024 Noted Resolved Infantile cerebral palsy (HCC) [G80.9] 10/16/2006 Abdominal pain affecting [O26.899, R1*05/08/2018 05/07/2020 Moderate anxiety [F41.9] 05/08/2018 Family history of early CAD [Z82.49] 05/08/2018 with history of section, ant*07/31/2019 05/07/2020 Insufficient care in third trimester [*07/31/2019 05/07/2020 History of anxiety [Z86.59] 07/31/2019 05/07/2020 History of depression [Z87.59, Z86.5*07/31/2019 05/07/2020 Group beta Strep positive [B95.1] 09/02/2019 05/07/2020 Vaginal bleeding affecting early [O20*04/10/2020 05/07/2020 scar ectopic [O00.80] 04/11/2020 05/11/2020 Encounter Status:Closed by JUDI AVILEZ on 06/11/24 [facility] CNOVon 05-28-2024 CNOV Office Visit (FAMPWS ) RUDI CHIN V ([id number]) 1990 F MKT Date Time Provider Department 05/28/24 2:20 PM CHEYENNE BAINS During your visit today, we recorded the following information about you: Pulse Respiration Blood pressure Weight 107/minute 16/minute 114/78 99.8 kg Last Period 09/23/23 Cheyenne Bains APRN.CARD STRIPPER 05/28/2024 5:20 PM Signed This is a 33 year old female who presents today with: Patient presents with: Follow Up: ER follow up for left knee HISTORY OF PRESENT ILLNESS: Rudi Chin is a 33 year old female. Patient presents with: Follow Up: ER follow up for left knee HOSPITAL/ER FOLLOW UP: Reason for visit: Knee Pain Which facility: [facility] ER Date of visit: 05/18/2024 Diagnosis: Injury of left knee, left knee sprain Testing done: X-ray of the left knee showed no evidence of acute fracture. Treatment given: Placed in a knee immobilizer and given crutches. 12 tablets of [place], recommending follow-up with orthopedics. Current symptoms: Still having on going pain, cannot bear weight on the left leg. Has not been able to go to work for the past [address] weeks[address] Working in the ice [employer] through, difficulty with standing and bending. Using knee immobilizer. Has been using Naproxen BID and Tylenol. Has been applying ice/ heat to the area. PAST MEDICAL HISTORY: PAST MEDICAL HISTORY Diagnosis Date Anxiety History of depression 07/31/2019 07/31/2019She also was diagnosed with depression after the of her last child Discussed increased risks of depression during and and importance of reporting the development or worsening of symptoms should they occur.Pt denies ever having any suicidal thoughts or tendencies or thoughts of hurting others.TKRN Infantile cerebral palsy, unspecified 10/16/2006 Other specified infantile cerebral palsy depression Vaginal bleeding affecting early 04/10/2020 -03/16 Quant hCG 26,033 -UVUS/TAUS performed no IUP noted, left ovarian cyst -patient to follow up in 48 hours on Sunday, patient in agreeable with plan -return precautions given PAST SURGICAL HISTORY Procedure Laterality Date DELIVERY ONLY 09/05/2019 R/CS low transverse SECTION HX D+C 04/16/2020 HYSTERECTOMY 05/08/2020 LAPS SURG CHOLECYSTECTOMY W/CHOLANGIOGRAPHY 09-09-12 ALLERGIES Augmentin [Amoxicillin-Pot Clavulanate] and Ibuprofen MEDICATIONS Current Outpatient Medications Medication Sig tiZANidine (ZANAFLEX) 4 mg tablet Take 1 tablet by mouth every 8 hours as needed (muscle spasms). albuterol HFA (PROVENTIL HFA, VENTOLIN HFA) 90 mcg/actuation inhaler Inhale 2 Puffs as instructed every 4 hours as needed for wheezing/shortness of breath. betamethasone dipropionate, augmented (DIPROLENE) 0.05 % cream Apply 1 application to affected area twice daily as needed. acetaminophen (TYLENOL) 325 mg tablet Take 2 tablets by mouth every 6 hours. No current facility-administered medications for this visit. FAMILY HISTORY Problem Relation Age of Onset Coronary Artery Disease Mother 50 Arthritis Mother Psychiatry Mother PTSD other (degenerative disc disease) Mother other (anxiety) Mother Psychiatry Father anxiety/OCD Diabetes Maternal Aunt No Known Problems Brother No Known Problems Son Social History Tobacco Use Smoking status: Never Smokeless tobacco: Never Vaping Use Vaping status: Never Used Substance Use Topics Alcohol use: Not Currently Comment: occasionally Drug use: Yes Types: Marijuana Comment: + Tox screen 01/06/21 REVIEW OF SYSTEMS GENERAL: No weight loss, malaise or fevers/chills HEENT: Negative for frequent or significant headaches, No changes in hearing or vision. NECK: Negative for lumps, goiter, pain and significant neck swelling RESPIRATORY: Negative for cough, hemoptysis, wheezing, dyspnea or shortness of breath CARDIOVASCULAR: Negative for chest pain, leg swelling, orthopnea, or palpitations GI: No nausea, vomiting, or diarrhea/constipation. No hematochezia/melena. No heartburn or reflux symptoms. : No history of dysuria, frequency or incontinence MUSCULOSKELETAL: + Left Knee Pain SKIN: Negative for lesions, rash, and itching ENDOCRINE: Negative for cold or heat intolerance, polyuria, polydipsia and goiter NEURO: No history of headaches, syncope, paralysis, seizures or tremors MOOD: Negative for depression, anxiety, or suicidal ideation. EXAM: BP 114/78 Pulse 107 Resp 16 Wt 99.8 kg (220 lb) LMP 09/23/2023 SpO2 98% BMI 33.45 kg/m? PHYSICAL EXAM: General Appearance: Well appearing, alert, in no acute distress, well-hydrated, well nourished.. Skin: Skin color, texture, turgor normal, no suspicious rashes or lesions. Head: Normocephalic, no masses, lesions, tenderness or abnormalities. Eyes: Anicteric sclera. (more content not included)... Normal [facility] Emergency Department Summary on 05-18-2024 Emergency Department Summary [facility] Medical Records Department [address] [place] [address] Emergency Department Summary 05/18/24 MR#: [id number] Acct: [id number] Name: RUDI CHIN Rep #: [id number] : 1990 33 From: Slick Ruiz MD PCP: Dr. Rylie Valera MD Status:REG ER Location: ED HPI History of Present Illness Chief Complaint: Lower Extremity Injury Narrative Narrative: 33-year-old female states she has past medical history of cerebral palsy in her left lower extremity so she has chronic pain, presents with injury to her left knee that she sustained yesterday evening. Slipped on a wet spot in her kitchen. She may have twisted or fallen directly onto her left knee. She denies hitting her head or loss of consciousness. She states she has been having pain all through the night. She did take a muscle relaxer that she received for her shoulder injury. She also took Tylenol. She no longer has any analgesics at home in the form of Tylenol and presents because of the injury to her left knee. She states she is unable to bear weight on it, and also has pain with movement. Her pain is diffuse throughout her left knee and radiates both up and down her leg. [facility] Medical History Gastroenteritis due to food toxin History of alcohol use disorder PTSD (post-traumatic stress disorder) Bipolar disorder, unspecified Generalized anxiety disorder Obsessive compulsive disorder Migraines Cerebral palsy Home Medications ???Medication ???Instructions ???Recorded ???Last Taken ???Type bupropion HCl 150 mg 24 hr tablet, 150 mg PO QAM #30 tabs 03/10/24 Unknown Rx extended release albuterol sulfate 90 mcg/actuation 2 puff inhalation Q4H PRN PRN 04/22/24 Unknown History aerosol inhaler wheezing hydrocodone-acetaminoph en 5-325mg 1 tab PO Q6H PRN PRN Pain 3 days 05/18/24 Unknown Rx 5mg-325mg #12 TABLETS tizanidine 4 mg tablet 4 mg PO Q8H PRN PRN muscle spasm 05/18/24 Unknown History Allergy/AdvReac Type Severity Reaction Status Date / Time clavulanic acid (From Allergy Hives Verified 05/18/24 14:32 Augmentin) ibuprofen AdvReac Upset Verified 05/18/24 14:32 Stomach Surgical History History of appendectomy History of cholecystectomy History of hysterectomy History of section Cholecystectomy planned Social History household members: children current occupational status: employed 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 No neck pain. Cardiovascular: No chest pain. No palpitations. No pedal edema. Abdominal: No abdominal pain. No nausea. No vomiting. Genitourinary: No dysuria. No hematuria. Musculoskeletal: No myalgias. Left knee pain, diffuse, worse with weightbearing and movement. Mild swelling. Neurologic: No headaches. No prodromal symptoms prior to fall. EXAM Physical Exam Narrative Exam Narrative: GCS 15. ABCs intact. Cardiovascular examination regular rate and rhythm. Lungs clear to auscultation bilaterally. Abdomen soft nontender with normoactive bowel sounds. Mild tenderness to palpation diffusely left knee with slight ecchymosis in the prepatellar area. Mild tenderness along medial and lateral meniscal lines. Neurovascular intact distally with palpable dorsalis pedis pulse, left. EHL intact, left. Able to raise leg off bed, but has mild difficulty sustaining it secondary to pain. Const Vital Signs: 05/18/24 14:32 Temperature 97.3 F L Temperature Source Temporal Pulse Rate 86 Respiratory Rate 16 Blood Pressure 113/53 L Blood Pressure Mean 73 Pulse Ox 98 Oxygen Delivery Method Room Air MDM MDM MDM Narrative Medical decision making narrative: Differential diagnosis includes but not limited to knee contusion versus tibial plateau fracture versus patellar fracture versus quadricep tendon rupture. There is no palpable tendon deficit on the patellar tendon and she is able to left upper leg so I doubt this. X-rays were obtained of the left knee and 4 views to rule out fracture. She was given an ice pack for comfort and 1 [place] tablet here. On my independent interpretation of the x-rays of the left knee and 4 views, I see no evidence of acute fracture. I reviewed the radiology report which confirms my independent interpretation. She will be placed in a knee immobilizer and given crutches. I wrote her prescription for 12 [place] tablets to take as she has an allergy to ibuprofen (more content not included)... Normal [facility] Knee 4 or More Viewson 05-18 Knee 4 or More Views [facility] Imaging Services [address], [place] [address] Knee 4 or More Views MR#: [id number] Acct: [id number] Name: RUDI CHIN Rep #: [id number] : 1990 F 33 From: J Carlos Marshall MD PCP: Dr. Rylie Valera MD Status: REG ER Study: Knee 4 or More Views Date of Exam: 05/18/24 Exam# [id number] Ordering Dr: [place] [id number] INDICATION: Trauma, twisting injury with anterior bruising and pain EXAMINATION/TECHNIQUE: X-RAY - LEFT XR Knee Complete 4 Views or More 4 VIEWS COMPARISON: None. FINDINGS: SOFT TISSUES: No soft tissue swelling or gas. No radiopaque foreign body. BONES/JOINTS: No acute fracture. Joint spaces anatomically aligned. No sclerotic or destructive changes observed. RAD/Knee 4 or More Views IMPRESSION: Unremarkable study. Electronically Signed: J Carlos Marshall MD at 15:39 EST , CC: Dr. Slick Ruiz MD; Dr. Rylie Valera MD Advertising Statistical Clerk: Signed Normal [facility] CNOVon 04-25-2024 CNOV Office Visit (FAMPWS ) RUDI CHIN V ([id number]) 1990 F MKT Date Time Provider Department 04/25/24 8:20 AM [facility] During your visit today, we recorded the following information about you: Pulse Respiration Blood pressure Weight 68/minute 16/minute 134/88 99.8 kg Yeyo Melton APRN.CARD STRIPPER 04/25/2024 8:54 AM Signed Chief Complaint Patient presents with: ED Follow-up: [facility] 04/22/2024; muscle strain HPI Rudi Chin is a 33 year old female who presents here today for ER Follow Up. Patient presented to [facility] on April 22 for complaints of chest pain. Stating right shoulder/scapular pain over the past 3 weeks. 3 days prior to her emergency room visit she had complaints of right-sided anterior chest pain. EKG performed with no ST changes. Mildly anemic hemoglobin 12.3, hematocrit 36.8. Troponin negative. Magnesium normal. Chest x-ray normal. D-dimer mildly elevated. CTA of the chest was obtained. This is a new finding in comparison to her previous CT scan. New finding included 8 mm partially solid nodule of the right middle lobe. Recommendation would be repeat CT imaging in 6 months. Discharged with rhomboid strain and chest pain of musculoskeletal etiology. 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 At this time, she states that her pain continues in the right chest wall, upper area and also the right trapezius radiating down her scapula. Tingling, pain radiating down towards the right elbow. Denies any chest pressure, syncope, fevers, chills, lightheadedness. Past medical history, appointments, medications, allergies reviewed. EXAM: BP 134/88 Pulse 68 Resp 16 Wt 99.8 kg (220 lb 0.3 oz) LMP 09/23/2023 SpO2 97% BMI 33.45 kg/m? General Appearance: Well appearing, alert, in no acute distress, well-hydrated, well nourished.. Lungs: Lungs clear to auscultation. No wheezing, rhonchi, rales.. Heart: RRR without murmur, gallop, or rubs. No ectopy. Musculoskeletal: Mild intercostal pain in the right chest wall. Moderate tenderness of the right upper trapizus tenderness, down the right scapula ASSESSMENT/PLAN: 1. Rhomboid muscle strain, sequela - ICD9: 905.7, ICD10: S29.012S (primary diagnosis) -Muscle strain also coupled with intercostal inflammation. I gave the patient a few days off from work for rest. Trial Medrol Dosepak, tizanidine. Cautioned her on sedating effects of tizanidine. - METHYLPREDNISOLONE 4 MG TABLETS IN A DOSE PACK - TIZANIDINE 4 MG TABLET 2. Incidental lung nodule, greater than or equal to 8mm - ICD9: 793.11, ICD10: R91.1 -8 mm nodule of the right middle lobe which is a new finding when compared to CT of the chest in 2019. Repeat CT of the chest in 6 months 3. Lung nodules - ICD9: 793.19, ICD10: R91.8 -See #2. - CT CHEST WO IVCON Yeyo Melton APRN.CARD STRIPPER This note was partly generated using [employer] voice recognition dictation and may contain some misspelled or inaccurate words missed on review. Yeyo Melton APRN.CARD STRIPPER 04/25/2024 8:[address] of the chest ordered to be completed 6 months from today. Take Medrol with food Can trial Tizadine taking 1/2 tablet at first, Can cause drowsiness. Yeyo Melton APRN.CARD STRIPPER Allergies As of Date: 04/25/2024 Noted Allergy Reaction AUGMENTIN (AMOXICILLIN-POT CLAVUL*04/10/2020 14 - Other: See Comments IBUPROFEN 09/21/2006 5 - Intolerance 8 - GI Upset Date Reviewed: 04/25/2024 Reviewed by: Nohemy Mcbride LPN - Fully Assessed Reason for Visit: ED Follow-up [821] Cmt: WC 04/22/2024; muscle strain Primary Visit Diagnosis:Rhomboid muscle strain, sequela [S29.012S] Other Visit Diagnoses:Incidental lung nodule, greater than or equal to 8mm [R91.1] Lung nodules [R91.8] Order(s):CT CHEST WO IVCON [3235020] Order #: [id number] FUTURE [] methylPREDNISolone (MEDROL, MOI,) 4 mg Dose-PackFollow dosing instructions, take with food.Disp: 21 tabletRfl: 0 tiZANidine (ZANAFLEX) 4 mg tabletTake 1 tablet by mouth every 8 hours as needed (muscle spasms).Disp: 30 tabletRfl: 0 Prescriptions as of 05/05/2024 - tiZANidine (ZANAFLEX) 4 mg tablet Take 1 tablet by mouth every 8 hours as needed (muscle spasms). - albuterol HFA (PROVENTIL HFA, VENTOLIN HFA) 90 mcg/actuation inhaler Inhale 2 Puffs as instructed every 4 hours as needed for wheezing/shortness of breath. - betamethasone dipropionate, augmented (DIPROLENE) 0.05 % cream Apply 1 application to affected area twice daily as needed. - acetaminophen (TYLENOL) 325 mg tablet Take 2 tablets by mouth every 6 hours. Problem List As Of Date 04/25/2024 Noted Resolved Infantile cerebral palsy (HCC) [G80.9] 10/16/2006 Abdominal pain affecting [O26.899, R1*05/08/2018 05/07/2020 Moderate anxiety [F41.9] 05/08/2018 Family history of early CAD [Z82.49] 05/08/2018 with history of section, ant*01/ (more content not included)... Normal [facility] 12 Lead EKGon 04-22-2024 12 Lead EKG [facility] Cardiovascular Services [address] [place] [address] 12 Lead EKG 04/22/24 1717 MR#: [id number] Acct: [id number] Name: RUDI CHIN Rep #: [id number] : 1990 33 From: Jayden Lamas MD Attending Dr: Status: DEP ER Ordering Dr: Slick Ruiz MD Date: 04/22/24 Location: ED Sex: F N Admitted: Test Reason : CP Blood Pressure : / mmHG Vent. Rate : 062 BPM Atrial Rate : 062 BPM P-R Int : 170 ms QRS Dur : 090 ms QT Int : 396 ms P-R-T Axes : 043 054 017 degrees QTc Int : 401 ms Normal sinus rhythm with sinus arrhythmia Normal ECG Confirmed by LANDY MALAGON, JAYDEN ([id number]), photo editor JUDI DUBOIS ([id number]) on 04/24/2024 9:05:35 AM Referred By: Confirmed By:JAYDEN LAMAS MD 04/24/24904 Date Jayden Lamas MD CC: Dr. Slick Ruiz MD; Dr. Rylie Valera MD Signed Normal [facility] Basic Metabolic Profile (BMP )on 04-22-2024 BUN/CRE 13.9 RATIO Normal - [facility] Comment on above: Order Comment: 1 Y Performed By: #### L 501.5425, L100.0100, L501.5200, L500.2500 #### [facility] [address] [place], [address] CA,Total 8.9 mg/dL Normal 8.5-10.1 [facility] Comment on above: Order Comment: 1 Y Performed By: #### L 501.5425, L100.0100, L501.5200, L500.2500 #### [facility] [address] [place], [address] Chloride [Moles/Vol] 106 mmol/L Normal 98-107 [facility] Comment on above: Order Comment: 1 Y Performed By: #### L 501.5425, L100.0100, L501.5200, L500.2500 #### [facility] [address] [place], [address] CO2 [Moles/Vol] 25.0 mmol/L Normal 21.0-32.0 [facility] Comment on above: Order Comment: 1 Y Performed By: #### L 501.5425, L100.0100, L501.5200, L500.2500 #### [facility] [address] [place], [address] Creatinine [Mass/Vol] 0.79 mg/dL Normal 0.55-1.02 [facility] Comment on above: Order Comment: 1 Y Result Comment: The validity of the calculated GFR GFRAA in patients over 70 years has not been determined. Clinical correlation is essential. Performed By: #### L 501.5425, L100.0100, L501.5200, L500.2500 #### [facility] [address] [place], [address] ECRCL 126.27 ml/min Normal [facility] Comment on above: Order Comment: 1 Y Performed By: #### L 501.5425, L100.0100, L501.5200, L500.2500 #### [facility] [address] [place], [address] EST GFR - AA 108 mL/min Normal >60 [facility] Comment on above: Order Comment: 1 Y Result Comment: Afri can Brazilian GFR Calc Performed By: #### L 501.5425, L100.0100, L501.5200, L500.2500 #### [facility] [address] [place], [address] GAP 5 Normal 5-15 [facility] Comment on above: Order Comment: 1 Y Performed By: #### L 501.5425, L100.0100, L501.5200, L500.2500 #### [facility] [address] [place], [address] GFR/1.73 sq M.predicted among non-blacks MDRD (S/P/Bld) [Vol rate/Area] 89 mL/min/{1.73_m2} Normal >60 [facility] Comment on above: Order Comment: 1 Y Result Comment: Non- GFR Calc Performed By: #### L 501.5425, L100.0100, L501.5200, L500.2500 #### [facility] [address] [place], [address] Glucose [Mass/Vol] 104 mg/dL Normal 74-106 [facility] Comment on above: Order Comment: 1 Y Result Comment: Fast ing Glucose result from 100 to 125 mg/dL suggests IMPAIRED HOMEOSTASIS per A.D.A. criteria. Performed By: #### L 501.5425, L100.0100, L501.5200, L500.2500 #### [facility] [address] [place], [address] Potassium [Moles/Vol] 3.6 mmol/L Normal 3.5-5.1 [facility] Comment on above: Order Comment: 1 Y Performed By: #### L 501.5425, L100.0100, L501.5200, L500.2500 #### [facility] [address] [place], [address] Sodium [Moles/Vol] 137 mmol/L Normal 136-145 [facility] Comment on above: Order Comment: 1 Y Performed By: #### L 501.5425, L100.0100, L501.5200, L500.2500 #### [facility] [address] [place], [address] Urea nitrogen [Mass/Vol] 11 mg/dL Normal 7-18 [facility] Comment on above: Order Comment: 1 Y Performed By: #### L 501.5425, L100.0100, L501.5200, L500.2500 #### [facility] [address] [place], [address] CBC W/Diff, Automatedon 10-2 Absolute Lymph 2.32 X10 3/uL Normal 0.83-4.51 [facility] Comment on above: Performed By: #### L 501.5425, L100.0100, L501.5200, L500.2500 #### [facility] [address] [place], [address] Absolute Neut 5.1 X10 3/uL Normal 2.0-7.7 [facility] Comment on above: Performed By: #### L 501.5425, L100.0100, L501.5200, L500.2500 #### [facility] [address] [place], [address] Basophils/100 WBC (Bld) 0.6 % Normal 0-1 [facility] Comment on above: Performed By: #### L 501.5425, L100.0100, L501.5200, L500.2500 #### [facility] [address] [place], [address] Eosinophils/100 WBC (Bld) 5.5 % High 0-5 [facility] Comment on above: Performed By: #### L 501.5425, L100.0100, L501.5200, L500.2500 #### [facility] [address] [place], [address] Erythrocyte distribution width (RBC) [Ratio] 12.6 % Normal 11.6-14.6 [facility] Comment on above: Performed By: #### L 501.5425, L100.0100, L501.5200, L500.2500 #### [facility] [address] [place], [address] Hematocrit (Bld) [Volume fraction] 36.8 % Low 37-47 [facility] Comment on above: Performed By: #### L 501.5425, L100.0100, L501.5200, L500.2500 #### [facility] [address] [place], [address] Hemoglobin (Bld) [Mass/Vol] 12.3 g/dL Normal 12.0-15.0 [facility] Comment on above: Performed By: #### L 501.5425, L100.0100, L501.5200, L500.2500 #### [facility] [address] [place], [address] IG% 0.600 Normal 0.0-0.9 [facility] Comment on above: Result Comment: IG% - Immature Granulocytes (promyelocytes, myelocytes and metamyelocytes) > 1% indicates that a LEFT SHIFT is Present. Performed By: #### L 501.5425, L100.0100, L501.5200, L500.2500 #### [facility] [address] [place], [address] Lymphocytes/100 WBC (Bld) 26.0 % Normal 19-41 [facility] Comment on above: Performed By: #### L 501.5425, L100.0100, L501.5200, L500.2500 #### [facility] [address] [place], [address] MCH (RBC) [Entitic mass] 30.5 pg Normal 27.0-32.0 [facility] Comment on above: Performed By: #### L 501.5425, L100.0100, L501.5200, L500.2500 #### [facility] [address] [place], [address] MCHC (RBC) [Mass/Vol] 33.4 g/dL Normal 32-36 [facility] Comment on above: Performed By: #### L 501.5425, L100.0100, L501.5200, L500.2500 #### [facility] [address] [place], [address] MCV (RBC) [Entitic vol] 91.3 fL Normal 81-99 [facility] Comment on above: Performed By: #### L 501.5425, L100.0100, L501.5200, L500.2500 #### [facility] [address] [place], [address] Monocytes/100 WBC (Bld) 10.2 % High 0-10 [facility] Comment on above: Performed By: #### L 501.5425, L100.0100, L501.5200, L500.2500 #### [facility] [address] [place], [address] Neutrophils/100 WBC (Bld) 57.1 % Normal 47-70 [facility] Comment on above: Performed By: #### L 501.5425, L100.0100, L501.5200, L500.2500 #### [facility] [address] [place], [address] Nucleated RBC (Bld) [#/Vol] 0 10*3/uL Normal 0-5 [facility] Comment on above: Performed By: #### L 501.5425, L100.0100, L501.5200, L500.2500 #### [facility] [address] [place], [address] Platelet mean volume (Bld) [Entitic vol] 9.0 fL Normal 6.2-12.0 [facility] Comment on above: Performed By: #### L 501.5425, L100.0100, L501.5200, L500.2500 #### [facility] [address] [place], [address] Platelets (Bld) [#/Vol] 268 10*3/uL Normal 150-450 [facility] Comment on above: Performed By: #### L 501.5425, L100.0100, L501.5200, L500.2500 #### [facility] [address] [place], [address] RBC (Bld) [#/Vol] 4.03 10*6/uL Low 4.2-5.4 [facility] Comment on above: Performed By: #### L 501.5425, L100.0100, L501.5200, L500.2500 #### [facility] [address] [place], [address] RDW SD 41.7 fl Normal 35.1-43.9 [facility] Comment on above: Performed By: #### L 501.5425, L100.0100, L501.5200, L500.2500 #### [facility] [address] [place], [address] WBC (Bld) [#/Vol] 8.9 10*3/uL Normal 4.4-11.0 [facility] Comment on above: Performed By: #### L 501.5425, L100.0100, L501.5200, L500.2500 #### [facility] [address] [place], [address] CTA Chest W/WO Contraston CTA Chest W/WO Contrast [facility] Imaging Services [address] [place] [address] CTA Chest W/WO Contrast MR#: [id number] Acct: [id number] Name: RUDI CHIN Rep #: [id number] : 1990 F 33 From: Carmen Arguello MD PCP: Dr. Rylie Valera MD Status: [facility] ER Study: CTA Chest W/WO Contrast Date of Exam: 04/22/24 Exam# [id number] Ordering Dr: [place] [id number] EXAM: CT ANGIOGRAPHY CHEST WITHOUT AND WITH INTRAVENOUS CONTRAST CLINICAL INDICATION: Elevated D dimer TECHNIQUE: Helically acquired angiography images were obtained of the chest without and with intravenous contrast. This CT exam was performed using one or more of the following dose reduction techniques: automated exposure control, adjustment of the mA and/or kV according to patient size, and/or use of iterative reconstruction technique. MIP reconstructed images were created and reviewed. CONTRAST: IV 100mL Isovue-370 RADIATION DOSE: CTDIvol = 12.54 mGy, DLP = 548.87 mGy-cm. COMPARISON: December 18, 2019. FINDINGS: PULMONARY ARTERIES: Unremarkable. Normal in caliber. No evidence of pulmonary embolism. AORTA: Unremarkable. Normal in caliber. No evidence of dissection. GREAT VESSELS OF AORTIC ARCH: Unremarkable. Normal in caliber. No evidence of dissection. LUNGS AND PLEURAL SPACES: There is irregularly marginated small nodular pulmonary focus of roughly 7 mm x 8.5 mm x 8 mm in the right middle lobe, in the posterior region, not present on prior exam. It appears to have some peripheral groundglass and central small density. No typical infiltrates or effusions. No mass. No pneumothorax. HEART: Unremarkable. Heart size is normal. No pericardial effusion. No significant coronary artery calcifications. MEDIASTINUM: Unremarkable. No mediastinal or hilar adenopathy. Esophagus is unremarkable. No hiatal hernia. THYROID: Unremarkable. No thyroid lesions. BONES/JOINTS: Unremarkable. No suspicious lytic or blastic abnormality. LIVER: Mild low-attenuation fatty-appearing liver, not fully included. Partially included pancreas, adrenals, upper poles of kidneys, spleen leading are without obvious acute abnormality. CT/CTA Chest W/WO Contrast IMPRESSION: 1. No evidence of PE or aortic aneurysm or dissection. 2. No significant infiltrates or effusions. 3. 8 mm partially solid nodule in the right middle lobe, new from 2019 CTA. RECOMMENDATIONS: Fleischner Society Guidelines (MacMahon, et al. Radiology 2017; 284(1):228-43) recommend follow-up chest CT at 3-6 months to confirm persistence. If stable, chest CT every year until 5 years. Electronically Signed: Carmen Arguello MD at 19:09 EDT Reading Location ID and State: [facility] / [place] Tel , Service support , CC: Dr. Slick Ruiz MD; Dr. Rylie Valera MD Advertising Statistical Clerk: Signed Normal [facility] Chest 1 View (Portable)on Chest 1 View (Portable) [facility] Imaging Services [address] [place] [address] [id number] Chest 1 View (Portable) MR#: [id number] Acct: [id number] Name: RUDI CHIN Rep #: [id number] : 1990 F 33 From: Camren Arguello MD PCP: Dr. Rylie Valera MD Status: REG ER Study: Chest 1 View (Portable) Date of Exam: 04/22/24 Exam# [id number] Ordering Dr: [place] [id number] EXAM: XR CHEST, 1 VIEW CLINICAL INDICATION: chest pain TECHNIQUE: Frontal view of the chest. COMPARISON: December 18, 2019 FINDINGS: LUNGS AND PLEURAL SPACES: Unremarkable. No consolidation or edema. No pneumothorax. No effusion. HEART: Unremarkable. Cardiac silhouette not enlarged. MEDIASTINUM: Central airways and mediastinal contour are unremarkable. BONES/JOINTS: Unremarkable. No acute fracture. SOFT TISSUES: Unremarkable. RAD/Chest 1 View (Portable) IMPRESSION: No radiographic evidence of acute cardiopulmonary disease. Electronically Signed: Carmen Arguello MD at 18:37 EDT , CC: Dr. Slick Ruiz MD; Dr. Rylie Valera MD Advertising Statistical Clerk: Signed Normal [facility] D-Dimer Quantitative (DVT/PE )on 04-22-2024 D-DIMER QUANT 1.23 FEU/ug/m Invalid Interpretation Code 0.27-0.49 [facility] Comment on above: Result Comment: D-Di darron ELEVATED (>0.49): Additional studies and clinical assessments are indicated to conclude diagnosis of: Deep Vein Thrombosis (DVT) or Pulmonary Embolism (PE) CRITICAL VALUE CALLED TO PATIENCE 04/22/24 1805 Annia León. RESULTS READ BACK BY SAME. Performed By: #### L [id number] ####[facility] [id number] [place], [address] Emergency Department Summary on 04-22-2024 Emergency Department Summary [facility] Medical Records Department [address] [place] [address] Emergency Department Summary 04/22/24 MR#: [id number] Acct: [id number] Name: RUDI CHIN Rep #: [id number] : 1990 33 From: Slick Ruiz MD PCP: Dr. Rylie Valera MD Status:DEP ER Location: ED HPI History of Present Illness Chief Complaint: Chest Pain Narrative Narrative: 33-year-old female past medical history of general anxiety disorder, PTSD, presents with right shoulder pain/scapular pain that she has had over the last 3 weeks. Over the last few days she has developed right sided anterior chest pain as well. She complains of her pain going into her shoulder, sometimes she has right arm burning. She denies any fevers or chills, no current cough but she states she had bronchitis back in October of this year. Her pain in her right rhomboid area is worse with movement of her right arm. She called her primary care provider's office to get an appointment or go to the urgent care, but she states she was told to come to the emergency department for evaluation of her right chest pain that began over the last few days. She might feel short of breath with this but she denies any leg swelling. She has had partial hysterectomy so she does not take control pills. She denies any nausea or vomiting associated with this, no diaphoresis. [facility] Medical History Gastroenteritis due to food toxin History of alcohol use disorder PTSD (post-traumatic stress disorder) Bipolar disorder, unspecified Generalized anxiety disorder Obsessive compulsive disorder Migraines Cerebral palsy Home Medications ???Medication ???Instructions ???Recorded ???Last Taken ???Type bupropion HCl 150 mg 24 hr tablet, 150 mg PO QAM #30 tabs 03/10/24 Unknown Rx extended release albuterol sulfate 90 mcg/actuation 2 puff inhalation Q4H PRN PRN 04/22/24 Unknown History aerosol inhaler wheezing Allergy/AdvReac Type Severity Reaction Status Date / Time clavulanic acid (From Allergy Hives Verified 04/22/24 16:47 Augmentin) ibuprofen AdvReac Upset Verified 04/22/24 16:47 Stomach Surgical History History of appendectomy History of cholecystectomy History of hysterectomy History of section Cholecystectomy planned Social History current occupational status: unemployed 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 HEENT: No sore throat. No neck pain. No loss of vision. No rhinorrhea. Cardiovascular: Right-sided chest pain. No palpitations. No pedal edema. Respiratory: No cough, positive shortness of breath. Abdominal: No abdominal pain. No nausea. No vomiting. Genitourinary: No dysuria. No hematuria. Musculoskeletal: Right rhomboid pain near thoracic spine and right scapula. Positive right arm pain with occasional burning. No arthralgias. Neurologic: No headaches. No dizziness. No lightheadedness. Skin: No rash. No change in color. Psychiatric: No depression. No anxiety. EXAM Physical Exam Narrative Exam Narrative: Afebrile. Vital signs noted. Nontoxic-appearing. Cardiovascular examination reveals a regular rate and rhythm. Lungs are clear to auscultation bilaterally. Abdomen is soft and nontender with normal active bowel sounds. Neurological examination is nonfocal and nonlateralizing. Musculoskeletal examination reveals right sided tenderness palpation in the rhomboid area. Full range of motion right arm. Neurovascular intact distally with palpable radial pulse, right. No clinical dislocation of right shoulder. No crepitance right anterior chest wall. Mild tenderness to palpation. Const Vital Signs: 04/22/24 16:46 04/22/24 17:26 04/22/24 17:27 Temperature 98.7 F Temperature Source Oral Pulse Rate 81 Respiratory Rate 18 Respiratory Pattern Normal Blood Pressure 141/82 H Blood Pressure Mean 101 Pulse Ox 99 Oxygen Delivery Method Room Air Room Air 04/22/24 17:45 04/22/24 18:00 04/22/24 19:00 Temperature Temperature Source Pulse Rate 70 66 64 Respiratory Rate 19 H 18 17 Respiratory Pattern Blood Pressure 115/64 121/64 H Blood Pressure Mean 78 83 Pulse Ox 97 Oxygen Delivery Method Room Air 04/22/24 20:00 04/22/24 20:23 Temperature 97.8 F Temperature Source Pulse Rate 69 73 Respiratory Rate 16 16 Respiratory Pattern Blood Pressure 117/77 117/77 Blood Pressur (more content not included)... Normal [facility] L501.4020on 04-22-2024 TROPONIN-I HS < 3 Low 3.0-54.0 [facility] Comment on above: Result Comment: Plea se Note: New Test Units and Gender Specific Reference Ranges. For more information see Policy Stat Procedure [place] High Sensitivity Troponin (TNIH) and attachments. Performed By: #### L 501.4020 ####[facility] [address] [place], [place], [address] L501.5425on 04-22-2024 TROPONIN-I HS < 3 Low 3.0-54.0 [facility] Comment on above: Order Comment: 1 Y Result Comment: Plea se Note: New Test Units and Gender Specific Reference Ranges. For more information see Policy Stat Procedure [place] High Sensitivity Troponin (TNIH) and attachments. Performed By: #### L 501.5425, L100.0100, L501.5200, L500.2500 #### [facility] [address] [place], [place], [address] Magnesiumon 04-22-2024 Magnesium [Mass/Vol] 2.1 mg/dL Normal 1.6-2.6 [facility] Comment on above: Order Comment: 1 Y Performed By: #### L 501.5425, L100.0100, L501.5200, L500.2500 #### [facility] [address] [place], [address] MR/BMS.BPon 03-10-2024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 30.5-36.0 [facility] MCV (RBC) [Entitic vol] 87.0 fL Normal 80.0-100.0 [facility] Platelet mean volume (Bld) [Entitic vol] 10.2 fL Normal 9.0-12.7 [facility] Platelets (Bld) [#/Vol] 225 10*3/uL Normal 150-400 [facility] RBC (Bld) [#/Vol] 2.69 10*6/uL Low 3.90-5.20 [facility] WBC (Bld) [#/Vol] 6.30 10*3/uL Normal 3.70-11.00 [facility] NURSING PROGon 05-11-2020 NURSING PROG HNO ID: [id number] Author: Alexy JacksonRn) EVAN Barclay Service: Nursing Author Type: Registered Nurse Type: Nursing Progress Note Filed: 05/11/2020 11:38 AM Note Text: Nursing Progress Note Patient Name: Rudi Chin Patient Location: [place] [id number] Daily Note: 0715 Assumed pt care. Bedside report recieved from EVAN Marte. pt resting in bed with no signs or symptoms of distress. Call light within reach and funcitoning. 0826 prn ativan given for anxiety 1137 prn percocet given for pain 7/10 in abdomen This note was completed by: Alexy Barclay RN Normal [facility] NURSING PROG HNO ID: [id number] Author: Rosanna JacksonRn) EVAN Mittal Service: Nursing Author Type: Registered Nurse Type: Nursing Progress Note Filed: 05/11/2020 6:09 AM Note Text: Nursing Progress Note Patient Name: Rudi Chin Patient Location: [place] [id number] Daily Note: 1914- Assumed patient care from RN. Patient stable and showing no signs of distress. No current needs at this time. Patient resting in bed. Call light in reach. Will continue to monitor. 2001- Medications were given per AUG. Patient medicated for nausea. Assessment completed per flowsheet. No further needs at this time. IVF running per AUG. Call light in reach. Will continue to monitor. 2309- Patient medicated with PRN Ativan due to high anxiety. 223- Patient medicated with PRN Percocet for abdominal pain. This note was completed by: Rosanna Mittal RN [facility] PROGRESSon 05-11-2020 PROGRESS HNO ID: [id number] Author: Marilyn Glasgow Service: Gynecology Author Type: Physician Type: Progress Notes Filed: 05/11/2020 7:24 AM Note Text: GYNECOLOGY POST-OP PROGRESS NOTE SERVICE DATE: 05/11/2020 SERVICE TIME: 7:19 AM POST OP DAY: # 3 Subjective Patient reports headache and two small boils in her mouth. Pain is well-controlled. Light vaginal bleeding. Tolerating p.o. diet. Denies nausea and vomiting. Denies shortness of breath and chest pain. Ambulating. No difficulty urinating. Objective PHYSICAL EXAM: Intake/Output Summary (Last 24 hours) at 05/11/2020 0721 Last data filed at 05/10/2020 1300 Gross per 24 hour Intake 250 ml Output ? Net 250 ml General: In no apparent distress. Cardiovascular: Regular rate and rhythm. S1, S2 regular. Pulmonary: Lungs clear to all aguirre. Abdomen: Soft, appropriately tender, non-distended. Bowel sounds present all quads. INCISION: Clean, dry and intact EXTREMITIES: No calf tenderness, no lower extremity edema. LABS: Diagnostic tests reviewed for today's visit: Most recent labs Current Facility-Administered Medications Medication Dose Route Frequency - LORazepam 1 mg tab(s) (ATIVAN) 1 mg ORAL BID PRN - diphenhydrAMINE 25 mg (BENADRYL) 25 mg ORAL q 4 H PRN Or - diphenhydrAMINE 50 mg injection (BENADRYL) 50 mg INTRAVENOUS q 4 H PRN - acetaminophen 650 mg tab(s) (TYLENOL) 650 mg ORAL q 4 H PRN - calcium carbonate 1,000 mg chewable tab(s) (TUMS) 1,000 mg ORAL BID PRN - morphine 1 mg injection 1 mg INTRAVENOUS q 4 H PRN - NaCl 0.9% iv infusion 75 mL/hr INTRAVENOUS CONTINUOUS - sodium chloride 0.9 % (flush) 2-10 mL (BD POSIFLUSH) 2-10 mL INTRAVENOUS q 12 H - docusate sodium 100 mg cap(s) (COLACE) 100 mg ORAL BID - polyethylene glycol 3350 17 g packet (MIRALAX, GLYCOLAX) 17 g ORAL DAILY - acetaminophen 650 mg tab(s) (TYLENOL) 650 mg ORAL q 6 H - ondansetron orally disintegrating 4 mg tab(s) (ZOFRAN ODT) 4 mg ORAL q 6 H PRN Or - ondansetron (PF) 4 mg injection (ZOFRAN) 4 mg INTRAVENOUS q 6 H PRN - metoclopramide HCl 10 mg tab(s) (REGLAN) 10 mg ORAL q 6 H PRN Or - metoclopramide HCl 10 mg injection (REGLAN) 10 mg INTRAVENOUS q 6 H PRN - zolpidem 5 mg tab(s) (AMBIEN) 5 mg ORAL HS PRN - ketorolac 30 mg injection (TORADOL) 30 mg INTRAVENOUS q 6 H PRN - iron sucrose 200 mg in NaCl 0.9% 100 mL (VENOFER) 200 mg INTRAVENOUS DAILY - melatonin 6 mg tab(s) 6 mg ORAL DAILY (8 PM) - oxyCODONE-acetaminophen 5-325 mg 1-2 tablet (PERCOCET) 1-2 tablet ORAL q 4 H PRN Assessment/Plan Medication and Non-Pharmacologic VTE Prophylaxis/Anticoagula nts 05/09/20 0700 activity - mobilize patient ([place]) 05/08/20 1130 vte pharmacologic prophylaxis contraindicated ([place]) 05/08/20 1130 pneumatic compression stockings ([place] 05/08/20 1130 activity - mobilize patient ([place]) 05/08/20 0000 pneumatic compression stockings ([place] 05/07/20 1045 vte non-pharmacologic prophylaxis - none indicated ([place]) VTE Prophylaxis: VTE prophylaxis appropriate Rudi Chin is a 29 year old female s/p supracervical abdominal hysterectomy. POSTOP: Vital signs stable, afebrile, hemodynamically stable. Urine output adequate. Saline lock IV. Increased ambulation encouraged. Incentive Spirometry use 10x/hour while awake encouraged. Antiemetics as needed. Appropriately stable Hgb at 7.6 from 7.0 s/p IV iron Disposition Planning: Likely home today on POD#3 SIGNATURE: Marilyn Glasgow MD PATIENT NAME: Rudi Chin DATE: May 11, 2020 TIME: 7:19 AM PAGER: [phone] ETX#[id number] [facility] Basic Metabolic Panlon 05-10 Anion gap [Moles/Vol] 6 mmol/L Low 9-18 [facility] Calcium [Mass/Vol] 8.6 mg/dL Normal 8.5-10.2 [facility] Chloride [Moles/Vol] 111 mmol/L High 97-105 [facility] CO2 [Moles/Vol] 24 mmol/L Normal 22-33 [facility] Creatinine [Mass/Vol] 0.56 mg/dL Low 0.58-0.96 [facility] eGFR- Amer. >60 Normal [facility] GFR/1.73 sq M predicted among non-blacks MDRD (S/P/Bld) [Vol rate/Area] mL/min/{1.73_m2} [facility] Comment on above: Result Comment: eGFR (Estimated GFR) Units of measure: mL/min/1.73 meters squared eGFR is derived from the reexpressed MDRD Study equation using the following parameters: serum creatinine, age, gender and race. The creatinine assay has been calibrated to be traceable to IDMS. An eGFR <60 mL/min/1.73m2 for >3 months is consistent with chronic kidney disease. Refer to KDOQI guidelines for clinical interpretation. In patients with unstable renal function, e.g. those with acute kidney injury, the eGFR may not accurately reflect actual GFR. Glucose [Mass/Vol] 93 mg/dL Normal 74-99 [facility] Potassium [Moles/Vol] 3.9 mmol/L Normal 3.7-5.1 [facility] Sodium [Moles/Vol] 141 mmol/L Normal 136-144 [facility] Urea nitrogen [Mass/Vol] 6 mg/dL Low 7-21 [facility] CASE MGT INIT Cosme 2019 CASE MGT INIT TOMAS HNO ID: [id number] Author: Kolb (Sw) Cseszneki Service: Case Management Author Type: Psychological Operations Type: Care Mgt Initial Assessment Filed: 05/10/2020 2:20 PM Note Text: CARE MANAGEMENT: ASSESSMENT AND DISCHARGE PLAN SERVICE DATE: May 10, 2020 SERVICE TIME: 12:56 PM PRIMARY CARE PHYSICIAN: Rylie Valera MD ADMISSION STATUS: Inpatient Needs Prior to Discharge: To Be Determined;None MEDICAL: [facility] MEDICA[facility] 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 Advance Directive: Current Advance Directive: None Battery Loader Attempted to Assist with AD Completion: Yes Action: Education Provided Health LiteracyHow often do you need to have someone help you when you read instructions, pamphlets, or other written material from your doctor or pharmacy? : 1 - Never How confident are you filling out medical forms by yourself?: 1 - Extremely Baseline Mental Status Prior to this Illness what was the patient's Baseline Mental Status?: Alert AND Oriented Prior to this illness, has anyone described the patient having any of the following behaviors?: Not Applicable Relationship of the informant to the patient:: Self Does Patient Currently Receive Any Community Services or Home Care?: Counseling Equipment Prior to Admission: None SOCIAL: Living Arrangements: Home Lives With: (2 children, sig other) Primary Contact: Extended Emergency Contact Information Primary Emergency Contact: Adalberto Chin Address: [address] [place] [id number] Relation: Father Secondary Emergency Contact: Alexy Story Mobile Relation: Mother Supportive Patient Contact:: Yes Contact Resources: Family Social Needs Food insecurity Worry: Never true Inability: Never true Resources Needed: No Social Needs Financial resource strain: Somewhat hard Social Needs Transportation needs Medical: No Non-medical: No Caregiver Assessment Patient's perception of need for this admission: ectopic without intrauterine Medication Adherance I am convinced of the importance of my prescription medication: 0 - Agree Completely I worry that my prescription medication will do more harm than good to me : 0 - Disagree Completely I feel financially burdened by my [id number] expenses for my prescription medication:: 0 - Disagree Completely Risk Score: 0 Are you interested in bedside delivery of your medications? No ASSESSMENT AND PLAN: Medical Needs: Psychosocial Needs: Psychosocial Needs: Mental Health Diagnosis Mental Health Information: anxiety FREEDOM OF CHOICE EXPLAINED: POTENTIAL TRANSITION PLANS Home Patient independ from home with her 2 children and their father/her sig other. Patient stated sig other is with the children, and a great support. Patient stated she is in pain- patient admitted for ectopic without intrauterine . Patient inquired to Sw about FMLA- Sw informed to contact her HR department, if avail bale. If no HR to contact her boss. Sw provided patient with information on FMLA. Patient inquired to Sw about assistance for jones while she is not working, as [employer] is coming up, and money for diapers. Sw informed Sw would look into resources and follow up with patient. Patient receptive. SIGNATURE: STEFAN Kelsey PATIENT NAME: Rudi Chin DATE: May 10, 2020 TIME: 12:56 PM PAGER/CONTACT #: [phone] ADDENDUM: 1:35 PM- Sw met with patient and provided supportive listening. Patient expressed sadness in regards to her current medical status/pain. Patient stated he intends to f/u with her current counselor- Sw encouraged this as well. Patient receptive to resources, and stated her mother is a good support. Patient stated her boss has given her an advance on her check, and is in hopes that she will continue to be a supportive boss, during patients recovery. Patient appreciative of Sw support. Normal [facility] CBCon 05-10-2020 Absolute nRBC <0.01 Normal <0.01 [facility] Erythrocyte distribution width (RBC) [Ratio] 12.6 % Normal 11.5-15.0 [facility] Hematocrit (Bld) [Volume fraction] 22.2 % Low 36.0-46.0 [facility] Hemoglobin (Bld) [Mass/Vol] 7.0 g/dL Low 11.5-15.5 [facility] MCH (RBC) [Entitic mass] 28.1 pG Normal 26.0-34.0 [facility] MCHC (RBC) [Mass/Vol] 31.5 g/dL Normal 30.5-36.0 [facility] MCV (RBC) [Entitic vol] 89.2 fL Normal 80.0-100.0 [facility] Platelet mean volume (Bld) [Entitic vol] 10.2 fL Normal 9.0-12.7 [facility] Platelets (Bld) [#/Vol] 192 10*3/uL Normal 150-400 [facility] RBC (Bld) [#/Vol] 2.49 10*6/uL Low 3.90-5.20 [facility] WBC (Bld) [#/Vol] 5.66 10*3/uL Normal 3.70-11.00 [facility] NURSING PROGon 05-10-2020 NURSING PROG HNO ID: [id number] Author: Everardo (Rn) EVAN Juares Service: ? Author Type: Registered Nurse Type: Nursing Progress Note Filed: 05/10/2020 7:37 PM Note Text: Nursing Progress Note Patient Name: Rudi Chin Patient Location: [place] [address] [id number] Daily Note:Patient [id number] Pt Had machine joint cutter Pump Stopped This Am Patient Takes Percocet toradol And Tylenol For Pain Patient Ate A Small Amount For Dinner Just A Banana Pudding And applesauce This note was completed by: Everardo Juares RN [facility] NURSING PROG HNO ID: [id number] Author: Tyra JacksonRn) EVAN Mac Service: Nursing Author Type: Registered Nurse Type: Nursing Progress Note Filed: 05/10/2020 5:15 AM Note Text: Nursing Progress Note Patient Name: Rudi Chin Patient Location: [id number] Daily Note: 1930: Assumed patient care. Patient observed A/O x3 and awake in bed. IVF is running @75 mL/hr and COMPUGRAPH OPERATOR Morphine pump is attached- no continuous, and deland bolus is set to 1mg Q6 for 10 doses/hr. Call light is within reach, and bed alarm is on. Will continue to monitor. 230: Patient medicated for sleep, anxiety, pain, and nausea per AUG. 230: COMPUGRAPH OPERATOR pump verified. 0350: COMPUGRAPH OPERATOR pump verified. 0430: Patient medicated for pain with Toradol per AUG. This note was completed by: Tyra Mac RN [facility] PROGRESSon 05-10-2020 PROGRESS HNO ID: [id number] Author: Eric Menchaca Service: Gynecology Author Type: Physician Type: Progress Notes Filed: 05/10/2020 7:28 AM Note Text: [facility] TRANSPORT TECHNICIAN DAILY PROGRESS NOTE PLEASE DO NOT REMOVE FROM THE CHART OR MODIFY PRINTED COPY. POST-OP DAY #2 05/10/2020 7:26 AM PATIENT: Rudi Chin SUBJECTIVE: Patient complains of nothing. Pain well controlled. Denies nausea. Denies vomiting. Denies shortness of breath. Denies chest pain. - Ambulation. + Flatus, - Bowel Movements. + Voiding Spontantiously/Doran in place. + Tolerating PO diet. OBJECTIVE: Vital Signs: Patient Vitals for the past 24 hrs: BP Temp Temp src Pulse Resp SpO2 05/09/20 2252 97/64 36.7 ?C (98.1 ?F) Oral 67 17 100 % 05/09/20 1627 104/56 36.6 ?C (97.9 ?F) Oral (!) 51 16 100 % 05/09/20 0828 (!) 87/44 36.7 ?C (98.1 ?F) Oral (!) 50 16 96 % 05/09/20 0744 ? 100 % In's / Out's: Intake/Output Summary (Last 24 hours) at 05/10/2020 0726 Last data filed at 05/10/2020 0658 Gross per 24 hour Intake 2555 ml Output 1000 ml Net 1555 ml General: NAD Cardiovascular: RRR Pulmonary: CTAB Abdomen: soft, appropriately tender, non-distended Incisions: clean, dry, intact Extremities: no calf tenderness, no LE edema, +SCDs LABS: CBC, Coags, BMP, Mg, Phos Recent Labs 05/09/20 1033 05/09/20 0621 05/08/20 1345 05/08/20 0017 WBC 9.69 10.19 14.22* 5.83 HB 7.7* 7.8* 9.2* 8.5* HCT 23.9* 25.0* 28.6* 25.9* PLT 217 238 249 244 INR -- -- -- 1.0 APTT -- -- -- 25.9 NA -- 138 -- 141 K -- 3.4* -- 3.3* CHLOR -- 109* -- 111* CO2 -- 22 -- 24 BUN -- 4* -- 5* CREAT -- 0.53* -- 0.61 GLUC -- 107* -- 92 CA -- 8.3* -- 8.5 MG -- -- -- 1.9 P -- -- -- 2.9 Current Facility-Administered Medications Medication Dose Route Frequency - LORazepam 1 mg tab(s) (ATIVAN) 1 mg ORAL BID PRN - ondansetron orally disintegrating 4 mg tab(s) (ZOFRAN ODT) 4 mg ORAL q 6 H PRN Or - ondansetron (PF) 4 mg injection (ZOFRAN) 4 mg INTRAVENOUS q 6 H PRN - [MAR Hold due to Transfer] metoclopramide HCl 10 mg tab(s) (REGLAN) 10 mg ORAL q 6 H PRN Or - [MAR Hold due to Transfer] metoclopramide HCl 10 mg injection (REGLAN) 10 mg INTRAVENOUS q 6 H PRN - diphenhydrAMINE 25 mg (BENADRYL) 25 mg ORAL q 4 H PRN Or - diphenhydrAMINE 50 mg injection (BENADRYL) 50 mg INTRAVENOUS q 4 H PRN - acetaminophen 650 mg tab(s) (TYLENOL) 650 mg ORAL q 4 H PRN - calcium carbonate 1,000 mg chewable tab(s) (TUMS) 1,000 mg ORAL BID PRN - morphine 1 mg injection 1 mg INTRAVENOUS q 4 H PRN - NaCl 0.9% iv infusion 75 mL/hr INTRAVENOUS CONTINUOUS - sodium chloride 0.9 % (flush) 2-10 mL (BD POSIFLUSH) 2-10 mL INTRAVENOUS q 12 H - docusate sodium 100 mg cap(s) (COLACE) 100 mg ORAL BID - polyethylene glycol 3350 17 g packet (MIRALAX, GLYCOLAX) 17 g ORAL DAILY - acetaminophen 650 mg tab(s) (TYLENOL) 650 mg ORAL q 6 H - ondansetron orally disintegrating 4 mg tab(s) (ZOFRAN ODT) 4 mg ORAL q 6 H PRN Or - ondansetron (PF) 4 mg injection (ZOFRAN) 4 mg INTRAVENOUS q 6 H PRN - metoclopramide HCl 10 mg tab(s) (REGLAN) 10 mg ORAL q 6 H PRN Or - metoclopramide HCl 10 mg injection (REGLAN) 10 mg INTRAVENOUS q 6 H PRN - zolpidem 5 mg tab(s) (AMBIEN) 5 mg ORAL HS PRN - oxyCODONE-acetaminophen 5-325 mg 1-2 tablet (PERCOCET) 1-2 tablet ORAL q 4 H PRN - ketorolac 30 mg injection (TORADOL) 30 mg INTRAVENOUS q 6 H PRN - iron sucrose 200 mg in NaCl 0.9% 100 mL (VENOFER) 200 mg INTRAVENOUS DAILY - melatonin 6 mg tab(s) 6 mg ORAL DAILY (8 PM) - oxyCODONE-acetaminophen 5-325 mg 1-2 tablet (PERCOCET) 1-2 tablet ORAL q 4 H PRN ASSESSMENT/PLAN: Rudi Chin is a 29 year old POD#2 s/p Supracervical hyst. Post-Op: -Vital signs stable, afebrile, Hemodynamically stable, appropriately drop in h/h -Urine output adequate, -Discontinue COMPUGRAPH OPERATOR --> begin PO meds, colace -Heplock IV -Increase ambulation encouraged -IS use 10x/hour while awake encouraged -SCD's for VTE prophylaxis -Antiemetics prn Likely home tomorrow Eric Mendoza Tacojean claude Pager [phone] DATE OF SERVICE: 05/10/2020 TIME OF SERVICE: 7:26 AM Normal [facility] Basic Metabolic Panlon 05-09 Anion gap [Moles/Vol] 7 mmol/L Low 9-18 [facility] Calcium [Mass/Vol] 8.3 mg/dL Low 8.5-10.2 [facility] Chloride [Moles/Vol] 109 mmol/L High 97-105 [facility] CO2 [Moles/Vol] 22 mmol/L Normal 22-33 [facility] Creatinine [Mass/Vol] 0.53 mg/dL Low 0.58-0.96 [facility] eGFR- Amer. >60 Normal [facility] GFR/1.73 sq M predicted among non-blacks MDRD (S/P/Bld) [Vol rate/Area] mL/min/{1.73_m2} [facility] Comment on above: Result Comment: eGFR (Estimated GFR) Units of measure: mL/min/1.73 meters squared eGFR is derived from the reexpressed MDRD Study equation using the following parameters: serum creatinine, age, gender and race. The creatinine assay has been calibrated to be traceable to IDMS. An eGFR <60 mL/min/1.73m2 for >3 months is consistent with chronic kidney disease. Refer to KDOQI guidelines for clinical interpretation. In patients with unstable renal function, e.g. those with acute kidney injury, the eGFR may not accurately reflect actual GFR. Glucose [Mass/Vol] 107 mg/dL High 74-99 [facility] Potassium [Moles/Vol] 3.4 mmol/L Low 3.7-5.1 [facility] Sodium [Moles/Vol] 138 mmol/L Normal 136-144 [facility] Urea nitrogen [Mass/Vol] 4 mg/dL Low 7-21 [facility] CBCon 05-09-2020 Absolute nRBC <0.01 Normal <0.01 [facility] Erythrocyte distribution width (RBC) [Ratio] 12.4 % Normal 11.5-15.0 [facility] Hematocrit (Bld) [Volume fraction] 23.9 % Low 36.0-46.0 [facility] Hemoglobin (Bld) [Mass/Vol] 7.7 g/dL Low 11.5-15.5 [facility] MCH (RBC) [Entitic mass] 28.4 pG Normal 26.0-34.0 [facility] MCHC (RBC) [Mass/Vol] 32.2 g/dL Normal 30.5-36.0 [facility] MCV (RBC) [Entitic vol] 88.2 fL Normal 80.0-100.0 [facility] Platelet mean volume (Bld) [Entitic vol] 9.7 fL Normal 9.0-12.7 [facility] Platelets (Bld) [#/Vol] 217 10*3/uL Normal 150-400 [facility] RBC (Bld) [#/Vol] 2.71 10*6/uL Low 3.90-5.20 [facility] WBC (Bld) [#/Vol] 9.69 10*3/uL Normal 3.70-11.00 [facility] Absolute nRBC <0.01 Normal <0.01 [facility] Erythrocyte distribution width (RBC) [Ratio] 12.3 % Normal 11.5-15.0 [facility] Hematocrit (Bld) [Volume fraction] 25.0 % Low 36.0-46.0 [facility] Hemoglobin (Bld) [Mass/Vol] 7.8 g/dL Low 11.5-15.5 [facility] MCH (RBC) [Entitic mass] 27.7 pG Normal 26.0-34.0 [facility] MCHC (RBC) [Mass/Vol] 31.2 g/dL Normal 30.5-36.0 [facility] MCV (RBC) [Entitic vol] 88.7 fL Normal 80.0-100.0 [facility] Platelet mean volume (Bld) [Entitic vol] 10.0 fL Normal 9.0-12.7 [facility] Platelets (Bld) [#/Vol] 238 10*3/uL Normal 150-400 [facility] RBC (Bld) [#/Vol] 2.82 10*6/uL Low 3.90-5.20 [facility] WBC (Bld) [#/Vol] 10.19 10*3/uL Normal 3.70-11.00 [facility] NURSING PROGon 05-09-2020 NURSING PROG HNO ID: [id number] Author: Nohemy JacksonRn) EAVN Sheth Service: ? Author Type: Registered Nurse Type: Nursing Progress Note Filed: 05/09/2020 7:12 PM Note Text: Nursing Progress Note Patient Name: Rudi Chin Patient Location: [place] [id number] Daily Note:doran removed as per order at 1800 without difficulty. Initiated first dose of IV Iron after inserting second peripheral iv site due to incompatibility with Morphine. Patient able to stand up at side of bed without difficulty. She is awaiting the arrival of dinner and then She plans to take a walk in hallway. This note was completed by: Nohemy Sheth RN [facility] NURSING PROG HNO ID: [id number] Author: Nohemy JacksonRn) EVAN Sheth Service: ? Author Type: Registered Nurse Type: Nursing Progress Note Filed: 05/09/2020 4:14 PM Note Text: Nursing Progress Note Patient Name: Rudi Chin Patient Location: [place] [id number] Daily Note:patient currently attempting to rest after eating late lunch. She has refused to have doran catheter removed yet, as she wants to rest. Continuous rate of Morphine COMPUGRAPH OPERATOR was discontinued today and she was started on IV toradol PRN. Patient did tolerated eating her first regular diet meal with 20% consumed. Did though become nauseated afterwards and was medicated with reglan. Will continue to monitor patient. This note was completed by: Nohemy Sheth RN [facility] PROGRESSon 05-09-2020 PROGRESS HNO ID: [id number] Author: Nazario Appiah Service: Gynecology Author Type: Physician Type: Progress Notes Filed: 05/09/2020 12:19 PM Note Text: Pastry Sous Chef attending CBC, Coags, BMP, Mg, Phos Recent Labs 05/09/20 1033 05/09/20 0621 05/08/20 1345 05/08/20 0017 WBC 9.69 10.19 14.22* 5.83 HB 7.7* 7.8* 9.2* 8.5* HCT 23.9* 25.0* 28.6* 25.9* PLT 217 238 249 244 INR -- -- -- 1.0 APTT -- -- -- 25.9 NA -- 138 -- 141 K -- 3.4* -- 3.3* CHLOR -- 109* -- 111* CO2 -- 22 -- 24 BUN -- 4* -- 5* CREAT -- 0.53* -- 0.61 GLUC -- 107* -- 92 CA -- 8.3* -- 8.5 MG -- -- -- 1.9 P -- -- -- 2.9 CBC is stable 1) DC Doran 2) OOB 3) DC basal rate of IV COMPUGRAPH OPERATOR and add IV Toradol prn 4) Reg diet 5) IV Venofer for iron def anemia Plan of care discussed with: Provider, RN, Patient. Signature: Nazario Appiah MD Date: May 09, 2020 Time: 12:19 PM Nazario Appiah MD [facility] PROGRESS HNO ID: [id number] Author: Nazario Appiah Service: Gynecology Author Type: Physician Type: Progress Notes Filed: 05/09/2020 8:48 AM Note Text: CORONER TRANSPORT TECHNICIAN POSTOP PROGRESS NOTE SERVICE DATE: 05/09/2020 SERVICE TIME: 8:38 AM POST-OP DAY # 1 ASSESSMENT AND PLAN Rudi Chin is a 29 year old POD# 1 s/p Supracervical abdominal hysterectomy. 1. Post-Op: Vital signs stable, afebrile Hemodynamically stable --Bp slightly low, but no tachycardia SCD's for VTE prophylaxis Antiemetics PRN Pain controlled with COMPUGRAPH OPERATOR-- pt reports 01/08 today, 04/10 yesterday--Cont COMPUGRAPH OPERATOR until improved pain control Doran in, urine output adequate 1300 cc/8 hrs Continue IVF Increased ambulation encouraged once COMPUGRAPH OPERATOR is discontinued IS use 10 times per hour while awake encouraged 2. Prophylactic/Post Op Antibiotics: discontinued 3. Will re-ck CBC at 10am-- consider DC doran and get OOB if stable-- pt is hungry, if cbc stable, adv diet 4. Routine Post-op Care 5. Disposition Planning: when el reg diet, passing flatus and PO pain meds SUBJECTIVE: Patient complains of incisional pain " worse than my c/section" . Pain controlled with COMPUGRAPH OPERATOR. She denies vomiting, shortness of breath, chest pain . Was nauseated but treated w/ medication with good relief. No flatus as yet. Denies dizzziness OBJECTIVE: Vital Signs: BP 87/44 Pulse 50 Temp (Src) 98.1 (Oral) Resp 16 Ht 5' 8" (1.73m) Wt 154 lb (69.9kg) SpO2 96% LMP 02/01/2020 BMI 23.42 kg/(m2). O2 Therapy: Room Air Intake / Output Intake/Output Summary (Last 24 hours) at 05/09/2020 0838 Last data filed at 05/09/2020 0607 Gross per 24 hour Intake 3760 ml Output 2230 ml Net 1530 ml General: Drowsy and uncomfortable Cardiovascular: RRR Pulmonary: CTA bilat Abdomen: soft ND, pos BS in all 4 qyadrants Incision: drsg clean dry intact Extremities: no calf tend LABS: CBC, Coags, BMP, Mg, Phos Recent Labs 05/09/20 0621 05/08/20 1345 05/08/20 0017 WBC 10.19 14.22* 5.83 HB 7.8* 9.2* 8.5* HCT 25.0* 28.6* 25.9* PLT 238 249 244 INR -- -- 1.0 APTT -- -- 25.9 NA 138 -- 141 K 3.4* -- 3.3* CHLOR 109* -- 111* CO2 22 -- 24 BUN 4* -- 5* CREAT 0.53* -- 0.61 GLUC 107* -- 92 CA 8.3* -- 8.5 MG -- -- 1.9 P -- -- 2.9 ' IMAGING: NA DATA: Diagnostic tests reviewed for today's visit: Most recent labs and imaging results. Current Facility-Administered Medications Medication Dose Route Frequency - LORazepam 1 mg tab(s) (ATIVAN) 1 mg ORAL BID PRN - ondansetron orally disintegrating 4 mg tab(s) (ZOFRAN ODT) 4 mg ORAL q 6 H PRN Or - ondansetron (PF) 4 mg injection (ZOFRAN) 4 mg INTRAVENOUS q 6 H PRN - [MAR Hold due to Transfer] metoclopramide HCl 10 mg tab(s) (REGLAN) 10 mg ORAL q 6 H PRN Or - [MAR Hold due to Transfer] metoclopramide HCl 10 mg injection (REGLAN) 10 mg INTRAVENOUS q 6 H PRN - diphenhydrAMINE 25 mg (BENADRYL) 25 mg ORAL q 4 H PRN Or - diphenhydrAMINE 50 mg injection (BENADRYL) 50 mg INTRAVENOUS q 4 H PRN - acetaminophen 650 mg tab(s) (TYLENOL) 650 mg ORAL q 4 H PRN - calcium carbonate 1,000 mg chewable tab(s) (TUMS) 1,000 mg ORAL BID PRN - morphine 1 mg injection 1 mg INTRAVENOUS q 4 H PRN - NaCl 0.9% iv infusion 75 mL/hr INTRAVENOUS CONTINUOUS - sodium chloride 0.9 % (flush) 2-10 mL (BD POSIFLUSH) 2-10 mL INTRAVENOUS q 12 H - docusate sodium 100 mg cap(s) (COLACE) 100 mg ORAL BID - polyethylene glycol 3350 17 g packet (MIRALAX, GLYCOLAX) 17 g ORAL DAILY - acetaminophen 650 mg tab(s) (TYLENOL) 650 mg ORAL q 6 H - ondansetron orally disintegrating 4 mg tab(s) (ZOFRAN ODT) 4 mg ORAL q 6 H PRN Or - ondansetron (PF) 4 mg injection (ZOFRAN) 4 mg INTRAVENOUS q 6 H PRN - metoclopramide HCl 10 mg tab(s) (REGLAN) 10 mg ORAL q 6 H PRN Or - metoclopramide HCl 10 mg injection (REGLAN) 10 mg INTRAVENOUS q 6 H PRN - zolpidem 5 mg tab(s) (AMBIEN) 5 mg ORAL HS PRN - oxyCODONE-acetaminophen 5-325 mg 1-2 tablet (PERCOCET) 1-2 tablet ORAL q 4 H PRN - morphine COMPUGRAPH OPERATOR 1 mg/mL in NaCl 0.9% 100 mL INTRAVENOUS CONTINUOUS Medication and Non-Pharmacologic VTE Prophylaxis/Anticoagula nts 05/09/20 0700 activity - mobilize patient (wa,oh) 05/08/20 1130 vte pharmacologic prophylaxis contraindicated (wa,oh) 05/08/20 1130 pneumatic compression stockings (wa,hi) 05/08/20 1130 activity - mobilize patient (wa,oh) 05/08/20 0000 pneumatic compression stockings (wa,hi) 05/07/20 1045 vte non-pharmacologic prophylaxis - none indicated (wa,hi) VTE Prophylaxis: VTE prophylaxis appropriate SIGNATURE: Nazario Appiah MD PATIENT NAME: Rudi Chin DATE: May 09, 2020 TIME: 8:38 AM PAGER/CONTACT #: [facility] ANES POSTPROC EVALon 020 ANES POSTPROC EVAL HNO ID: [id number] Author: Rylie Daniel Service: ? Author Type: Anesthesiologist Type: Anesthesia Postprocedure Evaluation Filed: 05/08/2020 1:54 PM Note Text: POST ANESTHESIA EVALUATION NOTE : 1990 Procedure Summary Date: 05/08/20 Room / Location: ORA / OR Anesthesia Start: 741 Anesthesia Stop: 952 Procedures: EXPLORATORY LAPAROTOMY (N/A Abdomen) HYSTERECTOMY SUPRACERVICAL (N/A Uterus) Diagnosis: Ectopic (Ectopic [O00.90]) Surgeons: Rg Cohn Responsible Provider: Rylie Daniel Anesthesia Type: general ASA Status: 2 - Emergent Anesthesia Type: general Last vitals Vitals Value Taken Time BP 114/60 05/08/20 1123 Temp 36.5 ?C (97.7 ?F) 05/08/20 1123 HR SpO2 80 05/08/20 0946 Resp 18 05/08/20 1123 SpO2 100 % 05/08/20 1123 Post Anesthesia Patient Status Patient Evaluation: PACU. PACU/ICU Patient Condition: stable. Neurological Status: aware and responsive. Pulmonary Status: breathing comfortably on supplemental oxygen Airway Control: returned to baseline unsupported. Cardiovascular Status: stable. Pain Management: clinically adequate Postoperative Hydration: acceptable. Intraoperative Events: no significant anesthesia events Post Operative Nausea/Vomiting Status: no significant post operative nausea or vomiting Anesthetic Observations: no significant anesthetic observations Recommendation: continue current plan of care. SIGNATURE: Rylie Daniel MD PATIENT NAME: Rudi Chin DATE: May 08, 2020 TIME: 1:54 PM CSN: [id number] [facility] ANES PRE-OPon 05-08-2020 ANES PRE-OP HNO ID: [id number] Author: Rylie Daniel Service: ? 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 Tracheostomy tube not present Mallampati: II. TM distance: >3 FB. Neck ROM: full ROM without neurological symptoms. Mouth opening: adequate. Short neck: no. Thick neck: no DENTAL Dental findings: teeth intact. II - ANESTHESIA PLAN ASA Score: 2; emergent. The patient is not a current smoker. NPO Status: adequate Administration of chronic beta carmel medication not planned. Monitoring plan: standard ASA. Postoperative analgesic plan: parenteral or oral opioids. Anesthetic Risks, Benefits, Alternatives, Personnel Discussed. Consent obtained from: patient and family. Patient / Surrogate agrees to blood products: Yes DNR status not reviewed with patient and/or family prior to surgery. Significant changes in the patient condition since the History and Physical, not otherwise documented in primary service progress note: no. Potential Anesthesia issues that may suggest increased risk of complications or contraindication to planned procedure: none. EPIC CHART REVIEW: ACTIVE PROBLEM LIST Infantile Cerebral Palsy (Hcc) Moderate Anxiety Family History of Early Cad scar ectopic PAST MEDICAL HISTORY Diagnosis Date - Anxiety - History of depression 07/31/2019 07/31/2019She also was diagnosed with depression after the of her last child Discussed increased risks of depression during and and importance of reporting the development or worsening of symptoms should they occur.Pt denies ever having any suicidal thoughts or tendencies or thoughts of hurting others.TKRN - Infantile cerebral palsy, unspecified 10/16/2006 - Other specified infantile cerebral palsy - depression - Vaginal bleeding affecting early 04/10/2020 -03/16 Quant hCG 26,033 -UVUS/TAUS performed no IUP noted, left ovarian cyst -patient to follow up in 48 hours on Sunday, patient in agreeable with plan -return precautions given PAST SURGICAL HISTORY Procedure Laterality Date - DELIVERY ONLY 09/05/2019 R/CS low transverse - SECTION HX - D+C 04/16/2020 - LAP CHOLECYSTECT/CHOLANGIOG RIGO 09-09-12 FAMILY HISTORY Problem Relation Age of Onset - Coronary Artery Disease Mother 50 - Arthritis Mother - Psychiatry Mother PTSD - other (degenerative disc disease) Mother - other (anxiety) Mother - Psychiatry Father anxiety/OCD - Diabetes Maternal Aunt - No Known Problems Brother - No Known Problems Son Social History Tobacco Use - Smoking status: Never Smoker - Smokeless tobacco: Never Used Substance Use Topics - Alcohol use: Not Currently Comment: occasionally - Drug use: No - LORazepam (ATIVAN) 1 mg tablet, Take 1 tablet by mouth twice daily as needed for Anxiety for up to 30 days., Disp: 30 tablet, Rfl: 1, 05/06/2020 at Unknown time - aspirin/acetaminophen/c affeine (EXCEDRIN MIGRAINE ORAL), Take by mouth., Disp: , Rfl: , 05/06/2020 at Unknown time - acetaminophen (TYLENOL EXTRA STRENGTH) 500 mg tablet, Take 1 tablet by mouth every 6 hours as needed for Pain., Disp: 30 tablet, Rfl: 0, 05/06/2020 at Unknown time - SUMAtriptan (IMITREX) 50 mg tablet, Take 1 tablet by mouth as needed for Migraine Headache (see administration instructions). (Patient taking differently: Take 50 mg by mouth as needed for Migraine Headache (see administration instructions). Has not picked up prescription yet ), Disp: 9 tablet, Rfl: 2 - fluocinonide (LIDEX) 0.05 % cream, Apply to affected area twice daily. (Patient taking differently: Apply to affected area twice daily. Has not picked up prescription yet ), Disp: 60 g, Rfl: 2 Inpatient medications reviewed in [facility] I have interviewed and examined the patient. I have reviewed the medical record and/or the pre-anesthesia evaluation, pertinent labs, and test results. This contains updated information obtained within 48 hours of Surgery/Procedure. SIGNATURE: Rylie Daniel MD PATIENT NAME: Rudi Chin DATE: May 08, 2020 TIME: 7:32 AM : 1990 Normal [facility] APTTon 05-08-2020 aPTT Coag (Bld) [Time] 25.9 s Normal 23.0-32.4 [facility] Comment on above: Result Comment: Unfr actionated Heparin Therapeutic Ranges: Standard Heparin Nomogram: 53 to 78 seconds (anti-Xa level of 0.3 to 0.7 U/ml) Low Dose/ACS Nomogram: 49 to 67 seconds (anti-Xa level of 0.2 to 0.5 U/ml) Stroke Treatment Nomogram: 49 to 67 seconds (anti-Xa level of 0.2 to 0.5 U/ml) Note: The APTT therapeutic range has been determined for the current lot of laboratory APTT reagent in use throughout the [facility]. CBCon 05-08-2020 Absolute nRBC <0.01 Normal <0.01 [facility] Erythrocyte distribution width (RBC) [Ratio] 12.2 % Normal 11.5-15.0 [facility] Hematocrit (Bld) [Volume fraction] 28.6 % Low 36.0-46.0 [facility] Hemoglobin (Bld) [Mass/Vol] 9.2 g/dL Low 11.5-15.5 [facility] MCH (RBC) [Entitic mass] 28.2 pG Normal 26.0-34.0 [facility] MCHC (RBC) [Mass/Vol] 32.2 g/dL Normal 30.5-36.0 [facility] MCV (RBC) [Entitic vol] 87.7 fL Normal 80.0-100.0 [facility] Platelet mean volume (Bld) [Entitic vol] 9.8 fL Normal 9.0-12.7 [facility] Platelets (Bld) [#/Vol] 249 10*3/uL Normal 150-400 [facility] RBC (Bld) [#/Vol] 3.26 10*6/uL Low 3.90-5.20 [facility] WBC (Bld) [#/Vol] 14.22 10*3/uL High 3.70-11.00 [facility] Absolute nRBC <0.01 Normal <0.01 [facility] Erythrocyte distribution width (RBC) [Ratio] 12.3 % Normal 11.5-15.0 [facility] Hematocrit (Bld) [Volume fraction] 25.9 % Low 36.0-46.0 [facility] Hemoglobin (Bld) [Mass/Vol] 8.5 g/dL Low 11.5-15.5 [facility] MCH (RBC) [Entitic mass] 28.4 pG Normal 26.0-34.0 [facility] MCHC (RBC) [Mass/Vol] 32.8 g/dL Normal 30.5-36.0 [facility] MCV (RBC) [Entitic vol] 86.6 fL Normal 80.0-100.0 [facility] Platelet mean volume (Bld) [Entitic vol] 9.5 fL Normal 9.0-12.7 [facility] Platelets (Bld) [#/Vol] 244 10*3/uL Normal 150-400 [facility] RBC (Bld) [#/Vol] 2.99 10*6/uL Low 3.90-5.20 [facility] WBC (Bld) [#/Vol] 5.83 10*3/uL Normal 3.70-11.00 [facility] Comp Metabolic Panelon 05-08 Albumin [Mass/Vol] 3.8 g/dL Low 3.9-4.9 [facility] ALP [Catalytic activity/Vol] 107 U/L Normal 34-123 [facility] ALT [Catalytic activity/Vol] 21 U/L Normal 7-38 [facility] Anion gap [Moles/Vol] 6 mmol/L Low 9-18 [facility] AST [Catalytic activity/Vol] 37 U/L High 13-35 [facility] Bilirubin [Mass/Vol] 0.6 mg/dL Normal 0.2-1.3 [facility] Calcium [Mass/Vol] 8.5 mg/dL Normal 8.5-10.2 [facility] Chloride [Moles/Vol] 111 mmol/L High 97-105 [facility] CO2 [Moles/Vol] 24 mmol/L Normal 22-33 [facility] Creatinine [Mass/Vol] 0.61 mg/dL Normal 0.58-0.96 [facility] eGFR- Amer. >60 Normal [facility] GFR/1.73 sq M predicted among non-blacks MDRD (S/P/Bld) [Vol rate/Area] mL/min/{1.73_m2} Normal [facility] Comment on above: Result Comment: eGFR (Estimated GFR) Units of measure: mL/min/1.73 meters squared eGFR is derived from the reexpressed MDRD Study equation using the following parameters: serum creatinine, age, gender and race. The creatinine assay has been calibrated to be traceable to IDMS. An eGFR <60 mL/min/1.73m2 for >3 months is consistent with chronic kidney disease. Refer to KDOQI guidelines for clinical interpretation. In patients with unstable renal function, e.g. those with acute kidney injury, the eGFR may not accurately reflect actual GFR. Glucose [Mass/Vol] 92 mg/dL Normal 74-99 [facility] Potassium [Moles/Vol] 3.3 mmol/L Low 3.7-5.1 [facility] Protein [Mass/Vol] 5.7 g/dL Low 6.3-8.0 [facility] Sodium [Moles/Vol] 141 mmol/L Normal 136-144 [facility] Urea nitrogen [Mass/Vol] 5 mg/dL Low 7-21 [facility] Fibrinogenon 05-08-2020 Fibrinogen 275 mg/dL Normal 200-400 [facility] HCG, Quantitative Blon 05-08 HCG, Quantitative Bl 110.4 mU/mL High <5 [facility] Comment on above: Result Comment: BHARATI TITATIVE HCG NORMAL RANGES Weeks of Gestation (Weeks Since LMP) 3 Weeks (5.8-71.2 mIU/mL) 4 Weeks (9.5-750 mIU/mL) 5 Weeks (217-7138 mIU/mL) 6 Weeks (158-81918 mIU/mL) 7 Weeks (3697-484059 mIU/mL) 8 Weeks (13988-331070 mIU/mL) 9 Weeks (89407-339913 mIU/mL) 10 Weeks (74335-390650 mIU/mL) 12 Weeks (93774-867313 mIU/mL) Referenced to 4th IS of [facility] HISTORY PHYSICALon 0 HISTORY PHYSICAL HNO ID: [id number] Author: Rg Cohn Service: Gynecology Author Type: Physician Type: HANDP Filed: 05/07/2020 11:39 PM Note Text: OBSTETRICS HISTORY AND PHYSICAL NAME: Rudi Chin SERVICE DATE: May 07, 2020 SERVICE TIME: 11:33 PM Subjective CHIEF COMPLAINT: Patient transferred from [place]. Patient is a 29-year-old 4 para 2 with a history of 2 sections. Patient was diagnosed with a probable section scar ectopic almost 2 weeks ago. At that time she underwent a DANDC for what was thought to be retained products of conception. Final pathology did confirm gestational tissue. Patient reports she did well postoperatively however developed bleeding 2 days ago and was seen in [place]. CAT scan and an ultrasound at that time showed a complex area in the lower uterine segment measuring 6.2 x 5.5 x 6.6 cm. The case was discussed with maternal- medicine who believed that this could be an acute topic in her previous section scar. At the initial presentation 2 weeks ago she was given a single dose of methotrexate. Her hCG at that time was 13,490. Since her arrival at [facility] repeat hCG has not been measured but will be ordered now. Patient presents with increasing bleeding and some abdominal pain. ANESTHESIA COMPLICATIONS: None HISTORY REVIEW PAST MEDICAL HISTORY Diagnosis Date - Anxiety - History of depression 07/31/2019 07/31/2019She also was diagnosed with depression after the of her last child Discussed increased risks of depression during and and importance of reporting the development or worsening of symptoms should they occur.Pt denies ever having any suicidal thoughts or tendencies or thoughts of hurting others.TKRN - Infantile cerebral palsy, unspecified 10/16/2006 - Other specified infantile cerebral palsy - depression - Vaginal bleeding affecting early 04/10/2020 -03/16 Quant hCG 26,033 -UVUS/TAUS performed no IUP noted, left ovarian cyst -patient to follow up in 48 hours on Sunday, patient in agreeable with plan -return precautions given PAST SURGICAL HISTORY Procedure Laterality Date - DELIVERY ONLY 09/05/2019 R/CS low transverse - SECTION HX - D+C 04/16/2020 - LAP CHOLECYSTECT/CHOLANGIOG RIGO 09-09-12 FAMILY HISTORY Problem Relation Age of Onset - Coronary Artery Disease Mother 50 - Arthritis Mother - Psychiatry Mother PTSD - other (degenerative disc disease) Mother - other (anxiety) Mother - Psychiatry Father anxiety/OCD - Diabetes Maternal Aunt - No Known Problems Brother - No Known Problems Son Social History Tobacco Use - Smoking status: Never Smoker - Smokeless tobacco: Never Used Substance Use Topics - Alcohol use: Not Currently Comment: occasionally - Drug use: No Obstetric History T2 L2 SAB1 TAB0 Ectopic0 Multiple0 Live Births2 Name of Baby 1: Not recorded Date: 09/18/16 GA: 5w0d Delivery: SPONTANEOUS Apgar1: Not recorded Apgar5: Not recorded Living: Not recorded Name of Baby 2: Traydynce Date: 08/29/17 GA: 40w5d Delivery: , Other Apgar1: Not recorded Apgar5: Not recorded Living: Living Name of Baby 3: Becky Date: 09/05/19 GA: 39w0d Delivery: , Low Transverse Apgar1: 9 Apgar5: 9 Living: Living Name of Baby 4: Not recorded Date: Not recorded GA: Not recorded Delivery: Not recorded Apgar1: Not recorded Apgar5: Not recorded Living: Not recorded Active Non-Hospital Problems Diagnosis Date Noted - Infantile cerebral palsy (HCC) 10/16/2006 Priority: A Overview Note: Gets pains in the left leg at times if over doing it. - Family history of early CAD 05/08/2018 Overview Note: mother at age 50 ALLERGIES: ALLERGIES Allergen Reactions - Augmentin [Amoxicil* Other: See Comments - Ibuprofen Intolerance, GI Upset PRIOR TO ADMISSION MEDICATIONS: Prior to Admission medications as of 05/07/208 Medication Sig Last Dose Taking LORazepam (ATIVAN) 1 mg tablet Take 1 tablet by mouth twice daily as needed for Anxiety for up to 30 days. 05/06/2020 at Unknown time Yes aspirin/acetaminophen/c affeine (EXCEDRIN MIGRAINE ORAL) Take by mouth. 05/06/2020 at Unknown time Yes acetaminophen (TYLENOL EXTRA STRENGTH) 500 mg tablet Take 1 tablet by mouth every 6 hours as needed for Pain. 05/06/2020 at Unknown time Yes SUMAtriptan (IMITREX) 50 mg tablet Take 1 tablet by mouth as needed for Migraine Headache (see administration instructions). Patient taking differently: Take 50 mg by mouth as needed for Migraine Headache (see administration instructions). Has not picked up prescription yet fluocinonide (LIDEX) 0.05 % cream Apply to affected area twice daily. Patient taking differently: Apply to affected area twice daily. Has not picked up prescription yet Medication Comments documented by Brynn Polanco MA on 04/13/2020 at 1446. Percocet 5-325 mg give to her recently at Hospital on 04/13/2020 and Methotrexate. REVIEW OF SYSTEMS: PAIN ASSESSMENT: CURRENTLY HAVING PAIN; see HPI The remainder of the review of systems is negative. Objective PHYSICAL EXAM: General: WD, WN HEENT: NC/AT, sclera white, pupils equal, no thyromegaly Lungs: clear Heart: RR, S1, S2 Abdomen: soft, nontender, no masses Uterus: soft, NT Extremities: no edema DTRs: 1+ Last BP 05/07/20 : 113/65 Last Temp 05/07/20 : 36.6 ?C (97.9 ?F) (Oral) Last Pulse 05/07/20 : (!) 46 Last Resp Rate 05/07/20 : 18 Last SpO2 05/07/20 : 99% Last Ht 05/07/20 : 172.7 cm (5' 8") Last Wt 05/07/20 : 69.9 kg (154 lb) LABS Diagnostic tests reviewed for today's visit: No new labs Assessment/Plan 29 year old EGA:13w5d. With section ectopic. Patient was discussed with maternal- medicine. Patient was notified that she is going to require an exposure laparotomy. She will be consented for hysterectomy. She will also be consented for excision of the lower uterine segment. She understands the risk benefits and alternatives. Rg Cohn MD Principal Problem: scar ectopic POA: Yes Assessment AND Plan: Ex Lap SIGNATURE: Rg oChn MD DATE: May 07, 2020 TIME: 11:33 PM Normal [facility] Magnesiumon 05-08-2020 Magnesium [Mass/Vol] 1.9 mg/dL Normal 1.7-2.3 [facility] NURSING PROGon 05-08-2020 NURSING PROG HNO ID: [id number] Author: Natalee (Rn) EVAN Ahn Service: ? Author Type: Registered Nurse Type: Nursing Progress Note Filed: 05/09/2020 5:20 AM Note Text: Nursing Progress Note Patient Name: Rudi Chin [id number] Daily Note: 2000: Pt assessment as charted, pt resting in bed, morphine machine joint cutter infusing-pt still states 7/10 abdominal/incisional pain-pt is drowsy, falls asleep shortly after conversation but is able to hold full conversation. Initial post-op dressing intact to lower abdomen-no drainage noted on dressing, pt denies any vaginal bleeding. Bed alarm is on, call light within reach, will monitor. 2119: Zofran given for patient c/o nausea, is able to eat a little jello. No emesis noted. 0047: Pt did agree to take her scheduled dose of tylenol for her mild headache, continued lower abdominal pain-instructed on machine joint cutter use-pt was due for her demand dose. No further needs, will monitor. 0300: Pt asleep. 0515: Just gave ativan per pt request, pt states increased anxiety this am. This note was completed by: Natalee Ahn RN [facility] NURSING PROG HNO ID: [id number] Author: Nohemy (Rn) EVAN Sheth Service: ? Author Type: Registered Nurse Type: Nursing Progress Note Filed: 05/08/2020 12:53 PM Note Text: Nursing Progress Note Patient Name: Rudi Chin [id number] Daily Note:1112 patient returned to room 11 from PACU. Vitals obtained and documented. COMPUGRAPH OPERATOR bolus button in patient's hand, complaining of pain as 10/10 upon arrival to room. Nurse medicated with clinician dose. Patient drifted back off to sleep and appeared comfortable. Doran patent and draining. Iv fluids infusing through patent peripheral iv site. Will continue to monitor patient. This note was completed by: Nohemy Sheth RN [facility] NURSING PROG HNO ID: [id number] Author: Nohemy Sheth RN Service: ? Author Type: Registered Nurse Type: Nursing Progress Note Filed: 05/08/2020 12:52 PM Note Text: Nursing Progress Note Patient Name: Rudi Chin Patient Location: HL-3ST-S11/[id number]-[id number]-S38-1 Daily Note:patient continues to rate pain as 10/10 any time she rouses from sleep. Continue to encourage her to hit her COMPUGRAPH OPERATOR button. She was given clinician dose of Morphine shortly after her arrival back to room from PACU. Remains on oxygen at 2 liters per NC. Call placed to Dr Cohn to adjust COMPUGRAPH OPERATOR settings/dosing. Await return call. Will continue to monitor patient. This note was completed by: Nohemy hSeth RN [facility] NURSING PRO HNO ID: [id number] Author: Joya JacksonRn) EVAN Croft Service: ? Author Type: Registered Nurse Type: Nursing Progress Note Filed: 05/08/2020 11:05 AM Note Text: Nursing Progress Note Patient Name: Rudi Chin Patient Location: [facility] SURG OR POOL/[facility] SUR[facility] OR POOL Daily Note: 0946 - Pt arrived to PACU from OR, 6 L O2 blowby, pt moaning in 10/10 pain, will medicate per MAR. Pt shivering, warm blankets given for comfort, will medicate, see MAR. Abdomen soft, low transverse incision w DDANDI. No vaginal bleeding, peripad put in place. Doran draining clear urine. 1025 - Pt sleeping/snoring when undisturbed, no longer shivering, rates pain 9/10 when awakened by RN, continuing to medicate for pain, see MAR. No family here to visit/update. 1045 - Pt sleeping/snoring when undisturbed, when awakened, rates pain "better" 5/10. IV COMPUGRAPH OPERATOR connected, instructions given to pt on its use, pt verbalizes understanding and initiates use. VSS on 2 L O2 NC. Abdomen remains soft, low transverse DDANDI, small amount of bloody drainage on peripad. Doran remains patent w clear urine. PACU d/c criteria met. 1055 - Report called to Nohemy GORDON, will transfer pt back to [facility]. This note was completed by: Joya Croft RN [facility] NURSING PROG HNO ID: [id number] Author: Milla (Rn) EVAN Rasmussen Service: ? Author Type: Registered Nurse Type: Nursing Progress Note Filed: 05/07/2020 10:43 PM Note Text: Nursing Progress Note Patient Name: Rudi Chin Patient Location[place] [address] [address]-1 Daily Note:0 Pt arrived to [address] [place] [address] 11 in stable condition. Pt having 8/10 cramping pain to abdomin. Pt very hesitant to take tylenol as she is having gi upset, she has chronic gastritis. Pt oriented to room and call light, pr verbalizes understanding. Call light within reach. Will continue to monitor. 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 Having 8/10 cramping pain in abdomen, requesting IV medication as she is currently npo and Tylenol upset her stomach earlier. This note was completed by: Milla Rasmussen RN [facility] OPERATIVE NOon 05-08-2020 OPERATIVE NO HNO ID: [id number] Author: Rg Cohn Service: Gynecology Author Type: Physician Type: Operative Report Filed: 05/08/2020 10:22 AM Note Text: CORONER TRANSPORT TECHNICIAN OPERATIVE/PROCEDURE REPORT LOG ID: [id number] Surgery/Procedure Date: 05/08/2020 Incision/Procedure Start Time: 8:09 AM Incision Close/Procedure End Time: 9:32 AM Surgeon(s)/Proceduralis t(s) and Grappler(s): Surgeon(s) and Role: * Rg Cohn - Primary Informed Consent: Informed Consent obtained and on the chart Procedure: Supracervical abdominal hysterectomy Pre-Op/Pre-Procedure Diagnosis: Ceserian section ectopic Post-Op/Post-Procedure Diagnosis: Same as pre-op diagnosis Antibiotic: Pre-op antibiotics as ordered Procedure Details: Patient was taken to the operating room where the sign-in and time out were completed. General anesthesia was induced and found to be adequate. She was placed in the supine position. SCDs were placed and turned on for DVT prophylaxis. Patient was prepped and draped in the usual fashion. A Doran catheter was placed in the urinary bladder under sterile conditions. A Pfannenstiel skin incision was made sharply. The incision was carried down sharply to the level of the fascia. The fascia was incised in the midline and fascial incision was extended bilaterally in upward fashion using Valero scissors. The fascia was grasped with Gino clamp and was undermined off underlying rectus muscles. Muscles were in the midline. The opening to the peritoneal cavity was extended in a vertical direction sharply. Upon entering the abdominal cavity the below findings were noted. The bowels were packed superiorly and a Neftali retractor was placed into the abdominal cavity. The uterus was elevated. The round ligaments were identified clamped, transected and suture ligated with 0 Vicryl on each side. The vesico uterine peritoneum was dissected sharply and bluntly off the anterior uterus on each side. The utero-ovarian ligament were then identified, clamped, transected and suture ligated with 0 Vicryl on each side. The infundibulo-pelvic ligament was identified, the ureter was identified to be out of the field, then the infundibulo-pelvic ligament was doubly-clamped, transected and suture ligated with 0 Vicryl on each side. The uterine vessels were identified and skeletonized. The vessels were doubly clamped, transected and suture ligated with 0 Vicryl on each side. Taking alternate bites, the cardinal ligaments were serially identified, clamped, transected, suture ligated with 0 Vicryl. The uterosacral ligaments were then each identified, clamped, transected and suture ligated with 0 Vicryl on each side.. These pedicles were tagged. The bladder flap was developed and the bladder was displaced inferiorly. The uterine body was amputated off of the cervix and the cervix base was cauterized. The specimens were all sent to pathology. Following this, the entire pelvis was examined and were found to be hemostatic. The pelvis was irrigated. Retractor was removed from the peritoneal cavity. Packing sponges were removed from the peritoneal cavity. The rectus muscles were re-approximated using 2-0 Chromic., The fascia was closed with 0 Vicryl in a running fashion. , The subcutaneous tissue was irrigated and made hemostatic with bovie cautery., The subcutataneous tissue was closed with 3-0 Vicryl in a running fashion. and The skin was closed with 4-0 Monocryl in a running fashion. Sterile dressing applied over the incision. Doran catheter was left in place. Sign out was completed. Findings: Uterine size: 8 weeks Fibroids: C/S scar ectopic preganany Right Ovary: Normal Left Ovary: Normal Right Fallopian Tube: Normal Left Fallopian Tube: Normal Other: None IV Fluids: 2000 ml Urine Output: 500 mL Estimated Blood Loss: 100 mL Specimens:Uterus without cervix Implantable Devices: None Drains: None Complications: None A digital "sweep" of the vaginal canal was performed by the Attending and it was ascertained that no instruments or other foreign bodies are retained within the cavity. Sponge, lap, and needle counts were correct times two and the patient was taken to the recovery room with stable vital signs after tolerating the procedure well. I/primary surgeon/proceduralist performed the procedure with assistance. No qualified resident/fellow was available. SIGNATURE: Rg Cohn MD PATIENT NAME: Rudi Chin DATE: May 08, 2020 TIME: 10:17 AM PAGER/CONTACT #: [facility] PROGRESSon 05-08-2020 PROGRESS HNO ID: [id number] Author: Natalya Garg Service: Gynecology Author Type: Physician Type: Progress Notes Filed: 05/08/2020 1:23 PM Note Text: was called pt has a Morphine pump and still C/O pain. Ibuprofen cause her to have upset stomach. Will give Toradol once, check Hct, and ask pharmacy to check medication.Nurse said that pump working well. Natalya Garg MD [facility] Phosphoruson 05-08-2020 Phosphate [Mass/Vol] 2.9 mg/dL Normal 2.7-4.8 [facility] Protimeon 05-08-2020 PT Coag (PPP) [Time] 11.2 s Normal 9.7-13.0 [facility] PT Coag (PPP) [Time] 1.0 s Normal 0.9-1.3 [facility] Comment on above: Result Comment: Cynthia min K Antagonist (VKA) Therapeutic Range: INR 2 to 3 (Target INR of 2.5) Note: For patients treated with VKA drugs, such as warfarin, the [employer] 2012 Guideline recommends a therapeutic INR range of 2 to 3 (target INR of 2.5). This recommendation includes high-risk patients with antiphospholipid syndrome with previous arterial or venous thromboembolism, current-generation mechanical or bioprosthetic aortic heart valve replacement. Note: Patients with mechanical aortic valve replacement and additional risk factors for thromboembolic events (atrial fibrillation, previous thromboembolism, LV dysfunction, hypercoagulable conditions) or an older generation mechanical AVR (i.e., ball in-Cage) or any mechanical MVR should have a INR therapeutic range of 2.5 to 3.5 (target INR of 3). Joseph GH, et al. Chest 2012, 141:7S-47S Josy RA, et al. [facility] 2017, 70: 252-289 SURGICAL PATHOLOGYon 020 SURGICAL PATHOLOGY Specimen originated from [facility] Specimen #: [id number] Submitting Physician: RG COHN FINAL DIAGNOSIS Uterus, supracervical hysterectomy: - Endometrial cavity clotted blood with fibrotic and necrotic chorionic villi. - Anterior and posterior lower uterine segment implantation site changes with marked mural thinning and partial mural necrosis. - Chorionic villi at implantation site lacking decidual layer separation from muscle consistent with placenta accreta. VALENTINE/scott 05/12/2020 COMMENT Selected areas were reviewed in consultation via telepathology by Drs. Lopez and Taryn, who concur with the diagnosis. Pushpa Aceves M.D. (Electronic Signature) SPECIMEN SUBMITTED A: UTERUS CLINICAL DATA EXPLORATORY LAPAROTOMY; OTHER ECTOPIC WITHOUT INTRAUTERINE ; SECTION SCAR ECTOPIC GROSS DESCRIPTION A. Received in formalin labeled "uterus" is a supracervical hysterectomy specimen weighing 197.0 grams and measuring 9.0 x 6.5 x 5.5 cm. The lower uterine segment is remarkable for being focally disrupted and markedly enlarged, measuring 6.5 x 6.0 x 6.0 cm. Opening reveals the lower uterine segment to measure 4.5 cm in length x 5.3 cm in maximum diameter, and to be markedly filled with red-brown hemorrhagic material. Sectioning reveals the hemorrhagic material to extend to 2 mm from the outer surface of the lower uterine segment. The hemorrhagic material appears adherent to the lower uterine segment on both sides. The remaining endometrial cavity measures 3.0 cm in length x 1.5 cm in greatest width and is edematous but otherwise unremarkable. The underlying myometrium is unremarkable, measuring up to 3.0 cm in normal thickness. No additional nodules or lesions are present. Coating Mixer sections are submitted as follows: A1-A4 anterior lower uterine segment with hemorrhagic tissue, A5-A8 posterior lower uterine segment with hemorrhagic tissue, A9 uniforms sales representative superficial aspect of hemorrhagic tissue, A10 anterior uterine wall full-thickness, A11 posterior uterine wall full-thickness. ANNE/fatou 05/10/2020 Gross examination performed at [facility], [address] [place] [address] Date of Report: 05/12/2020 Date of Procedure: 05/08/2020 Date of Receipt: 05/10/2020 Submitted by: RG COHN Additional Physician(s): RYLIE GREGORIO Location: 3ST Diagnostic interpretation performed at [facility], [address] [place] [address]. CLIA Number: [id number] Normal [facility] Serum Beta HCG East//MELONY/ME D/SL/LOon 05-08-2020 HCG.beta subunit Qn Positive Critically abnormal Negative [facility] Type and Screenon 05-08-2020 ABO/RH(D) Positive Normal [facility] HOSPon 05-07-2020 HOSP Patient:Rudi Chin V MRN: Height:5' 8"(1.727 m) Weight:154 lb (69.854 kg) Outpatient Medications as of 05/08/20: SUMAtriptan (IMITREX) 50 mg tablet fluocinonide (LIDEX) 0.05 % cream LORazepam (ATIVAN) 1 mg tablet aspirin/acetaminophen/c affeine (EXCEDRIN MIGRAINE ORAL) acetaminophen (TYLENOL EXTRA STRENGTH) 500 mg tablet Admission/Clinic Administered Medications as of 05/08/20: sodium chloride 0.9 % (flush) 2-10 mL (BD POSIFLUSH) clindamycin iv piggyback 900 mg in D5W 50 mL (CLEOCIN) aztreonam 2 g in D5W 100 mL MB+ (AZACTAM) LORazepam 1 mg tab(s) (ATIVAN) ondansetron orally disintegrating 4 mg tab(s) (ZOFRAN ODT) ondansetron (PF) 4 mg injection (ZOFRAN) metoclopramide HCl 10 mg tab(s) (REGLAN) metoclopramide HCl 10 mg injection (REGLAN) diphenhydrAMINE 25 mg (BENADRYL) diphenhydrAMINE 50 mg injection (BENADRYL) acetaminophen 650 mg tab(s) (TYLENOL) calcium carbonate 1,000 mg chewable tab(s) (TUMS) morphine 1 mg injection NaCl 0.9% iv infusion Problem List: Infantile cerebral palsy (HCC) [G80.9] Moderate anxiety [F41.9] Family history of early CAD [Z82.49] 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 It required patient-provider interaction for the medical decision making as documented below. Chief Complaint Patient presents with: Headache HPI:This Team Access Model visit is a virtual encounter. It required patient-provider interaction for the medical decision making as documented below. Patient was offered a virtual/telemedicine appointment in lieu of an office visit due to recommendations to reduce patient exposure to COVID-19. Patient is aware of limitations of performing the visit without a face to face visit in the office setting and agrees. Migraines - Reports having bad headaches/migraines and feeling tired, not being able to do much. She has them as soon as she wakes up in the morning. She is closing her curtains due to light sensitivity. Pt doesn't have as much energy and she has two kids under the age of 3 that she needs to care for. Pain rated today a 10/10 and described as a constant throbbing pain, occasional shooting pain. She's is using her anxiety medication, Ativan 1 mg 1 tab po bid, Tylenol and Excedrin everyday. 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 She has a f/u with Dr. Blank today due to continued bleeding. Still having bleeding and cramping. Pt reports that Ativan and Betamethasone are not covered under her insurance, needs to discuss what could be covered. She has been using he ativan daily due to increased stress and anxiety. Past medical history, appointments, medications, allergies reviewed. Previous Medical History PAST MEDICAL HISTORY Diagnosis Date - Anxiety - Infantile cerebral palsy, unspecified 10/16/2006 - Other specified infantile cerebral palsy - depression - Vaginal bleeding affecting early 04/10/2020 -03/16 Quant hCG 26,033 -UVUS/TAUS performed no IUP noted, left ovarian cyst -patient to follow up in 48 hours on Sunday, patient in agreeable with plan -return precautions given Previous Surgical History PAST SURGICAL HISTORY Procedure Laterality Date - DELIVERY ONLY 09/05/2019 R/CS low transverse - SECTION HX - D+C 04/16/2020 - LAP CHOLECYSTECT/CHOLANGIOG RIGO 09-09-12 Family History FAMILY HISTORY Problem Relation Age of Onset - Coronary Artery Disease Mother 50 - Arthritis Mother - Psychiatry Mother PTSD - other (degenerative disc disease) Mother - other (anxiety) Mother - Psychiatry Father anxiety/OCD - Diabetes Maternal Aunt - No Known Problems Brother - No Known Problems Son Patient Allergies ALLERGIES Allergen Reactions - Augmentin [Amoxicil* Other: See Comments - Ibuprofen Intolerance, GI Upset Current Medications Current Outpatient Medications on File Prior to Visit Medication Sig - betamethasone dipropionate, augmented (DIPROLENE) 0.05 % cream Apply 1 application to affected area twice daily as needed. - LORazepam (ATIVAN) 1 mg tablet Take 1 tablet by mouth twice daily as needed for Anxiety for up to 30 days. - acetaminophen (TYLENOL EXTRA STRENGTH) 500 mg tablet Take 1 tablet by mouth every 6 hours as needed for Pain. No current facility-administered medications on file prior to visit. Social History Social History Tobacco Use - Smoking status: Never Smoker - Smokeless tobacco: Never Used Substance Use Topics - Alcohol use: Not Currently Comment: occasionally - Drug use: No EXAM: LMP 02/01/2020 (LMP Unknown) Phone visit Health Maintenance List INFLUENZA(1) due on 03/02/2020 PAP TESTING due on 08/01/2022 DTAP,TDAP,TD(8 - Td) due on 08/01/2029 HEPATITIS C SCREENING Completed HIV SCREENING Completed MENINGOCOCCAL CONJUGATE Completed Data reviewed Epic ASSESSMENT/PLAN: 1. Contact dermatitis, unspecified contact dermatitis type, unspecified trigger - ICD9: 692.9, ICD10: L25.9 (primary diagnosis) - Change to lidex cream to see if this is covered by insurance - FLUOCINONIDE 0.05 % TOPICAL CREAM 2. Anxiety - ICD9: 300.00, ICD10: F41.9 Continue current medications. - LORAZEPAM 1 MG TABLET 3. Headache, unspecified headache type - ICD9: 784.0, ICD10: R51.9 Use imitrex along with Excedrin for headache - SUMATRIPTAN 50 MG TABLET Follow up prn 5-10 minutes of time spent on phone call I agree with the Chief Complaint, ROS, and Past Histories independently gathered by the clinical credit support counselor and the remaining scribed note accurately describes my personal service to the patient. Rylie Valera MD The documentation for this note was completed by Brynn Polanco MA acting as scribe for Rylie Valera MD. May 06, 2020 1:19 PM. Brynn Polanco MA Previous Version Progress Notes ([facility]BURET[employer] [facility]PA[facility]): Leanna Blank MD 05/07/2020 12:23 PM Signed Rudi Chin is a 29 year old female who presents for vaginal bleeding AND pelvic pain. HPI: Patient presents with increasing vaginal bleeding AND pelvic pain. This started just over a week ago. She states just after the DANDC she felt overall fine and then returned to work. Patient also has a migraine headache today. PAST MEDICAL HISTORY Diagnosis Date - Anxiety - Infantile cerebral palsy, unspecified 10/16/2006 - Other specified infantile cerebral palsy - depression - Vaginal bleeding affecting early 04/10/2020 -03/16 Quant hCG 26,033 -UVUS/TAUS performed no IUP noted, left ovarian cyst -patient to follow up in 48 hours on Sunday, patient in agreeable with plan -return precautions given PAST SURGICAL HISTORY Procedure Laterality Date - DELIVERY ONLY 09/05/2019 R/CS low transverse - SECTION HX - D+C 04/16/2020 - LAP CHOLECYSTECT/CHOLANGIOG RIGO 09-09-12 FAMILY HISTORY Problem Relation Age of Onset - Coronary Artery Disease Mother 50 - Arthritis Mother - Psychiatry Mother PTSD - other (degenerative disc disease) Mother - other (anxiety) Mother - Psychiatry Father anxiety/OCD - Diabetes Maternal Aunt - No Known Problems Brother - No Known Problems Son Social History Tobacco Use - Smoking status: Never Smoker - Smokeless tobacco: Never Used Substance Use Topics - Alcohol use: Not Currently Comment: occasionally - Drug use: No Current Outpatient Medications Medication Sig - aspirin/acetaminophen/c affeine (EXCEDRIN MIGRAINE ORAL) Take by mouth. - SUMAtriptan (IMITREX) 50 mg tablet Take 1 tablet by mouth as needed for Migraine Headache (see administration instructions). - fluocinonide (LIDEX) 0.05 % cream Apply to affected area twice daily. - LORazepam (ATIVAN) 1 mg tablet Take 1 tablet by mouth twice daily as needed for Anxiety for up to 30 days. - acetaminophen (TYLENOL EXTRA STRENGTH) 500 mg tablet Take 1 tablet by mouth every 6 hours as needed for Pain. No current facility-administered medications for this visit. Allergies As of Date: 05/06/2020 Allergen Noted Reaction AUGMENTIN [AMOXICILLIN-POT CLAVUL*04/10/2020 Other: See Comments IBUPROFEN 09/21/2006 Intolerance and GI Upset Fully Assessed 05/06/2020 REVIEW OF SYSTEMS Expanded ROS: GENERAL: No weight loss, malaise or fevers Allergies and current medication updated:Yes EXAM: BP 112/62 Wt 152 lb (68.9kg) LMP 02/01/2020 GENERAL: pleasant, female in no apparent distress CHEST: Normal inspiratory effort ABDOMEN: soft, diffuse lower abdominal tenderness and no masses PELVIC: deferred NEURO: alert and oriented x3,exam grossly non-focal EXTREMITIES: normal ASSESSMENT AND PLAN: 29yo female with pelvic pain AND vaginal bleeding US shows a complex 6cm mass in the uterus thus patient will be admitted to [facility] for labs, CT scant AND additional monitoring. Await formal US report but on prelim read could be an abscess so will start antibiotics. Patient was originally thought to have a scar ectopic but was then diagnosed with a missed . Thus will further evaluate the origin of patient's abnormal . Leanna Blank MD Previous Version Normal [facility] ANES POSTPROC EVALon 020 ANES POSTPROC EVAL HNO ID: [id number] Author: Nuris Wren Service: ? Author Type: Physician Type: Anesthesia Postprocedure Evaluation Filed: 04/16/2020 7:59 PM Note Text: POST ANESTHESIA EVALUATION NOTE : 1990 Procedure Summary Date: 04/16/20 Room / Location: OR23A / OR Anesthesia Start: 163 Anesthesia Stop: 1758 Procedure: DILATION AND CURETTAGE, SUCTION MISSED , 1ST TRIMESTER (N/A Vagina ) Diagnosis: 10 weeks gestation of Missed (10 weeks gestation of [Z3A.10]) (Missed [O02.1]) Surgeons: Marco A French MD Responsible Provider: Nuris Wren Anesthesia Type: general ASA Status: 2 - Emergent Anesthesia Type: general Last vitals Vitals Value Taken Time BP 100/56 04/16/20 1850 Temp 36.6 ?C (97.9 ?F) 04/16/201849 HR SpO2 59 04/16/201849 Resp 18 04/16/201849 SpO2 97 % 04/16/201849 Post Anesthesia Patient Status Patient Evaluation: PACU. PACU/ICU Patient Condition: stable. Anticipated Disposition: phase 2 then home. Neurological Status: aware and responsive. Pulmonary Status: breathing comfortably on room air Airway Control: returned to baseline unsupported. Cardiovascular Status: stable. Pain Management: clinically adequate Postoperative Hydration: acceptable. Intraoperative Events: no significant anesthesia events Post Operative Nausea/Vomiting Status: no significant post operative nausea or vomiting Anesthetic Observations: no significant anesthetic observations Recommendation: further care per PACU/ICU/floor team. SIGNATURE: Nuris Wren MD PATIENT NAME: Rudi Chin DATE: April 16, 2020 TIME: 7:59 PM CSN: [id number] [facility] ANES PRE-OPon 04-16-2020 ANES PRE-OP HNO ID: [id number] Author: Brett Bailey Service: ? 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 Tracheostomy tube not present Mallampati: II. TM distance: >3 FB. Neck ROM: full ROM without neurological symptoms. Mouth opening: adequate. Short neck: no. Thick neck: no DENTAL Dental findings: teeth intact. Additional exam findings: no II - ANESTHESIA PLAN ASA Score: 2; emergent. Anesthetic Plan: general Airway type: LMA The patient is not a current smoker. NPO Status: adequate Administration of chronic beta carmel medication planned. Monitoring plan: standard ASA. Postoperative analgesic plan: multimodal analgesia and per surgical service. Anesthetic Risks, Benefits, Alternatives, Personnel Discussed. Consent obtained from: patient. Patient / Surrogate agrees to blood products: Yes DNR status not reviewed with patient and/or family prior to surgery. Potential Anesthesia issues that may suggest increased risk of complications or contraindication to planned procedure: none. EPIC CHART REVIEW: ACTIVE PROBLEM LIST Infantile Cerebral Palsy (Hcc) Abdominal Pain Affecting Moderate Anxiety Family History of Early Cad With History of Section, Antepartum Insufficient Care in Third Trimester History of Anxiety History of Depression Group Beta Strep Positive Vaginal Bleeding Affecting Early of Unknown Anatomic Location Missed PAST MEDICAL HISTORY Diagnosis Date - Anxiety - Infantile cerebral palsy, unspecified 10/16/2006 - Other specified infantile cerebral palsy - depression - Vaginal bleeding affecting early 04/10/2020 -03/16 Quant hCG 26,033 -UVUS/TAUS performed no IUP noted, left ovarian cyst -patient to follow up in 48 hours on Sunday, patient in agreeable with plan -return precautions given PAST SURGICAL HISTORY Procedure Laterality Date - DELIVERY ONLY 09/05/2019 R/CS low transverse - SECTION HX - LAP CHOLECYSTECT/CHOLANGIOG RIGO 09-09-12 FAMILY HISTORY Problem Relation Age of Onset - Coronary Artery Disease Mother 50 - Arthritis Mother - Psychiatry Mother PTSD - other (degenerative disc disease) Mother - other (anxiety) Mother - Psychiatry Father anxiety/OCD - Diabetes Maternal Aunt - No Known Problems Brother - No Known Problems Son Social History Tobacco Use - Smoking status: Never Smoker - Smokeless tobacco: Never Used Substance Use Topics - Alcohol use: Not Currently Comment: occasionally - Drug use: No - LORazepam (ATIVAN) 1 mg tablet, Take 1 tablet by mouth twice daily as needed for Anxiety for up to 30 days., Disp: 30 tablet, Rfl: 1, 04/15/2020 at Unknown time - betamethasone dipropionate, augmented (DIPROLENE) 0.05 % cream, Apply 1 application to affected area twice daily as needed., Disp: 50 g, Rfl: 2 - acetaminophen (TYLENOL EXTRA STRENGTH) 500 mg tablet, Take 1 tablet by mouth every 6 hours as needed for Pain., Disp: 30 tablet, Rfl: 0, 04/11/2020 Inpatient medications reviewed in [facility] I have interviewed and examined the patient. I have reviewed the medical record and/or the pre-anesthesia evaluation, pertinent labs, and test results. This contains updated information obtained within 48 hours of Surgery/Procedure. SIGNATURE: Brett Bailey MD PATIENT NAME: Rudi Chin DATE: April 16, 2020 TIME: 3:13 PM : 1990 [facility] ANE PRE-OP HNO ID: [id number] Author: Brett Bailey Service: ? Author Type: Anesthesiologist Type: Anesthesia Preprocedure Evaluation Filed: 04/19/2020 8:04 AM Note Text: OB ANESTHESIA PRE-PROCEDURE ASSESSMENT PATIENT NAME: Rudi Chin : 1990 [employer] ROS Relevant Problems NEURO-PSYCH (+) History of anxiety (+) History of depression I - PHYSICAL EVALUATION AIRWAY Patient intubated: No. Tracheostomy tube not present Mallampati: II. TM distance: >3 FB. Neck ROM: full ROM without neurological symptoms. Mouth opening: adequate. Short neck: no. Thick neck: no DENTAL Dental findings: teeth intact. Additional exam findings: no II - ANESTHESIA PLAN ASA Score: 2; emergent. Anesthetic Plan: general The patient is not a current smoker. NPO Status: adequate EPIC CHART REVIEW: ACTIVE PROBLEM LIST Infantile Cerebral Palsy (Hcc) Abdominal Pain Affecting Moderate Anxiety Family History of Early Cad With History of Section, Antepartum Insufficient Care in Third Trimester History of Anxiety History of Depression Group Beta Strep Positive Vaginal Bleeding Affecting Early of Unknown Anatomic Location Missed PAST MEDICAL HISTORY Diagnosis Date - Anxiety - Infantile cerebral palsy, unspecified 10/16/2006 - Other specified infantile cerebral palsy - depression - Vaginal bleeding affecting early 04/10/2020 -03/16 Quant hCG 26,033 -UVUS/TAUS performed no IUP noted, left ovarian cyst -patient to follow up in 48 hours on Sunday, patient in agreeable with plan -return precautions given PAST SURGICAL HISTORY Procedure Laterality Date - DELIVERY ONLY 09/05/2019 R/CS low transverse - SECTION HX - LAP CHOLECYSTECT/CHOLANGIOG RIGO 09-09-12 FAMILY HISTORY Problem Relation Age of Onset - Coronary Artery Disease Mother 50 - Arthritis Mother - Psychiatry Mother PTSD - other (degenerative disc disease) Mother - other (anxiety) Mother - Psychiatry Father anxiety/OCD - Diabetes Maternal Aunt - No Known Problems Brother - No Known Problems Son Social History Tobacco Use - Smoking status: Never Smoker - Smokeless tobacco: Never Used Substance Use Topics - Alcohol use: Not Currently Comment: occasionally - Drug use: No - LORazepam (ATIVAN) 1 mg tablet, Take 1 tablet by mouth twice daily as needed for Anxiety for up to 30 days., Disp: 30 tablet, Rfl: 1, 04/15/2020 at Unknown time - betamethasone dipropionate, augmented (DIPROLENE) 0.05 % cream, Apply 1 application to affected area twice daily as needed., Disp: 50 g, Rfl: 2 - acetaminophen (TYLENOL EXTRA STRENGTH) 500 mg tablet, Take 1 tablet by mouth every 6 hours as needed for Pain., Disp: 30 tablet, Rfl: 0, 04/11/2020 Inpatient medications reviewed in EPIC I have interviewed and examined the patient. I have reviewed the medical record and/or the pre-anesthesia evaluation, pertinent labs, and test results. This contains updated information obtained within 48 hours of Surgery/Procedure. SIGNATURE: Brett Bailey MD PATIENT NAME: Rudi Chin DATE: April 16, 2020 TIME: 3:07 PM : 1990 Normal [facility] CBCon 04-16-2020 Absolute nRBC <0.01 Normal <0.01 [facility] Erythrocyte distribution width (RBC) [Ratio] 12.0 % Normal 11.5-15.0 [facility] Hematocrit (Bld) [Volume fraction] 36.4 % Normal 36.0-46.0 [facility] Hemoglobin (Bld) [Mass/Vol] 12.2 g/dL Normal 11.5-15.5 [facility] MCH (RBC) [Entitic mass] 29.6 pG Normal 26.0-34.0 [facility] MCHC (RBC) [Mass/Vol] 33.5 g/dL Normal 30.5-36.0 [facility] MCV (RBC) [Entitic vol] 88.3 fL Normal 80.0-100.0 [facility] Platelet mean volume (Bld) [Entitic vol] 9.8 fL Normal 9.0-12.7 [facility] Platelets (Bld) [#/Vol] 208 10*3/uL Normal 150-400 [facility] RBC (Bld) [#/Vol] 4.12 10*6/uL Normal 3.90-5.20 [facility] WBC (Bld) [#/Vol] 6.88 10*3/uL Normal 3.70-11.00 [facility] Comp Metabolic Panelon 04-16 Albumin [Mass/Vol] 4.5 g/dL Normal 3.9-4.9 [facility] ALP [Catalytic activity/Vol] 54 U/L Normal 34-123 [facility] ALT [Catalytic activity/Vol] 9 U/L Normal 7-38 [facility] Anion gap [Moles/Vol] 10 mmol/L Normal 9-18 [facility] AST [Catalytic activity/Vol] 13 U/L Normal 13-35 [facility] Bilirubin [Mass/Vol] 0.7 mg/dL Normal 0.2-1.3 [facility] Calcium [Mass/Vol] 9.3 mg/dL Normal 8.5-10.2 [facility] Chloride [Moles/Vol] 104 mmol/L Normal 97-105 [facility] CO2 [Moles/Vol] 21 mmol/L Low 22-33 [facility] Creatinine [Mass/Vol] 0.45 mg/dL Low 0.58-0.96 [facility] eGFR- Amer. >60 Normal [facility] GFR/1.73 sq M predicted among non-blacks MDRD (S/P/Bld) [Vol rate/Area] mL/min/{1.73_m2} Normal [facility] Comment on above: Result Comment: eGFR (Estimated GFR) Units of measure: mL/min/1.73 meters squared eGFR is derived from the reexpressed MDRD Study equation using the following parameters: serum creatinine, age, gender and race. The creatinine assay has been calibrated to be traceable to IDMS. An eGFR <60 mL/min/1.73m2 for >3 months is consistent with chronic kidney disease. Refer to KDOQI guidelines for clinical interpretation. In patients with unstable renal function, e.g. those with acute kidney injury, the eGFR may not accurately reflect actual GFR. Glucose [Mass/Vol] 94 mg/dL Normal 74-99 [facility] Potassium [Moles/Vol] 4.1 mmol/L Normal 3.7-5.1 [facility] Protein [Mass/Vol] 7.0 g/dL Normal 6.3-8.0 [facility] Sodium [Moles/Vol] 135 mmol/L Low 136-144 [facility] Urea nitrogen [Mass/Vol] 10 mg/dL Normal 7-21 [facility] Expedited [id number] 04-16-20 20 COVID 19 Result [employer] Negative Normal Negative for COVID19 (SARS CoV2) by PCR. [facility] Comment on above: Result Comment: This test has been authorized by FDA under an Emergency Use Authorization (EUA). COVID 19 Source [employer] UPPER RESPIRATORY TR ACT SWAB Normal [facility] HCG, Quantitative Blon 04-16 HCG, Quantitative Bl 37597.0 mU/mL High <5 H [facility] Comment on above: Result Comment: BHARATI TITATIVE HCG NORMAL RANGES Weeks of Gestation (Weeks Since LMP) 3 Weeks (5.8-71.2 mIU/mL) 4 Weeks (9.5-750 mIU/mL) 5 Weeks (217-7138 mIU/mL) 6 Weeks (158-46613 mIU/mL) 7 Weeks (3697-292748 mIU/mL) 8 Weeks (53859-139204 mIU/mL) 9 Weeks (73682-215745 mIU/mL) 10 Weeks (65409-173465 mIU/mL) 12 Weeks (81933-393014 mIU/mL) Referenced to 4th IS of [facility] HISTORY PHYSICALon 0 HISTORY PHYSICAL HNO ID: [id number] Author: Eric Vale Service: General Surgery Author Type: Physician Grappler Type: HANDP Filed: 04/16/2020 3:23 PM Note Text: PRE-OPERATIVE HISTORY AND PHYSICAL EXAMINATION PATIENT NAME: Rudi Chin SERVICE DATE: 04/16/2020 SERVICE TIME: 3:15 PM PRIMARY CARE PHYSICIAN: Rylie Valera MD ASSESSMENT AND PLAN Active Problems: Missed POA: Unknown Assessment AND Plan: DANDC Resolved Problems: * No resolved hospital problems. * SUBJECTIVE CHIEF COMPLAINT: Miscarrage HPI: This is a 29 year old female who presents with abdominal pain and vaginal bleeding since last Sunday.Patient states she is having moderate vaginal Bleeding and pelvic pain.Patient is here today for DANDC. FAMILY HISTORY: FAMILY HISTORY Problem Relation Age of Onset - Coronary Artery Disease Mother 50 - Arthritis Mother - Psychiatry Mother PTSD - other (degenerative disc disease) Mother - other (anxiety) Mother - Psychiatry Father anxiety/OCD - Diabetes Maternal Aunt - No Known Problems Brother - No Known Problems Son SOCIAL HISTORY: Social History Tobacco Use - Smoking status: Never Smoker - Smokeless tobacco: Never Used Substance Use Topics - Alcohol use: Not Currently Comment: occasionally - Drug use: No CURRENT ALLERGIES: ALLERGIES Allergen Reactions - Augmentin [Amoxicil* Other: See Comments - Ibuprofen Intolerance, GI Upset MEDICATIONS: Prior to Admission Medications Current Facility-Administered Medications Medication Dose Route Frequency - lidocaine 10 mg/mL (1 %) 1-2 mg injection (XYLOCAINE) 0.1-0.2 mL INTRADERMAL PRN - lactated ringers infusion 5-30 mL/hr INTRAVENOUS CONTINUOUS - doxycycline 100 mg in D5W 250 mL Vial-Mate (VIBRAMYCIN) 100 mg INTRAVENOUS ONCE PAST MEDICAL HISTORY: PAST MEDICAL HISTORY Diagnosis Date - Anxiety - Infantile cerebral palsy, unspecified 10/16/2006 - Other specified infantile cerebral palsy - depression - Vaginal bleeding affecting early 04/10/2020 -03/16 Quant hCG 26,033 -UVUS/TAUS performed no IUP noted, left ovarian cyst -patient to follow up in 48 hours on Sunday, patient in agreeable with plan -return precautions given PAST SURGICAL HISTORY: PAST SURGICAL HISTORY Procedure Laterality Date - DELIVERY ONLY 09/05/2019 R/CS low transverse - SECTION HX - LAP CHOLECYSTECT/CHOLANGIOG RIGO 09-09-12 ANESTHESIA COMPLICATIONS: No reported complications related to a previous exposure to anesthesia or a difficult intubation. REFUSES BLOOD PRODUCTS: no COMPLETE REVIEW OF SYSTEMS: GENERAL: No weight loss, malaise or fevers HEENT: Negative for frequent or significant headaches, No changes in hearing or vision, no nose bleeds or other nasal problems NECK: Negative for lumps, goiter, pain and significant neck swelling RESPIRATORY: Negative for cough, hemoptysis, wheezing, COPD, dyspnea or shortness of breath CARDIOVASCULAR: Negative for chest pain, leg swelling, hypertension, CHF or palpitations GI: No nausea, vomiting, or diarrhea : No history of dysuria, frequency or incontinence CORONER TRANSPORT TECHNICIAN: SEE HPI. MUSCULOSKELETAL: Negative for joint pain or swelling, back pain or muscle pain SKIN: Negative for lesions, rash, and itching PSYCH:anxiety HEMATOLOGY/LYMPHOLOGY: Negative for prolonged bleeding, bruising easily or swollen nodes ENDOCRINE: Negative for cold or heat intolerance, polyuria, polydipsia and goiter NEURO: Migraine headaches All other reviewed and negative other than HPI. OBJECTIVE PHYSICAL EXAM: Patient Vitals for the past 24 hrs: BP Temp Temp src Pulse Resp SpO2 04/16/20 1439 110/56 36.8 ?C (98.2 ?F) Oral (!) 59 18 99 % There is no height or weight on file to calculate BMI. GENERAL: Alert, no distress, cooperative, Crying SKIN: Skin color, texture, turgor normal. No rashes or lesions. HEAD/SINUSES: No significant findings EYES: PERRLA, EOMI OROPHARYNX: Lips, mucosa, and tongue normal. Teeth and gums normal. Oropharynx normal. NECK: No jugulovenous distention BACK: Back symmetric, Normal curvature, ROM normal, No CVAT. LUNGS: Lungs clear to auscultation, Good diaphragmatic excursion CARDIAC: RRR, normal S1 and S2; no rubs, murmurs, or gallops ABDOMEN: positive findings: tenderness: mild location: generalized EXTREMITIES: Extremities normal, no deformities, edema, clubbing or skin discoloration. Good capillary refill., No ulcers NEURO: Gait normal. Sensation grossly intact., Cranial nerves II-XII intact DATA: Diagnostic tests reviewed for today's visit: Most recent imaging SIGNATURE: Eric Vale PA-C DATE: April 16, 2020 TIME: 3:15 PM [facility] HISTORY PHYSICAL HNO ID: [id number] Author: Marco A French MD Service: Gynecology Author Type: Physician Type: HANDP Filed: 04/16/2020 4:04 PM Note Text: Summary: Missed HISTORY AND PHYSICAL EXAMINATION GYNECOLOGY SERVICE DATE: 04/16/2020 SERVICE TIME: 2:56 PM PRIMARY CARE PHYSICIAN: Rylie Valera MD CHIEF COMPLAINT/HISTORY OF PRESENT ILLNESS: Ms. Chin is a 29 year old female referred to me for preoperative evaluation. Pt is 29 YO that present ot MFM for follow up Sono due to concern for C/S scar Ectopic but not current availble images. Was given MTX Sunday for concern and then lost to follow up. Pt was seen today by MFM and MAB was Dx - see impression below. Pt has been having cramping since Sunday when she presented to ED. Some vaginal bleeding as well. Referring Surgeon: Dr. Keating Date of Surgery: 04/16/2020 Planned Surgery/Procedure: Suction DANDC Indication for Planned Surgery / Procedure: Missed Refer to Assessment section for details of any comorbidities. Patient is Able to Perform the Following Physical Activity: Totally dependent Significant Anesthesia Considerations: None. PAST MEDICAL/SURGICAL/FAMILY /SOCIAL HISTORY PAST MEDICAL HISTORY Diagnosis Date - Anxiety - Infantile cerebral palsy, unspecified 10/16/2006 - Other specified infantile cerebral palsy - depression - Vaginal bleeding affecting early 04/10/2020 -03/16 Quant hCG 26,033 -UVUS/TAUS performed no IUP noted, left ovarian cyst -patient to follow up in 48 hours on Sunday, patient in agreeable with plan -return precautions given PAST SURGICAL HISTORY Procedure Laterality Date - DELIVERY ONLY 09/05/2019 R/CS low transverse - SECTION HX - LAP CHOLECYSTECT/CHOLANGIOG RIGO 09-09-12 FAMILY HISTORY Problem Relation Age of Onset - Coronary Artery Disease Mother 50 - Arthritis Mother - Psychiatry Mother PTSD - other (degenerative disc disease) Mother - other (anxiety) Mother - Psychiatry Father anxiety/OCD - Diabetes Maternal Aunt - No Known Problems Brother - No Known Problems Son SOCIAL HISTORY Social History Tobacco Use - Smoking status: Never Smoker - Smokeless tobacco: Never Used Substance Use Topics - Alcohol use: Not Currently Comment: occasionally - Drug use: No MEDICATIONS/ALLERGIES Current Facility-Administered Medications Medication Dose Route Frequency Provider Last Rate Last Dose - lidocaine 10 mg/mL (1 %) 1-2 mg injection (XYLOCAINE) 0.1-0.2 mL INTRADERMAL PRN Marco A French MD - lactated ringers infusion 5-30 mL/hr INTRAVENOUS CONTINUOUS Marco A French MD - doxycycline 100 mg in D5W 250 mL Vial-Mate (VIBRAMYCIN) 100 mg INTRAVENOUS ONCE Marco A French MD ALLERGIES Allergen Reactions - Augmentin [Amoxicil* Other: See Comments - Ibuprofen Intolerance, GI Upset REVIEW OF SYSTEMS General: No weight loss, malaise or fevers. Respiratory: No history of current cough or dyspnea, or pneumonia in the past 6 weeks. No history of respiratory/pulmonary symptoms or problems. Cardiovascular: No history of HTN requiring medication, no history of angina, CHF, CO, cardiac surgery or stents. Denies rest pain, gangrene or revascularization/amput ation for PVD. No history of cardiovascular symptoms or problems. GI: GERD : No history of UTI in past 6 weeks. No history of renal failure. Not currently on or requiring dialysis. No history of symptoms or problems. CORONER TRANSPORT TECHNICIAN: VB Psych: Anxiety Skin: Negative for lesions, rash, and itching. PHYSICAL EXAM VITALS: BP 110/56 Pulse 59 Temp (Src) 98.2 (Oral) Resp 18 SpO2 99% LMP 02/01/2020 O2 Therapy: Room Air General: Alert and oriented, Distressed Skin: Normal color, no rash, no lesions. HEENT: EOM, pupils equal, round and reactive. Cardiovascular: Normal S1 AND S2, no rubs, murmurs or gallops. No JVD. Pulse regular. Lungs: Normal breath sounds, no wheezes or crackles. Abdomen: Soft, non-tender, no rigidity. Extremities: No deformity, no edema or tenderness, no joint swelling or clubbing. Neurological: Normal cognition and motor skills. Pulses: Carotid and radial pulses normal +2. ASSESSMENT Ms. Chin is a 29 year old female referred to me for preoperative evaluation. Patient has the following medical comorbidities which might affect the perioperative course: There is no known pertinent medical condition which may affect sariah-operative course The patient is scheduled for a low-risk procedure. Diagnostic tests reviewed for today's visit: Most recent labs Most recent imaging [facility] 04/16/2020 Impression The patient presents for evaluation of viability in the setting of concern for an ectopic . She had IM methotrexate injection at [facility] over the weekend. 1. There is an intrauterine gestation. A yolk sac and pole are noted without ? heart tones. The is implanted low in the uterus, however, this is ?not definitely a scar ectopic as the appears to be in the endometrial cavity. 2. Normal left ovary and adnexa. The right ovary was not visualized. PLAN/RECOMMENDATIONS MAB -Suction DANDC -CBC,CMP, type and screen, Quant , COVID orded -Pt given risks and benefits of surgery including infection, blood loss, uterine perforation. Patient Instructions: I have discussed the above recommendations with the patient in detail, in mario and lay terms, and provided a written summary of instructions as needed. We have discussed that no surgery is without risk SIGNATURE: Marco A French PATIENT NAME: Rudi Chin DATE: April 16, 2020 TIME: 2:56 PM [facility] HOSP 04-16-2020 HOSP Patient:Rudi Chin V MRN: Height:5' 7"(1.702 m) Weight:155 lb (70.308 kg) Outpatient Medications as of 04/16/20: LORazepam (ATIVAN) 1 mg tablet betamethasone dipropionate, augmented (DIPROLENE) 0.05 % cream acetaminophen (TYLENOL EXTRA STRENGTH) 500 mg tablet Admission/Clinic Administered Medications as of 04/16/20: lidocaine 10 mg/mL (1 %) 1-2 mg injection (XYLOCAINE) lactated ringers infusion doxycycline 100 mg in D5W 250 mL Vial-Mate (VIBRAMYCIN) Problem List: Infantile cerebral palsy (HCC) [G80.9] Abdominal pain affecting [O26.899, R10.9] Moderate anxiety [F41.9] Family history of early CAD [Z82.49] with history of section, antepartum [O34.219] Insufficient care in third trimester [O09.33] History of anxiety [Z86.59] History of depression [Z87.59, Z86.59] Group beta Strep positive [B95.1] Vaginal bleeding affecting early [O20.9] of unknown anatomic location [O36.80X0] Missed [O02.1] Allergies: Augmentin [Amoxicillin-Pot Clavulanate] Ibuprofen Date Verified: 04/16/20 Lab Values Lab Value Units Date High Low POTA* 4.1 mmol/L 04/16/2020 5.1 3.7 BARRIE* 36.4 % 04/16/2020 46.0 36.0 Progress Notes (CARBURETOR REPAIRER [address]): Pallavi Gonzales RN 04/16/2020 10:11 AM Signed Patient called and [facility] transportation fell through to get her to her appointment today. [facility] is still trying to find a ride. Spoke with Dr. Keating regarding patient. Patient notified if she is unable to come for appointment here by noon to go now to [facility] and patient may be transferred from there. Patient verbalized understanding and will call office back and let us know if she is on her way here for appointment or is going to [facility] hospital. Reinforced need for importance of patient to be seen. Patient verbalized understanding. Pallavi Gonzales RN Progress Notes (CARBURETOR REPAIRER [address]): Malena Keating MD 04/16/2020 1:49 PM Signed Patient here for ultrasound. See ultrasound report for details. Malena Keating MD [facility] NURSING PROGon 04-16-2020 NURSING PROG HNO ID: [id number] Author: Nayana (Rn) EVAN Aaron Service: ? Author Type: Registered Nurse Type: Nursing Progress Note Filed: 04/16/2020 6:31 PM Note Text: Nursing Progress Note Patient Name: Rudi Chin Patient Location: [facility] OR POOL/[facility] OR POOL Daily Note: 1746 pt arrived to pacu from the OR on 3 L NC arousing to verbal stimuli some pain per pt minimal bleeding noted on pad 1813 warm blankets applied for comfort medicated for pain 1829 mom bedside with pt This note was completed by: Nayana Aaron RN [facility] OPERATIVE NOon 04-16-2020 OPERATIVE NO HNO ID: [id number] Author: Marco A French MD Service: Gynecology Author Type: Physician Type: Operative Report Filed: 04/16/2020 6:29 PM Note Text: Summary: Suction DANDC for MAB OPERATIVE/PROCEDURE REPORT LOG ID: [id number] SURGERY/PROCEDURE DATE: 04/16/2020 INCISION/PROCEDURE START TIME: 5:05 PM INCISION CLOSE/PROCEDURE END TIME: 5:33 PM SURGEON(S)/PROCEDURALIS T(S) AND BEAD SUPERVISOR(S): Surgeon(s) and Role: * Marco A French MD - Primary No Additional Staff SURGERY/PROCEDURE(S): Suction Dilation and Curettage ANESTHESIA: General SURGERY/PROCEDURE DETAILS: Patient was taken to the operating room where the sign-in and time out were completed. General anesthesia was induced and found to be adequate. She was placed in a dorsal lithotomy position with Alejo stirrups with careful attention not to hyperflex or hyperextend the knees or hips. SCDs were placed and turned on for DVT prophylaxis. Patient was prepped and draped in the normal sterile manner. Examination under anesthesia performed and uterus was noted to be anteverted 10 week size. A speculum was placed in the vagina and cervix was grasped with a tenaculum. Cervix was gently dilated to 8 mm to allow passage of # 8 suction curette. Good return of tissue was noted with several passes of suction curette. Sharp curettage was performed gently in a circumferential fashion. No further identifiable tissue noted/obtained. Frozen was sent due to question of Ectopic and was confirmed Chorionic Villi. There was brisk bleeding from cervical Os, the inside of the uterus was explored with curette -rough feeling circumfertially. 1000mcg cytotec was placed rectal. Good hemostasis was noted and all instruments were removed. Sign-out was completed. Pt was Given Doxycycline Intra Op. PRE-OP/PRE-PROCEDURE DIAGNOSIS: Missed POST-OP/POST-PROCEDURE DIAGNOSIS: Same as Preop ESTIMATED BLOOD LOSS: 1000 mls SPECIMENS: Products of Conception COMPLICATIONS: None PARTICIPATION IN SURGERY/PROCEDURE: I/primary surgeon/proceduralist performed the procedure with assistance. No qualified resident/fellow was available. SIGNATURE: Marco A French PATIENT NAME: Rudi Chin DATE: April 16, 2020 TIME: 6:18 PM PAGER/CONTACT #: [phone] Normal [facility] SURGICAL PATHOLOGYon 020 SURGICAL PATHOLOGY Specimen originated from [facility] Specimen #: [id number] Submitting Physician: MARCO A FRENCH FINAL DIAGNOSIS Products of conception, removal (A and B) - Degenerating immature chorionic villi and membranes. - Fragments of inflamed and partially necrotic decidua. - Gestational endometrium with focal stromal breakdown. Susie Centeno M.D. (Electronic Signature) SPECIMEN SUBMITTED A: PRODUCTS OF CONCEPTION B: PRODUCTS OF CONCEPTION CLINICAL DATA 10 WEEKS GESTATION OF MISSED INTRAOPERATIVE CONSULT DIAGNOSIS FSA1: Chorionic villi present. (Dr. Ray) Intraoperative diagnosis performed at [facility], [address] [place] [address] GROSS DESCRIPTION A. Received fresh for frozen section analysis labeled "products of conception" is a 7.5 x 7.2 x 2.0 cm aggregate of red-brown, irregular, hemorrhagic tissue fragments. Probable chorionic villi are identified. Probable chorionic villi are frozen in FSA1 and submitted for permanent processing in A1-A2. No cystic structures are identified. No fragments are identified. Additional sections are submitted for permanent processing in A3. B. Received in formalin labeled "products of conception" is a 6.5 x 4.7 x 1.5 cm aggregate of red-brown, irregular, hemorrhagic soft tissue fragments. No definitive chorionic villi are identified. No cystic structures are identified. No fragments are identified. Coating Mixer sections are submitted in three cassettes. NEH/td 04/19/2020 Gross examination performed at [facility], [address] [place] [address] Date of Report: 04/21/2020 Date of Procedure: 04/16/2020 Date of Receipt: 04/16/2020 Submitted by: MARCO A FRENCH Location: [facility] Diagnostic interpretation performed at [place] [address]. [place] Number: [id number] Normal [facility] Type and Screenon 04-16-2020 ABO/RH(D) Positive [facility]) [facility] V ([id number]) 1990 F Date Time Provider Department 04/13/20 JOS JEFFERSON (RES) AKAUSTEN During your visit today, we recorded the following information about you: Jos Jefferson DO 04/13/2020 1:39 PM Signed Patient did not show on 04/12/2020 for additional testing, patient was unable to be contacted the night of the or the . Primary PCP Dr. Valera was contacted this morning and I spoke to LAZARUS Rothman to inform patient to contact [facility] OB dept. for follow up testing. Patient had a 3 pm apt with his office today and patient will be notified if she shows. I will attempt to order Quant. HCG lab if patient show for PCP apt it could be drawn at that time. Hospital course: Patient was sent from [place] [facility] to [facility] OB ED for possible ruptured ectopic . At that time it was found that there was a low suspicion for a ruptured ectopic and in discussing options with the patient she decided for return visit 04/12/2020 to [facility] for follow up quant hcg and possible evaluation. Rylie Valera MD 04/13/2020 4:48 PM Signed FYI; Pt went back to ER in [place] and has follow up through Life Science Technical Officer down here. Rylie Valera MD Allergies As of Date: 04/13/2020 Noted Allergy Reaction AUGMENTIN (AMOXICILLIN-POT CLAVUL*04/10/2020 14 - Other: See Comments IBUPROFEN 09/21/2006 5 - Intolerance 8 - GI Upset Date Reviewed: 04/13/2020 Reviewed by: Brynn Polanco MA - Fully Assessed Reason for Visit: Green Building Energy Engineer - Hospital Follow Up [3601] Primary Visit Diagnosis: of unknown anatomic location [O36.80X0] Order(s):HCG QUANTITATIVE [SQHCGQT] Order #: [id number] FUTURE Prescriptions as of 04/13/2020 Sig: ACETAMINOPHEN 500 MG TABLET Take 1 tablet by mouth every * Problem List As Of Date 04/13/2020 Noted Resolved Infantile cerebral palsy (HCC) [G80.9] 10/16/2006 More... Abdominal pain affecting [O26.899, R1*05/08/2018 More... Moderate anxiety [F41.9] 05/08/2018 Family history of early CAD [Z82.49] 05/08/2018 More... with history of section, ant*07/31/2019 More... Insufficient care in third trimester [*07/31/2019 More... History of anxiety [Z86.59] 07/31/2019 More... History of depression [Z87.59, Z86.5*07/31/2019 More... Group beta Strep positive [B95.1] 09/02/2019 Vaginal bleeding affecting early [O20*04/10/2020 More... of unknown anatomic location [O36.80X*04/11/2020 More... Encounter Status:Closed by JOS JEFFERSON DO on 04/13/20 Normal [facility] B-HCG SerPl-[place]Cn[place] 0 [place] [address].0 m[IU]/mL High <5.0 [facility] Comment on above: Order Comment: Speci men Type: BLOOD SPECIMEN Result Comment: BHARATI TITATIVE HCG NORMAL RANGES Weeks of Gestation (Weeks Since LMP) 3 Weeks (5.8-71.2 mIU/mL) 4 Weeks (9.5-750 mIU/mL) 5 Weeks (217-7138 mIU/mL) 6 Weeks (158-18788 mIU/mL) 7 Weeks (3697-488757 mIU/mL) 8 Weeks (89016-107178 mIU/mL) 9 Weeks (69207-016907 mIU/mL) 10 Weeks (60768-547502 mIU/mL) 12 Weeks (11643-436642 mIU/mL) Referenced to 4th IS of [facility] Performed By: #### 2 1198-7 #### [facility] CLIA [id number] [address] [place] [address] NURSING PROGon 04-11-2020 NURSING PROG HNO ID: [id number] Author: Geno JacksonRn) EVAN Arellano Service: Nursing Author Type: Registered Nurse Type: Nursing Progress Note Filed: 04/11/2020 1:06 AM Note Text: Pt came to [facility] via squad and unable to obtain ride back home to [place]. Nursing supervisor assembling notified and 4-A-RIDE approved by Mirela White to take pt back home. Normal [facility] PROCEDUREon 04-11-2020 PROCEDURE HNO ID: [id number] Author: Jos Jefferson Service: Obstetrics Author Type: Resident Type: Procedures Filed: 04/11/2020 12:51 AM Note Text: Attestation signed by Nazario Boo at 04/11/2020 6:22 AM Attestation: I was present for the critical and sanchez portions of the surgery and I was immediately available to provide assistance. Signature: Nazario Boo DO [facility] OB ULTRASOUND REPORT SERVICE DATE: April 10, 2020 SERVICE TIME: 10:52 PM INDICATION: Evaluate a suspected ectopic , Evaluate vaginal bleeding and Evaluate pelvic pain Number of fetuses: No intrauterine seen Gestational age: Clinical: 9 weeks 6 days Maternal Structures: Adnexae: Cyst Left TVUS height 2.89cm Cul de sac: Absent Interpretation: At this time there is not a intrauterine and the patient has a left ovarian cyst will need to correlate clinically Images associated with this report can be found under the "Get Images" tab in [employer]. Dr. Boo present for the US SIGNATURE: Jos Jefferson DO PATIENT NAME: Rudi Chin DATE: April 11, 2020 TIME: 12:45 AM PAGER/CONTACT #: [phone] [facility] PROGRESSon 04-11-2020 PROGRESS HNO ID: [id number] Author: Jos Jefferson Service: Obstetrics Author Type: Resident Type: Progress Notes Filed: 04/11/2020 7:26 AM Note Text: Attestation signed by Nazario Boo at 04/11/2020 8:32 AM Attending Note I personally saw and examined the patient. I reviewed the resident's note. I agree with the resident's assessment and plan unless otherwise noted. Signature: Nazario Boo, DO [facility]STET[facility] OB ED PROGRESS NOTE SERVICE DATE: April 10, 2020 SERVICE TIME: 10:52 AM Subjective Patient's stated reason for arrival: CHIEF COMPLAINT: abdominal pain HISTORY OF THE PRESENT ILLNESS: The patient is a 29 year old female, , who is at 10w0d based off of LMP dating method. Patient was sent here via ambulance from [facility] ED for possible ectopic vs ovarian cyst. Denies contractions., Denies leaking of fluid. Patient states that she went to the ED today due to abdominal cramping and some vaginal spotting which started around 0700 on 04/10. She noticed right red blood when wiping and in the toilet around 1130 and went to the ED. Currently no active bleeding or passage of clots. Rating abdominal pain minimal at this time but states during her previous US it was more cramping in the left lower abdomen. Patient just had her second scheduled repeat c/s 09/05/2019 and was concerned when they told her it could possible be a c/s scar ectopic . Had a prior c/s on 08/29/2017. Does not have any scar pain at this time. Patient states this was not a desired but she was happy when she found out. At this time the patient has not had her NOB visit and has not had a documented IUP at this time. Last quant was drawn 03/16 which was 26,033. This quant is too far in the past to correlate with labs drawn today it was discussed with the patient the low suspicion for a ruptured ectopic and that to evaluate the further and to trend hCG levels that she would have to return in 48 hours for follow up labs. PAST MEDICAL HISTORY Diagnosis Date - Anxiety - Infantile cerebral palsy, unspecified 10/16/2006 - Other specified infantile cerebral palsy - depression - Vaginal bleeding affecting early 04/10/2020 -03/16 Quant hCG 26,033 -UVUS/TAUS performed no IUP noted, left ovarian cyst -patient to follow up in 48 hours on Sunday, patient in agreeable with plan -return precautions given PAST SURGICAL HISTORY Procedure Laterality Date - DELIVERY ONLY 09/05/2019 R/CS low transverse - SECTION HX - LAP CHOLECYSTECT/CHOLANGIOG RIGO 09-09-12 FAMILY HISTORY Problem Relation Age of Onset - Coronary Artery Disease Mother 50 - Arthritis Mother - Psychiatry Mother PTSD - other (degenerative disc disease) Mother - other (anxiety) Mother - Psychiatry Father anxiety/OCD - Diabetes Maternal Aunt - No Known Problems Brother - No Known Problems Son Obstetric History T2 L2 SAB1 TAB0 Ectopic0 Multiple0 Live Births2 REVIEW OF SYSTEMS: PAIN ASSESSMENT: CURRENTLY HAVING PAIN; LOCATION/DISTRIBUTION: left lower abdomen PAIN CHARACTER: aching GENERAL: No weight loss, malaise or fevers. RESPIRATORY: Negative for cough, hemoptysis, wheezing, COPD, dyspnea or shortness of breath CARDIOVASCULAR: Negative for chest pain, leg swelling, hypertension, CHF or palpitations : No history of dysuria, frequency or incontinence CORONER TRANSPORT TECHNICIAN: Negative for abnormal vaginal discharge, having some spotting MUSCULOSKELETAL: denies back pain or calf tenderness NEURO: Denies NATION or visual changes The remainder of the review of systems is negative. Objective LAST VITALS: Pulse BP Resp O2 Sat Temp 62 124/71 17 100 % 36.8 ?C (98.3 ?F) Pain Score Trend (last 4 values) 04/10/209 Pain Level: 9 HT/WT/BMI: Height Weight BMI 170.2 cm (5' 7") 70.3 kg (155 lb) 24.28 PHYSICAL EXAM: General: WD, WN, uncomfortable to deep palpation but distractible Heart: RR Lungs: clear to auscultation Abdomen: soft, no peritoneal sign, no rebound or gaurding, pain to deep palpation of the left lower abdomen Uterus: soft, NT SSE: deferred due to no active bleeding or passage of clots MONITORING/ASSESSMENT: Not applicable Ultrasound: See detailed US report: no IUP noted with normal nongravid uterus, left cyst noted. US and physical exam performed with attending. LABS Diagnostic tests reviewed for today's visit: Most recent labs and imaging results. Assessment/Plan 29 year old EGA:10w0d. Active Hospital Problems Diagnosis Date Noted - Abdominal pain affecting 05/08/2018 Priority: E Overview Note: -UVUS/TAUS performed no IUP noted, left ovarian cyst -Patient to follow up in 48 hours on Thursday 04/12 for repeat quant. with a possible referral to eval for US of left ovary, patient is agreeable with plan -Patient was encouraged to follow up at [facility] for repeat labs incase further evaluation was needed at that time, patient is agreeable -Patient desires to return home if surgery is not indicated at this time return precautions given and patient understands - of unknown anatomic location 04/11/2020 Overview Note: -No prior IUP noted via US -Low suspicion for ruptured ectopic at this time - Vaginal bleeding affecting early 04/10/2020 Overview Note: -03/16 Quant hCG 26,033 -04/10 Quants hCG 25,696 -hCG quantitative level drawn on 03/16 was too distant to correlate with the lab drawn today to differentiate new , plan will be to follow up quant in 48 hours to trend levels Discussed with Dr. Boo SIGNATURE: Jos Jefferson DO PATIENT NAME: Rudi Chin DATE: April 11, 2020 TIME: 12:22 AM PAGER/CONTACT #: [phone] Normal [facility] Vital Signs Date Time Vital Sign Value Performing Clinician Facility 08-19-2024 19:48-0500 Body mass index (BMI) [Ratio] 32.01 kg/m2 Maikol Piedra PA Work Phone: [facility] 08-19-2024 19:48-0500 Body temperature 98.4 [degF] Maikol Piedra PA Work Phone: [facility] 08-19-2024 19:48-0500 Body weight 95.5 kg Maikol Piedra PA Work Phone: [facility] 08-19-2024 19:48-0500 Diastolic blood pressure 84 mm[Hg] Maikol Piedra PA Work Phone: [facility] 08-19-2024 19:48-0500 Heart rate 84 /min Krislyn Aberegg PA Work Phone: [facility] 08-19-2024 19:48-0500 Respiratory rate 18 /min Krislyn Aberegg PA Work Phone: [facility] 08-19-2024 19:48-0500 SaO2% (BldA) [Mass fraction] 99 % Krislyn Aberegg PA Work Phone: [facility] 08-19-2024 19:48-0500 Systolic blood pressure 132 mm[Hg] Krislyn Aberegg PA Work Phone: [facility] 08-13-2024 19:38-0500 Body mass index (BMI) [Ratio] 31.31 kg/m2 Humza Rogers MD Work Phone: [facility] 08-13-2024 19:38-0500 Body temperature 97.7 [degF] Humza Rogers MD Work Phone: [facility] 08-13-2024 19:38-0500 Body weight 93.4 kg Humza Rogers MD Work Phone: [facility] 08-13-2024 19:38-0500 Diastolic blood pressure 76 mm[Hg] Humza Rogers MD Work Phone: [facility] 08-13-2024 19:38-0500 Heart rate 70 /min Humza Rogers MD Work Phone: [facility] 08-13-2024 19:38-0500 Respiratory rate 19 /min Humza Rogers MD Work Phone: [facility] 08-13-2024 19:38-0500 SaO2% (BldA) [Mass fraction] 98 % Humza Rogers MD Work Phone: [facility] 08-13-2024 19:38-0500 Systolic blood pressure 118 mm[Hg] Humza Rogers MD Work Phone: [facility] 05-28-2024 14:34-0500 Body mass index (BMI) [Ratio] 33.45 kg/m2 Cheyenne Tannhof RUG HOOKER HAND.CARD STRIPPER Work Phone: [facility] 05-28-2024 14:34-0500 Body weight 99.79 kg Cheyenne Tannhof RUG HOOKER HAND.CARD STRIPPER Work Phone: [facility] 05-28-2024 14:34-0500 Diastolic blood pressure 78 mm[Hg] Cheyenne Tannhof RUG HOOKER HAND.CARD STRIPPER Work Phone: [facility] 05-28-2024 14:34-0500 Heart rate 107 /min Cheyenne Tannhof RUG HOOKER HAND.CARD STRIPPER Work Phone: [facility] 05-28-2024 14:34-0500 Respiratory rate 16 /min Cheyenne Tannhof RUG HOOKER HAND.CARD STRIPPER Work Phone: [facility] 05-28-2024 14:34-0500 SaO2% (BldA) [Mass fraction] 98 % Cheyennedeena Duranthof RUG HOOKER HAND.CARD STRIPPER Work Phone: [facility] 05-28-2024 14:34-0500 Systolic blood pressure 114 mm[Hg] Cheyenne Tannhof RUG HOOKER HAND.CARD STRIPPER Work Phone: [facility] 04-25-2024 08:32-0400 Body mass index (BMI) [Ratio] 33.45 kg/m2 Yeyo Garret RUG HOOKER HAND.CARD STRIPPER Work Phone: [facility] 04-25-2024 08:32-0400 Body weight 99.8 kg Yeyo Garret RUG HOOKER HAND.CARD STRIPPER Work Phone: [facility] 04-25-2024 08:32-0400 Diastolic blood pressure 88 mm[Hg] Yeyo Garret RUG HOOKER HAND.CARD STRIPPER Work Phone: [facility] 04-25-2024 08:32-0400 Heart rate 68 /min Yeyo Garret RUG HOOKER HAND.CARD STRIPPER Work Phone: [facility] 04-25-2024 08:32-0400 Respiratory rate 16 /min Yeyo Garret RUG HOOKER HAND.CARD STRIPPER Work Phone: [facility] 04-25-2024 08:32-0400 SaO2% (BldA) [Mass fraction] 97 % Yeyo Melton RUG HOOKER HAND.CARD STRIPPER Work Phone: [facility] 04-25-2024 08:32-0400 Systolic blood pressure 134 mm[Hg] Yeyo Melton RUG HOOKER HAND.CARD STRIPPER Work Phone: [facility] 12-17-2023 08:21-0400 Diastolic blood pressure 65 mm[Hg] Navarro Garcia DDS Work Phone: [facility] 12-17-2023 08:21-0400 Heart rate 79 /min Navarro Garcia DDS Work Phone: [facility] 12-17-2023 08:21-0400 Systolic blood pressure 134 mm[Hg] Navarro Garcia DDS Work Phone: [facility] 12-03-2023 17:30-0400 Body mass index (BMI) [Ratio] 32.11 kg/m2 Wendy Navarroisler-Juan Francisco RUG HOOKER HAND.CARD STRIPPER Work Phone: [facility] 12-03-2023 17:30-0400 Body temperature 98.4 [degF] Wendy Praisler-Wood RUG HOOKER HAND.CARD STRIPPER Work Phone: [facility] 12-03-2023 17:30-0400 Body weight 95.8 kg Wendy Praisler-Wood RUG HOOKER HAND.CARD STRIPPER Work Phone: [facility] 12-03-2023 17:30-0400 Diastolic blood pressure 64 mm[Hg] Wendy Praisler-Wood RUG HOOKER HAND.CARD STRIPPER Work Phone: [facility] 12-03-2023 17:30-0400 Heart rate 88 /min Wendy Praisler-Wood RUG HOOKER HAND.CARD STRIPPER Work Phone: [facility] 12-03-2023 17:30-0400 Respiratory rate 16 /min Wendy Praisler-Wood RUG HOOKER HAND.CARD STRIPPER Work Phone: [facility] 12-03-2023 17:30-0400 SaO2% (BldA) [Mass fraction] 98 % Wendy Praisler-Wood RUG HOOKER HAND.[facility] Work Phone: [facility] 12-03-2023 17:30-0400 Systolic blood pressure 110 mm[Hg] Wendy Praisler-Wood RUG HOOKER HAND.[facility] Work Phone: [facility] 11-08-2023 10:01-0400 Body mass index (BMI) [Ratio] 31.51 kg/m2 Wendy Praisler-Wood RUG HOOKER [employer].[facility] Work Phone: [facility] 11-08-2023 10:01-0400 Body temperature 98.01 [degF] Wendy Praisler-Wood RUG HOOKER HAND.[facility] Work Phone: [facility] 11-08-2023 10:01-0400 Body weight 94 kg Wendy Praisler-Wood RUG HOOKER [employer].[facility] Work Phone: [facility] 11-08-2023 10:01-0400 Diastolic blood pressure 78 mm[Hg] Wendy Praisler-Wood RUG HOOKER HAND.[facility] Work Phone: [facility] 11-08-2023 10:01-0400 Heart rate 88 /min Wendy Praisler-Wood R[employer].[facility] Work Phone: [facility] 11-08-2023 10:01-0400 Respiratory rate 16 /min Wendy Praisler-Wood RUG HOOK[employer].[facility] Work Phone: [facility] 11-08-2023 10:01-0400 SaO2% (BldA) [Mass fraction] 98 % Wendy Praisler-Wood RUG HOOKER HAND.CARD STRIPPER Work Phone: [facility] 11-08-2023 10:01-0400 Systolic blood pressure 142 mm[Hg] Wendy Praisler-Wood RUG HOOKER [employer].[facility] Work Phone: [facility] 09-05-2023 08:57-0500 Body height 171.5 cm Roopa Valles DMD, MD Other Phone: [facility] [employer] 09-05-2023 08:57-0500 Body mass index (BMI) [Ratio] 30.4 kg/m2 Roopa Valles DMD, MD Other Phone: [facility] [employer] 09-05-2023 08:57-0500 Body weight 89.36 kg Roopa Valles DMD, MD Other Phone: [facility] [employer] Encounters Encounter Date Encounter Type Care Provider Facility Start: 08-20-2024 End: 08-20-2024 ambulatory Laina Bautista RN NURSE OVEN WORKER Comment on above: Cough Start: 08-20-2024 End: 08-21-2024 Follow-up encounter Maikol ESPINOZA Work Phone: [facility] Start: 08-19-2024 End: 08-19-2024 ambulatory [facility] Facility:[facility] Start: 08-19-2024 End: 08-19-2024 Patient encounter procedure Maikol ESPINOZA Work Phone: [facility] Comment on above: URI, acute (Primary Dx); Hordeolum internum of right upper eyelid Start: 08-13-2024 End: 08-13-2024 ambulatory [facility] Facility:[facility] Start: 08-13-2024 End: 08-13-2024 Office outpatient visit 15 minutes Humza Rogers MD Work Phone: [facility] Comment on above: Gastroenteritis (Pema alexy Dx) Start: 07-17-2024 End: 12-05-2024 Telephone encounter Betty Singh PA-C Work Phone: Orthopaedics Comment on above: Patient Question Start: 07-14-2024 End: 07-14-2024 ambulatory BETTY SINGH Facility:[facility] Start: 07-14-2024 End: 07-14-2024 Patient encounter procedure Betty Singh PA-C Work Phone: Orthopaedics Comment on above: Sprain of medial col lateral ligament of left knee, initial encounter (Primary Dx); Bone marrow edema Start: 06-27-2024 End: 07-01-2024 Telephone encounter Cheyenne Bains APRN.CARD STRIPPER Work Phone: [facility] Comment on above: Results (MRI ) Start: 06-23-2024 End: 06-23-2024 ambulatory CHEYENNE DARELL BHARGAVColumba Facility:[facility] Start: 06-23-2024 End: 06-23-2024 Subsequent hospital visit by physician [facility] Wstr (I-Stat/1.5t) Work Phone: Radiology Comment on above: Injury of left knee, subsequent encounter [S89.92XD] Start: 06-11-2024 End: 06-11-2024 Telephone encounter Rylie Valera MD Work Phone: [facility] Comment on above: Appointment Start: 05-28-2024 End: 05-28-2024 ambulatory [facility] Facility:[facility] Start: 05-28-2024 End: 05-28-2024 Patient encounter procedure Cheyenne Bains APRN.CARD STRIPPER Work Phone: [facility] Comment on above: Hospital discharge f ollow-up (Primary Dx); Injury of left knee, subsequent encounter Start: 05-24-2024 End: 05-24-2024 ambulatory Marium Lopez RN NURSE OVEN WORKER Comment on above: Knee Pain; Knee Swel ling Start: 05-18-2024 End: 05-18-2024 [facility] Start: 04-25-2024 End: 04-25-2024 ambulatory YEYO MELTON Facility:[facility] Start: 04-25-2024 End: 04-25-2024 Office outpatient visit 25 minutes Yeyo Melton RUG HOOKER HAND.CARD STRIPPER Work Phone: [facility] Comment on above: Rhomboid muscle stra in, sequela (Primary Dx); Incidental lung nodule, greater than or equal to 8mm; Lung nodules Start: 04-22-2024 End: 04-22-2024 Emergency department patient visit Rylie Valera Facility:[facility] Start: 04-22-2024 End: 04-22-2024 ambulatory [facility] MD [facility] Comment on above: Chest Pain Start: 03-10-2024 End: 03-10-2024 ambulatory No Primary Care Physician Facility[facility] Start: 12-17-2023 End: 12-21-2023 ambulatory NAVARRO GARCIA Facility:[facility] Start: 12-17-2023 End: 12-17-2023 Patient encounter procedure Navarro Garcia DDS Work Phone: [facility] Comment on above: 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 (Primary Dx) Start: 12-03-2023 End: 12-03-2023 Patient encounter procedure Wendy Blanco RUG HOOKER HAND.CARD STRIPPER Work Phone: [facility] Comment on above: Anxiety (Primary Dx) ; Tiredness; Encounter to obtain excuse from work Start: 11-09-2023 End: 11-09-2023 Telephone encounter Roopa Valles DMD, MD Work Phone: [facility] Oral [facility] Comment on above: Pt Requesting Meds Start: 11-08-2023 End: 11-08-2023 Subsequent hospital visit by physician Xr [facility] Work Phone: Radiology Comment on above: Acute cough [R05.1] Start: 11-08-2023 End: 11-08-2023 Patient encounter procedure Wendy Blanco RUG HOOKER [employer].CARD STRIPPER Work Phone: [facility] Comment on above: Acute cough (Primary Dx); Wheezing; Bronchitis Start: 09-05-2023 ambulatory UNKNOWN [facility] Start: 09-05-2023 End: 09-05-2023 Patient encounter procedure Roopa Valles DMD, MD Other Phone: [facility] Comment on above: Periapical abscess ( Primary Dx) Start: 11-13-2022 End: 11-14-2022 ambulatory JNENA JIMENEZ MD Facility:B Start: 06-15-2021 End: 06-19-2021 Outreach Lab JENNA JIMENEZ MD [facility] Procedures Date Procedure Procedure Detail Performing Clinician Start: 12-17-2023 extraction, erupted tooth or exposed root (elevation and/or forceps removal) Sanket Quintero DDS Work Phone: Start: 11-08-2023 Radiologic exam ches t 2 views Wendy Blanco APRN.CARD STRIPPER Work Phone: Start: 09-05-2023 panoramic radiograph ic image Autumn Davis DDS Other Phone: Start: 05-08-2020 Antibody screen Start: 04-16-2020 Antibody screen Start: 08-29-2017 delivery only JENNA JIMENEZ MD Cholecystectomy JENNA JIMENEZ MD Hysterectomy JENNA JIMENEZ MD Comment on above: pt unsure what was t aken but was told she still has her ovaries Plan of Treatment Date Care Activity Detail Author Start: 09-23-2041 Shingles (RZV) Vacci ne (1 of 2) Shingles (RZV) Vaccine (1 of 2) [facility] Start: 08-01-2029 Tetanus vaccination Tetanus (T d or Tdap) Booster [facility] Start: 08-01-2029 Urine microalbumin profile DTaP,Tdap,Td Vaccine (8 - Td or Tdap) [facility] Start: 03-02-2025 Influenza vaccination Influenz a Vaccine (Season Ended) [facility] Start: 10-24-2024 End: 05-25-2025 CT Chest WO contrast CT CHEST WO IVCON Radiology Routine Lung nodules Expected: 10/24/2024, Expires: 05/25/2025 [facility] Work Phone: Comment on above: Expected: 10/24/2024 , Expires: 05/25/2025 Start: 10-24-2024 End: 10-24-2024 Patient encounter procedure 10/24/2024 9:20 AM EDT Appointment Cat Scan [address] [place] [address] Lung nodules [R91.8] Cat Scan Comment on above: Lung nodules [R91.8] Start: 08-01-2024 Screening for malign ant neoplasm of cervix Pap Testing [facility] Start: 07-07-2024 End: 07-07-2024 Patient encounter procedure 07/07/2024 1:30 PM EST Office Visit Orthopaedics [address] [place] [place] [address] Edgar Land MD [address] [place] [address] Injury of left knee, subsequent encounter [S89.92XD] Orthopaedics Comment on above: Injury of left knee, subsequent encounter [S89.92XD] Start: 06-23-2024 End: 06-23-2024 Patient encounter procedure 06/23/2024 4:00 PM EST Appointment Radiology [address] [place] [address] Injury of left knee, subsequent encounter [S89.92XD] Radiology Comment on above: Injury of left knee, subsequent encounter [S89.92XD] Start: 05-26-2024 End: 05-26-2024 Patient encounter procedure 05/26/2024 6:30 AM EST Office [place] [address] financial clearance phone call [facility] Comment on above: financial clearance phone call Start: 03-02-2024 Covid-19 Vaccine ( season) Covid-19 Vaccine ( season) [facility] Start: 03-02-2024 Covid-19 Vaccine ( season) Covid-19 Vaccine ( season) [facility] Start: 03-02-2024 Influenza vaccination C [facility] Start: 12-17-2023 End: 12-17-2023 Patient encounter procedure 12/17/2023 8:00 AM EDT [facility] [address] [place] [id number] Roopa Valles DMD, MD [address] [place] [address] [facility] Start: 10-15-2023 End: 10-15-2023 Patient encounter procedure 10/15/2023 3:00 PM EDT Office Visit [facility] [address] [id number] Roopa Valles DMD, MD [address] [id number] [facility] Start: 07-02-2023 Behavioral Health Screening Behavioral Health Screening [facility] Start: 03-02-2023 Covid-19 Vaccine ( season) Covid-19 Vaccine () [facility] Start: 03-02-2023 Influenza vaccination Influenza Vacc ine (#1) [facility] Start: 08-01-2022 Screening for malign ant neoplasm of cervix Cervical Cancer Screening [facility] Start: 09-23-2021 Screening for malign ant neoplasm of cervix HPV Testing [facility] Start: 09-23-2018 HPV Vaccine (optiona l start 27-45 years) HPV Vaccine (optional start 27-45 years) [facility] Start: 09-23-2012 Screening for malign ant neoplasm of cervix Pap Smear [facility] Start: 09-23-2010 Hepatitis A (HAV) Vaccine (optional start 19+ years) Hepatitis A (HAV) Vaccine (optional start 19+ years) [facility] Start: 09-23-2010 Hepatitis B vaccination Hepati tis B (HBV) Vaccine (1 of 3 - 19+ 3-dose series) [facility] Start: 09-23-2009 Depression Screening Depression Scre ening [facility] Start: 09-23-2009 Hepatitis C screening Hepatitis C An tibody [facility] Start: 09-23-2009 Tetanus + diphtheria + acellular pertussis vaccine (product) Tdap Booster [facility] Start: 11-19-2006 HPV Vaccine (2 - 3-d ose series) HPV Vaccine (2 - 3-dose series) [facility] Start: 11-19-2006 Vaccination for anna n papillomavirus HPV Vaccine (2 - 3-dose series) [facility] Start: 09-23-2006 HIV screening HIV Test [facility] Start: 03-26-1992 COVID-19 Vaccine (#1) COVID-19 Vacci ne (#1) [facility] Start: 1991 Hepatitis B vaccination Hepati tis B (HBV) Vaccine (1 of 3 - 3-dose series) [facility] COVID & INFLUENZA A/ B & RSV PCR, ROUTINE COVID & INFLUENZA A/B & RSV PCR, ROUTINE Microbiology Routine URI, acute 08/19/2024 7:59 PM EST [facility] Work Phone: End: 06-27-2025 MR Knee - left WO contrast MRI KNEE WO IVCON LEFT Radiology Routine Injury of left knee, subsequent encounter 1 Occurrences starting 05/28/2024 until 06/27/2025 [facility] Work Phone: Comment on above: 1 Occurrences starti ng 05/28/2024 until 06/27/2025 MR Knee - left WO contrast MRI KNEE WO IVCON LEFT Radiology Routine Injury of left knee, subsequent encounter 06/23/2024 4:45 PM EST [facility] Work Phone: Immunizations Immunization Date Immunization Notes Care Provider Eva vázquez 08-16-2019 influenza virus vaccine, unspecified formulation Wendy Blanco APRN.CARD STRIPPER Work Phone: [facility] 08-01-2019 influenza, injectabl e, quadrivalent, contains preservative Roopa Valles DMD, MD Other Phone: [facility] Work Phone: 08-01-2019 tetanus toxoid, reduced diphtheria toxoid, and acellular pertussis vaccine, adsorbed Roopa Valles DMD, MD Other Phone: [facility] 08-01-2019 influenza virus vaccine, unspecified formulation Roopa Valles DMD, MD Other Phone: [facility] Work Phone: 09-27-2009 DTaP-hepatitis B and poliovirus vaccine Wendy Blanco APRN.CARD STRIPPER Work Phone: [facility] 09-27-2009 pneumococcal conjuga te vaccine, 7 valent Wendy Blanco APRN.CARD STRIPPER Work Phone: [facility] 10-22-2006 human papilloma viru s vaccine, quadrivalent Roopa Valles DMD, MD Other Phone: [facility] Work Phone: 10-22-2006 Meningococcal, MCV4, unspecified conjugate formulation(groups A, C, Y and W-135) Roopa Valles DMD, MD Other Phone: [facility] [employer] [facility] Work Phone: 10-22-2006 tetanus toxoid, reduced diphtheria toxoid, and acellular pertussis vaccine, adsorbed Roopa Valles DMD, MD Other Phone: [facility] Work Phone: 06-29-2004 measles, mumps and rubella virus vaccine Roopa Valles DMD, MD Other Phone: [facility] Work Phone: 05-15-2001 hepatitis B vaccine, pediatric or pediatric/adolescent dosage Wendy Blanco APRN.CARD STRIPPER Work Phone: [facility] 03-13-2001 hepatitis B vaccine, pediatric or pediatric/adolescent dosage Wendy Blanco RUG HOOKER HAND.CARD STRIPPER Work Phone: [facility] 09-20-2000 diphtheria, tetanus toxoids and pertussis vaccine Wendy Blanco RUG HOOKER HAND.CARD STRIPPER Work Phone: [facility] 09-20-2000 hepatitis B vaccine, pediatric or pediatric/adolescent dosage Wendy Blanco APRN.CARD STRIPPER Work Phone: [facility] 05-16-1993 diphtheria, tetanus toxoids and pertussis vaccine Wendy Blanco RUG HOOKER HAND.CARD STRIPPER Work Phone: [facility] 05-16-1993 haemophilus influenz ae type b vaccine, HbOC conjugate Wendy Blanco RUG HOOKER HAND.CARD STRIPPER Work Phone: [facility] 05-16-1993 trivalent poliovirus vaccine, live, oral Wendy Blanco APRN.CARD STRIPPER Work Phone: [facility] 01-24-1993 diphtheria, tetanus toxoids and pertussis vaccine Wendy Praisler-Wood RUG HOOKER HAND.CARD STRIPPER Work Phone: [facility] 01-24-1993 haemophilus influenz ae type b vaccine, HbOC conjugate Wendy Praisler-Wood RUG HOOKER HAND.CARD STRIPPER Work Phone: [facility] 01-24-1993 measles, mumps and rubella virus vaccine Wendy Praisler-Wood RUG HOOKER HAND.CARD STRIPPER Work Phone: [facility] 01-24-1993 trivalent poliovirus vaccine, live, oral Wendy Praisler-Wood RUG HOOKER HAND.CARD STRIPPER Work Phone: [facility] 08-27-1992 diphtheria, tetanus toxoids and pertussis vaccine Wendy Praisler-Wood RUG HOOKER HAND.CARD STRIPPER Work Phone: [facility] 08-27-1992 haemophilus influenz ae type b vaccine, HbOC conjugate Wendy Praisler-Wood RUG HOOKER HAND.CARD STRIPPER Work Phone: [facility] 08-27-1992 trivalent poliovirus vaccine, live, oral Wendy Praisler-Wood RUG HOOKER HAND.CARD STRIPPER Work Phone: [facility] 01-14-1992 diphtheria, tetanus toxoids and pertussis vaccine Wendy Praisler-Wood RUG HOOKER HAND.CARD STRIPPER Work Phone: [facility] Work Phone: 01-14-1992 haemophilus influenz ae type b vaccine, HbOC conjugate Wendy Praisler-Wood RUG HOOKER HAND.CARD STRIPPER Work Phone: [facility] 01-14-1992 trivalent poliovirus vaccine, live, oral Wendy Praisler-Wood RUG HOOKER HAND.CARD STRIPPER Work Phone: [facility] Payers Date Payer Category Payer Self-pay 2022 Medicaid [id number] 2021 Unknown [id number] 2021 Unknown [id number] 1991 Unknown [id number] [id number] 1991 Unknown [id number] [id number]. [id number] 1991 Unknown [id number] [id number]. [id number] Unknown [id number] [id number] Unknown [id number] [id number] Unknown [id number] [id number] Social History Date Type Detail Facility Start: 06-15-2021 Ex-smoker (finding) [facility] At [facility] Start: 11-08-2023 Tobacco smoking status ARIS Never smoked tobacco [facility] Start: 11-08-2023 Tobacco use and exposure Smokeless tobacco non-user [facility] Start: 11-08-2023 End: 07-14-2024 Alcohol intake Ex-drinker (finding) [facility] Start: 10-01-2020 End: 04-25-2024 History of Social function [facility] Start: 10-01-2020 End: 04-25-2024 Social connection and isolation panel [facility] Do you belong to any clubs or organizations such as sabianist groups, unions, fraternal or athletic groups, or school groups? No [facility] Are you now , , , , never or living with a partner? Never [facility] How often to you hav e a drink containing alcohol? Monthly or less [facility] How many standard dr inks containing alcohol do you have on a typical day? 3 or 4 [facility] How often do you hav e 6 or more drinks on 1 occasion? Never [facility] How hard is it for y ou to pay for the very basics like food, housing, medical care, and heating Not very hard [facility] Adult Depression Screening Assessment 0 [facility] Do you feel stress - tense, restless, nervous, or anxious, or unable to sleep at night because your mind is troubled all the time - these days [OSQ] Only a little [facility] (I/We) worried delmismarquis er (my/our) food would run out before (I/we) got money to buy more. Never true [facility] Start: 10-01-2020 Education 14 [facility] Start: 07-31-2019 Alcohol Comment occasionally [facility] Start: 1990 Sex Assigned At Not on file [facility] [employer] Work Phone: Tobacco smoking stat [facility] Tobacco smoking consumption unknown [facility] Start: 1990 Sex assigned at Female [facility] Start: 09-10-2024 Gender identity Identifies as female gender (finding) [facility] Functional Status Date Assessment Result Facility 05-11-2020 Are you deaf, or do you have serious difficulty hearing No 05/11/2020 12:47 PM Alexy Franz RN No [facility] 05-11-2020 Are you blind, or do you have serious difficulty seeing, even when wearing glasses No 05/11/2020 12:47 PM Alexy Franz, EVAN No [facility] 05-11-2020 Do you have serious difficulty walking or climbing stairs No 05/11/2020 12:47 PM Alexy Franz, EVAN No [facility] 05-11-2020 Do you have difficul ty dressing or bathing No 05/11/2020 12:47 PM Alexy Franz, EVAN No [facility] 05-11-2020 Because of a physica l, mental, or emotional condition, do you have difficulty doing errands alone such as visiting a physician's office or shopping No 05/11/2020 12:47 PM Alexy Franz, EVAN No [facility] Mental Status Date Assessment Result Facility 05-11-2020 Because of a physica l, mental, or emotional condition, do you have serious difficulty concentrating, remembering, or making decisions No 05/11/2020 12:47 PM Alexy Franz RN No [facility] Clinical Notes 09-05-2023 to 08-21-2024 Telephone Encounter - Kimber Win MA - 08/21/2024 2:03 PM ESTTelephone Encounter - Kimber Win MA - 08/21/2024 2:03 PM ESTTelephone Encounter - aLina Bautista RN - 08/20/2024 7:38 AM EST Note Date & Type Note Facility 08-21-2024 Telephone encounter Note See NOC TE. Kimber Win MA [facility] 08-21-2024 Miscellaneous Notes See NOC TE. Kimber Win MA Tried calling patient no answer and vm full Ms. Please let patient she is negative for COVID flu and RSV documented in this encounter [facility] 08-20-2024 Progress note Formatting of t his note might be different from the original. Tried calling patient no answer and vm full Ms. [facility] 08-20-2024 Telephone encounter Note Please let patient she is negative for COVID flu and RSV [facility] 08-20-2024 Telephone encounter Note Reason for call: worsening cough; asking about COVID/Flu/RSV test results Outcome: information given from lab report. Patient advised on options for care today, and she will probably return to Urgent Care. Reason for Disposition SEVERE coughing spells (e.g., whooping sound after coughing, vomiting after coughing) Answer Assessment - Initial Assessment Questions 1. ONSET: 2 days ago 2. SEVERITY: worse since yesterday 3. SPUTUM: denies 5. DIFFICULTY BREATHING: denies 6. FEVER: denies Patient reports there is some ankle swelling following an injury. This has been present for a while but not any worse over the past few days. Protocols used: Cough - Acute Zfc-Mwufzwrktp-ISUSS-AH [facility] 08-20-2024 Miscellaneous Notes Reason for call: worsening cough; asking about COVID/Flu/RSV test results Outcome: information given from lab report. Patient advised on options for care today, and she will probably return to Urgent Care. Reason for Disposition SEVERE coughing spells (e.g., whooping sound after coughing, vomiting after coughing) Answer Assessment - Initial Assessment Questions 1. ONSET: 2 days ago 2. SEVERITY: worse since yesterday 3. SPUTUM: denies 5. DIFFICULTY BREATHING: denies 6. FEVER: denies Patient reports there is some ankle swelling following an injury. This has been present for a while but not any worse over the past few days. Protocols used: Cough - Acute Anr-Zrtbmhwajj-BXQYJ-AH documented in this encounter [facility] 08-19-2024 Note SARS-COV-2 (AGENT OF COVID-19) RNA: Not detected INFLUENZA A RNA: Not detected INFLUENZA B RNA: Not detected RESPIRATORY SYNCYTIAL VIRUS (RSV) RNA: Not detected [facility] Comment on above: Performed By: #### 9 [id number] ####[facility] [id number] [place] 08-19-2024 Note HNO ID: [id number] Author: MAIKOL PIEDRA PA Service: ? Author Type: Physician Grappler Type: Progress Notes Filed: 08/19/2024 20:00 Note Text: This note was created using NoteWriter. Subjective Rudi Chin is a 33 year old female. HPI 33-year-old female presents for congestion, cough x 2 days. Patient states on the evening started feeling sick. Yesterday when she got up symptoms are worse. She had cough, congestion, felt chilled and feverish. She reports body aches and headache. She denies any chest pain or shortness of breath. She has been around sick contacts. She has taken Tylenol cold and flu medication with minimal improvement in symptoms. Patient also reporting right eye tenderness over the upper eyelid. She thought it might be a stye. She has had some clear drainage from the eye as well. No vision changes. Does not wear contacts or glasses. No other complaint. PAST MEDICAL HISTORY Diagnosis Date Anxiety History of depression 07/31/2019 07/31/2019She also was diagnosed with depression after the of her last child Discussed increased risks of depression during and and importance of reporting the development or worsening of symptoms should they occur.Pt denies ever having any suicidal thoughts or tendencies or thoughts of hurting others.TKRN Infantile cerebral palsy, unspecified 10/16/2006 Other specified infantile cerebral palsy depression Vaginal bleeding affecting early 04/10/2020 -03/16 Quant hCG 26,033 -UVUS/TAUS performed no IUP noted, left ovarian cyst -patient to follow up in 48 hours on Sunday, patient in agreeable with plan -return precautions given PAST SURGICAL HISTORY Procedure Laterality Date APPENDECTOMY 05/2023 DELIVERY ONLY 09/05/2019 R/CS low transverse SECTION HX 08/29/2017 D+C 04/16/2020 HYSTERECTOMY 05/08/2020 LAPS SURG CHOLECYSTECTOMY W/CHOLANGIOGRAPHY 09/09/2012 ALLERGIES Ibuprofen MEDICATIONS tiZANidine (ZANAFLEX) 4 mg tablet Take 1 tablet by mouth every 8 hours as needed (muscle spasms). erythromycin (ROMYCIN) 5 mg/gram (0.5 %) ophthalmic ointment Use 1 application in the right eye four times daily for 7 days. HYDROcodone-acetaminophen (NORCO) 5-325 mg per tablet Take 1 tablet by mouth every 6 hours as needed. (Patient not taking: Reported on 07/14/2024) albuterol HFA (PROVENTIL HFA, VENTOLIN HFA) 90 mcg/actuation inhaler Inhale 2 Puffs as instructed every 4 hours as needed for wheezing/shortness of breath. (Patient not taking: Reported on 08/13/2024) betamethasone dipropionate, augmented (DIPROLENE) 0.05 % cream Apply 1 application to affected area twice daily as needed. (Patient not taking: Reported on 08/13/2024) acetaminophen (TYLENOL) 325 mg tablet Take 2 tablets by mouth every 6 hours. (Patient not taking: Reported on 08/13/2024) FAMILY HISTORY Problem Relation Age of Onset Coronary Artery Disease Mother 50 Arthritis Mother Psychiatry Mother PTSD other (degenerative disc disease) Mother other (anxiety) Mother Psychiatry Father anxiety/OCD Diabetes Maternal Aunt No Known Problems Brother No Known Problems Son Social History Tobacco Use Smoking status: Never Smokeless tobacco: Never Vaping Use Vaping status: Never Used Substance Use Topics Alcohol use: Not Currently Comment: occasionally Drug use: Yes Types: Marijuana Comment: + Tox screen 01/06/21 Review of Systems Constitutional: Positive for chills, fatigue and fever. HENT: Positive for congestion. Negative for ear pain and sore throat. Eyes: Positive for pain and discharge. Negative for photophobia, redness, itching and visual disturbance. Respiratory: Positive for cough. Negative for shortness of breath. Cardiovascular: Negative for chest pain. Gastrointestinal: Negative for diarrhea and vomiting. Musculoskeletal: Positive for myalgias. Neurological: Positive for headaches. Objective BP 132/84 Pulse 84 Temp 36.9 ?C (98.4 ?F) Resp 18 Wt 95.5 kg (210 lb 8.6 oz) LMP 09/23/2023 SpO2 99% BMI 32.01 kg/m? Physical Exam Vitals and nursing note reviewed. Constitutional: General: She is not in acute distress. Appearance: Normal appearance. She is not toxic-appearing. HENT: Right Ear: Tympanic membrane and ear canal normal. Left Ear: Tympanic membrane and ear canal normal. Nose: Congestion present. Mouth/Throat: Mouth: Mucous membranes are moist. Eyes: General: Vision grossly intact. Right eye: Hordeolum present. Extraocular Movements: Extraocular movements intact. Conjunctiva/sclera: Conjunctivae normal. Comments: Small area of erythema and swelling noted under right upper lateral eyelid. Do suspect early hordeolum. Tender to touch. No drainage. Conjunctive normal. PERRLA. EOMI. Cardiovascular: Rate and Rhythm: Normal rate and regular rhythm. Pulmonary: Effort: Pulmonary effort is normal. Kendy (more content not included)... [facility] 08-19-2024 History of Present illness Narrative This note was created using [employer]riter. Subjective Rudi Chin is a 33 year old female. HPI 33-year-old female presents for congestion, cough x 2 days. Patient states on the evening started feeling sick. Yesterday when she got up symptoms are worse. She had cough, congestion, felt chilled and feverish. She reports body aches and headache. She denies any chest pain or shortness of breath. She has been around sick contacts. She has taken Tylenol cold and flu medication with minimal improvement in symptoms. Patient also reporting right eye tenderness over the upper eyelid. She thought it might be a stye. She has had some clear drainage from the eye as well. No vision changes. Does not wear contacts or glasses. No other complaint. PAST MEDICAL HISTORY Diagnosis Date Anxiety History of depression 07/31/2019 07/31/2019She also was diagnosed with depression after the of her last child Discussed increased risks of depression during and and importance of reporting the development or worsening of symptoms should they occur.Pt denies ever having any suicidal thoughts or tendencies or thoughts of hurting others.TKRN Infantile cerebral palsy, unspecified 10/16/2006 Other specified infantile cerebral palsy depression Vaginal bleeding affecting early 04/10/2020 -03/16 Quant hCG 26,033 -UVUS/TAUS performed no IUP noted, left ovarian cyst -patient to follow up in 48 hours on Sunday, patient in agreeable with plan -return precautions given PAST SURGICAL HISTORY Procedure Laterality Date APPENDECTOMY 05/2023 DELIVERY ONLY 09/05/2019 R/CS low transverse SECTION HX 08/29/2017 D+C 04/16/2020 HYSTERECTOMY 05/08/2020 LAPS SURG CHOLECYSTECTOMY W/CHOLANGIOGRAPHY 09/09/2012 ALLERGIES Ibuprofen MEDICATIONS tiZANidine (ZANAFLEX) 4 mg tablet Take 1 tablet by mouth every 8 hours as needed (muscle spasms). erythromycin (ROMYCIN) 5 mg/gram (0.5 %) ophthalmic ointment Use 1 application in the right eye four times daily for 7 days. HYDROcodone-acetaminophen (NORCO) 5-325 mg per tablet Take 1 tablet by mouth every 6 hours as needed. (Patient not taking: Reported on 07/14/2024) albuterol HFA (PROVENTIL HFA, VENTOLIN HFA) 90 mcg/actuation inhaler Inhale 2 Puffs as instructed every 4 hours as needed for wheezing/shortness of breath. (Patient not taking: Reported on 08/13/2024) betamethasone dipropionate, augmented (DIPROLENE) 0.05 % cream Apply 1 application to affected area twice daily as needed. (Patient not taking: Reported on 08/13/2024) acetaminophen (TYLENOL) 325 mg tablet Take 2 tablets by mouth every 6 hours. (Patient not taking: Reported on 08/13/2024) FAMILY HISTORY Problem Relation Age of Onset Coronary Artery Disease Mother 50 Arthritis Mother Psychiatry Mother PTSD other (degenerative disc disease) Mother other (anxiety) Mother Psychiatry Father anxiety/OCD Diabetes Maternal Aunt No Known Problems Brother No Known Problems Son Social History Tobacco Use Smoking status: Never Smokeless tobacco: Never Vaping Use Vaping status: Never Used Substance Use Topics Alcohol use: Not Currently Comment: occasionally Drug use: Yes Types: Marijuana Comment: + Tox screen 01/06/21 Review of Systems Constitutional: Positive for chills, fatigue and fever. HENT: Positive for congestion. Negative for ear pain and sore throat. Eyes: Positive for pain and discharge. Negative for photophobia, redness, itching and visual disturbance. Respiratory: Positive for cough. Negative for shortness of breath. Cardiovascular: Negative for chest pain. Gastrointestinal: Negative for diarrhea and vomiting. Musculoskeletal: Positive for myalgias. Neurological: Positive for headaches. Objective BP 132/84 Pulse 84 Temp 36.9 C (98.4 F) Resp 18 Wt 95.5 kg (210 lb 8.6 oz) LMP 09/23/2023 SpO2 99% BMI 32.01 kg/m Physical Exam Vitals and nursing note reviewed. Constitutional: General: She is not in acute distress. Appearance: Normal appearance. She is not toxic-appearing. HENT: Right Ear: Tympanic membrane and ear canal normal. Left Ear: Tympanic membrane and ear canal normal. Nose: Congestion present. Mouth/Throat: Mouth: Mucous membranes are moist. Eyes: General: Vision grossly intact. Right eye: Hordeolum present. Extraocular Movements: Extraocular movements intact. Conjunctiva/sclera: Conjunctivae normal. Comments: Small area of erythema and swelling noted under right upper lateral eyelid. Do suspect early hordeolum. Tender to touch. No drainage. Conjunctive normal. PERRLA. EOMI. Cardiovascular: Rate and Rhythm: Normal rate and regular rhythm. Pulmonary: Effort: Pulmonary effort is normal. Breath sounds: Normal breath sounds. Skin: General: Skin is warm and dry. Neurological: Mental Status: She is alert. Assessment and Plan ASSESSMENT/PLAN: 1. URI, acute - ICD9: 465.9, ICD10: J06.9 (primary diagnosis) - Discussed viral etiology and rationale for treatment. - Symptomatic treatment with prn analgesia - Supportive care with fluids and rest - The patient may also use OTC cough and cold meds as needed. - COVID & INFLUENZA A/B & RSV PCR, ROUTINE 2. Hordeolum internum of right upper eyelid - ICD9: 373.12, ICD10: H00.021 - rx erythromycin ointment Diagnosis and treatment plan were discussed and questions were answered to the patient's satisfaction. Pt acknowledged understanding of concepts and follow up plan. Specific signs and symptoms that would indicate the need for higher level of care were discussed in detail warranting prompt ER evaluation. OLGA Rueda documented in this encounter [facility] 08-13-2024 Note HNO ID: [id number] Author: HUMZA ROGERS MD Service: ? Author Type: Physician Type: Progress Notes Filed: 08/13/2024 20:09 Note Text: Patient presents with: Vomiting: Diarrhea, fatigue, NATION, abdominal cramping x 1 day HPI: Feeling sick since yesterday. Her son had gastroenteritis last week. Positive symptoms: Headache, Nausea, Vomiting, Diarrhea, chills Negative symptoms: Cough, Nasal Congestion, Rhinorrhea, OTC: Tylenol MEDICATIONS: Current Outpatient Medications Medication Sig tiZANidine (ZANAFLEX) 4 mg tablet Take 1 tablet by mouth every 8 hours as needed (muscle spasms). diclofenac, EC, (VOLTAREN) 75 mg EC tablet Take 1 tablet by mouth two times a day. FOR PAIN (Patient not taking: Reported on 08/13/2024) HYDROcodone-acetaminophen (NORCO) 5-325 mg per tablet Take 1 tablet by mouth every 6 hours as needed. (Patient not taking: Reported on 07/14/2024) albuterol HFA (PROVENTIL HFA, VENTOLIN HFA) 90 mcg/actuation inhaler Inhale 2 Puffs as instructed every 4 hours as needed for wheezing/shortness of breath. (Patient not taking: Reported on 08/13/2024) betamethasone dipropionate, augmented (DIPROLENE) 0.05 % cream Apply 1 application to affected area twice daily as needed. (Patient not taking: Reported on 08/13/2024) acetaminophen (TYLENOL) 325 mg tablet Take 2 tablets by mouth every 6 hours. (Patient not taking: Reported on 08/13/2024) No current facility-administered medications for this visit. ALLERGIES: ALLERGIES Allergen Reactions Ibuprofen Intolerance, GI Upset VITALS: BP 118/76 Pulse 70 Temp 36.5 ?C (97.7 ?F) Resp 19 Wt 93.4 kg (205 lb 14.6 oz) LMP 09/23/2023 SpO2 98% BMI 31.31 kg/m? PHYSICAL EXAM: GEN: mildly ill appearing HEENT: PERRL, EOMI, conjunctiva clear Throat: moist mucous membranes, no erythema, no exudate Neck: supple, no thyromegaly, no lymphadenopathy HEART: regular rate, regular rhythm, no murmurs LUNGS: clear to auscultation, no wheezes or crackles, no increased WOB ABD: Soft, non-distended, uncomfortable with palpation ASSESSMENT/PLAN: 1. Gastroenteritis - ICD9: 558.9, ICD10: K52.9 Infectious gastroenteritis Hydration with fluids encouraged. Resume normal solid intake as tolerated. Hand hygiene to reduce transmission. Follow up in the ER with signs of dehydration, increasing abdominal pain, high fever, or blood in vomit or stool. Humza Rogers MD [facility] 08-13-2024 History of Present illness Narrative Patient presents with: Vomiting: Diarrhea, fatigue, NATION, abdominal cramping x 1 day HPI: Feeling sick since yesterday. Her son had gastroenteritis last week. Positive symptoms: Headache, Nausea, Vomiting, Diarrhea, chills Negative symptoms: Cough, Nasal Congestion, Rhinorrhea, OTC: Tylenol MEDICATIONS: Current Outpatient Medications Medication Sig tiZANidine (ZANAFLEX) 4 mg tablet Take 1 tablet by mouth every 8 hours as needed (muscle spasms). diclofenac, EC, (VOLTAREN) 75 mg EC tablet Take 1 tablet by mouth two times a day. FOR PAIN (Patient not taking: Reported on 08/13/2024) HYDROcodone-acetaminophen (NORCO) 5-325 mg per tablet Take 1 tablet by mouth every 6 hours as needed. (Patient not taking: Reported on 07/14/2024) albuterol HFA (PROVENTIL HFA, VENTOLIN HFA) 90 mcg/actuation inhaler Inhale 2 Puffs as instructed every 4 hours as needed for wheezing/shortness of breath. (Patient not taking: Reported on 08/13/2024) betamethasone dipropionate, augmented (DIPROLENE) 0.05 % cream Apply 1 application to affected area twice daily as needed. (Patient not taking: Reported on 08/13/2024) acetaminophen (TYLENOL) 325 mg tablet Take 2 tablets by mouth every 6 hours. (Patient not taking: Reported on 08/13/2024) No current facility-administered medications for this visit. ALLERGIES: ALLERGIES Allergen Reactions Ibuprofen Intolerance, GI Upset VITALS: BP 118/76 Pulse 70 Temp 36.5 C (97.7 F) Resp 19 Wt 93.4 kg (205 lb 14.6 oz) LMP 09/23/2023 SpO2 98% BMI 31.31 kg/m PHYSICAL EXAM: GEN: mildly ill appearing HEENT: PERRL, EOMI, conjunctiva clear Throat: moist mucous membranes, no erythema, no exudate Neck: supple, no thyromegaly, no lymphadenopathy HEART: regular rate, regular rhythm, no murmurs LUNGS: clear to auscultation, no wheezes or crackles, no increased WOB ABD: Soft, non-distended, uncomfortable with palpation ASSESSMENT/PLAN: 1. Gastroenteritis - ICD9: 558.9, ICD10: K52.9 Infectious gastroenteritis Hydration with fluids encouraged. Resume normal solid intake as tolerated. Hand hygiene to reduce transmission. Follow up in the ER with signs of dehydration, increasing abdominal pain, high fever, or blood in vomit or stool. Humza Rogers MD documented in this encounter [facility] 07-17-2024 Telephone encounter Note Letter has been faxed. [facility] Work Phone: 07-17-2024 Miscellaneous Notes Letter has been faxed. Pt calling back with the fax number for work note with detailed restrictions. Best [employer] Reviewed. Anna Choudhary MA Patient called. Verified name and date of . Patient saw provider on 07/14/2024 and is in need of letter to release her to work but does need the letter to state that she can work with accommodations of use of stool to use for resting. 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 Patient will call back with fax number to send the letter to. Geno Quinones LPN documented in this encounter [facility] 07-17-2024 Telephone encounter Note Pt calling back with the fax number for work note with detailed restrictions. [employer] Reviewed. Anna Choudhary MA [facility] 07-17-2024 Telephone encounter Note Patient called. Verified name and date of . Patient saw provider on 07/14/2024 and is in need of letter to release her to work but does need the letter to state that she can work with accommodations of use of stool to use for resting. 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 Patient will call back with fax number to send the letter to. Geno Quinones LPN [facility] 07-14-2024 Note HNO ID: [id number] Author: MADISON DICK MA Service: ? Author Type: Books Salesperson Type: Progress Notes Filed: 07/14/2024 16:00 Note Text: PT ASSESSMENT - CASTING ROOM Rudi presents for Application of brace. Applied DonJoy Hinged knee brace size large to Left knee . Patient tolerated well. Patient has been instructed in Care and proper application of brace. Patient signed Starla PPA electronically for billing and verbalized understanding. Madison Dick MA [facility] 07-14-2024 History of Present illness Narrative PT ASSESSMENT - CASTING ROOM Rudi presents for Application of brace. Applied DonJoy Hinged knee brace size large to Left knee . Patient tolerated well. Patient has been instructed in Care and proper application of brace. Patient signed Starla PPA electronically for billing and verbalized understanding. Madison Dick MA Betty Singh PA-C Department of Orthopaedics Orthopaedics [address] [place] [id number] Dept: [phone] Dept July 14, 2024 CHIEF COMPLAINT: New and Injury of the Left Knee and Referred by Cheyenne Dias MsBalwinder Chin is a 33 year old female who presents with pain in her left knee which has been bothering her since a fall which occurred this past May. Patient was in her own kitchen, she slipped on something and injured the knee. She cannot recall the exact mechanism of injury. The following day she was seen in the urgent care and placed in a knee immobilizer. The patient has been wearing the knee immobilizer since the injury. She reports discomfort mainly along the anterior aspect of the knee especially with bending the knee. She has been able to stand and walk in the knee immobilizer with minimal discomfort. She is able to take breaks at work which has been beneficial. She has been taking [id number] naproxen alternating with Tylenol. She does have a ibuprofen allergy but cannot tolerate naproxen. She also has a history of cerebral palsy and tells me that she has had chronic left leg weakness. ASSESSMENT: S83.412A Sprain of medial collateral ligament of left knee, initial encounter (primary encounter diagnosis) R93.7 Bone marrow edema PLAN: Her knee is extremely stiff from being immobilized for a prolonged period of time. We discussed getting her on a prescription anti-inflammatory, advised that she can get an upset stomach with the anti-inflammatory and if that does occur she should discontinue the medication. I would like to get her into physical therapy to start working on some gentle range of motion. Will get her out of the knee immobilizer and transition her to a hinged knee brace. She has crutches, we discussed using the crutches to try to offload some of her weight but to make sure that she is trying to use the knee through its full range of motion where she is ambulating. Follow-up at the conclusion of PT with updated xrays. Will continue to monitor patient for Sprain of medial collateral ligament of left knee, initial encounter (primary encounter diagnosis) Bone marrow edema, patient to schedule visit as per follow up discussed. Ms. Rudi Chin was advised as to contrast therapies and/or to take analgesics/anti-inflammatories as needed and all contraindications were reviewed. OBJECTIVE: Ms. Rudi Chin is a pleasant 33 year old in no apparent distress. Gen:LMP 09/23/2023 nl development, non obese, no deformities ENT: Normocephalic, normal hearing, moist mucosa CV: Pulses:DP/PT= 2+ and symmetric, capillary refill < 2 secs, no peripheral edema/varicosities Skin: no rash, bruising or lesions. Good turgor. Psych: cooperative and appropriate, alert and oriented x 3, good mood and affect. Musculoskeletal: Difficult exam, patient is diffusely tender to palpation throughout the left knee. No effusion is noted. No edema, no erythema. Patient resists passive flexion and extension of the knee. Active flexion to about 70*, extension 30* lag. Imaging: IMPRESSION: FINDINGS SUGGESTIVE OF LOW-GRADE MCL SPRAIN. CURVILINEAR AREA OF HYPERINTENSITY AT THE LATERAL FEMORAL EPICONDYLE, LIKELY SEQUELA OF A SUBACUTE INJURY. Advertising Statistical Clerk: PSCBeatris Transcribe Date/Time: Jun 24 2024 11:52A Dictated by : GUANACO VALLE MD This examination was interpreted and the report reviewed and electronically signed by: AFUA MATAMOROS MD on Jun 24 2024 2:43PM EST Results-Findings * * *Final Report* * * DATE OF EXAM: Jun 23 2024 4:45PM WR 0212 - MRI KNEE WO IVCON LT / PROCEDURE REASON: Injury of left knee, subsequent encounter * * * * Physician Interpretation * * * * EXAMINATION: MRI LEFT KNEE WITHOUT CONTRAST CLINICAL HISTORY: Left knee pain after fall 6 weeks ago. Still unable to bear weight. TECHNIQUE: Routine non-contrast MRI of the knee MQ: [id number] COMPARISON: No other images available. RESULT: MENISCI: Medial Meniscus: Intact. Lateral Meniscus: Intact. LIGAMENTS: ACL: Intact PCL: Intact MCL: Low grade sprain (grade 1) with edema like signal superficial and deep to proximal MCL. LCL Complex: Intact CARTILAGE: Medial Femoral Condyle: Moderate sized area(s) of low grade (less than 50% thickness) partial thickness cartilage loss and or fissuring Medial Tibial Plateau: Moderate sized area(s) of low grade (less than 50% thickness) partial thickness cartilage loss and or fissuring Lateral Femoral Condyle: Normal Lateral Tibial Plateau: Normal Patella: Normal Trochlea: Normal TENDONS: The distal quadriceps and patellar tendons are intact. The popliteus tendon is intact. BONES AND MARROW: Curvilinear streak of hyperintensity on PD weighted sequence extending from the lateral femoral condyle medially to the metaphysis. No discrete fracture line. This area could represent a healing subacute fracture or bone bruise. No other marrow abnormality. MUSCLES: Muscle bulk and signal intensity are normal. JOINT FLUID AND SYNOVIUM: Trace joint effusion. No synovitis. No Mittal's cyst. OTHER: No other significant abnormality identified. Localizer images: No additional findings. Supporting Subjective Information Below: Past Surgical History: PAST SURGICAL HISTORY Procedure Laterality Date APPENDECTOMY 05/2023 DELIVERY ONLY 09/05/2019 R/CS low transverse SECTION HX 08/29/2017 D+C 04/16/2020 HYSTERECTOMY 05/08/2020 LAPS SURG CHOLECYSTECTOMY W/CHOLANGIOGRAPHY 09/09/2012 Medications: Current Outpatient Medications Medication Sig tiZANidine (ZANAFLEX) 4 mg tablet Take 1 tablet by mouth every 8 hours as needed (muscle spasms). albuterol HFA (PROVENTIL HFA, VENTOLIN HFA) 90 mcg/actuation inhaler Inhale 2 Puffs as instructed every 4 hours as needed for wheezing/shortness of breath. acetaminophen (TYLENOL) 325 mg tablet Take 2 tablets by mouth every 6 hours. diclofenac, EC, (VOLTAREN) 75 mg EC tablet Take 1 tablet by mouth two times a day. FOR PAIN HYDROcodone-acetaminophen (NORCO) 5-325 mg per tablet Take 1 tablet by mouth every 6 hours as needed. (Patient not taking: Reported on 07/14/2024) betamethasone dipropionate, augmented (DIPROLENE) 0.05 % cream Apply 1 application to affected area twice daily as needed. No current facility-administered medications for this visit. Allergies: Ibuprofen ROS: General (negative for fatigue, malaise, weight loss/gain) HEENT (negative for headache, earache, recent vision changes, sinus pain, sore throat) Respiratory (no recent shortness of breath, hemoptysis) CV (negative for chest tightness, palpitations) Musculoskeletal (see HPI) Psych (no depression, anxiety) This note was partially generated using [employer] voice recognition system, and there may be some incorrect words, spellings, and punctuation that were not noted in checking the note before saving. Betty Singh PA-C Patient presents with: Left Knee - New, Injury Referred by Cheyenne Dias AMB ROOMING INTAKE FLOWSHEET DATA Pain Pain Level: 9 Pain Location: Knee-Left Description: Throbbing, Sharp Duration Amount of Time: 2 Duration Units: Months Frequency: Continuous Intervention/Comfort measure: Medication Patient states in May she slipped on a wet spot at home falling landing on her left knee. Seen at [facility]. Given knee immobilizer. Had MRI done on 06/23/24. Patient states her knee was feeling better and trying to maneuver her knee to get out of the car and twisted her knee again. Her knee has been more painful since. She has been having a sharp pain above her knee cap. Taking Naproxen and Tylenol. Patient has been keeping her leg elevated and iced. Patient does have a history of cerebral palsy on her left side. 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 documented in this encounter [facility] 07-14-2024 Note HNO ID: [id number] Author: BETTY SINGH PA-C Service: ? Author Type: Physician Grappler Type: Progress Notes Filed: 07/14/2024 16:00 Note Text: Betty Singh PA-C Department of Orthopaedics Orthopaedics [address] [facility] [address] Dept: [phone] Dept July 14, 2024 CHIEF COMPLAINT: New and Injury of the Left Knee and Referred by Cheyenne Dias MsBalwinder Chin is a 33 year old female who presents with pain in her left knee which has been bothering her since a fall which occurred this past May. Patient was in her own kitchen, she slipped on something and injured the knee. She cannot recall the exact mechanism of injury. The following day she was seen in the urgent care and placed in a knee immobilizer. The patient has been wearing the knee immobilizer since the injury. She reports discomfort mainly along the anterior aspect of the knee especially with bending the knee. She has been able to stand and walk in the knee immobilizer with minimal discomfort. She is able to take breaks at work which has been beneficial. She has been taking krpt-swh-[id number] naproxen alternating with Tylenol. She does have a ibuprofen allergy but cannot tolerate naproxen. She also has a history of cerebral palsy and tells me that she has had chronic left leg weakness. ASSESSMENT: S83.412A Sprain of medial collateral ligament of left knee, initial encounter (primary encounter diagnosis) R93.7 Bone marrow edema PLAN: Her knee is extremely stiff from being immobilized for a prolonged period of time. We discussed getting her on a prescription anti-inflammatory, advised that she can get an upset stomach with the anti-inflammatory and if that does occur she should discontinue the medication. I would like to get her into physical therapy to start working on some gentle range of motion. Will get her out of the knee immobilizer and transition her to a hinged knee brace. She has crutches, we discussed using the crutches to try to offload some of her weight but to make sure that she is trying to use the knee through its full range of motion where she is ambulating. Follow-up at the conclusion of PT with updated xrays. Will continue to monitor patient for Sprain of medial collateral ligament of left knee, initial encounter (primary encounter diagnosis) Bone marrow edema, patient to schedule visit as per follow up discussed. Ms. Rudi Chin was advised as to contrast therapies and/or to take analgesics/anti-inflammatories as needed and all contraindications were reviewed. OBJECTIVE: Ms. Rudi Chin is a pleasant 33 year old in no apparent distress. Gen:LMP 09/23/2023 nl development, non obese, no deformities ENT: Normocephalic, normal hearing, moist mucosa CV: Pulses:DP/PT= 2+ and symmetric, capillary refill < 2 secs, no peripheral edema/varicosities Skin: no rash, bruising or lesions. Good turgor. Psych: cooperative and appropriate, alert and oriented x 3, good mood and affect. Musculoskeletal: Difficult exam, patient is diffusely tender to palpation throughout the left knee. No effusion is noted. No edema, no erythema. Patient resists passive flexion and extension of the knee. Active flexion to about 70*, extension 30* lag. Imaging: IMPRESSION: FINDINGS SUGGESTIVE OF LOW-GRADE MCL SPRAIN. CURVILINEAR AREA OF HYPERINTENSITY AT THE LATERAL FEMORAL EPICONDYLE, LIKELY SEQUELA OF A SUBACUTE INJURY. Advertising Statistical Clerk: JOSE Transcribe Date/Time: Jun 24 2024 11:52A Dictated by : GUANACO VALLE MD This examination was interpreted and the report reviewed and electronically signed by: AFUA MATAMOROS MD on Jun 24 2024 2:43PM EST Results-Findings * * *Final Report* * * DATE OF EXAM: Jun 23 2024 4:45PM [facility] 0212 - MRI KNEE WO IVCON LT / PROCEDURE REASON: Injury of left knee, subsequent encounter * * * * Physician Interpretation * * * * EXAMINATION: MRI LEFT KNEE WITHOUT CONTRAST CLINICAL HISTORY: Left knee pain after fall 6 weeks ago. Still unable to bear weight. TECHNIQUE: Routine non-contrast MRI of the knee MQ: MRK_2B COMPARISON: No other images available. RESULT: MENISCI: Medial Meniscus: Intact. Lateral Meniscus: Intact. LIGAMENTS: ACL: Intact PCL: Intact MCL: Low grade sprain (grade 1) with edema like signal superficial and deep to proximal MCL. LCL Complex: Intact CARTILAGE: Medial Femoral Condyle: Moderate sized area(s) of low grade (less than 50% thickness) partial thickness cartilage loss and or fissuring Medial Tibial Plateau: Moderate sized area(s) of low grade (less than 50% thickness) partial thickness cartilage loss and or fissuring Lateral Femoral Condyle: Normal Lateral Tibial Plateau: Normal Patella: Normal Trochlea: Normal TENDONS: The distal quadriceps and patellar tendons are intact. The popliteus tendon is intact. BONES AND MARROW: Curvilinear streak (more content not included)... [facility] 07-14-2024 Note HNO ID: [id number] Author: MADISON DICK MA Service: ? Author Type: Books Salesperson Type: Progress Notes Filed: 07/14/2024 16:00 Note Text: Patient presents with: Left Knee - New, Injury Referred by Cheyenne Dias AMB ROOMING INTAKE FLOWSHEET DATA Pain Pain Level: 9 Pain Location: Knee-Left Description: Throbbing, Sharp Duration Amount of Time: 2 Duration Units: Months Frequency: Continuous Intervention/Comfort measure: Medication Patient states in May she slipped on a wet spot at home falling landing on her left knee. Seen at [facility]. Given knee immobilizer. Had MRI done on 06/23/24. Patient states her knee was feeling better and trying to maneuver her knee to get out of the car and twisted her knee again. Her knee has been more painful since. She has been having a sharp pain above her knee cap. Taking Naproxen and Tylenol. Patient has been keeping her leg elevated and iced. Patient does have a history of cerebral palsy on her left side. 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 [facility] 06-30-2024 Telephone encounter Note Sent update from [facility] via My Chart. Pt dose not have an active phone Cindi Posada LPN [facility] 06-30-2024 Miscellaneous Notes Sent update from [employer] via My Chart. Pt dose not have an active phone Cindi Posada LPN Can you please call the patient back and let her know that she can continue with anti-inflammatories as needed for pain. I would recommend elevating and applying ice. In regards to her job, if she is still having pain with ambulation and I would try to sit while she is at work. I would like her to keep upcoming appointment with orthopedics for further evaluation. Cheyenne Bains APRN.ADRIEL Patient returns call and provider message reviewed. Patient reports that injury is not getting any better but with the holidays she has been on it more than she thinks she should. Patient reports at night time she elevates it and about half way through the night she wakes up in terrible pain. Reports she is still having difficulty with bending the knee and limps with ambulation. Patient reports not using crutches often. Patient is utilizing naprosyn for pain as she is out of the [place]. Patient asking when she should try and go back to work. 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 Patient plans to keep appointment with ortho but asking if provider has any further recommendations. Juliette Adler, RN [employer] message sent to pt, asking them to call back for results. Kennedi Boo MA TC to Pt. Unable to LM due to the mailbox is full. Will try again later. Cindi Posada LPN Can you please call the patient and let her know that I reviewed her MRI. MRI of the knee shows a possible low-grade MCL sprain. Can you ask how she has been doing since injury? Any on going difficulty with walking? She may keep upcoming appointment with orthopedics for further evaluation. I would recommend that she continue with RICE therapy. Thank you. Cheyenne Bains APRN.ADRIEL documented in this encounter [facility] 06-30-2024 Telephone encounter Note Can you please call the patient back and let her know that she can continue with anti-inflammatories as needed for pain. I would recommend elevating and applying ice. In regards to her job, if she is still having pain with ambulation and I would try to sit while she is at work. I would like her to keep upcoming appointment with orthopedics for further evaluation. Cheyenne Bains APRN.[employer] [facility] Work Phone: 06-27-2024 Telephone encounter Note Patient returns call and provider message reviewed. Patient reports that injury is not getting any better but with the holidays she has been on it more than she thinks she should. Patient reports at night time she elevates it and about half way through the night she wakes up in terrible pain. Reports she is still having difficulty with bending the knee and limps with ambulation. Patient reports not using crutches often. Patient is utilizing naprosyn for pain as she is out of the [place]. Patient asking when she should try and go back to work. 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 Patient plans to keep appointment with ortho but asking if provider has any further recommendations. Juliette Adler RN [facility] 06-27-2024 Telephone encounter Note [employer] message sent to pt, asking them to call back for results. Kennedi Boo MA [facility] 06-27-2024 Telephone encounter Note TC to Pt. Unable to LM due to the mailbox is full. Will try again later. Cindi Posada LPN [facility] 06-27-2024 Telephone encounter Note Can you please call the patient and let her know that I reviewed her MRI. MRI of the knee shows a possible low-grade MCL sprain. Can you ask how she has been doing since injury? Any on going difficulty with walking? She may keep upcoming appointment with orthopedics for further evaluation. I would recommend that she continue with RICE therapy. Thank you. Cheyenne Bains APRN.[employer] [facility] 06-23-2024 History of Present illness Narrative Radiology Service Progress Note PATIENT NAME: Rudi Chin DATE OF SERVICE: June 23, 2024 TIME: 4:10 PM PATIENT IDENTITY VERIFICATION COMPLETED USING TWO (2) IDENTIFIERS: Name and Date of confirmed by patient verbally. FALL SCREENING: Has the patient had 2 falls in the last year or 1 fall with injury or currently using an Ambulatory Assistive Device (Walker, Cane, Wheelchair, Crutches, etc.)? No PATIENT GENDER DATA: Female. status: : No status: NO. PATIENT RELEVANT IMPLANT DATA REVIEWED: Not Applicable PATIENT PRESENTS WITH AN IMPLANTABLE OR ATTACHED VENDOR MANAGEMENT ASSOCIATE: No RADIOLOGY DEPARTMENT: MR; Exam(s) Completed: Lower MSK: Knee, left PERIPHERAL IV DATA: Not applicable SIGNED BY: RT Breezy(R) June 23, 2024 4:10 PM documented in this encounter [facility] 06-23-2024 Note HNO ID: [id number] Author: ALEXY RAUSCH RT (R) Service: ? Author Type: Technologist Type: Progress Notes Filed: 06/23/2024 16:16 Note Text: Radiology Service Progress Note PATIENT NAME: Rudi Chin DATE OF SERVICE: June 23, 2024 TIME: 4:10 PM PATIENT IDENTITY VERIFICATION COMPLETED USING TWO (2) IDENTIFIERS: Name and Date of confirmed by patient verbally. FALL SCREENING: Has the patient had 2 falls in the last year or 1 fall with injury or currently using an Ambulatory Assistive Device (Walker, Cane, Wheelchair, Crutches, etc.)? No PATIENT GENDER DATA: Female. status: : No status: NO. PATIENT RELEVANT IMPLANT DATA REVIEWED: Not Applicable PATIENT PRESENTS WITH AN IMPLANTABLE OR ATTACHED VENDOR MANAGEMENT ASSOCIATE: No RADIOLOGY DEPARTMENT: MR; Exam(s) Completed: Lower MSK: Knee, left PERIPHERAL IV DATA: Not applicable SIGNED BY: RT Breezy(R) June 23, 2024 4:10 PM [facility] 06-11-2024 Telephone encounter Note Pt called in and reports she just got her insurance and needed to supervisor chemical her MRI. Pt was put through to PSS to do both for Pt. [facility] 06-11-2024 Miscellaneous Notes Pt called in and reports she just got her insurance and needed to supervisor chemical her MRI. Pt was put through to PSS to do both for Pt. documented in this encounter [facility] 05-28-2024 Instructions Cheyenne Bains APRN.ADRIEL - 05/28/2024 2:49 PM EST Get MRI completed Schedule consult with Orthopedics Continue with knee immobilizer and crutches Continue with Naproxen as needed, take with food. Elevate the left knee, may apply ice. Follow up pending test results or sooner as needed. documented in this encounter [facility] 05-28-2024 History of Present illness Narrative This is a 33 year old female who presents today with: Patient presents with: Follow Up: ER follow up for left knee HISTORY OF PRESENT ILLNESS: Rudi Chin is a 33 year old female. Patient presents with: Follow Up: ER follow up for left knee HOSPITAL/ER FOLLOW UP: Reason for visit: Knee Pain Which facility: [facility] ER Date of visit: 05/18/2024 Diagnosis: Injury of left knee, left knee sprain Testing done: X-ray of the left knee showed no evidence of acute fracture. Treatment given: Placed in a knee immobilizer and given crutches. 12 tablets of [place], recommending follow-up with orthopedics. Current symptoms: Still having on going pain, cannot bear weight on the left leg. Has not been able to go to work for the past [address] weeks. Working in the [employer], difficulty with standing and bending. Using knee immobilizer. Has been using Naproxen BID and Tylenol. Has been applying ice/ heat to the area. PAST MEDICAL HISTORY: PAST MEDICAL HISTORY Diagnosis Date Anxiety History of depression 07/31/2019 07/31/2019She also was diagnosed with depression after the of her last child Discussed increased risks of depression during and and importance of reporting the development or worsening of symptoms should they occur.Pt denies ever having any suicidal thoughts or tendencies or thoughts of hurting others.TKRN Infantile cerebral palsy, unspecified 10/16/2006 Other specified infantile cerebral palsy depression Vaginal bleeding affecting early 04/10/2020 -03/16 Quant hCG 26,033 -UVUS/TAUS performed no IUP noted, left ovarian cyst -patient to follow up in 48 hours on Sunday, patient in agreeable with plan -return precautions given PAST SURGICAL HISTORY Procedure Laterality Date DELIVERY ONLY 09/05/2019 R/CS low transverse SECTION HX D+C 04/16/2020 HYSTERECTOMY 05/08/2020 LAPS SURG CHOLECYSTECTOMY W/CHOLANGIOGRAPHY 09-09-12 ALLERGIES Augmentin [Amoxicillin-Pot Clavulanate] and Ibuprofen MEDICATIONS Current Outpatient Medications Medication Sig tiZANidine (ZANAFLEX) 4 mg tablet Take 1 tablet by mouth every 8 hours as needed (muscle spasms). albuterol HFA (PROVENTIL HFA, VENTOLIN HFA) 90 mcg/actuation inhaler Inhale 2 Puffs as instructed every 4 hours as needed for wheezing/shortness of breath. betamethasone dipropionate, augmented (DIPROLENE) 0.05 % cream Apply 1 application to affected area twice daily as needed. acetaminophen (TYLENOL) 325 mg tablet Take 2 tablets by mouth every 6 hours. No current facility-administered medications for this visit. FAMILY HISTORY Problem Relation Age of Onset Coronary Artery Disease Mother 50 Arthritis Mother Psychiatry Mother PTSD other (degenerative disc disease) Mother other (anxiety) Mother Psychiatry Father anxiety/OCD Diabetes Maternal Aunt No Known Problems Brother No Known Problems Son Social History Tobacco Use Smoking status: Never Smokeless tobacco: Never Vaping Use Vaping status: Never Used Substance Use Topics Alcohol use: Not Currently Comment: occasionally Drug use: Yes Types: Marijuana Comment: + Tox screen 01/06/21 REVIEW OF SYSTEMS GENERAL: No weight loss, malaise or fevers/chills HEENT: Negative for frequent or significant headaches, No changes in hearing or vision. NECK: Negative for lumps, goiter, pain and significant neck swelling RESPIRATORY: Negative for cough, hemoptysis, wheezing, dyspnea or shortness of breath CARDIOVASCULAR: Negative for chest pain, leg swelling, orthopnea, or palpitations GI: No nausea, vomiting, or diarrhea/constipation. No hematochezia/melena. No heartburn or reflux symptoms. : No history of dysuria, frequency or incontinence MUSCULOSKELETAL: + Left Knee Pain SKIN: Negative for lesions, rash, and itching ENDOCRINE: Negative for cold or heat intolerance, polyuria, polydipsia and goiter NEURO: No history of headaches, syncope, paralysis, seizures or tremors MOOD: Negative for depression, anxiety, or suicidal ideation. EXAM: BP 114/78 Pulse 107 Resp 16 Wt 99.8 kg (220 lb) LMP 09/23/2023 SpO2 98% BMI 33.45 kg/m PHYSICAL EXAM: General Appearance: Well appearing, alert, in no acute distress, well-hydrated, well nourished.. Skin: Skin color, texture, turgor normal, no suspicious rashes or lesions. Head: Normocephalic, no masses, lesions, tenderness or abnormalities. Eyes: Anicteric sclera. Extraocular movements are intact. Extremities: No deformities, edema, skin discoloration, clubbing or cyanosis. Good capillary refill. . Musculoskeletal: Left knee tender to palpation, swelling noted around the patella, pain with Valgus/Varus. Reduced ROM. No crepitus noted. Peripheral Pulses: Normal, Capillary refill <2secs, strong peripheral pulses, Pulses palpable. Neurologic: Gait normal. Reflexes normal and symmetric. Sensation grossly intact.. ASSESSMENT/PLAN: 1. Hospital discharge follow-up - ICD9: V67.59, ICD10: Z09 (primary diagnosis) - Still having on going knee pain since discharge. 2. Injury of left knee, subsequent encounter - ICD9: V58.89, 959.7, ICD10: S89.92XD - Get MRI completed - Recommend consult with Ortho - Continue to use knee immobilizer and crutches. - Continue with NSAIDs, elevation, and ice as needed. - CONSULT TO ORTHOPAEDICS - MRI KNEE WO IVCON LEFT Follow-up pending test results or sooner if needed. Discussed treatment plan and patient voices understanding. Patient's questions answered appropriately. Medications and potential side effects were discussed and patient voices understanding. Cheyenne Bains APRN.ADRIEL This note was partially generated using [employer] recognition system. Note was reviewed for accuracy. There may be minor misspellings or grammar miscues with [place] voice recognition. documented in this encounter [facility] 05-28-2024 Note HNO ID: [id number] Author: CHEYENNE BAINS APRN.[employer] Service: ? Author Type: Nurse Practitioner Type: Progress Notes Filed: 05/28/2024 17:20 Note Text: This is a 33 year old female who presents today with: Patient presents with: Follow Up: ER follow up for left knee HISTORY OF PRESENT ILLNESS: Rudi Chin is a 33 year old female. Patient presents with: Follow Up: ER follow up for left knee HOSPITAL/ER FOLLOW UP: Reason for visit: Knee Pain Which facility: [facility] ER Date of visit: 05/18/2024 Diagnosis: Injury of left knee, left knee sprain Testing done: X-ray of the left knee showed no evidence of acute fracture. Treatment given: Placed in a knee immobilizer and given crutches. 12 tablets of [place], recommending follow-up with orthopedics. Current symptoms: Still having on going pain, cannot bear weight on the left leg. Has not been able to go to work for the past 2 weeks. [place], difficulty with standing and bending. Using knee immobilizer. Has been using Naproxen BID and Tylenol. Has been applying ice/ heat to the area. PAST MEDICAL HISTORY: PAST MEDICAL HISTORY Diagnosis Date Anxiety History of depression 07/31/2019 07/31/2019She also was diagnosed with depression after the of her last child Discussed increased risks of depression during and and importance of reporting the development or worsening of symptoms should they occur.Pt denies ever having any suicidal thoughts or tendencies or thoughts of hurting others.TKRN Infantile cerebral palsy, unspecified 10/16/2006 Other specified infantile cerebral palsy depression Vaginal bleeding affecting early 04/10/2020 -03/16 Quant hCG 26,033 -UVUS/TAUS performed no IUP noted, left ovarian cyst -patient to follow up in 48 hours on Sunday, patient in agreeable with plan -return precautions given PAST SURGICAL HISTORY Procedure Laterality Date DELIVERY ONLY 09/05/2019 R/CS low transverse SECTION HX D+C 04/16/2020 HYSTERECTOMY 05/08/2020 LAPS SURG CHOLECYSTECTOMY W/CHOLANGIOGRAPHY 09-09-12 ALLERGIES Augmentin [Amoxicillin-Pot Clavulanate] and Ibuprofen MEDICATIONS Current Outpatient Medications Medication Sig tiZANidine (ZANAFLEX) 4 mg tablet Take 1 tablet by mouth every 8 hours as needed (muscle spasms). albuterol HFA (PROVENTIL HFA, VENTOLIN HFA) 90 mcg/actuation inhaler Inhale 2 Puffs as instructed every 4 hours as needed for wheezing/shortness of breath. betamethasone dipropionate, augmented (DIPROLENE) 0.05 % cream Apply 1 application to affected area twice daily as needed. acetaminophen (TYLENOL) 325 mg tablet Take 2 tablets by mouth every 6 hours. No current facility-administered medications for this visit. FAMILY HISTORY Problem Relation Age of Onset Coronary Artery Disease Mother 50 Arthritis Mother Psychiatry Mother PTSD other (degenerative disc disease) Mother other (anxiety) Mother Psychiatry Father anxiety/OCD Diabetes Maternal Aunt No Known Problems Brother No Known Problems Son Social History Tobacco Use Smoking status: Never Smokeless tobacco: Never Vaping Use Vaping status: Never Used Substance Use Topics Alcohol use: Not Currently Comment: occasionally Drug use: Yes Types: Marijuana Comment: + Tox screen 01/06/21 REVIEW OF SYSTEMS GENERAL: No weight loss, malaise or fevers/chills HEENT: Negative for frequent or significant headaches, No changes in hearing or vision. NECK: Negative for lumps, goiter, pain and significant neck swelling RESPIRATORY: Negative for cough, hemoptysis, wheezing, dyspnea or shortness of breath CARDIOVASCULAR: Negative for chest pain, leg swelling, orthopnea, or palpitations GI: No nausea, vomiting, or diarrhea/constipation. No hematochezia/melena. No heartburn or reflux symptoms. : No history of dysuria, frequency or incontinence MUSCULOSKELETAL: + Left Knee Pain SKIN: Negative for lesions, rash, and itching ENDOCRINE: Negative for cold or heat intolerance, polyuria, polydipsia and goiter NEURO: No history of headaches, syncope, paralysis, seizures or tremors MOOD: Negative for depression, anxiety, or suicidal ideation. EXAM: BP 114/78 Pulse 107 Resp 16 Wt 99.8 kg (220 lb) LMP 09/23/2023 SpO2 98% BMI 33.45 kg/m? PHYSICAL EXAM: General Appearance: Well appearing, alert, in no acute distress, well-hydrated, well nourished.. Skin: Skin color, texture, turgor normal, no suspicious rashes or lesions. Head: Normocephalic, no masses, lesions, tenderness or abnormalities. Eyes: Anicteric sclera. Extraocular movements are intact. Extremities: No deformities, edema, skin discoloration, clubbing or cyanosis. Good capillary refill. . Musculoskeletal: Left knee tender to palpation, swelling noted around the patella, pain with Valgus/Varus. Reduced ROM. No crepitus noted. Periphe (more content not included)... [facility] 05-24-2024 Telephone encounter Note Reason for Call: Pain and tightening (swelling) in knee. - Attempted to be seen at [facility] but per patient, was told they couldn't do much for her Outcome: Advised to See HCP in 24 Hours. Patient verbalized understanding and is agreeable to the plan with modifications. She may return to the Emergency Room as she currently does not have financial clearance to be seen at an Express Care/Urgent Care. Reviewed that she can ask for an HCAP a Express Care/Urgent Care. Patient may wait until Sunday to discuss with PCP office. Followed up with [facility], and clarified that patient was told they do not complete emergency room follow up visits. Reason for Disposition [1] MODERATE pain (e.g., interferes with normal activities, limping) AND [2] high-risk adult (e.g., age > 60 years, osteoporosis, chronic steroid use) Followed a knee injury Answer Assessment - Initial Assessment Questions 1. MECHANISM: Left knee 2. ONSET: 1 week ago, Sunday evening 3. LOCATION: Inner portion of left knee 4. APPEARANCE of INJURY: - Swollen and bruised - Bruising is purple in color and about the size of 2.5 inches in diameter. 5. SEVERITY: - Unable to walk or put pressure on her left leg. Walking with crutches 2 6. SIZE: See above. 7. PAIN: - SEVERE (8-10): Excruciating pain, unable to do any normal activities, unable to walk. Pain? Yes, 9/10 Location of pain? Left knee Description of pain? aching Duration of pain? constant Pain relief methods/effectiveness? Hydrocodone, Ibuprofen (hurts her stomach), and ice packs. Meds help bring the pain down to moderate. - Hydrocodone (has 6 left) takes at night so she can sleep. Helps slightly to fall asleep but wakes up later during the night in pain 8. TETANUS: N/a 9. OTHER SYMPTOMS - Swelling in left foot 10. : First day of last menstrual cycle: n/a early hysterectomy Protocols used: Knee [id number]-FL, Knee Zseldb-ZCNEW-CE [facility] 05-24-2024 Miscellaneous Notes Reason for Call: Pain and tightening (swelling) in knee. - Attempted to be seen at [facility] but per patient, was told they couldn't do much for her Outcome: Advised to See HCP in 24 Hours. Patient verbalized understanding and is agreeable to the plan with modifications. She may return to the Emergency Room as she currently does not have financial clearance to be seen at an Express Care/Urgent Care. Reviewed that she can ask for an HCAP a Express Care/Urgent Care. Patient may wait until Sunday to discuss with PCP office. Followed up with [facility], and clarified that patient was told they do not complete emergency room follow up visits. Reason for Disposition [1] MODERATE pain (e.g., interferes with normal activities, limping) AND [2] high-risk adult (e.g., age > 60 years, osteoporosis, chronic steroid use) Followed a knee injury Answer Assessment - Initial Assessment Questions 1. MECHANISM: Left knee 2. ONSET: 1 week ago, Sunday evening 3. LOCATION: Inner portion of left knee 4. APPEARANCE of INJURY: - Swollen and bruised - Bruising is purple in color and about the size of 2.5 inches in diameter. 5. SEVERITY: - Unable to walk or put pressure on her left leg. Walking with crutches 2 6. SIZE: See above. 7. PAIN: - SEVERE (8-10): Excruciating pain, unable to do any normal activities, unable to walk. Pain? Yes, 9/10 Location of pain? Left knee Description of pain? aching Duration of pain? constant Pain relief methods/effectiveness? Hydrocodone, Ibuprofen (hurts her stomach), and ice packs. Meds help bring the pain down to moderate. - Hydrocodone (has 6 left) takes at night so she can sleep. Helps slightly to fall asleep but wakes up later during the night in pain 8. TETANUS: N/a 9. OTHER SYMPTOMS - Swelling in left foot 10. : First day of last menstrual cycle: n/a early hysterectomy Protocols used: Knee Ehtc-[id number]-NL, Knee Ntfytl-SGNDE-KV documented in this encounter [facility] 04-25-2024 Instructions Yeyo Melton APRN.CNP - 04/25/2024 8:[address] of the chest ordered to be completed 6 months from today. Take Medrol with food Can trial Tizadine taking 1/2 tablet at first, Can cause drowsiness. Yeyo Melton APRN.[employer] documented in this encounter [facility] 04-25-2024 History of Present illness Narrative Chief Complaint Patient presents with: ED Follow-up: [facility] 04/22/2024; muscle strain HPI Rudi Chin is a 33 year old female who presents here today for ER Follow Up. Patient presented to [facility] on April 22 for complaints of chest pain. Stating right shoulder/scapular pain over the past 3 weeks. 3 days prior to her emergency room visit she had complaints of right-sided anterior chest pain. EKG performed with no ST changes. Mildly anemic hemoglobin 12.3, hematocrit 36.8. Troponin negative. Magnesium normal. Chest x-ray normal. D-dimer mildly elevated. CTA of the chest was obtained. This is a new finding in comparison to her previous CT scan. New finding included 8 mm partially solid nodule of the right middle lobe. Recommendation would be repeat CT imaging in 6 months. Discharged with rhomboid strain and chest pain of musculoskeletal etiology. 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 At this time, she states that her pain continues in the right chest wall, upper area and also the right trapezius radiating down her scapula. Tingling, pain radiating down towards the right elbow. Denies any chest pressure, syncope, fevers, chills, lightheadedness. Past medical history, appointments, medications, allergies reviewed. EXAM: BP 134/88 Pulse 68 Resp 16 Wt 99.8 kg (220 lb 0.3 oz) [facility] 09/23/2023 SpO2 97% BMI 33.45 kg/m General Appearance: Well appearing, alert, in no acute distress, well-hydrated, well nourished.. Lungs: Lungs clear to auscultation. No wheezing, rhonchi, rales.. Heart: RRR without murmur, gallop, or rubs. No ectopy. Musculoskeletal: Mild intercostal pain in the right chest wall. Moderate tenderness of the right upper trapizus tenderness, down the right scapula ASSESSMENT/PLAN: 1. Rhomboid muscle strain, sequela - ICD9: 905.7, ICD10: S29.012S (primary diagnosis) -Muscle strain also coupled with intercostal inflammation. I gave the patient a few days off from work for rest. Trial Medrol Dosepak, tizanidine. Cautioned her on sedating effects of tizanidine. - METHYLPREDNISOLONE 4 MG TABLETS IN A DOSE PACK - TIZANIDINE 4 MG TABLET 2. Incidental lung nodule, greater than or equal to 8mm - ICD9: 793.11, ICD10: R91.1 -8 mm nodule of the right middle lobe which is a new finding when compared to CT of the chest in 2019. Repeat CT of the chest in 6 months 3. Lung nodules - ICD9: 793.19, ICD10: R91.8 -See #2. - [facility] Yeyo Melton APRN.CNP This note was partly generated using [employer] voice recognition dictation and may contain some misspelled or inaccurate words missed on review. documented in this encounter [facility] 04-25-2024 Note HNO ID: [id number] Author: YEYO MELTON APRN.CNP Service: ? Author Type: Nurse Practitioner Type: Progress Notes Filed: 04/25/2024 08:54 Note Text: Chief Complaint Patient presents with: ED Follow-up: [facility] 04/22/2024; muscle strain HPI Rudi Chin is a 33 year old female who presents here today for ER Follow Up. Patient presented to [facility] on April 22 for complaints of chest pain. Stating right shoulder/scapular pain over the past 3 weeks. 3 days prior to her emergency room visit she had complaints of right-sided anterior chest pain. EKG performed with no ST changes. Mildly anemic hemoglobin 12.3, hematocrit 36.8. Troponin negative. Magnesium normal. Chest x-ray normal. D-dimer mildly elevated. CTA of the chest was obtained. This is a new finding in comparison to her previous CT scan. New finding included 8 mm partially solid nodule of the right middle lobe. Recommendation would be repeat CT imaging in 6 months. Discharged with rhomboid strain and chest pain of musculoskeletal etiology. 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 At this time, she states that her pain continues in the right chest wall, upper area and also the right trapezius radiating down her scapula. Tingling, pain radiating down towards the right elbow. Denies any chest pressure, syncope, fevers, chills, lightheadedness. Past medical history, appointments, medications, allergies reviewed. EXAM: BP 134/88 Pulse 68 Resp 16 Wt 99.8 kg (220 lb 0.3 oz) LMP 09/23/2023 SpO2 97% BMI 33.45 kg/m? General Appearance: Well appearing, alert, in no acute distress, well-hydrated, well nourished.. Lungs: Lungs clear to auscultation. No wheezing, rhonchi, rales.. Heart: RRR without murmur, gallop, or rubs. No ectopy. Musculoskeletal: Mild intercostal pain in the right chest wall. Moderate tenderness of the right upper trapizus tenderness, down the right scapula ASSESSMENT/PLAN: 1. Rhomboid muscle strain, sequela - ICD9: 905.7, ICD10: S29.012S (primary diagnosis) -Muscle strain also coupled with intercostal inflammation. I gave the patient a few days off from work for rest. Trial Medrol Dosepak, tizanidine. Cautioned her on sedating effects of tizanidine. - METHYLPREDNISOLONE 4 MG TABLETS IN A DOSE PACK - TIZANIDINE 4 MG TABLET 2. Incidental lung nodule, greater than or equal to 8mm - ICD9: 793.11, ICD10: R91.1 -8 mm nodule of the right middle lobe which is a new finding when compared to CT of the chest in 2020. Repeat CT of the chest in 6 months 3. Lung nodules - ICD9: 793.19, ICD10: R91.8 -See #2. - CT [facility]ST [facility] Yeyo Melton, [employer].CARD STRIPPER This note was partly generated using [employer] voice recognition dictation and may contain some misspelled or inaccurate words missed on review. [facility] 04-22-2024 Telephone encounter Note Patient calls for chest pain and right shoulder pain. Nurse triage completed. Protocol recommends ED now. Patient agreeable. Care advice reviewed. Patient verbalizes understanding. Reason for Disposition Pain also in shoulder(s) or arm(s) or jaw (Exception: Pain is clearly made worse by movement.) Answer Assessment - Initial Assessment Questions 1. LOCATION: Center of chest 2. RADIATION: Patient reports no but then reports it radiates to the right shoulder but has had right shoulder pain for over a week. 3. ONSET: Today 4. PATTERN: Constant sharp shooting and then at times a burning feeling. 5. DURATION: Started this morning 6. SEVERITY: - MODERATE (4-7): Interferes with normal activities or awakens from sleep. 7. CARDIAC RISK FACTORS: No history of heart problems including angina, prior heart attack; diabetes, high blood pressure, high cholesterol, smoker. Mother had CAD at early age. 8. PULMONARY RISK FACTORS: No history of lung disease including blood clots in lung, asthma, emphysema, control pills 9. CAUSE: Patient uncertain 10. OTHER SYMPTOMS: No dizziness, nausea, vomiting, sweating, fever, difficulty breathing, cough 11. : No Protocols used: Chest [id number] [facility] 04-22-2024 Miscellaneous Notes Patient calls for chest pain and right shoulder pain. Nurse triage completed. Protocol recommends ED now. Patient agreeable. Care advice reviewed. Patient verbalizes understanding. Reason for Disposition Pain also in shoulder(s) or arm(s) or jaw (Exception: Pain is clearly made worse by movement.) Answer Assessment - Initial Assessment Questions 1. LOCATION: Center of chest 2. RADIATION: Patient reports no but then reports it radiates to the right shoulder but has had right shoulder pain for over a week. 3. ONSET: Today 4. PATTERN: Constant sharp shooting and then at times a burning feeling. 5. DURATION: Started this morning 6. SEVERITY: - MODERATE (4-7): Interferes with normal activities or awakens from sleep. 7. CARDIAC RISK FACTORS: No history of heart problems including angina, prior heart attack; diabetes, high blood pressure, high cholesterol, smoker. Mother had CAD at early age. 8. PULMONARY RISK FACTORS: No history of lung disease including blood clots in lung, asthma, emphysema, control pills 9. CAUSE: Patient uncertain 10. OTHER SYMPTOMS: No dizziness, nausea, vomiting, sweating, fever, difficulty breathing, cough 11. : No Protocols used: Chest [id number] documented in this encounter [facility] 12-17-2023 Note I was personally pre sent for the sanchez portions of the procedure. Navarro Garcia DDS [facility] 12-17-2023 History of Present illness Narrative I was personally present for the sanchez portions of the procedure. Navarro Garcia DDS ORAL SURGERY PROCEDURE ROOM NOTE [facility] Surgical Product(s): Oral Sedation PMH: Reviewed, no change. Antibiotic prophylaxis indicated/taken: no Discussed risks, benefits, and alternatives of treatment. All of the patient s questions were answered, and informed consent was obtained: yes Pre-op Diagnosis: Caries PROCEDURE TIME OUT CHECK LIST 1. Radiograph is correctly matched to the patient,diagnostic quality, correctly oriented for laterality: Yes 2. Time out performed confirming correct surgical site and/or involved teeth verified by the patient and the surgeon: Yes Anesthesia: 2% Xylocaine with 1/100,000 epinephrine: 2 carpules Attending: Navarro Garcia DDS Resident: Leon Assistants: GABINO Greenberg Procedure in Detail: . For pharyngeal protection a throat screen was inserted prior to oral instrumentation and subsequently removed upon completion of procedure.Periosteal elevator developed FTMP flap mucoperiosteal cuff around teeth #18 and 19. Standard elevator and forceps extraction teeth # 18 and 19. Inspected sockets, followed by curettage. Wound irrigation with NS. 3-0 chromic gut sutures placed to re-approximate tissues. Patient instructed to bite on gauze for hemostasis. Hemostasis verified prior to dismissal. Verbal and written postop instructions were given to patient. Complications: none Specimens: Intact teeth Estimated blood loss: Minimal (<5 ml) Disposition: Home Sanket Quintero DDS documented in this encounter [facility] 12-17-2023 Note ORAL SURGERY PROCEDU RE ROOM NOTE [facility] Surgical Product(s): Oral Sedation PMH: Reviewed, no change. Antibiotic prophylaxis indicated/taken: no Discussed risks, benefits, and alternatives of treatment. All of the patient's questions were answered, and informed consent was obtained: yes Pre-op Diagnosis: Caries PROCEDURE TIME OUT CHECK LIST 1. Radiograph is correctly matched to the patient,diagnostic quality, correctly oriented for laterality: Yes 2. Time out performed confirming correct surgical site and/or involved teeth verified by the patient and the surgeon: Yes Anesthesia: 2% Xylocaine with 1/100,000 epinephrine: 2 carpules Attending: Navarro Garcia DDS Resident: Leon Assistants: GABINO Greenberg Procedure in Detail: . For pharyngeal protection a throat screen was inserted prior to oral instrumentation and subsequently removed upon completion of procedure.Periosteal elevator developed FTMP flap mucoperiosteal cuff around teeth #18 and 19. Standard elevator and forceps extraction teeth # 18 and 19. Inspected sockets, followed by curettage. Wound irrigation with NS. 3-0 chromic gut sutures placed to re-approximate tissues. Patient instructed to bite on gauze for hemostasis. Hemostasis verified prior to dismissal. Verbal and written postop instructions were given to patient. Complications: none Specimens: Intact teeth Estimated blood loss: Minimal (<5 ml) Disposition: Home Sanket Quintero DDS [facility] 12-03-2023 Instructions Wendy Blanco APRN.CARD STRIPPER - 12/03/2023 5:29 PM EDT ASSESSMENT/PLAN: 1. Anxiety - ICD9: 300.00, ICD10: F41.9 (primary diagnosis) - patient denies suicidal or homicidal ideation. - she has an appointment with a "trauma therapist" in March. - encouraged seeing PCP prior to this for anxiety medication. 2. Tiredness - ICD9: 780.79, ICD10: R53.83 - information regarding sleep hygiene provided. 3. Encounter to obtain excuse from work - ICD9: V68.89, ICD10: Z02.89 -Work note provided for today's visit. - Follow-up with your PCP in 3-5 days if symptoms have not improved or sooner if symptoms worsen - Discussed red flags and need for immediate medical evaluation if any occur. - Discussed supportive care treatment with fluids, rest and analgesia. - Discussed expected course of illness Wendy Blanco APRN.ADRIEL General Sleep Recommendations: The following are general sleep hygiene practices that can assist with falling/staying asleep: Regular physical activity in the morning and/or afternoon. Avoid exercise within 3 hours of bedtime. Increase exposure to bright light during the day and reduce exposure to bright light within a few hours of bedtime. Avoid heavy meals, limit fluid intake, and avoid alcohol/nicotine within 3 hours of bedtime. Limit caffeine intake and especially avoid caffeine consumption at least 4 hours before bedtime. Enhance sleep environment (dark, quiet room; comfortable temperature) Set aside a worry time before bedtime. Avoid looking at the clock when awake during the night. Maintain a regular bedtime and wake time every day. If necessary, limit to one short 30 minutes or less nap per day. Turn off electronics & light-emitting sources at bedtime. Associate bedroom as a place for sleep or sexual activity only. Use relaxation techniques such as deep breathing, meditation, and yoga. documented in this encounter [facility] 12-03-2023 History of Present illness Narrative Subjective HPI Rudi Chin is a 33 year old female who presents to [employer] for a note for work. She was having some increased anxiety last night due to some stressors and she had trouble sleeping so she called off of work today. She has a history of anxiety and PTSD and is not currently taking medications for this. She has taken medication in the past. She recently started a new job which is more physical than she is used to, plus her 4 year old son is going to be going to a camp soon. She states she got very anxious and felt like something bad was going to happen and started hyperventilating. She states she knew she was having a panic attack and was able to calm herself but still could not sleep well. Review of Systems Constitutional: Negative for chills and fever. Respiratory: Negative for cough, shortness of breath and wheezing. Cardiovascular: Negative for chest pain and palpitations. Psychiatric/Behavioral: Negative for depression and suicidal ideas. The patient is nervous/anxious and has insomnia. BP 110/64 Pulse 88 Temp 36.9 C (98.4 F) Resp 16 Wt 95.8 kg (211 lb 3.2 oz) LMP 09/23/2023 SpO2 98% BMI 32.11 kg/m PAST MEDICAL HISTORY Diagnosis Date Anxiety History of depression 07/31/2019 07/31/2019She also was diagnosed with depression after the of her last child Discussed increased risks of depression during and and importance of reporting the development or worsening of symptoms should they occur.Pt denies ever having any suicidal thoughts or tendencies or thoughts of hurting others.TKRN Infantile cerebral palsy, unspecified 10/16/2006 Other specified infantile cerebral palsy depression Vaginal bleeding affecting early 04/10/2020 -03/16 Quant hCG 26,033 -UVUS/TAUS performed no IUP noted, left ovarian cyst -patient to follow up in 48 hours on Sunday, patient in agreeable with plan -return precautions given PAST SURGICAL HISTORY Procedure Laterality Date DELIVERY ONLY 09/05/2019 R/CS low transverse SECTION HX D+C 04/16/2020 HYSTERECTOMY 05/08/2020 LAPS SURG CHOLECYSTECTOMY W/CHOLANGIOGRAPHY 09-09-12 ALLERGIES Augmentin [Amoxicillin-Pot Clavulanate] and Ibuprofen MEDICATIONS albuterol HFA (PROVENTIL HFA, VENTOLIN HFA) 90 mcg/actuation inhaler Inhale 2 Puffs as instructed every 4 hours as needed for wheezing/shortness of breath. betamethasone dipropionate, augmented (DIPROLENE) 0.05 % cream Apply 1 application to affected area twice daily as needed. acetaminophen (TYLENOL) 325 mg tablet Take 2 tablets by mouth every 6 hours. cyclobenzaprine (FLEXERIL) 10 mg tablet Take 1 tablet by mouth daily at bedtime. (Patient not taking: Reported on 12/03/2023) SUMAtriptan (IMITREX) 50 mg tablet Take 1 tablet by mouth as needed for Migraine Headache (see administration instructions). (Patient not taking: Reported on 12/03/2023) loratadine (CLARITIN) 10 mg tablet Take 1 tablet by mouth once daily. (Patient not taking: Reported on 12/03/2023) polyethylene glycol 3350 (MIRALAX) 17 gram/dose powder Take 17 g by mouth as directed. (Patient not taking: Reported on 12/03/2023) FAMILY HISTORY Problem Relation Age of Onset Coronary Artery Disease Mother 50 Arthritis Mother Psychiatry Mother PTSD other (degenerative disc disease) Mother other (anxiety) Mother Psychiatry Father anxiety/OCD Diabetes Maternal Aunt No Known Problems Brother No Known Problems Son Social History Tobacco Use Smoking status: Never Smokeless tobacco: Never Vaping Use Vaping Use: Never used Substance Use Topics Alcohol use: Not Currently Comment: occasionally Drug use: Yes Types: Marijuana Comment: + Tox screen 01/06/21 Objective Physical Exam Vitals and nursing note reviewed. Constitutional: General: She is not in acute distress. Appearance: Normal appearance. She is not ill-appearing or diaphoretic. Cardiovascular: Rate and Rhythm: Normal rate and regular rhythm. Heart sounds: Normal heart sounds. Pulmonary: Effort: Pulmonary effort is normal. No respiratory distress. Breath sounds: Normal breath sounds. No wheezing or rales. Skin: General: Skin is warm and dry. Neurological: Mental Status: She is alert. Psychiatric: Attention and Perception: Attention normal. Mood and Affect: Mood is anxious. Mood is not depressed. Affect is not labile, blunt, flat, angry, tearful or inappropriate. Behavior: Behavior normal. Behavior is not agitated, aggressive, withdrawn or hyperactive. Thought Content: Thought content normal. Thought content is not paranoid. Thought content does not include homicidal or suicidal ideation. Thought content does not include homicidal or suicidal plan. ASSESSMENT/PLAN: 1. Anxiety - ICD9: 300.00, ICD10: F41.9 (primary diagnosis) - patient denies suicidal or homicidal ideation. - she has an appointment with a "trauma therapist" in March. - encouraged seeing PCP prior to this for anxiety medication. 2. Tiredness - ICD9: 780.79, ICD10: R53.83 - information regarding sleep hygiene provided. 3. Encounter to obtain excuse from work - ICD9: V68.89, ICD10: Z02.89 -Work note provided for today's visit. - Follow-up with your PCP in 3-5 days if symptoms have not improved or sooner if symptoms worsen - Discussed red flags and need for immediate medical evaluation if any occur. - Discussed supportive care treatment with fluids, rest and analgesia. - Discussed expected course of illness Wendy Blanco APRN.CARD STRIPPER documented in this encounter [facility] 11-29-2023 Note Addended by: ROOPA ERNANDEZ on: 11/29/2023 03:19 PM Modules accepted: Orders [facility] 11-29-2023 Miscellaneous Notes Addended by: ROOPA VALLES on: 11/29/2023 03:19 PM Modules accepted: Orders Returned patients call. She states she is having increased pain and swelling on the lower left side again. Denies fever, chills, n/v, SOB, CP, dysphagia, odynophagia. Will be sending Amoxicillin to preferred pharmacy. Patient arrived ate to her last appointment which was cancelled and so does not have the oral anxiolysis anymore. Rx also sent for Valium to be taken 1 hour prior to scheduled oral surgery procedure. Reviewed need for adult over age 18 to be present and escort her to appt. She voiced understanding and was grateful for the call. Roopa Valles DMD, MD Pt calling in because feels that abscess is infected again but is out of meds Pt had severe anxiety and prescribed anxiety meds for night before and day of but pt took this on consult date and is now nervous about not having it for procedure day Pt states that with pain meds pain is at 5/10 and after medications it becomes 10/10 throbbing pain and pain moved to ear as well Pt states that tooth has broken even more and more inflamed now. Pt states that swelling is pretty severe and that gum is red in color Pt states that abscess has grown Pt states that salt water helps a little but but because two teeth are broken pain is still evident Pt states that wants antibiotics and anxiety meds sent over Pt states that last antibiotics were really hard to swallow so would like a smaller pill or chewable instead Please call pt back at Phone numbers To discuss and when orders are sent [facility] - [place], [place] - [address] [place] [address] Lvm on pt cell informing her that her appt time has been moved up to 8am will mail out appt reminder letter documented in this encounter [facility] 11-29-2023 Telephone encounter Note Returned patients call. She states she is having increased pain and swelling on the lower left side again. Denies fever, chills, n/v, SOB, CP, dysphagia, odynophagia. Will be sending Amoxicillin to preferred pharmacy. Patient arrived ate to her last appointment which was cancelled and so does not have the oral anxiolysis anymore. Rx also sent for Valium to be taken 1 hour prior to scheduled oral surgery procedure. Reviewed need for adult over age 18 to be present and escort her to appt. She voiced understanding and was grateful for the call. Roopa Valles DMD, MD [facility] 11-29-2023 Telephone encounter Note Pt calling in because feels that abscess is infected again but is out of meds Pt had severe anxiety and prescribed anxiety meds for night before and day of but pt took this on consult date and is now nervous about not having it for procedure day Pt states that with pain meds pain is at 5/10 and after medications it becomes 10/10 throbbing pain and pain moved to ear as well Pt states that tooth has broken even more and more inflamed now. Pt states that swelling is pretty severe and that gum is red in color Pt states that abscess has grown Pt states that salt water helps a little but but because two teeth are broken pain is still evident Pt states that wants antibiotics and anxiety meds sent over Pt states that last antibiotics were really hard to swallow so would like a smaller pill or chewable instead Please call pt back at Phone numbers To discuss and when orders are sent [facility] - [place], [place] - [address] [place] [address] [facility] 11-29-2023 Miscellaneous Notes Pt calling in because feels that abscess is infected again but is out of meds Pt had severe anxiety and prescribed anxiety meds for night before and day of but pt took this on consult date and is now nervous about not having it for procedure day Pt states that with pain meds pain is at 5/10 and after medications it becomes 10/10 throbbing pain and pain moved to ear as well Pt states that tooth has broken even more and more inflamed now. Pt states that swelling is pretty severe and that gum is red in color Pt states that abscess has grown Pt states that salt water helps a little but but because two teeth are broken pain is still evident Pt states that wants antibiotics and anxiety meds sent over Pt states that last antibiotics were really hard to swallow so would like a smaller pill or chewable instead Please call pt back at Phone numbers To discuss and when orders are sent [facility] - [place], [place] - [address] [place] [address] Lvm on pt cell informing her that her appt time has been moved up to 8am will mail out appt reminder letter documented in this encounter [facility] 11-09-2023 Telephone encounter Note Lvm on pt cell informing her that her appt time has been moved up to 8am will mail out appt reminder letter [facility] 11-09-2023 Miscellaneous Notes Lvm on pt cell informing her that her appt time has been moved up to 8am will mail out appt reminder letter documented in this encounter [facility] 11-08-2023 Instructions Wendy Blanco APRN.CARD STRIPPER - 11/08/2023 10:36 AM EDT ASSESSMENT/PLAN: 1. Acute cough - ICD9: 786.2, ICD10: R05.1 (primary diagnosis) - XR CHEST 2V FRONTAL/LAT IMPRESSION: No acute radiographic abnormality. Advertising Statistical Clerk: JOSE Transcribe Date/Time: Nov 08 2023 10:25A Dictated by : HANNAH GASTON DO 2. Wheezing - ICD9: 786.07, ICD10: R06.2 3. Bronchitis - ICD9: 490, ICD10: J40 - PREDNISONE 10 MG TABLET - ALBUTEROL SULFATE HFA 90 MCG/ACTUATION AEROSOL INHALER - INHALATIONAL SPACING DEVICE - Follow-up with your PCP in 3-5 days if symptoms have not improved or sooner if symptoms worsen - Discussed red flags and need for immediate medical evaluation if any occur. - Discussed supportive care treatment with fluids, rest and analgesia. - Discussed expected course of illness Wendy Blanco APRN.ADRIEL ACUTE BRONCHITIS: You have acute bronchitis. This means the airway passages in your lungs are inflamed. Bronchitis may be caused by viruses or bacteria. Inhaling cigarette smoke will always make it worse. Exposure to irritating chemicals or second hand smoke as well as allergies can contribute to bronchitis. Acute bronchitis is usually treated with rest, fluids, cough medicine, and inhaled medicine to open up the small airways. It is very important that you avoid smoke and drink increased amounts of fluids. A cool air vaporizer can help thin bronchial secretions. This makes it easier to cough and clear your chest. If you are a cigarette smoker, consider using nicotine gum or skin patches to help you withdraw. Recovery from bronchitis is often slow, but you should start feeling better after 2-3 days of treatment. Please call your doctor or return here if you have any of the following symptoms: Increased fever, chills, or chest pain. Severe shortness of breath or bloody sputum. Do not improve after 3 days of proper treatment. documented in this encounter [facility] 11-08-2023 History of Present illness Narrative Radiology Service Progress Note PATIENT NAME: Rudi Chin DATE OF SERVICE: November 08, 2023 TIME: 10:18 AM PATIENT IDENTITY VERIFICATION COMPLETED USING TWO (2) IDENTIFIERS: Name and Date of confirmed by patient verbally. FALL SCREENING: Has the patient had 2 falls in the last year or 1 fall with injury or currently using an Ambulatory Assistive Device (Walker, Cane, Wheelchair, Crutches, etc.)? No PATIENT GENDER DATA: Female. status: : No status: NO. PATIENT RELEVANT IMPLANT DATA REVIEWED: Not Applicable PATIENT PRESENTS WITH AN IMPLANTABLE OR ATTACHED VENDOR MANAGEMENT ASSOCIATE: No RADIOLOGY DEPARTMENT: General X-ray: Exam(s) Completed: Chest X-Ray PERIPHERAL IV DATA: Not applicable SIGNED BY: RT Brad(R) November 08, 2023 10:18 AM documented in this encounter [facility] 11-08-2023 History of Present illness Narrative Subjective Cough Associated symptoms include chest pain (with cough), chills, headaches, shortness of breath and wheezing. Pertinent negatives include no sore throat. Rudi Chin is a 33 year old female who presents with a cough for past 3 months. States it has gotten worse over the past 3 days. She has sputum production and some shortness of breath. Also states she has a sharp pain in her chest with the cough. Complains of nasal congestion and chills. Concerned for black mold exposure due to a recent leak in her bathroom. Review of Systems Constitutional: Positive for chills. Negative for fever and malaise/fatigue. HENT: Positive for congestion. Negative for sore throat. Respiratory: Positive for cough, sputum production, shortness of breath and wheezing. Cardiovascular: Positive for chest pain (with cough). Neurological: Positive for headaches. BP 142/78 Pulse 88 Temp 36.7 C (98 F) Resp 16 Wt 94 kg (207 lb 3.7 oz) LMP 09/23/2023 SpO2 98% BMI 31.51 kg/m PAST MEDICAL HISTORY Diagnosis Date Anxiety History of depression 07/31/2019 07/31/2019Shakbar also was diagnosed with depression after the of her last child Discussed increased risks of depression during and and importance of reporting the development or worsening of symptoms should they occur.Pt denies ever having any suicidal thoughts or tendencies or thoughts of hurting others.TKRN Infantile cerebral palsy, unspecified 10/16/2006 Other specified infantile cerebral palsy depression Vaginal bleeding affecting early 04/10/2020 -03/16 Quant hCG 26,033 -UVUS/TAUS performed no IUP noted, left ovarian cyst -patient to follow up in 48 hours on Sunday, patient in agreeable with plan -return precautions given PAST SURGICAL HISTORY Procedure Laterality Date DELIVERY ONLY 09/05/2019 R/CS low transverse SECTION HX D+C 04/16/2020 HYSTERECTOMY 05/08/2020 LAPS SURG CHOLECYSTECTOMY W/CHOLANGIOGRAPHY 09-09-12 ALLERGIES Augmentin [Amoxicillin-Pot Clavulanate] and Ibuprofen MEDICATIONS betamethasone dipropionate, augmented (DIPROLENE) 0.05 % cream Apply 1 application to affected area twice daily as needed. cyclobenzaprine (FLEXERIL) 10 mg tablet Take 1 tablet by mouth daily at bedtime. SUMAtriptan (IMITREX) 50 mg tablet Take 1 tablet by mouth as needed for Migraine Headache (see administration instructions). loratadine (CLARITIN) 10 mg tablet Take 1 tablet by mouth once daily. acetaminophen (TYLENOL) 325 mg tablet Take 2 tablets by mouth every 6 hours. polyethylene glycol 3350 (MIRALAX) 17 gram/dose powder Take 17 g by mouth as directed. FAMILY HISTORY Problem Relation Age of Onset Coronary Artery Disease Mother 50 Arthritis Mother Psychiatry Mother PTSD other (degenerative disc disease) Mother other (anxiety) Mother Psychiatry Father anxiety/OCD Diabetes Maternal Aunt No Known Problems Brother No Known Problems Son Social History Tobacco Use Smoking status: Never Smokeless tobacco: Never Vaping Use Vaping Use: Never used Substance Use Topics Alcohol use: Not Currently Comment: occasionally Drug use: Yes Types: Marijuana Comment: + Tox screen 01/06/21 Objective Physical Exam Vitals and nursing note reviewed. Constitutional: General: She is not in acute distress. Appearance: Normal appearance. She is not ill-appearing. HENT: Mouth/Throat: Pharynx: Uvula midline. Cardiovascular: Rate and Rhythm: Normal rate and regular rhythm. Heart sounds: Normal heart sounds. Pulmonary: Effort: Pulmonary effort is normal. No respiratory distress. Breath sounds: Wheezing present. No rales. Musculoskeletal: Cervical back: Neck supple. Skin: General: Skin is warm and dry. Findings: No erythema or rash. Neurological: Mental Status: She is alert. ASSESSMENT/PLAN: 1. Acute cough - ICD9: 786.2, ICD10: R05.1 (primary diagnosis) - XR CHEST 2V FRONTAL/LAT IMPRESSION: No acute radiographic abnormality. Advertising Statistical Clerk: JOSE Transcribe Date/Time: Nov 08 2023 10:25A Dictated by : HANNAH GASTON DO 2. Wheezing - ICD9: 786.07, ICD10: R06.2 3. Bronchitis - ICD9: 490, ICD10: J40 - PREDNISONE 10 MG TABLET - ALBUTEROL SULFATE HFA 90 MCG/ACTUATION AEROSOL INHALER - INHALATIONAL SPACING DEVICE - Follow-up with your PCP in 3-5 days if symptoms have not improved or sooner if symptoms worsen - Discussed red flags and need for immediate medical evaluation if any occur. - Discussed supportive care treatment with fluids, rest and analgesia. - Discussed expected course of illness Wendy Blanco APRN.CARD STRIPPER documented in this encounter [facility] 09-05-2023 History of Present illness Narrative [facility] PATIENT VISIT CHIEF COMPLAINT: Toothache HISTORY OF PRESENT ILLNESS: 32 yrs old / female presents to [facility] with external referral for extraction of teeth #18 and 19 under IV sedation. PMHx includes anxiety, bipolar disorder, OCD, and PTSD. Pt reports to be currently in pain (04/10), pain waxing and waning pain originating from the teeth listed on the referral #18 and 19 that limits her ability to chew, function normally, and perform oral hygiene. Patient denies f/c, n/v, odynophagia, dysphagia, or SOB. PAST MEDICAL HISTORY: No past medical history on file. There is no problem list on file for this patient. MEDICATIONS: Current Outpatient Medications Medication Sig Dispense Refill amoxicillin-clavulanate (AUGMENTIN) 875-125 MG per tablet Take 1 Tablet by mouth 2 times daily for 10 days. 20 Tablet 0 acetaminophen (TYLENOL) 500 MG tablet Take 1 Tablet by mouth every 6 hours as needed for Pain or Fever. 30 Tablet 0 LORazepam (Ativan) 1 MG tablet Take 1 Tablet by mouth every 6 hours as needed for Anxiety for up to 3 doses. Take 1 tablet the night before, and 1-2 tablets 60 minute prior to procedure. Patient must have escort to and from clinic. 3 Tablet 0 No current facility-administered medications for this visit. Patient reports taking lorazepam in the past, but stopped taking under provider guidance 2 years ago. ALLERGIES: Patient has no allergy information on record. SURGICAL HX: No past surgical history on file. Patient reports: Appendix removal in May 2023 Gallbladder removal in 2010 in August 2019 Partial Hysterectomy in May 2020 SOCIAL HX: Patient reports to smoking occasionally, but denies smoking and vaping regularly. Patient denies EtOh and illicit drug use. CLINICAL EXAMINATION Extraoral examination: No significant findings No s/s of infection, redness or tenderness to palpation No facial asymmetry or swelling No appreciable LAD No popping/clicking/crepitus of TMJ b/l No tenderness to palpation of temporalis or masseter asymptomatic function Range of motion WNL CN V and VII intact Intraoral examination: No s/s of infection or tenderness to palpation Moist, pink mucosa, Erythematous mucosa around dentition with plaque accumulation Oropharynx clear No pathological soft lesions appreciated Oral cancer screen negative Occlusion stable Oral hygiene poor Teeth #18 and 19 gross carious destruction of crowns, I degree mobility. No swelling present. Pain on palpation. RADIOGRAPHIC INTERPRETATION: Panorex Film taken on 09/05/2023, and retained in our clinic file. I have viewed and interpreted the panorex. Teeth #18 and 19 gross carious destruction of crown, caries reaching the pulp, teeth not previously root rolando treated. Expected simple extraction. DIAGNOSIS: Periapical abscess [[id number]] TREATMENT: Exam, Panorex evaluated, Informed consent obtained and all patient questions regarding procedure answered, Pt reappointed for procedure, and Awaiting Insurance authorization. Reviewed procedure and complications associated with extractions ,including treatment options and no treatment. Opportunity given to ask all desired questions. Pertinent and more common complications of extractions discussed with the patient; pain, swelling, bruising, bleeding, infection (that may require further treatment such as hospitalizations), possible permanent numbness of the tongue, gums, teeth, lip, and chin, injury to adjacent structures (tooth, lip, cheek, jaw bone), damage to adjacent teeth, development of permanent TMJ symptoms/dysfunction, jaw fracture at time of surgery or afterwards, decision to leave root tips behind, displacement of tooth (or portion of) into adjacent spaces (such as sinus, floor of mouth, throat) and the development of sinus symptoms. Complications are not limited to the above and may include others that are less common. PLAN: 32 yrs old / female presents to [facility] with extrenal referral for extraction of teeth #18 and 19 under IV sedation. PMHx includes anxiety, bipolar disorder, OCD, and PTSD. Pt reports to be currently in pain (04/10), pain waxing and waning pain originating from the teeth listed on the referral #18 and 19 that limits her ability to chew, function normally, and perform oral hygiene. After discussing treatment options with the patient, our plan is to extract teeth #18 and 19 in [place] and Oral Sedation in our [place] clinic. Consent taken and patient informed. E-prescribed: augmentin, tylenol 500mg, and lorazepam. Case discussed with and approved by: Donna Watt/Kaila Davis DDS Associated attestation - Roopa Valles DMD, MD - 09/17/2023 2:04 PM EDT Teaching Physician Note: I saw and evaluated the patient. I personally obtained the sanchez and critical portions of the history and physical exam. I reviewed the resident's documentation and discussed the patient with the resident. I agree with the resident's medical decision making as documented in the resident's note. Roopa Valles DMD, MD Images from the original note were not included. documented in this encounter [employer] Work Phone: 09-05-2023 History of Present illness Narrative [facility] PATIENT VISIT CHIEF COMPLAINT: Toothache HISTORY OF PRESENT ILLNESS: 32 yrs old / female presents to [facility] with external referral for extraction of teeth #18 and 19 under IV sedation. PMHx includes anxiety, bipolar disorder, OCD, and PTSD. Pt reports to be currently in pain (04/10), pain waxing and waning pain originating from the teeth listed on the referral #18 and 19 that limits her ability to chew, function normally, and perform oral hygiene. Patient denies f/c, n/v, odynophagia, dysphagia, or SOB. PAST MEDICAL HISTORY: No past medical history on file. There is no problem list on file for this patient. MEDICATIONS: Current Outpatient Medications Medication Sig Dispense Refill amoxicillin-clavulanate (AUGMENTIN) 875-125 MG per tablet Take 1 Tablet by mouth 2 times daily for 10 days. 20 Tablet 0 acetaminophen (TYLENOL) 500 MG tablet Take 1 Tablet by mouth every 6 hours as needed for Pain or Fever. 30 Tablet 0 LORazepam (Ativan) 1 MG tablet Take 1 Tablet by mouth every 6 hours as needed for Anxiety for up to 3 doses. Take 1 tablet the night before, and 1-2 tablets 60 minute prior to procedure. Patient must have escort to and from clinic. 3 Tablet 0 No current facility-administered medications for this visit. Patient reports taking lorazepam in the past, but stopped taking under provider guidance 2 years ago. ALLERGIES: Patient has no allergy information on record. SURGICAL HX: No past surgical history on file. Patient reports: Appendix removal in May 2023 Gallbladder removal in 2010 in August 2019 Partial Hysterectomy in May 2020 SOCIAL HX: Patient reports to smoking occasionally, but denies smoking and vaping regularly. Patient denies EtOh and illicit drug use. CLINICAL EXAMINATION Extraoral examination: No significant findings No s/s of infection, redness or tenderness to palpation No facial asymmetry or swelling No appreciable LAD No popping/clicking/crepitus of TMJ b/l No tenderness to palpation of temporalis or masseter asymptomatic function Range of motion WNL CN V and VII intact Intraoral examination: No s/s of infection or tenderness to palpation Moist, pink mucosa, Erythematous mucosa around dentition with plaque accumulation Oropharynx clear No pathological soft lesions appreciated Oral cancer screen negative Occlusion stable Oral hygiene poor Teeth #18 and 19 gross carious destruction of crowns, I degree mobility. No swelling present. Pain on palpation. RADIOGRAPHIC INTERPRETATION: Panorex Film taken on 09/05/2023, and retained in our clinic file. I have viewed and interpreted the panorex. Teeth #18 and 19 gross carious destruction of crown, caries reaching the pulp, teeth not previously root rolando treated. Expected simple extraction. DIAGNOSIS: Periapical abscess [[id number]] TREATMENT: Exam, Panorex evaluated, Informed consent obtained and all patient questions regarding procedure answered, Pt reappointed for procedure, and Awaiting Insurance authorization. Reviewed procedure and complications associated with extractions ,including treatment options and no treatment. Opportunity given to ask all desired questions. Pertinent and more common complications of extractions discussed with the patient; pain, swelling, bruising, bleeding, infection (that may require further treatment such as hospitalizations), possible permanent numbness of the tongue, gums, teeth, lip, and chin, injury to adjacent structures (tooth, lip, cheek, jaw bone), damage to adjacent teeth, development of permanent TMJ symptoms/dysfunction, jaw fracture at time of surgery or afterwards, decision to leave root tips behind, displacement of tooth (or portion of) into adjacent spaces (such as sinus, floor of mouth, throat) and the development of sinus symptoms. Complications are not limited to the above and may include others that are less common. PLAN: 32 yrs old / female presents to [facility] with extrenal referral for extraction of teeth #18 and 19 under IV sedation. PMHx includes anxiety, bipolar disorder, OCD, and PTSD. Pt reports to be currently in pain (04/10), pain waxing and waning pain originating from the teeth listed on the referral #18 and 19 that limits her ability to chew, function normally, and perform oral hygiene. After discussing treatment options with the patient, our plan is to extract teeth #18 and 19 in [place] and Oral Sedation in our [facility] clinic. Consent taken and patient informed. E-prescribed: augmentin, tylenol 500mg, and lorazepam. Case discussed with and approved by: Donna Watt/Kaila Davis DDS Images from the original note were not included. documented in this encounter [employer] Work Phone: Evaluation + Plan note Future Appointments Appointment Date:07/18/2021 11:00:00 AM Scheduled Provider:JENNA JIMENEZ MD Location:[facility] Appointment Type: OV Future Scheduled TestsH pylori Antigen, Stool 06/15/21Estradiol Level 06/15/21Luteinizing Hormone 06/15/21Prolactin Level 06/15/21Pathology Pastry Sous Chef Request 06/15/21Follicle Stimulating Hormone Level 06/15/21 [facility] Evaluation note Diagnosis Acute cough- Primary Wheezing Bronchitis Bronchitis, not specified as acute or chronic Acute cough [facility] Anxiety- Primary Anxiety state, unspecified [facility] Diagnosis Anxiety- Primary Anxiety state, unspecified Tiredness Other malaise and fatigue Encounter to obtain excuse from work documented in this encounter [facility] note* Diagnosis Chronic dental caries extending to pulp- Primary Dental caries extending into pulp [facility]* Diagnosis Acute cough documented in this encounter [facility] note* Diagnosis Rhomboid muscle strain, sequela- Primary Incidental lung nodule, greater than or equal to 8mm Solitary pulmonary nodule Lung nodules Other nonspecific abnormal finding of lung field documented in this encounter [facility] note* Diagnosis Periapical abscess- Primary Periapical abscess without sinus documented in this encounter [employer] Work Phone: Evaluation note* Diagnosis Periapical abscess- Primary Periapical abscess without sinus documented in this encounter [employer] Work Phone: Evaluation note* Diagnosis Hospital discharge follow-up- Primary Other follow-up examination Injury of left knee, subsequent encounter documented in this encounter [facility] note* Diagnosis Injury of left knee, subsequent encounter [facility]* Diagnosis Sprain of medial collateral ligament of left knee, initial encounter- Primary Bone marrow edema Other specified diseases of blood and blood-forming organs documented in this encounter [facility] note* Diagnosis Gastroenteritis- Primary Other and unspecified noninfectious gastroenteritis and colitis documented in this encounter [facility] note* Diagnosis URI, acute- Primary Acute upper respiratory infections of unspecified site Hordeolum internum of right upper eyelid Hordeolum internum documented in this encounter [facility] course Narrative No data available for this section [facility] Hospital Discharge instructions No data available for this section [facility] Summary Purpose Family History No Family History Records FoundNo Family History Records FoundNo Family History Records FoundNo Family History Records FoundNo Family History Records FoundNo Family History Records Found Advance Directives No Advanced Directives Records FoundNo Advanced Directives Records FoundNo Advanced Directives Records FoundNo Advanced Directives Records FoundNo Advanced Directives Records FoundNo Advanced Directives Records Found Hospital Course Note HNO ID: [id number] Author: Milena Glasgow Service: Gynecology Author Type: Physician Type: Discharge Summary Filed: 05/11/2020 9:04 AM Note Text: DISCHARGE SUMMARY PATIENT NAME: Rudi Chin ADMISSION DATE: 05/07/2020 DISCHARGE DATE: 05/11/2020 ATTENDING PHYSICIAN: Rg Cohn Code Status: Not on file Highest Readmission Risk Score: 14 The 30 day readmissions risk score is derived from an internally validated risk model which evaluates patient level characteristics, utilization history, medication orders and lab results up until the day of discharge. Patients with a score of 40 or above are considered highest risk for readmission. Specific patient level drivers will be listed at the bottom of the summary. CONSULTING TEAMS DURING HOSPITALIZATION: Anesthesiology: intraoperative pain control Treatment Team: Attending Provider: Rg Cohn REASON FOR HOSPITALIZATION: scar ectopic DIAGNOSIS: scar ectopic Ruled Out OPERATIONS DURI (more content not included)... Note HNO ID: [id number] Author: Shanita Barnes Service: ? Author Type: Nurse Sales Engineer Account Manager Type: Anesthesia Procedure Notes Filed: 04/16/2020 5:01 PM Note Text: ANESTHESIOLOGY PROCEDURE NOTE Airway General Information Patient location during procedure: OR Timeout Performed Pre-procedure: timeout performed Consent Obtained: Yes Patient identity confirmed: arm band and patient Staffing PREDATOR CONTROL TRAPPER: Mona Barnes Indications and Patient Condition Preoxygenated: yes Indications for airway management: anesthesia anesthesia circuit Final Airway Details Final airway type: supraglottic airway Number of attempts at approach: 1 Final Supraglottic Airway: IGEL Size 4 Seal Adequate: yes Airway not difficult SIGNATURE: Mona Barnes APRN.CRNA PATIENT NAME: Rudi Chin DATE: April 16, 2020 TIME: 5:01 PM CSN: [id number] Note HNO ID: [id number] Author: Bernardo Fitch Service: ? Author Type: Nurse Sales Engineer Account Manager Type: Anesthesia Procedure Notes Filed: 05/08/2020 8:32 AM Note Text: ANESTHESIOLOGY PROCEDURE NOTE Airway General Information Procedure Start Time/Medication Administration: 05/08/2020 7:53 AM Patient location during procedure: OR Timeout Performed Pre-procedure: timeout performed Consent Obtained: Yes Patient identity confirmed: arm band Staffing PREDATOR CONTROL TRAPPER: Shantell Fitch Performed by: KATHERINE Indications and Patient Condition Preoxygenated: yes Patient position: sniffing Manual In-Line Stabilization: No Difficult Mask: No Indications for airway management: anesthesia anesthesia circuit Method: asleep Cricoid Pressure: No Final Airway Details Final airway type: endotracheal airway Final Endotracheal Airway: ETT Cuffed: yes Successful intubation technique: direct laryngoscopy Blade: Alexander Blade size: #2 ETT size (mm): 7.0 Measured from: lips Measurement (cm): 22 Placement verified by: chest (more content not included)... Note HNO ID: [id number] Author: Bernardo Fitch Service: ? Author Type: Nurse Sales Engineer Account Manager Type: Anesthesia Procedure Notes Filed: 05/08/2020 8:33 AM Note Text: ANESTHESIOLOGY PROCEDURE NOTE PIV General Information Patient Location: OR Staffing Performed by: anesthesiologist Preparation Sterility Preparation: hand hygiene performed prior to procedure Site Prep: ETOH Procedure Details Indication: need for IV access Needle Size/Type: 18 gauge angiocath Orientation: Left Location: Hand Imaging Guidance Used: No SIGNATURE: Shantell Fitch APRN.CRNA PATIENT NAME: Rudi Chin DATE: May 08, 2020 TIME: 8:32 AM CSN: [id number] Procedure Findings Note HNO ID: [id number] Author: Shanita Barnes Service: ? Author Type: Nurse Sales Engineer Account Manager Type: Anesthesia Procedure Notes Filed: 04/16/2020 5:01 PM Note Text: ANESTHESIOLOGY PROCEDURE NOTE Airway General Information Patient location during procedure: OR Timeout Performed Pre-procedure: timeout performed Consent Obtained: Yes Patient identity confirmed: arm band and patient Staffing PREDATOR CONTROL TRAPPER: Mona Barnes Indications and Patient Condition Preoxygenated: yes Indications for airway management: anesthesia anesthesia circuit Final Airway Details Final airway type: supraglottic airway Number of attempts at approach: 1 Final Supraglottic Airway: IGEL Size 4 Seal Adequate: yes Airway not difficult SIGNATURE: Mona Barnes APRN.CRNA PATIENT NAME: Rudi Cihn DATE: April 16, 2020 TIME: 5:01 PM CSN: [id number] Note HNO ID: [id number] Author: Bernardo Fitch Service: ? Author Type: Nurse Sales Engineer Account Manager Type: Anesthesia Procedure Notes Filed: 05/08/2020 8:32 AM Note Text: ANESTHESIOLOGY PROCEDURE NOTE Airway General Information Procedure Start Time/Medication Administration: 05/08/2020 7:53 AM Patient location during procedure: OR Timeout Performed Pre-procedure: timeout performed Consent Obtained: Yes Patient identity confirmed: arm band Staffing PREDATOR CONTROL TRAPPER: Shantell Fitch Performed by: PREDATOR CONTROL TRAPPER Indications and Patient Condition Preoxygenated: yes Patient position: sniffing Manual In-Line Stabilization: No Difficult Mask: No Indications for airway management: anesthesia anesthesia circuit Method: asleep Cricoid Pressure: No Final Airway Details Final airway type: endotracheal airway Final Endotracheal Airway: ETT Cuffed: yes Successful intubation technique: direct laryngoscopy Blade: Alexander Blade size: #2 ETT size (mm): 7.0 Measured from: lips Measurement (cm): 22 Placement verified by: chest (more content not included)... Note HNO ID: [id number] Author: Bernardo Fitch Service: ? Author Type: Nurse Sales Engineer Account Manager Type: Anesthesia Procedure Notes Filed: 05/08/2020 8:33 AM Note Text: ANESTHESIOLOGY PROCEDURE NOTE PIV General Information Patient Location: OR Staffing Performed by: anesthesiologist Preparation Sterility Preparation: hand hygiene performed prior to procedure Site Prep: ETOH Procedure Details Indication: need for IV access Needle Size/Type: 18 gauge angiocath Orientation: Left Location: Hand Imaging Guidance Used: No SIGNATURE: Shantell Fitch APRN.CRNA PATIENT NAME: Rudi Chin DATE: May 08, 2020 TIME: 8:32 AM CSN: [id number] Reason for Referral Specialty Diagnoses / Procedures Referred By Fili pettit Referred To Contact [facility] Diagnoses Sprain of medial collateral ligament of left knee, initial encounter Bone marrow edema Procedures CONSULT TO PHYSICAL THERAPY PHYSICAL THERAPY EVALUATION HIGH COMPLEX 45 MINS Betty Singh PA-C [address] [place] [address] [facility] [place] [address] Referral ID Status Reason Start Date Expiration Date Visits Requested Visits Authorized [id number] Pending Review Auto-Generat ed Referral 07/14/2024 07/14/2025 1 1 Specialty Diagnoses / Procedures Referred By Contac t Referred To Contact MR IMAGING Diagnoses Injury of left knee, subsequent encounter Procedures MRI KNEE WO IVCON LEFT MRI ANY JT LOWER EXTREM W/O CONTRAST MATRL Cheyenne Bains APRN.CARD STRIPPER [address] [place] [address] [facility] [place] [address] Referral ID Status Reason Start Date Expiration Date Visits Requested Visits Authorized [id number] New Request Auto-Generat ed Referral 4 06/27/2025 1 1 Specialty Diagnoses / Procedures Referred By Contac t Referred To Contact Orthopedics Diagnoses Injury of left knee, subsequent encounter Procedures CONSULT TO ORTHOPAEDICS OFFICE/OUTPATIENT [facility] 60 MINUTES Cheyenne Bains APRN.CARD STRIPPER [address] [place] [address] Referral ID Status Reason Start Date Expiration Date Visits Requested Visits Authorized [id number] Authorized PCP Requested Referral 4 05/28/2025 1 1 Specialty Diagnoses / Procedures Referred By Contac t Referred To Contact Oral Surgery Diagnoses Periapical abscess Procedures EXTRACTION ERUPTED TOOTH/EXR Roopa Valles DMD, MD [address] [place] [address] Referral ID Status Reason Start Date Expiration Date V isits Requested Visits Authorized [id number] Pending Review 09/05/2023 09/04/2024 1 1 Scheduling Instructions If your in-clinic procedure was not scheduled for you today, please call (option 2) during normal business hours (8 am to 5 pm) on to schedule. Please allow 4 weeks time between the day of your consult to scheduling your procedure to allow the system time to process the order and receive insurance authorization. If your insurance denies all or part of your procedure, you will be contacted with [id number] costs or next steps. All self-pay payments will need to be collected in full prior to having the procedure. Please arrive 30 minutes prior to your procedure. If you are having a local anesthesia procedure: No diet restrictions the day before or day of the procedure. You may take your normal medications as instructed. No covid testing needed. You may drive yourself home afterward. If you are prescribed anxiety reducing medications for the procedure: You also MUST have a gas truck driver/escort >18yrs old present to take you home after. If your provider has proposed an IV sedation procedure: Please refer to the instructions given to you at your consult appointment. You will receive a call from a nurse roughly 1 week prior to your procedure to go over any/all instructions. Question Answer What is the procedure for? Dental Please specify: Extractions Please specify: Routine Extraction Routine Extraction--please list tooth number(s): 18, 19 Is Sedation Needed? Local Anesthesia Procedure Length: 60 Which area is this procedure for? Clinic Specialty Diagnoses / Procedures Referred By Fili pettit Referred To Contact CT IMAGING Diagnoses Lung nodules Procedures CT CHEST WO IVCON DIAGNOSTIC COMPUTED TOMOGRAPHY THORAX W/O MONAT Yeyo Melton APRN.CARD STRIPPER [address] [place] [address] [place] [address] Referral ID Status Reason Start Date Expiration Date Visits Requested Visits Authorized [id number] Pending Review Auto-Generat ed Referral 10/24/2024 05/25/2025 1 1 Additional Source Comments INFORMATION SOURCE (unrecogn ized section and content) DATE CREATED AUTHOR 04/14/2020 [facility] DATE CREATED AUTHOR AUTHOR'S ORGANIZ ATION 05/13/2020 [facility] DATE CREATED AUTHOR AUTHOR'S ORGANIZ ATION 11/14/2022 [facility] ([place]) DATE CREATED AUTHOR AUTHOR'S ORGANIZ ATION 12/23/2023 [facility] DATE CREATED AUTHOR AUTHOR'S ORGANIZ ATION 07/16/2024 [facility] DATE CREATED AUTHOR AUTHOR'S ORGANIZ ATION 12/07/2024 [facility] Source Comments (unrecognize d section and content) In the event this informatio n is protected by the Federal Confidentiality of Alcohol and Drug Abuse Patient Records regulations: The Federal rules restrict any use of the information to criminally investigate or prosecute any alcohol or drug abuse patient.[facility] the event this information is protected by the Federal Confidentiality of Alcohol and Drug Abuse Patient Records regulations: The Federal rules restrict any use of the information to criminally investigate or prosecute any alcohol or drug abuse patient.[facility] Center[facility] the event this information is protected by the Federal Confidentiality of Alcohol and Drug Abuse Patient Records regulations: The Federal rules restrict any use of the information to criminally investigate or prosecute any alcohol or drug abuse patient.[facility] Center[facility] the event this information is protected by the Federal Confidentiality of Alcohol and Drug Abuse Patient Records regulations: The Federal rules restrict any use of the information to criminally investigate or prosecute any alcohol or drug abuse patient.[facility] CenterIn the event this information is protected by the Federal Confidentiality of Alcohol and Drug Abuse Patient Records regulations: The Federal rules restrict any use of the information to criminally investigate or prosecute any alcohol or drug abuse patient.[facility] CenterIn the event this information is protected by the Federal Confidentiality of Alcohol and Drug Abuse Patient Records regulations: The Federal rules restrict any use of the information to criminally investigate or prosecute any alcohol or drug abuse patient.[facility] CenterIn the event this information is protected by the Federal Confidentiality of Alcohol and Drug Abuse Patient Records regulations: The Federal rules restrict any use of the information to criminally investigate or prosecute any alcohol or drug abuse patient.[facility] CenterIn the event this information is protected by the Federal Confidentiality of Alcohol and Drug Abuse Patient Records regulations: The Federal rules restrict any use of the information to criminally investigate or prosecute any alcohol or drug abuse patient.[facility] CenterIn the event this information is protected by the Federal Confidentiality of Alcohol and Drug Abuse Patient Records regulations: The Federal rules restrict any use of the information to criminally investigate or prosecute any alcohol or drug abuse patient.[facility] the event this information is protected by the Federal Confidentiality of Alcohol and Drug Abuse Patient Records regulations: The Federal rules restrict any use of the information to criminally investigate or prosecute any alcohol or drug abuse patient.[facility] CenterIn the event this information is protected by the Federal Confidentiality of Alcohol and Drug Abuse Patient Records regulations: The Federal rules restrict any use of the information to criminally investigate or prosecute any alcohol or drug abuse patient.[facility] CenterIn the event this information is protected by the Federal Confidentiality of Alcohol and Drug Abuse Patient Records regulations: The Federal rules restrict any use of the information to criminally investigate or prosecute any alcohol or drug abuse patient.[facility] the event this information is protected by the Federal Confidentiality of Alcohol and Drug Abuse Patient Records regulations: The Federal rules restrict any use of the information to criminally investigate or prosecute any alcohol or drug abuse patient.[facility] CenterIn the event this information is protected by the Federal Confidentiality of Alcohol and Drug Abuse Patient Records regulations: The Federal rules restrict any use of the information to criminally investigate or prosecute any alcohol or drug abuse patient.[facility] CenterIn the event this information is protected by the Federal Confidentiality of Alcohol and Drug Abuse Patient Records regulations: The Federal rules restrict any use of the information to criminally investigate or prosecute any alcohol or drug abuse patient.[facility] CenterIn the event this information is protected by the Federal Confidentiality of Alcohol and Drug Abuse Patient Records regulations: The Federal rules restrict any use of the information to criminally investigate or prosecute any alcohol or drug abuse patient.[facility] Reason for Visit (unrecogniz ed section and content) Reason Comments Cough Bodyaches and conges tion x3days Reason Onset Date Comments Pt Requesting Meds 11/09/2023 Reason Comments Fatigue lack of sleep, bodya ches and chills, facial swelling x last night Specialty Diagnoses / Procedures Referred By Contac t Referred To Contact Oral Surgery Diagnoses Periapical abscess Procedures EXTRACTION ERUPTED TOOTH/EXR Roopa Valles DMD, MD [address] [place] [id number] Referral ID Status Reason Start Date Expiration Date V isits Requested Visits Authorized [id number] Closed Consultation -[facility] 09/05/2023 09/04/2024 1 1 Reason Comments Chest Pain Reason Comments ED Follow-up [facility] 04/22/2024; musc le strain Reason Comments Knee Pain Knee Swelling Reason Comments Follow Up ER follow up for lef t knee Specialty Diagnoses / Procedures Referred By Contac t Referred To Contact FAMILY MEDICINE Diagnoses [facility] ER F/U Procedures Consult, Test, Treat Rylie Valera MD [address] [place] [address] [facility] [address] [place] [address] Referral ID Status Reason Start Date Expiration Date Visits Requested Visits Authorized [id number] Authorized Financial Clearance Required - Self Pay Patient Cleared - Qualified [id number] 08/24/2024 99 99 Reason Comments Appointment Specialty Diagnoses / Procedures Referred By Contac t Referred To Contact MR IMAGING Diagnoses Injury of left knee, subsequent encounter Procedures MRI KNEE WO IVCON LEFT MRI ANY JT LOWER EXTREM W/O CONTRAST Cheyenne Calderon, OMID.CARD STRIPPER [address] [place] [address] [place] [address] Referral ID Status Reason Start Date Expiration Date V isits Requested Visits Authorized [id number] Closed Auto-Generate d Referral 06/11/2024 07/11/2024 1 1 Reason Comments Results MRI Reason Comments New Injury Referred by Cheyenne Dias Reason Comments Vomiting Diarrhea, fatigue, H A, abdominal cramping x 1 day Reason Comments Cough Chest congestion, sn eezing, pain in R eye x 1 day Reason Comments Cough Reason Comments Patient Question Care Teams (unrecognized sec tion and content) Rules Examiner Relationship Specialty Start Date End Date Rylie Valera MD [address] [place] [place], [place] [id number] PCP - General Family Medicine 08/09/18 Rules Examiner Relationship Specialty Start Date End Date Roopa Valles DMD, MD [address] [place] [address] Physician Oral & Maxillofacial Surgery 10/06/23 Rules Examiner Relationship Specialty Start Date End Date Roopa Valles DMD, MD [address] [place] [address] Physician Oral & Maxillofacial Surgery 10/06/23 Rules Examiner Relationship Specialty Start Date End Date Roopa Valles DMD, MD [address] [place] [address] Physician Oral & Maxillofacial Surgery 10/06/23 Rules Examiner Relationship Specialty Start Date End Date Rylie Valera MD [address] [place] [place], [place] [address] PCP - General Family Medicine 08/09/18 Rules Examiner Relationship Specialty Start Date End Date Roopa Valles DMD, MD [address] [place] [address] Physician Oral & Maxillofacial Surgery 10/06/23 Rules Examiner Relationship Specialty Start Date End Date Rylie Valera MD [address] [place] [place], [place] [id number] PCP - General Family Medicine 08/09/18 Rules Examiner Relationship Specialty Start Date End Date Rylie Valera MD [address] [facility] [place] [address] PCP - General Family Medicine 08/09/18 Rules Examiner Relationship Specialty Start Date End Date Rylie Valera MD [address] [place] [address] PCP - General Family Medicine 08/09/18 Rules Examiner Relationship Specialty Start Date End Date Rylie Valera MD [address] [place] [address] PCP - General Family Medicine 08/09/18 Rules Examiner Relationship Specialty Start Date End Date Rylie Valera MD [address] [place] [address] PCP - General Family Medicine 08/09/18 Rules Examiner Relationship Specialty Start Date End Date Rylie Valera MD [address] [place] [address] PCP - General Family Medicine 08/09/18 Cheyenne Bains APRN.CARD STRIPPER [address] [place] [address] [facility] 06/08/24 Rules Examiner Relationship Specialty Start Date End Date Rylie Valera MD [address] [facility] [place] [address] PCP - General Family Medicine 08/09/18 Cheyenne Bains APRN.CARD STRIPPER [address] [place] [address] [facility] 06/08/24 Yeyo Melton APRN.CARD STRIPPER [address] [place] [address] [facility] 06/17/24 Rules Examiner Relationship Specialty Start Date End Date Rylie Valera MD [address] [facility] [place] [address] PCP - General Family Medicine 08/09/18 Cheyenne Bains APRN.CARD STRIPPER [address] [place] [address] [facility] 06/08/24 Yeyo Melton APRN.CARD STRIPPER [address] [facility] [place] [address] [facility] 06/17/24 Rules Examiner Relationship Specialty Start Date End Date Rylie Valera MD [address] [facility] [place] [address] PCP - General Family Medicine 08/09/18 Cheyenne Bains APRN.CARD STRIPPER [address] [facility] [place] [address] [facility] 06/08/24 Yeyo Melton APRN.CARD STRIPPER [address] [place] [address] [facility] 06/17/24 Rules Examiner Relationship Specialty Start Date End Date Rylie Valera MD [address] [place] [address] PCP - General Family Medicine 08/09/18 Cheyenne Bains APRN.CARD STRIPPER [address] [place] [address] [facility] 06/08/24 Yeyo Melton APRN.CARD STRIPPER [address] [place] [address] [facility] 06/17/24 Rules Examiner Relationship Specialty Start Date End Date Rylie Valera MD [address] [place] [address] PCP - General Family Medicine 08/09/18 Cheyenne Bains APRN.CARD STRIPPER [address] [place] [address] [facility] 06/08/24 Yeyo Melton APRN.CARD STRIPPER [address] [place] [address] [facility] 06/17/24 Rules Examiner Relationship Specialty Start Date End Date Rylie Valera MD [address] [place] [address] PCP - General Family Medicine 08/09/18 Cheyenne Bains APRN.CARD STRIPPER [address] [place] [address] [facility] 06/08/24 11/12/24 Yeyo Melton APRN.CARD STRIPPER [address] [place] [address] [phone] ([facility]Ad[facility] 06/17/24 FOR RECORDS PERTAINING TO PATIENTS WHO ARE OR HAVE BEEN ENROLLED IN A CHEMICAL DEPENDENCY/SUBSTANCEABUSE PROGRAM, SOME INFORMATION MAY BE OMITTED. This clinical summary was aggregated from multiple sources. Caution should be exercised in using it in the provision of clinical care. This summary normalizes information from multiple sources, and as a consequence, information in this document may materially change the coding, format and clinical context of patient data. In addition, data may be omitted in some cases. CLINICAL DECISIONS SHOULD BE BASED ON THE PRIMARY CLINICAL RECORDS. [facility] [employer] [facility]. provides no warranty or guarantee of the accuracy or completeness of information in this document.
[2025-05-12 13:29] VITALS: BP 109/64; PULSE 64; RESP 15; O2SAT 100
[2025-05-12 13:36] VITALS: BP 109/64; PULSE 64; RESP 15; TEMP 36.4; O2SAT 100
--- NOTE | 2025-05-12 13:46 | ED.RN ---
this RN to bedside to discharge pt. On arrival to room, pt had self removed IV catheter, holding paper towel to the area. Pt states "I'm sorry I just really had to pee". This RN inspected IV catheter, appears intact, bleeding controlled.
== END 2025-05-12 13:47 | disposition home or self-care (01) ==
PROVIDERS: Emergency Provider Emergency Medicine; PCP Family Medicine; Visit Provider Emergency Medicine
DX: G43.909 Migraine, unspecified, not intractable, without status migrainosus (principal); F31.9 Bipolar disorder, unspecified; F41.9 Anxiety disorder, unspecified; Z87.891 Personal history of nicotine dependence
CPT/HCPCS: 80053; 84703; 85025; 96361; 96374; 96375; 96376; 99284; A4216; J3030